=== PATIENT | male | born 1970 | race Two or more races ===

== ENCOUNTER → 2016-09-12 | Outpatient (CLI) | payer BC ==
--- NOTE | 2016-09-12 11:37 | US ---
EXAMINATION TYPE: US liver DATE OF EXAM: 09/12/2016 11:03 AM COMPARISON: NONE CLINICAL HISTORY: R94.5 ABN LIVER FUNCTIONS. Abnormal LFT's, pt has no other complaints at this time EXAM MEASUREMENTS: Liver Length: 15.7 cm Gallbladder Wall: 0.5 cm CBD: 0.4 cm Right Kidney: 10.0 x 6.2 x 5.3 cm Pancreas: Difficult to visualize due to overlying bowel gas Liver: Heterogeneous, difficult to penetrate, bright in echotexture Gallbladder: Appeared somewhat contracted with thickened wall, pt states he is NPO Evidence for sonographic Martinez's sign: No CBD: wnl Right Kidney: wnl The pancreas is poorly visualized. The liver is normal in size but echogenic and may be fatty infiltrated. The gallbladder appears contracted. The gallbladder wall appears thickened measuring 5.3 mm. The dist al common hepatic duct measures 4 mm. The right kidney is normal. The intrahepatic IVC is unremarkable. IMPRESSION: 1. PROBABLE FATTY INFILTRATION OF THE LIVER. 2. CONTRACTED, THICK-WALLED GALLBLADDER. THE PATIENT CLAIMED HE WAS NOTHING BY MOUTH.
== END | disposition home or self-care (01) ==
LOC: RADUSWWP 10:46
PROVIDERS: ATTEND Internal Medicine
DX: K82.9 Disease of gallbladder, unspecified (principal)
CPT/HCPCS: 76705

== ENCOUNTER 2019-07-12 15:51 | Inpatient (IN) | payer BC, OTHER ==
[2019-07-12] MEDS ORDERED: THIAMINE 100 MG/ML 2 ML VIAL IM STA (17:36)
[2019-07-12 18:38] LABS: Basophils # (A) 0.3 k/uL (0-0.2); Basophils % (A) 5 %; Eosinophils # (A) 0.1 k/uL (0-0.7); Eosinophils % (A) 1 %; HCT 35.1 % (39.0-53.0); HGB 12.3 gm/dL (13.0-17.5); Lymphocytes # (A) 0.1 k/uL (1.0-4.8); Lymphocytes % (A) 2 %; MCH 35.6 pg (25.0-35.0); MCHC 34.9 g/dL (31.0-37.0); MCV 102.1 fL (80.0-100.0); Macrocytosis Slight; Mean Platelet Volume 8.9; Monocytes # (A) 0.7 k/uL (0-1.0); Monocytes % (A) 9 %; Neutrophils # (A) 6.1 k/uL (1.3-7.7); Neutrophils % (A) 81 %; Platelet Count 126 k/uL (150-450); RBC 3.44 m/uL (4.30-5.90); RDW 14.5 % (11.5-15.5); WBC 7.6 k/uL (3.8-10.6)
[2019-07-12 18:47] LABS: ALT 64 U/L (4-49); AST 295 U/L (17-59); African American GFR (CKD) >90 (>60 ml/min/1.73 sqM); Albumin 3.6 g/dL (3.5-5.0); Alkaline Phosphatase 330 U/L (38-126); Anion Gap 18 mmol/L; Blood Urea Nitrogen 7 mg/dL (9-20); Calcium 8.3 mg/dL (8.4-10.2); Carbon Dioxide 27 mmol/L (22-30); Chloride 77 mmol/L (98-107); Glucose 92 mg/dL (74-99); Non-African American GFR(CKD) >90 (>60 ml/min/1.73 sqM); Potassium 3.2 mmol/L (3.5-5.1); Sodium 122 mmol/L (137-145); Total Bilirubin 10.4 mg/dL (0.2-1.3); Total Protein 7.4 g/dL (6.3-8.2)
[2019-07-12] MEDS: LORazepam 2 MG/ML INJ IV PRN ×3 (19:40→23:59)
[2019-07-12] MEDS ORDERED: ONDANSETRON 4 MG/2 ML VIAL IVP STA (19:58)
[2019-07-12] MEDS ORDERED: POTASSIUM CHLORIDE ER 10 MEQ TAB.ER.PRT PO STA (19:58)
[2019-07-12] MEDS ORDERED: SODIUM CHLORIDE 0.9% 1,000 ML IV ONE (20:01)
--- NOTE | 2019-07-12 20:06 | ED ---
Recheck HPI - General Source: patient Mode of arrival: wheelchair Limitations: no limitations <Hilda Weir - Last Filed: 07/12/19 20:02> <Daniel York - Last Filed: 07/12/19 21:11> - General Chief Complaint: Recheck/Abnormal Lab/Rx Stated Complaint: Yellow skin/eyes Time Seen by Provider: 07/12/19 17:06 - History of Present Illness Initial Comments: 49yo mouth history of alcohol as an presenting for jaundice x 1 day. Patient is accompanied today by his who states that patient woke up today with karen linton. She states he is an alcoholic and she was concerned that something was off his liver. Patient states he is very nauseous and has had some shakes he has been drinking today he usually drinks back on [place] hard lemonades. Patient denies dizziness, VENEGAS, visual changes hallucinations, chest pain, abdominal pain, shortness of breath, leg or abdominal swelling. Patient upon arrival is obviously jaundice, no acute distress. Did have episode of vomiting in waiting room. (Hilda Weir) - Related Data Home Medications Medication Instructions Recorded Confirmed Fenofibrate Nanocrystallized 145 mg PO DAILY 07/12/19 07/12/19 [Fenofibrate] Hydrochlorothiazide 25 mg PO DAILY 07/12/19 07/12/19 Lisinopril [Prinivil] 10 mg PO DAILY 07/12/19 07/12/19 Metoprolol Succinate [Toprol XL] 100 mg PO DAILY 07/12/19 07/12/19 Allergies Allergy/AdvReac Type Severity Reaction Status Date / Time Penicillins Allergy Unknown Verified 07/12/19 15:59 Childhood Review of Systems ROS Other: All systems not noted in ROS Statement are negative. <Hilda Weir - Last Filed: 07/12/19 20:02> ROS Other: All systems not noted in ROS Statement are negative. <Danile York - Last Filed: 07/12/19 21:11> ROS Statement: Those systems with pertinent positive or pertinent negative responses have been documented in the HPI. Past Medical History Past Medical History: Hyperlipidemia, Hypertension History of Any Multi-Drug Resistant Organisms: None Reported Past Surgical History: No Surgical Hx Reported Past Psychological History: No Psychological Hx Reported Smoking Status: Former smoker Past Alcohol Use History: Daily, Heavy Past Drug Use History: None Reported <Hilda Weir - Last Filed: 07/12/19 20:02> General Exam Limitations: no limitations <Hilda Weir - Last Filed: 07/12/19 20:02> - General Exam Comments Initial Comments: General: The patient is awake and alert, in no distress Eye: +3 mm pupils are equal, round and reactive to light, extra-ocular movements are intact. No nystagmus. There is normal conjunctiva bilaterally. icterus. Ears, nose, mouth and throat: There are moist mucous membranes and no oral lesions. Neck: The neck is supple, there is no tenderness or JVD. Cardiovascular: There is a regular rate and rhythm. No murmur, rub or gallop is appreciated. Respiratory: Lungs are clear to auscultation, respirations are non-labored, breath sounds are equal. No wheezes, stridor, rales, or rhonchi. Gastrointestinal: Soft, non-distended, non-tender abdomen without masses. Liver enlargement noted. There is no rebound or guarding present. No CVA tenderness. Bowel sounds are unremarkable. Musculoskeletal: Normal ROM, no tenderness. Strength 5/5. Sensation intact. Radial pulses equal bilaterally 2+. Neurological: A&O x 3. CN II-XII intact, There are no obvious motor or sensory deficits. Coordination appears grossly intact. Speech is normal. Slight tremor noted, very mild of the UE b/l. Skin: Skin is warm and dry and no rashes or lesions are noted. jaundice of the skin noted Psychiatric: Cooperative, appropriate mood & affect, normal judgment. (Hilda Weir) Course Vital Signs 07/12/19 07/12/19 07/12/19 15:56 20:26 20:54 Temperature 98.4 F Pulse Rate 109 H 98 99 Respiratory 16 18 20 Rate Blood Pressure 134/95 125/87 138/89 O2 Sat by Pulse 99 97 98 Oximetry Medical Decision Making - Lab Data Result diagrams: 07/12/19 18:20 07/12/19 18:20 <Hilda Weir - Last Filed: 07/12/19 20:02> - Lab Data Result diagrams: 07/12/19 18:20 07/12/19 18:20 <Daniel York - Last Filed: 07/12/19 21:11> - Medical Decision Making 50yo presenting for yellowing of eye. Bilirubin elevated. Low sodium. Nausea. Patient case discussed with Dr. York at 20:05 he requested additional orders, and will make final patient disposition. Updated family with plan. (DestinHilda Oscar) PA attestation: I, Dr. Daniel York, personally saw and examined the patient. I have reviewed and agree with the resident/PA findings, including all diagnostic interpretations and treatment plans as written unless otherwise stated. I was present for the oates portions of any procedures performed and inclusive time noted for any critical care statement. Patient was seen and evaluated along with physician foundation assistant Nataliya Delacruz. Briefly, patient is a 49-year-old male presents to the emergency department for acute onset icterus. Patient states he is a daily alcohol abuser. He drinks large amounts of hard liquor daily. Patient hemodynamically stable upon arrival except for some mild tachycardia. Laboratory evaluation was reviewed. Patient does have some signs of nutritional deficiency as evidence of macrocytosis. Coag panel shows INR 1.2. No signs of overt liver failure. Sodium is hyponatremic 122. Is likely some degree of potomania. Magnesium is significantly low at 0.7. Patient given IV magnesium. Bilirubin is elevated to 10.1. With the predilection of direct bilirubin elevation. A call is 90. Patient right away at bedside shows degrees of withdrawal and/or asterixis. Discussed patient case with Dr. thomas who requests that patient be admitted to tense care unit. Discussed patient case with Dr. Barkley who is willing to accept patient to the ICU. Patient ordered for lactulose. He is reevaluated at bedside and found to be in stable medical condition. (Daniel York) - Lab Data Lab Results 07/12/19 07/12/19 07/12/19 Range/Units 18:20 18:20 18:20 WBC 7.6 (3.8-10.6) k/uL RBC 3.44 L (4.30-5.90) m/uL Hgb 12.3 L (13.0-17.5) gm/dL Hct 35.1 L (39.0-53.0) % MCV 102.1 H (80.0-100.0) fL MCH 35.6 H (25.0-35.0) pg MCHC 34.9 (31.0-37.0) g/dL RDW 14.5 (11.5-15.5) % Plt Count 126 L (150-450) k/uL Neutrophils % 81 % Lymphocytes % 2 % Monocytes % 9 % Eosinophils % 1 % Basophils % 5 % Neutrophils # 6.1 (1.3-7.7) k/uL Lymphocytes # 0.1 L (1.0-4.8) k/uL Monocytes # 0.7 (0-1.0) k/uL Eosinophils # 0.1 (0-0.7) k/uL Basophils # 0.3 H (0-0.2) k/uL Macrocytosis Slight PT (9.0-12.0) sec INR (<1.2) APTT (22.0-30.0) sec Sodium 122 L (137-145) mmol/L Potassium 3.2 L (3.5-5.1) mmol/L Chloride 77 L (98-107) mmol/L Carbon Dioxide 27 (22-30) mmol/L Anion Gap 18 mmol/L BUN 7 L (9-20) mg/dL Creatinine 0.69 (0.66-1.25) mg/dL Est GFR (CKD-EPI)AfAm >90 (>60 ml/min/1.73 sqM) Est GFR (CKD-EPI)NonAf >90 (>60 ml/min/1.73 sqM) Glucose 92 (74-99) mg/dL Calcium 8.3 L (8.4-10.2) mg/dL Phosphorus 3.0 (2.5-4.5) mg/dL Magnesium 0.7 L* (1.6-2.3) mg/dL Total Bilirubin 10.4 H 10.1 H (0.2-1.3) mg/dL Conjugated Bilirubin 4.7 H (0.0-0.3) mg/dL Unconjugated Bilirubin 1.9 H (0.0-1.1) mg/dL Delta Bilirubin 3.5 H (0.0-0.2) mg/dL AST 295 H (17-59) U/L ALT 64 H (4-49) U/L Alkaline Phosphatase 330 H (38-126) U/L Ammonia (<30) umol/L Total Protein 7.4 (6.3-8.2) g/dL Albumin 3.6 (3.5-5.0) g/dL Lipase 137 (23-300) U/L Serum Alcohol mg/dL Hepatitis A IgM Ab 07/12/19 07/12/19 07/12/19 Range/Units 18:20 18:20 19:50 WBC (3.8-10.6) k/uL RBC (4.30-5.90) m/uL Hgb (13.0-17.5) gm/dL Hct (39.0-53.0) % MCV (80.0-100.0) fL MCH (25.0-35.0) pg MCHC (31.0-37.0) g/dL RDW (11.5-15.5) % Plt Count (150-450) k/uL Neutrophils % % Lymphocytes % % Monocytes % % Eosinophils % % Basophils % % Neutrophils # (1.3-7.7) k/uL Lymphocytes # (1.0-4.8) k/uL Monocytes # (0-1.0) k/uL Eosinophils # (0-0.7) k/uL Basophils # (0-0.2) k/uL Macrocytosis PT 12.2 H (9.0-12.0) sec INR 1.2 H (<1.2) APTT 25.4 (22.0-30.0) sec Sodium (137-145) mmol/L Potassium (3.5-5.1) mmol/L Chloride (98-107) mmol/L Carbon Dioxide (22-30) mmol/L Anion Gap mmol/L BUN (9-20) mg/dL Creatinine (0.66-1.25) mg/dL Est GFR (CKD-EPI)AfAm (>60 ml/min/1.73 sqM) Est GFR (CKD-EPI)NonAf (>60 ml/min/1.73 sqM) Glucose (74-99) mg/dL Calcium (8.4-10.2) mg/dL Phosphorus (2.5-4.5) mg/dL Magnesium (1.6-2.3) mg/dL Total Bilirubin (0.2-1.3) mg/dL Conjugated Bilirubin (0.0-0.3) mg/dL Unconjugated Bilirubin (0.0-1.1) mg/dL Delta Bilirubin (0.0-0.2) mg/dL AST (17-59) U/L ALT (4-49) U/L Alkaline Phosphatase (38-126) U/L Ammonia 185 H (<30) umol/L Total Protein (6.3-8.2) g/dL Albumin (3.5-5.0) g/dL Lipase (23-300) U/L Serum Alcohol 90 mg/dL Hepatitis A IgM Ab 07/12/19 Range/Units 19:59 WBC (3.8-10.6) k/uL RBC (4.30-5.90) m/uL Hgb (13.0-17.5) gm/dL Hct (39.0-53.0) % MCV (80.0-100.0) fL MCH (25.0-35.0) pg MCHC (31.0-37.0) g/dL RDW (11.5-15.5) % Plt Count (150-450) k/uL Neutrophils % % Lymphocytes % % Monocytes % % Eosinophils % % Basophils % % Neutrophils # (1.3-7.7) k/uL Lymphocytes # (1.0-4.8) k/uL Monocytes # (0-1.0) k/uL Eosinophils # (0-0.7) k/uL Basophils # (0-0.2) k/uL Macrocytosis PT (9.0-12.0) sec INR (<1.2) APTT (22.0-30.0) sec Sodium (137-145) mmol/L Potassium (3.5-5.1) mmol/L Chloride (98-107) mmol/L Carbon Dioxide (22-30) mmol/L Anion Gap mmol/L BUN (9-20) mg/dL Creatinine (0.66-1.25) mg/dL Est GFR (CKD-EPI)AfAm (>60 ml/min/1.73 sqM) Est GFR (CKD-EPI)NonAf (>60 ml/min/1.73 sqM) Glucose (74-99) mg/dL Calcium (8.4-10.2) mg/dL Phosphorus (2.5-4.5) mg/dL Magnesium (1.6-2.3) mg/dL Total Bilirubin (0.2-1.3) mg/dL Conjugated Bilirubin (0.0-0.3) mg/dL Unconjugated Bilirubin (0.0-1.1) mg/dL Delta Bilirubin (0.0-0.2) mg/dL AST (17-59) U/L ALT (4-49) U/L Alkaline Phosphatase (38-126) U/L Ammonia (<30) umol/L Total Protein (6.3-8.2) g/dL Albumin (3.5-5.0) g/dL Lipase (23-300) U/L Serum Alcohol mg/dL Hepatitis A IgM Ab NEGATIVE Disposition <Hilda Weir - Last Filed: 07/12/19 20:02> Decision Time: 21:11 <Daniel York - Last Filed: 07/12/19 21:11> Clinical Impression: Hepatic failure Disposition: ADMITTED IP TO THIS HOSP Condition: Critical Referrals: Vonda Boles MD [Primary Care Provider] - 1-2 days
--- NOTE | 2019-07-12 20:22 | US ---
EXAMINATION TYPE: US abdomen limited DATE OF EXAM: 07/12/2019 COMPARISON: US 2017 CLINICAL HISTORY: gallbladder. ATTN gallbladder per order. Jaundice. HTN, Hyperlipidemia. EXAM MEASUREMENTS: Liver Length: 16.7 cm Gallbladder Wall: 0.39 cm CBD: 0.37 cm Right Kidney: 10.6 x 5.9 x 5.9 cm Limited due to gas and body habitus. Pancreas: Not visualized due to overlying bowel gas. Liver: Appears to have an increased echogenicity. Difficult to penetrate. Limited. Gallbladder: Measures 8.8 cm in length. Wall measures upper limits of normal to slightly thickened. Fold seen near fundus. Evidence for sonographic Martinez's sign: No CBD: Appears wnl. Right Kidney: No hydronephrosis or masses seen. Appears lobulated. IMPRESSION: No gallstones or dilated ducts. Diffuse fatty infiltration of the liver.
[2019-07-12] MEDS: THIAMINE 100 MG TAB PO SCH (20:26)
[2019-07-12 20:29] LABS: Bilirubin, Conjugated 4.7 mg/dL (0.0-0.3); Bilirubin, Delta 3.5 mg/dL (0.0-0.2); Bilirubin,Unconjugated 1.9 mg/dL (0.0-1.1); Total Bilirubin 10.1 mg/dL (0.2-1.3)
[2019-07-12 20:32] LABS: INR 1.2 (<1.2); Partial Thromboplastin Time 25.4 sec (22.0-30.0); Prothrombin Time 12.2 sec (9.0-12.0)
[2019-07-12 20:37] LABS: Magnesium 0.7 mg/dL (1.6-2.3)
[2019-07-12 20:54] LABS: Hepatitis A Antibody IgM NEGATIVE
[2019-07-12] MEDS: SODIUM CHLORIDE 0.9% 1,000 ML IV SCH (20:59)
[2019-07-12] MEDS ORDERED: NALOXONE 0.4 MG/ML 1 ML VIAL IV PRN (21:06)
[2019-07-12] MEDS ORDERED: LACTULOSE 20 GM/30 ML CUP PO ONE (21:10)
[2019-07-12] MEDS: MAGNESIUM SULFATE-D5W PMX 1 GM in DEXTROSE/WATER 1 100ML.BAG IVPB SCH ×2 (21:38→23:06)
[2019-07-12 22:15] LABS: Glucose,Whole Blood 96 mg/dL (75-99)
[2019-07-13] MEDS: LORazepam 2 MG/ML INJ IV PRN ×6 (00:31→16:11)
[2019-07-13] MEDS: ONDANSETRON 4 MG/2 ML VIAL IVP PRN ×2 (01:47→08:33)
[2019-07-13 03:24] LABS: HCT 32.7 % (39.0-53.0); HGB 11.8 gm/dL (13.0-17.5); MCH 37.1 pg (25.0-35.0); MCHC 36.1 g/dL (31.0-37.0); MCV 102.7 fL (80.0-100.0); Macrocytosis Slight; Mean Platelet Volume 9.1; Platelet Count 129 k/uL (150-450); RBC 3.18 m/uL (4.30-5.90); RDW 14.9 % (11.5-15.5); WBC 10.1 k/uL (3.8-10.6)
[2019-07-13 03:36] LABS: African American GFR (CKD) >90 (>60 ml/min/1.73 sqM); Anion Gap 12 mmol/L; Blood Urea Nitrogen 7 mg/dL (9-20); Calcium 7.9 mg/dL (8.4-10.2); Carbon Dioxide 29 mmol/L (22-30); Chloride 81 mmol/L (98-107); Glucose 114 mg/dL (74-99); Magnesium 1.3 mg/dL (1.6-2.3); Non-African American GFR(CKD) >90 (>60 ml/min/1.73 sqM); Potassium 3.4 mmol/L (3.5-5.1); Sodium 122 mmol/L (137-145)
[2019-07-13] MEDS ORDERED: Potassium Replacement Protocol 1 EACH MISC MISCELLANE PRN (03:45)
[2019-07-13] MEDS ORDERED: Magnesium Replacement Protocol 1 EACH MISC MISCELLANE PRN (03:46)
[2019-07-13] MEDS: MAGNESIUM SULFATE-D5W PMX 1 GM in DEXTROSE/WATER 1 100ML.BAG IVPB SCH ×3 (04:31→06:27)
[2019-07-13] MEDS: POTASSIUM CHLORIDE 10 MEQ in WATER FOR INJECTION 1 100ML.BAG IVPB SCH ×4 (04:31→07:44)
[2019-07-13 04:49] LABS: Hepatitis B Core IgM Non-Reactive (Non-Reactive); Hepatitis B Surface Antigen Non-Reactive (Non-Reactive); Hepatitis C IgG Antibody Non-Reactive (Non-Reactive)
[2019-07-13] MEDS: SODIUM CHLORIDE 0.9% 1,000 ML IV SCH ×2 (05:38→16:11)
[2019-07-13] MEDS: THIAMINE 100 MG TAB PO SCH ×2 (08:27→18:32)
[2019-07-13] MEDS: METOPROLOL SUCCINATE (ER) 100 MG TAB.ER.24H PO SCH (08:44)
[2019-07-13] MEDS ORDERED: LACTULOSE 20 GM/30 ML CUP PO SCH ×2 (09:00→16:00)
[2019-07-13] MEDS ORDERED: LISINOPRIL 10 MG TAB PO SCH (09:00)
[2019-07-13] MEDS ORDERED: PANTOPRAZOLE 40 MG/10 ML VIAL IV SCH (09:00)
--- NOTE | 2019-07-13 09:09 | XR ---
EXAMINATION TYPE: XR chest 1V portable DATE OF EXAM: 07/13/2019 COMPARISON: NONE HISTORY: Cough TECHNIQUE: Single frontal view of the chest is obtained. FINDINGS: There is no focal air space opacity, pleural effusion, or pneumothorax seen. The cardiac silhouette size is within normal limits. The osseous structures are intact. Patient rotation noted. No overt failure. IMPRESSION: No acute process.
--- NOTE | 2019-07-13 09:51 | P.CNPUL ---
History of Present Illness Consult date: 07/13/19 Reason for consult: dyspnea Chief complaint: Jaundice, nausea, tremors History of present illness: 49-year-old white male patient with past medical history of hypertension, hyperlipidemia, former smoker, daily EtOH use, who presents the emergency department on 05/11/2020 with complaints of one day history of generalized jaundice, nausea, and tremors. Apparently his last drink was on the day of his presentation on 07/12/2019. Patient denied any shortness of breath, denied any chest pain, no abdominal pain, no vomiting, no leg lower abdominal swelling, no hallucinations no headaches or dizziness. On presentation patient is obviously jaundiced. Abdominal ultrasound showed no gallstones or dilated duct, diffuse fatty infiltration of the liver. Lab work showed normal white count at 7.6, hemoglobin is 12.3, INR is 1.2, sodium is 122, potassium is 3.2, chloride is 77 and a CO2 is 27, BUN is 7 creatinine 0.69, magnesium is 0.7, total bilirubin is 10.1, AST is 295, ALT 64, alkaline phosphatase 303 at 30 ammonia level is 185 serum alcohol was 90, serum lipase was normal at 137, hepatitis panel was negative. Patient is tachycardic with a rate of 135-140 BPM, in sinus mechanism, she was seen in the intensive care unit this morning, he was quite confused and delirious, but looks to be in no acute distress, he is on 2 L of oxygen with a pulse ox of 94%, he is afebrile. He is receiving normal saline at a rate of 100 ML per hour. Patient has been started on thiamine replacement, Ativan for CIWA protocol, electrolytes are being replaced. Review of Systems All systems: negative Constitutional: Reports weakness, Denies chills, Denies fever Eyes: denies blurred vision, denies pain Ears, nose, mouth and throat: Denies headache, Denies sore throat Cardiovascular: Denies chest pain, Denies shortness of breath Respiratory: Reports dyspnea, Denies cough Gastrointestinal: Reports nausea, Denies abdominal pain, Denies diarrhea, Denies vomiting Musculoskeletal: Denies myalgias Integumentary: Denies pruritus, Denies rash Neurological: Reports weakness, Denies numbness Psychiatric: Denies anxiety, Denies depression Endocrine: Denies fatigue, Denies weight change Past Medical History Past Medical History: Hyperlipidemia, Hypertension History of Any Multi-Drug Resistant Organisms: None Reported Past Surgical History: No Surgical Hx Reported Past Anesthesia/Blood Transfusion Reactions: No Reported Reaction Past Psychological History: No Psychological Hx Reported Smoking Status: Former smoker Past Alcohol Use History: Daily, Heavy Past Drug Use History: None Reported Medications and Allergies Home Medications Medication Instructions Recorded Confirmed Type Fenofibrate Nanocrystallized 145 mg PO DAILY 07/12/19 07/12/19 History [Fenofibrate] Hydrochlorothiazide 25 mg PO DAILY 07/12/19 07/12/19 History Lisinopril [Prinivil] 10 mg PO DAILY 07/12/19 07/12/19 History Metoprolol Succinate [Toprol XL] 100 mg PO DAILY 07/12/19 07/12/19 History Allergies Allergy/AdvReac Type Severity Reaction Status Date / Time Penicillins Allergy Unknown Verified 07/12/19 15:59 Childhood Physical Exam Vitals: Vital Signs Temp Pulse Resp BP Pulse Ox 07/13/19 08:00 98.9 F 142 H 20 131/89 94 L 07/13/19 07:00 135 H 15 151/99 95 07/13/19 06:00 134 H 18 119/74 95 07/13/19 05:00 132 H 19 133/85 96 07/13/19 04:00 99.4 F 128 H 19 122/99 96 07/13/19 03:00 128 H 15 122/88 96 07/13/19 02:00 128 H 12 142/87 97 07/13/19 01:00 140 H 18 150/100 96 07/13/19 00:00 99.4 F 117 H 18 151/102 94 L 07/12/19 23:00 113 H 18 147/100 94 L 07/12/19 22:16 99.2 F 101 H 10 L 137/109 07/12/19 21:58 99.0 F 107 H 20 134/92 07/12/19 21:56 97.7 F 07/12/19 20:54 99 20 138/89 98 07/12/19 20:26 98 18 125/87 97 07/12/19 15:56 98.4 F 109 H 16 134/95 99 Intake and Output 07/12/19 07/13/19 07/13/19 22:59 06:59 14:59 Intake Total 100 1300 500 Output Total 700 0 Balance 100 600 500 Intake: IV 200 Potassium Chloride 10 meq 100 In Water For Injection 1 100ml.bag @ 100 mls/hr IVPB Q1HR [facility] Rx#: [id number] Sodium Chloride 0.9% 1, 100 000 ml @ 100 mls/hr IV . Q10H [facility] Rx#:[id number] Intake, IV Titration 100 1300 300 Amount Magnesium Sulfate-D5w Pmx 100 1 gm In Dextrose/Water 1 100ml.bag @ 100 mls/hr IVPB Q1H [facility] Rx#: [id number] Magnesium Sulfate-D5w Pmx 200 100 1 gm In Dextrose/Water 1 100ml.bag @ 100 mls/hr IVPB Q1H [facility] Rx#: [id number] Potassium Chloride 10 meq 200 100 In Water For Injection 1 100ml.bag @ 100 mls/hr IVPB Q1HR [facility] Rx#: [id number] Sodium Chloride 0.9% 1, 100 800 100 000 ml @ 100 mls/hr IV . Q10H [facility] Rx#:[id number] Output: Urine 700 0 Other: # Voids 1 0 Weight 74.843 kg 75.3 kg GENERAL EXAM: Somnolent but arousable, at times restless, confused, delirious 49-year-old white male, who is obviously jaundiced comfortable in no apparent distress. HEAD: Normocephalic/atraumatic. EYES: Normal reaction of pupils, equal size. Conjunctiva pink, sclera white. NOSE: Clear with pink turbinates. THROAT: No erythema or exudates. NECK: No masses, no JVD, no thyroid enlargement, no adenopathy. CHEST: No chest wall deformity. Symmetrical expansion. LUNGS: Equal air entry with no crackles, wheeze, rhonchi or dullness. CVS: Regular rate and rhythm, normal S1 and S2, no gallops, no murmurs, no rubs. he is tachycardic with a rate of 130s to 140 BPM ABDOMEN: Soft, nontender. No hepatosplenomegaly, normal bowel sounds, no gu arding or rigidity. EXTREMITIES: No clubbing, no edema, no cyanosis, 2+ pulses and upper and lower e xtremities. MUSCULOSKELETAL: Muscle strength and tone normal. SPINE: No scoliosis or deformity SKIN: No rashes CENTRAL NERVOUS SYSTEM: Somnolent, arousable answering simple questions but quite confused, oriented to self and place. No focal deficits, tone is normal in all 4 extremities. Results - Laboratory Findings CBC and BMP: 07/13/19 03:16 07/13/19 03:16 PT/INR, D-dimer PT 12.2 sec (9.0-12.0) H 07/12/19 18:20 INR 1.2 (<1.2) H 07/12/19 18:20 Abnormal lab findings: Abnormal Labs 07/12/19 07/12/19 07/12/19 18:20 18:20 18:20 RBC 3.44 L Hgb 12.3 L Hct 35.1 L MCV 102.1 H MCH 35.6 H Plt Count 126 L Lymphocytes # 0.1 L Basophils # 0.3 H PT INR Sodium 122 L Potassium 3.2 L Chloride 77 L BUN 7 L Glucose Calcium 8.3 L Magnesium 0.7 L* Total Bilirubin 10.4 H 10.1 H Conjugated Bilirubin 4.7 H Unconjugated Bilirubin 1.9 H Delta Bilirubin 3.5 H AST 295 H ALT 64 H Alkaline Phosphatase 330 H Ammonia 07/12/19 07/12/19 07/13/19 18:20 18:20 03:16 RBC 3.18 L Hgb 11.8 L Hct 32.7 L MCV 102.7 H MCH 37.1 H Plt Count 129 L Lymphocytes # Basophils # PT 12.2 H INR 1.2 H Sodium Potassium Chloride BUN Glucose Calcium Magnesium Total Bilirubin Conjugated Bilirubin Unconjugated Bilirubin Delta Bilirubin AST ALT Alkaline Phosphatase Ammonia 185 H 07/13/19 03:16 RBC Hgb Hct MCV MCH Plt Count Lymphocytes # Basophils # PT INR Sodium 122 L Potassium 3.4 L Chloride 81 L BUN 7 L Glucose 114 H Calcium 7.9 L Magnesium 1.3 L Total Bilirubin Conjugated Bilirubin Unconjugated Bilirubin Delta Bilirubin AST ALT Alkaline Phosphatase Ammonia - Diagnostic Findings Chest x-ray: report reviewed, image reviewed Assessment and Plan Plan: Assessment: #1. Acute hepatic encephalopathy related to EtOH liver disease #2. Jaundice, hyperbilirubinemia related to alcoholic liver disease #3. Weakness, nausea related to the above #4. Hypochloremic hyponatremia, related to chronic alcoholism, and a component of hypovolemia. Admission serum sodium was 122 #5. Hypokalemia, admission serum potassium is 3.2 #6. Hypomagnesemia replaced per protocol, admission magnesium was 0.7 #7. Chronic EtOH use last drink on the day of admission of 07/12/2019 #8. Hypertension #9. Hyperlipidemia #10. Elevated liver transaminases related to alcoholic liver disease #11. Increased ammonia level, serum ammonia was 185, the patient on lactulose Plan: Continue IV fluids at 100, continue Ativan per [facility] protocol. We'll start lactulose at 20 gm 3 times daily. Continue monitoring for worsening signs of delirium, continue thiamine replacement continue aspiration precautions maintaining safety precautions. Correct serum potassium and serum magnesium per protocol. Will restart metoprolol, will hold off on patient's other antihypert ensives including lisinopril and diuretics, GI service as outpatient has been requested in view of elevated liver transaminases. He will be monitored in the intensive care unit. Obtain a chest x-ray. We will add IV Rocephin. Repeat labs, repeat ammonia level in the morning I performed a history & physical examination of the patient and discussed their management with my nurse practitioner, Preethi Klein. I reviewed the nurse practitioner's note and agree with the documented findings and plan of care. Lung sounds are positive for clear breath sounds. The findings and the impression was discussed with the patient. I attest to the documentation by the nurse practitioner. Time with Patient: Greater than 30
--- NOTE | 2019-07-13 09:57 | P.HPIM ---
History of Present Illness H&P Date: 07/13/19 Chief Complaint: EtOH jaundice This is a 49-year-old male patient who presented to the ER with complaints of yellowing of skin and eyes. Patient is known past medical history of EtOH drinking approximately a pint of vodka plus beer daily. Patient's urged patient to come to ER due to presentation of jaundice 1 day patient was noted to have yellowing of his eyes and she was concerned about his liver. Additional medical history includes hyperlipidemia hypertension and ex-smoker. Abdominal ultrasound completed showing no gallstones or dilated ducts diffuse fatty infiltration of liver. Upon admission AST elevated to 95, ALT 64 alkaline phosphatase 3:30 total bilirubin 10.1 and ammonia level 185. Patient has been started on lactulose. GI services have been consulted. Patient's electrolytes also significantly impaired. Sodium low at 122, potassium 3.2, magnesium 0.7. Replacement per protocol patient currently on normal saline. Patient also currently in EtOH withdrawals. Patient has been admitted to the intensive care unit critical care services are following. Heart rate elevated secondary to withdrawal. CIWA protocol has been ordered. GI services have been consulted for Liver failure. At this time patient is resting comfortably in bed shakiness and withdrawal symptoms noted. Patient is alert and oriented 2. Patient able to follow commands. Patient denies chest pain. Patient denies shortness of breath. Patient denies any urinary burning or frequency. Review of Systems Please refer to HPI otherwise unremarkable Past Medical History Past Medical History: Hyperlipidemia, Hypertension History of Any Multi-Drug Resistant Organisms: None Reported Past Surgical History: No Surgical Hx Reported Past Anesthesia/Blood Transfusion Reactions: No Reported Reaction Past Psychological History: No Psychological Hx Reported Smoking Status: Former smoker Past Alcohol Use History: Daily, Heavy Past Drug Use History: None Reported Medications and Allergies Home Medications Medication Instructions Recorded Confirmed Type Fenofibrate Nanocrystallized 145 mg PO DAILY 07/12/19 07/12/19 History [Fenofibrate] Hydrochlorothiazide 25 mg PO DAILY 07/12/19 07/12/19 History Lisinopril [Prinivil] 10 mg PO DAILY 07/12/19 07/12/19 History Metoprolol Succinate [Toprol XL] 100 mg PO DAILY 07/12/19 07/12/19 History Allergies Allergy/AdvReac Type Severity Reaction Status Date / Time Penicillins Allergy Unknown Verified 07/12/19 15:59 Childhood Physical Exam Vitals: Vital Signs Temp Pulse Resp BP Pulse Ox 07/13/19 09:00 138 H 20 121/82 96 07/13/19 08:00 98.9 F 142 H 20 131/89 94 L 07/13/19 07:00 135 H 15 151/99 95 07/13/19 06:00 134 H 18 119/74 95 07/13/19 05:00 132 H 19 133/85 96 07/13/19 04:00 99.4 F 128 H 19 122/99 96 07/13/19 03:00 128 H 15 122/88 96 07/13/19 02:00 128 H 12 142/87 97 07/13/19 01:00 140 H 18 150/100 96 07/13/19 00:00 99.4 F 117 H 18 151/102 94 L 07/12/19 23:00 113 H 18 147/100 94 L 07/12/19 22:16 99.2 F 101 H 10 L 137/109 07/12/19 21:58 99.0 F 107 H 20 134/92 07/12/19 21:56 97.7 F 07/12/19 20:54 99 20 138/89 98 07/12/19 20:26 98 18 125/87 97 07/12/19 15:56 98.4 F 109 H 16 134/95 99 Intake and Output 07/12/19 07/13/19 07/13/19 22:59 06:59 14:59 Intake Total 100 1300 600 Output Total 700 0 Balance 100 600 600 Intake: IV 300 Potassium Chloride 10 meq 100 In Water For Injection 1 100ml.bag @ 100 mls/hr IVPB Q1HR [facility] Rx#: [id number] Sodium Chloride 0.9% 1, 200 000 ml @ 100 mls/hr IV . Q10H [facility] Rx#:[id number] Intake, IV Titration 100 1300 300 Amount Magnesium Sulfate-D5w Pmx 100 1 gm In Dextrose/Water 1 100ml.bag @ 100 mls/hr IVPB Q1H [facility] Rx#: [id number] Magnesium Sulfate-D5w Pmx 200 100 1 gm In Dextrose/Water 1 100ml.bag @ 100 mls/hr IVPB Q1H [facility] Rx#: [id number] Potassium Chloride 10 meq 200 100 In Water For Injection 1 100ml.bag @ 100 mls/hr IVPB Q1HR [facility] Rx#: [id number] Sodium Chloride 0.9% 1, 100 800 100 000 ml @ 100 mls/hr IV . Q10H [facility] Rx#:[id number] Output: Urine 700 0 Other: # Voids 1 0 Weight 74.843 kg 75.3 kg Head normocephalic. Neck supple Lungs clear to auscultation bilaterally no wheezing or crackles Heart regular rate and rhythm S1-S2, no rub or gallop Abdomen is soft nontender nondistended positive bowel sounds no hepatosplenomegaly Extremities no edema Neuro alert and orientated to 2 Bilateral jaundice noted to eyes and skin Results CBC & Chem 7: 07/13/19 03:16 07/13/19 03:16 Labs: Abnormal Lab Results - Last 24 Hours (Table) 07/12/19 07/12/19 07/12/19 Range/Units 18:20 18:20 18:20 RBC 3.44 L (4.30-5.90) m/uL Hgb 12.3 L (13.0-17.5) gm/dL Hct 35.1 L (39.0-53.0) % MCV 102.1 H (80.0-100.0) fL MCH 35.6 H (25.0-35.0) pg Plt Count 126 L (150-450) k/uL Lymphocytes # 0.1 L (1.0-4.8) k/uL Basophils # 0.3 H (0-0.2) k/uL PT (9.0-12.0) sec INR (<1.2) Sodium 122 L (137-145) mmol/L Potassium 3.2 L (3.5-5.1) mmol/L Chloride 77 L (98-107) mmol/L BUN 7 L (9-20) mg/dL Glucose (74-99) mg/dL Calcium 8.3 L (8.4-10.2) mg/dL Magnesium 0.7 L* (1.6-2.3) mg/dL Total Bilirubin 10.4 H 10.1 H (0.2-1.3) mg/dL Conjugated Bilirubin 4.7 H (0.0-0.3) mg/dL Unconjugated Bilirubin 1.9 H (0.0-1.1) mg/dL Delta Bilirubin 3.5 H (0.0-0.2) mg/dL AST 295 H (17-59) U/L ALT 64 H (4-49) U/L Alkaline Phosphatase 330 H (38-126) U/L Ammonia (<30) umol/L 07/12/19 07/12/19 07/13/19 Range/Units 18:20 18:20 03:16 RBC 3.18 L (4.30-5.90) m/uL Hgb 11.8 L (13.0-17.5) gm/dL Hct 32.7 L (39.0-53.0) % MCV 102.7 H (80.0-100.0) fL MCH 37.1 H (25.0-35.0) pg Plt Count 129 L (150-450) k/uL Lymphocytes # (1.0-4.8) k/uL Basophils # (0-0.2) k/uL PT 12.2 H (9.0-12.0) sec INR 1.2 H (<1.2) Sodium (137-145) mmol/L Potassium (3.5-5.1) mmol/L Chloride (98-107) mmol/L BUN (9-20) mg/dL Glucose (74-99) mg/dL Calcium (8.4-10.2) mg/dL Magnesium (1.6-2.3) mg/dL Total Bilirubin (0.2-1.3) mg/dL Conjugated Bilirubin (0.0-0.3) mg/dL Unconjugated Bilirubin (0.0-1.1) mg/dL Delta Bilirubin (0.0-0.2) mg/dL AST (17-59) U/L ALT (4-49) U/L Alkaline Phosphatase (38-126) U/L Ammonia 185 H (<30) umol/L 07/13/19 Range/Units 03:16 RBC (4.30-5.90) m/uL Hgb (13.0-17.5) gm/dL Hct (39.0-53.0) % MCV (80.0-100.0) fL MCH (25.0-35.0) pg Plt Count (150-450) k/uL Lymphocytes # (1.0-4.8) k/uL Basophils # (0-0.2) k/uL PT (9.0-12.0) sec INR (<1.2) Sodium 122 L (137-145) mmol/L Potassium 3.4 L (3.5-5.1) mmol/L Chloride 81 L (98-107) mmol/L BUN 7 L (9-20) mg/dL Glucose 114 H (74-99) mg/dL Calcium 7.9 L (8.4-10.2) mg/dL Magnesium 1.3 L (1.6-2.3) mg/dL Total Bilirubin (0.2-1.3) mg/dL Conjugated Bilirubin (0.0-0.3) mg/dL Unconjugated Bilirubin (0.0-1.1) mg/dL Delta Bilirubin (0.0-0.2) mg/dL AST (17-59) U/L ALT (4-49) U/L Alkaline Phosphatase (38-126) U/L Ammonia (<30) umol/L Assessment and Plan Assessment: 1. Jaundice secondary to EtOH. Total bilirubin elevated at 10.1 AST to 95 ALT 64 alkaline phosphatase 330. Abdominal ultrasound completed showing no gallstones or dilated ducts. Diffuse fatty infiltration of the liver. GI services have been consulted 2. Elevated ammonia level second to hepatic failure and EtOH. GI services are following patient retained on lactulose 3. EtOH withdrawal. Patient currently on CIWA protocal. 4. Electrolyte imbalance. Replace per protocol 5. Hyponatremia secondary to EtOH. Patient currently maintained on normal saline. Recheck per critical care today at 1600. 6. Tachycardia secondary to alcohol withdrawal. Patient's home dose beta phong resumed. Continue a call withdrawal protocol 7. History of essential hypertension. Patient's home dose of Lopressor resumed. Lisinopril and hydrochlorothiazide currently on hold secondary to electrolyte imbalance DVT prophylaxis Lovenox. GI prophylaxis Protonix Patient currently admitted to the intensive care unit Critical care and GI services following Patient maintained on alcohol withdrawal protocal Time with Patient: Greater than 30 (Greater than 60% of the total time spent in counseling and coordination of care. I performed an examination of the patient and discussed their management with the Nurse Practitioner. I have reviewed the Nurse Practitioner's notes and agree with the documented findings and plan of care)
[2019-07-13] MEDS: RIFAXIMIN 550 MG TABLET PO SCH ×2 (13:30→21:31)
[2019-07-13] MEDS: LACTULOSE 20 GM/30 ML CUP PO SCH ×2 (16:11→21:31)
[2019-07-13 17:00] LABS: African American GFR (CKD) >90 (>60 ml/min/1.73 sqM); Anion Gap 10 mmol/L; Blood Urea Nitrogen 7 mg/dL (9-20); Calcium 7.6 mg/dL (8.4-10.2); Carbon Dioxide 26 mmol/L (22-30); Chloride 86 mmol/L (98-107); Glucose 90 mg/dL (74-99); Non-African American GFR(CKD) >90 (>60 ml/min/1.73 sqM); Potassium 3.6 mmol/L (3.5-5.1); Sodium 122 mmol/L (137-145)
[2019-07-13] MEDS: CALCIUM CARBONATE 500 MG CHEWABLE PO PRN (18:37)
[2019-07-13] MEDS ORDERED: POTASSIUM CHLORIDE ER 20 MEQ TAB.ER PO SCH (20:00)
[2019-07-14] MEDS: SODIUM CHLORIDE 0.9% 1,000 ML IV SCH ×3 (01:00→21:00)
[2019-07-14] MEDS: LORazepam 2 MG/ML INJ IV PRN ×3 (02:06→08:34)
[2019-07-14 05:13] LABS: HCT 31.2 % (39.0-53.0); HGB 10.5 gm/dL (13.0-17.5); MCH 35.8 pg (25.0-35.0); MCHC 33.8 g/dL (31.0-37.0); MCV 105.9 fL (80.0-100.0); Macrocytosis Moderate; Mean Platelet Volume 9.3; Neutrophils % (A) 76 %; Platelet Count 123 k/uL (150-450); RBC 2.95 m/uL (4.30-5.90); RDW 14.5 % (11.5-15.5); WBC 8.6 k/uL (3.8-10.6)
[2019-07-14 05:14] LABS: Basophils # (A) 0.1 k/uL (0-0.2); Basophils % (A) 2 %; Eosinophils # (A) 0.2 k/uL (0-0.7); Eosinophils % (A) 3 %; Lymphocytes # (A) 0.5 k/uL (1.0-4.8); Lymphocytes % (A) 6 %; Monocytes # (A) 0.9 k/uL (0-1.0); Monocytes % (A) 10 %; Neutrophils # (A) 6.6 k/uL (1.3-7.7)
[2019-07-14 05:15] LABS: ALT 40 U/L (4-49); AST 159 U/L (17-59); African American GFR (CKD) >90 (>60 ml/min/1.73 sqM); Albumin 2.7 g/dL (3.5-5.0); Alkaline Phosphatase 261 U/L (38-126); Anion Gap 10 mmol/L; Blood Urea Nitrogen 6 mg/dL (9-20); Calcium 7.7 mg/dL (8.4-10.2); Carbon Dioxide 24 mmol/L (22-30); Chloride 90 mmol/L (98-107); Glucose 79 mg/dL (74-99); Magnesium 1.7 mg/dL (1.6-2.3); Non-African American GFR(CKD) >90 (>60 ml/min/1.73 sqM); Potassium 3.8 mmol/L (3.5-5.1); Sodium 124 mmol/L (137-145); Total Bilirubin 14.1 mg/dL (0.2-1.3); Total Protein 6.1 g/dL (6.3-8.2)
[2019-07-14] MEDS ORDERED: POTASSIUM CHLORIDE ER 20 MEQ TAB.ER PO SCH (06:00)
[2019-07-14] MEDS: MAGNESIUM SULFATE-D5W PMX 1 GM in DEXTROSE/WATER 1 100ML.BAG IVPB SCH ×2 (06:34→08:33)
--- NOTE | 2019-07-14 07:02 | P.CONS ---
History of Present Illness - Reason for Consult Consult date: 07/13/19 Alcoholic hepatitis Requesting physician: Vonda Boles - Chief Complaint Jaundice, weakness - History of Present Illness 49-year-old male with a medical history significant for hypertension and hyperlipidemia who presented to the hospital due to weakness and yellowing of h is skin and eyes. The patient has a significant history of alcohol abuse with daily alcohol use for "years" however she states that over the past 2 months since losing his job he is been drinking 1 pint per day. The patient has been noticing increasing yellowing of his eyes, skin with progressive weakness and presented to the hospital for further evaluation. The patient and his who is bedside denying any exposures, excessive Tylenol use or new medications or prior similar episodes. Ultrasound performed in evaluation showed diffuse fatty infiltrate with no stones or dilated CBD noted. Laboratory evaluation on presentation with significant for an ammonia of 185 with a negative viral hepatitis panel, WBC 10, hemoglobin 11.8, platelet count 129,000, INR 1.2, total bilirubin 10.1, alkaline phosphatase 330 and AST 295 with an ALT of 69. Review of Systems REVIEW OF SYSTEMS: CONSTITUTIONAL: Denies any fevers, chills, weight change but the patient has been increasingly weak and fatigued. CARDIOVASCULAR: Denies any chest pain, palpitations high or low blood pressures RESPIRATORY: Denies any shortness of breath, hemoptysis or cough. GENITOURINARY: No dysuria or hematuria, but patient's urine has been dark. MUSCULOSKELETAL: No weakness reported. SKIN: Denies any new rashes or lesions, or pallor but jaundice noted. PSYCHIATRIC: Denies any depression or anxiety. NEUROLOGY: Denies headache, denies any new focal deficits. EARS/NOSE/THROAT: No recent hearing change, congestion, nasal discharge or sore throat. EYES: No pain in eyes, discharge or change in vision. GASTROINTESTINAL: As per HPI. Past Medical History Past Medical History: Hyperlipidemia, Hypertension History of Any Multi-Drug Resistant Organisms: None Reported Past Surgical History: No Surgical Hx Reported Past Anesthesia/Blood Transfusion Reactions: No Reported Reaction Past Psychological History: No Psychological Hx Reported Smoking Status: Former smoker Past Alcohol Use History: Daily, Heavy Past Drug Use History: None Reported Additional History: Family history: Reviewed with the patient and non contributory to current medical presentation. Medications and Allergies Home Medications Medication Instructions Recorded Confirmed Type Fenofibrate Nanocrystallized 145 mg PO DAILY 07/12/19 07/12/19 History [Fenofibrate] Hydrochlorothiazide 25 mg PO DAILY 07/12/19 07/12/19 History Lisinopril [Prinivil] 10 mg PO DAILY 07/12/19 07/12/19 History Metoprolol Succinate [Toprol XL] 100 mg PO DAILY 07/12/19 07/12/19 History Allergies Allergy/AdvReac Type Severity Reaction Status Date / Time Penicillins Allergy Unknown Verified 07/12/19 15:59 Childhood Physical Exam Vitals: Vital Signs Temp Pulse Resp BP Pulse Ox 07/13/19 21:00 92 15 123/92 96 07/13/19 20:00 98.7 F 92 17 111/72 94 L 07/13/19 19:00 92 16 123/83 97 07/13/19 18:00 93 16 117/79 94 L 07/13/19 17:00 92 18 130/91 93 L 07/13/19 16:00 98.7 F 98 18 115/82 92 L 07/13/19 15:00 98 14 116/83 95 07/13/19 14:00 102 H 16 125/97 93 L 07/13/19 13:00 114 H 16 134/95 96 07/13/19 12:00 100.6 F H 118 H 16 142/98 95 07/13/19 11:00 133 H 15 143/87 96 07/13/19 10:00 138 H 20 144/98 96 07/13/19 09:00 138 H 20 121/82 96 07/13/19 08:00 98.9 F 142 H 20 131/89 94 L 07/13/19 07:00 135 H 15 151/99 95 07/13/19 06:00 134 H 18 119/74 95 07/13/19 05:00 132 H 19 133/85 96 07/13/19 04:00 99.4 F 128 H 19 122/99 96 07/13/19 03:00 128 H 15 122/88 96 07/13/19 02:00 128 H 12 142/87 97 07/13/19 01:00 140 H 18 150/100 96 07/13/19 00:00 99.4 F 117 H 18 151/102 94 L 07/12/19 23:00 113 H 18 147/100 94 L Intake and Output 07/13/19 07/13/19 07/13/19 06:59 14:59 22:59 Intake Total 1300 1100 1000 Output Total 700 240 150 Balance 600 860 850 Intake: IV 800 700 Potassium Chloride 10 meq 100 In Water For Injection 1 100ml.bag @ 100 mls/hr IVPB Q1HR [facility] Rx#: [id number] Sodium Chloride 0.9% 1, 700 700 000 ml @ 100 mls/hr IV . Q10H [facility] Rx#:[id number] Intake, IV Titration 1300 300 Amount Magnesium Sulfate-D5w Pmx 100 1 gm In Dextrose/Water 1 100ml.bag @ 100 mls/hr IVPB Q1H [facility] Rx#: [id number] Magnesium Sulfate-D5w Pmx 200 100 1 gm In Dextrose/Water 1 100ml.bag @ 100 mls/hr IVPB Q1H [facility] Rx#: [id number] Potassium Chloride 10 meq 200 100 In Water For Injection 1 100ml.bag @ 100 mls/hr IVPB Q1HR [facility] Rx#: [id number] Sodium Chloride 0.9% 1, 800 100 000 ml @ 100 mls/hr IV . Q10H [facility] Rx#:[id number] Oral 300 Output: Urine 700 240 150 Other: # Voids 0 1 # Bowel Movements 2 1 Weight 75.3 kg On physical examination, patient appears comfortable in no apparent distress. HEAD: Normocephalic, atraumatic. EYES: Scleral icterus. No conjunctival injection. MOUTH: No lesions, tongue midline. NECK: Trachea midline, no gross abnormalities. CHEST: Clear to auscultation with no wheezing or rhonchi appreciated. HEART: Regular rate and rhythm. ABDOMEN: Soft, nontender to palpation Bowel sounds are positive. No organomegaly. No guarding or rigidity. EXTREMITIES: No pedal edema. SKIN: No rashes, jaundice. NEUROLOGIC: Alert and oriented x3. Patient is tremulous but no asterixis noted. Results CBC & Chem 7: 07/14/19 04:31 07/14/19 04:31 Labs: Abnormal Lab Results - Last 24 Hours (Table) 07/13/19 07/13/19 07/13/19 Range/Units 03:16 03:16 15:54 RBC 3.18 L (4.30-5.90) m/uL Hgb 11.8 L (13.0-17.5) gm/dL Hct 32.7 L (39.0-53.0) % MCV 102.7 H (80.0-100.0) fL MCH 37.1 H (25.0-35.0) pg Plt Count 129 L (150-450) k/uL Sodium 122 L 122 L (137-145) mmol/L Potassium 3.4 L (3.5-5.1) mmol/L Chloride 81 L 86 L (98-107) mmol/L BUN 7 L 7 L (9-20) mg/dL Glucose 114 H (74-99) mg/dL Calcium 7.9 L 7.6 L (8.4-10.2) mg/dL Magnesium 1.3 L (1.6-2.3) mg/dL US - abdomen: report reviewed (No gallstones or dilated ducts but diffuse fatty infiltration on ultrasound of the abdomen) Assessment and Plan (1) Alcoholic hepatitis Narrative/Plan: 49-year-old male with a long-standing history of alcohol abuse, worsened over the past 2 months with 1 pint of alcohol daily who presents with jaundice, sc leral icterus and weakness. Patient found to have elevation in total bilirubin of 10.1, alkaline phosphatase 330, AST 295 and ALT 69 with ultrasound of the abdomen negative for any ductal dilation or gallstones with diffuse fatty infiltration noted highly suggestive of acute alcoholic hepatitis. Current Visit: Yes Status: Acute Code(s): K70.10 - ALCOHOLIC HEPATITIS WITHOUT ASCITES SNOMED Code(s): 898065201 (2) Hepatic encephalopathy Current Visit: Yes Status: Acute Code(s): K72.90 - HEPATIC FAILURE, UNSPECIFIED WITHOUT COMA SNOMED Code(s): 52584991 (3) Alcohol abuse Current Visit: Yes Status: Acute Code(s): F10.10 - ALCOHOL ABUSE, UNCOMPLICATED SNOMED Code(s): 50075787 Plan: Supportive care Okay for diet as tolerated Continue to monitor CBC, CMP and ammonia level Continue to monitor clinically Viral hepatitis panel negative Alcohol abstinence Monitor for signs or symptoms of alcohol withdrawal continue lactulose therapy Rifaximin added Thank you for allowing us to participate in the care of the patient we will continue to follow
[2019-07-14] MEDS: ENOXAPARIN 40 MG/0.4 ML SYRINGE SQ SCH (08:33)
[2019-07-14] MEDS: RIFAXIMIN 550 MG TABLET PO SCH ×2 (08:34→23:03)
[2019-07-14] MEDS: THIAMINE 100 MG TAB PO SCH ×2 (08:34→17:33)
[2019-07-14] MEDS: LACTULOSE 20 GM/30 ML CUP PO SCH ×3 (08:35→23:03)
[2019-07-14] MEDS: MULTIVITAMINS, THERA 1 EACH TAB PO SCH (08:35)
[2019-07-14] MEDS: PANTOPRAZOLE 40 MG TABLET PO SCH (08:35)
--- NOTE | 2019-07-14 09:27 | P.PN ---
Subjective Progress Note Date: 07/14/19 Principal diagnosis: Jaundice, nausea, tremors 49-year-old white male patient with past medical history of hypertension, hyperlipidemia, former smoker, daily EtOH use, who presents the emergency department on 05/11/2020 with complaints of one day history of generalized jaundice, nausea, and tremors. Apparently his last drink was on the day of his presentation on 07/12/2019. Patient denied any shortness of breath, denied any chest pain, no abdominal pain, no vomiting, no leg lower abdominal swelling, no hallucinations no headaches or dizziness. On presentation patient is obviously jaundiced. Abdominal ultrasound showed no gallstones or dilated duct, diffuse fatty infiltration of the liver. Lab work showed normal white count at 7.6, hemoglobin is 12.3, INR is 1.2, sodium is 122, potassium is 3.2, chloride is 77 and a CO2 is 27, BUN is 7 creatinine 0.69, magnesium is 0.7, total bilirubin is 10.1, AST is 295, ALT 64, alkaline phosphatase 303 at 30 ammonia level is 185 serum alcohol was 90, serum lipase was normal at 137, hepatitis panel was negative. Patient is tachycardic with a rate of 135-140 BPM, in sinus mechanism, she was seen in the intensive care unit this morning, he was quite confused and delirious, but looks to be in no acute distress, he is on 2 L of oxygen with a pulse ox of 94%, he is afebrile. He is receiving normal saline at a rate of 100 ML per hour. Patient has been started on thiamine replacement, Ativan for CIWA protocol, electrolytes are being replaced. On 07/14/2019 patient seen in follow-up in the intensive care unit. He remains confused and delirious, restless, but not agitated. Hemodynamically stable, urine pulse ox is 97%, he is afebrile, 0.9 normal saline infusing at a rate of 100 ML per hour. Patient is on empiric antibiotics in the form of Rocephin. No fever or chills. Today's mobile home laborer been reviewed, showing red blood cell count of 8.6, hemoglobin of 10.5, serum sodium is 124, potassium is 3.8, chloride is 90, CO2 is 24, BUN is 6 and creatinine 0.76. Liver enzymes are improving, with AST down to 159, ALT down to 40, and alk phos down to 261. Ammonia level is down to 47. Remains on lactulose. Lung sounds are clear, no abdominal pain. Patient has a safety tech at the bedside, he has required Ativan for withdrawal symptoms. Objective - Vital Signs Vital signs: Vital Signs Temp 97.3 F L 07/14/19 04:00 Pulse 72 07/14/19 08:00 Resp 19 07/14/19 08:00 BP 115/80 07/14/19 08:00 Pulse Ox 97 07/14/19 08:00 Intake & Output 07/13/19 07/14/19 07/14/19 18:59 06:59 18:59 Intake Total 1500 2000 300 Output Total 390 252 0 Balance 1110 1748 300 Weight 75.8 kg Intake: IV 1200 1200 200 Potassium Chloride 10 meq 100 In Water For Injection 1 100ml.bag @ 100 mls/hr IVPB Q1HR [facility] Rx#: [id number] Sodium Chloride 0.9% 1, 1100 1200 200 000 ml @ 100 mls/hr IV . Q10H [facility] Rx#:[id number] Intake, IV Titration 300 100 Amount Magnesium Sulfate-D5w Pmx 100 1 gm In Dextrose/Water 1 100ml.bag @ 100 mls/hr IVPB Q1H [facility] Rx#: [id number] Magnesium Sulfate-D5w Pmx 100 1 gm In Dextrose/Water 1 100ml.bag @ 100 mls/hr IVPB Q1H [facility] Rx#: [id number] Potassium Chloride 10 meq 100 In Water For Injection 1 100ml.bag @ 100 mls/hr IVPB Q1HR [facility] Rx#: [id number] Sodium Chloride 0.9% 1, 100 000 ml @ 100 mls/hr IV . Q10H [facility] Rx#:[id number] Oral 800 Output: Urine 390 250 Stool 2 0 Other: Voiding Method Urinal Incontinent # Voids 0 1 # Bowel Movements 2 1 - Exam GENERAL EXAM: Somnolent but arousable, at times restless, confused, delirious 49-year-old white male, who is obviously jaundiced comfortable in no apparent distress. HEAD: Normocephalic/atraumatic. EYES: Normal reaction of pupils, equal size. Conjunctiva pink, sclera white. NOSE: Clear with pink turbinates. THROAT: No erythema or exudates. NECK: No masses, no JVD, no thyroid enlargement, no adenopathy. CHEST: No chest wall deformity. Symmetrical expansion. LUNGS: Equal air entry with no crackles, wheeze, rhonchi or dullness. CVS: Regular rate and rhythm, normal S1 and S2, no gallops, no murmurs, no rubs. he is tachycardic with a rate of 130s to 140 BPM ABDOMEN: Soft, nontender. No hepatosplenomegaly, normal bowel sounds, no guarding or rigidity. EXTREMITIES: No clubbing, no edema, no cyanosis, 2+ pulses and upper and lower extremities. MUSCULOSKELETAL: Muscle strength and tone normal. SPINE: No scoliosis or deformity SKIN: No rashes CENTRAL NERVOUS SYSTEM: Somnolent, arousable answering simple questions but quite confused, oriented to self and place. No focal deficits, tone is normal in all 4 extremities. - Labs CBC & Chem 7: 07/14/19 04:31 07/14/19 04:31 Labs: Abnormal Lab Results - Last 24 Hours (Table) 07/13/19 07/14/19 07/14/19 Range/Units 15:54 04:31 04:31 RBC 2.95 L (4.30-5.90) m/uL Hgb 10.5 L (13.0-17.5) gm/dL Hct 31.2 L (39.0-53.0) % MCV 105.9 H (80.0-100.0) fL MCH 35.8 H (25.0-35.0) pg Plt Count 123 L (150-450) k/uL Lymphocytes # 0.5 L (1.0-4.8) k/uL Sodium 122 L 124 L (137-145) mmol/L Chloride 86 L 90 L (98-107) mmol/L BUN 7 L 6 L (9-20) mg/dL Calcium 7.6 L 7.7 L (8.4-10.2) mg/dL Total Bilirubin 14.1 H (0.2-1.3) mg/dL AST 159 H (17-59) U/L Alkaline Phosphatase 261 H (38-126) U/L Ammonia (<30) umol/L Total Protein 6.1 L (6.3-8.2) g/dL Albumin 2.7 L (3.5-5.0) g/dL 07/14/19 Range/Units 04:31 RBC (4.30-5.90) m/uL Hgb (13.0-17.5) gm/dL Hct (39.0-53.0) % MCV (80.0-100.0) fL MCH (25.0-35.0) pg Plt Count (150-450) k/uL Lymphocytes # (1.0-4.8) k/uL Sodium (137-145) mmol/L Chloride (98-107) mmol/L BUN (9-20) mg/dL Calcium (8.4-10.2) mg/dL Total Bilirubin (0.2-1.3) mg/dL AST (17-59) U/L Alkaline Phosphatase (38-126) U/L Ammonia 47 H (<30) umol/L Total Protein (6.3-8.2) g/dL Albumin (3.5-5.0) g/dL Assessment and Plan Plan: Assessment: #1. Acute hepatic encephalopathy related to EtOH liver disease #2. Jaundice, hyperbilirubinemia related to alcoholic liver disease #3. Weakness, nausea related to the above #4. Hypochloremic hyponatremia, related to chronic alcoholism, and a component of hypovolemia. Admission serum sodium was 122 #5. Hypokalemia, admission serum potassium is 3.2 #6. Hypomagnesemia replaced per protocol, admission magnesium was 0.7 #7. Chronic EtOH use last drink on the day of admission of 07/12/2019 #8. Hypertension #9. Hyperlipidemia #10. Elevated liver transaminases related to alcoholic liver disease, improving #11. Increased ammonia level, serum ammonia was 185, the patient on lactulose. On today's labs on 07/14/2019 ammonia level is down to 47 Plan: Continue current medical treatment, continue safety precautions, Ativan for withdrawal symptoms. Maintain aspiration precautions. Today's labs have been reviewed showing improvement in patient's liver transaminases, and ammonia level. Hemodynamically patient is stable. Chest x-ray has been reviewed showing no acute process. Continue Rocephin. Patient will be monitored in the intensive care unit. Will continue to follow I performed a history & physical examination of the patient and discussed their management with my nurse practitioner, Preethi Klein. I reviewed the nurse practitioner's note and agree with the documented findings and plan of care. Lung sounds are positive for clear breath sounds. The findings and the impression was discussed with the patient. I attest to the documentation by the nurse practitioner. Time with Patient: Less than 30
--- NOTE | 2019-07-14 09:31 | P.PN ---
Subjective Progress Note Date: 07/14/19 This is a 49-year-old male patient who presented to the ER with complaints of yellowing of skin and eyes. Patient is known past medical history of EtOH drinking approximately a pint of vodka plus beer daily. Patient's urged patient to come to ER due to presentation of jaundice 1 day patient was noted to have yellowing of his eyes and she was concerned about his liver. Additional medical history includes hyperlipidemia hypertension and ex-smoker. Abdominal ultrasound completed showing no gallstones or dilated ducts diffuse fatty infiltration of liver. Upon admission AST elevated to 95, ALT 64 alkaline phosphatase 3:30 total bilirubin 10.1 and ammonia level 185. Patient has been started on lactulose. GI services have been consulted. Patient's electrolytes also significantly impaired. Sodium low at 122, potassium 3.2, magnesium 0.7. Replacement per protocol patient currently on normal saline. Patient also currently in EtOH withdrawals. Patient has been admitted to the intensive care unit critical care services are following. Heart rate elevated secondary to withdrawal. CIWA protocol has been ordered. GI services have been consulted for Liver failure. At this time patient is resting comfortably in bed shakiness and withdrawal symptoms noted. Patient is alert and oriented 2. Patient able to follow commands. Patient denies chest pain. Patient denies shortness of breath. Patient denies any urinary burning or frequency. 07/14/2019 patient remains in the ICU. He has a sitter at bedside. He did require Ativan this morning for alcohol withdrawal and is sleeping comfortably. Heart rate is better controlled. Total bilirubin has gone up from 10.1-14.1. Ammonia level has decreased from 185-47. Hepatitis panel is negative. He is followed by GI service and critical care. He is tolerating clear liquid diet. Patient is having a bowel movement almost every hour. Patient currently on lactulose 3 times a day and Xifaxan. Patient did have a temp of 100.6 yesterday afternoon he is currently on Rocephin. Chest x-rays negative. Objective - Vital Signs Vital signs: Vital Signs Temp 97.3 F L 07/14/19 04:00 Pulse 72 07/14/19 08:00 Resp 19 07/14/19 08:00 BP 115/80 07/14/19 08:00 Pulse Ox 97 07/14/19 08:00 Intake & Output 07/13/19 07/14/19 07/14/19 18:59 06:59 18:59 Intake Total 1500 2000 300 Output Total 390 252 0 Balance 1110 1748 300 Weight 75.8 kg Intake: IV 1200 1200 200 Potassium Chloride 10 meq 100 In Water For Injection 1 100ml.bag @ 100 mls/hr IVPB Q1HR [facility] Rx#: [id number] Sodium Chloride 0.9% 1, 1100 1200 200 000 ml @ 100 mls/hr IV . Q10H [facility] Rx#:[id number] Intake, IV Titration 300 100 Amount Magnesium Sulfate-D5w Pmx 100 1 gm In Dextrose/Water 1 100ml.bag @ 100 mls/hr IVPB Q1H [facility] Rx#: [id number] Magnesium Sulfate-D5w Pmx 100 1 gm In Dextrose/Water 1 100ml.bag @ 100 mls/hr IVPB Q1H [facility] Rx#: [id number] Potassium Chloride 10 meq 100 In Water For Injection 1 100ml.bag @ 100 mls/hr IVPB Q1HR [facility] Rx#: [id number] Sodium Chloride 0.9% 1, 100 000 ml @ 100 mls/hr IV . Q10H [facility] Rx#:[id number] Oral 800 Output: Urine 390 250 Stool 2 0 Other: Voiding Method Urinal Incontinent # Voids 0 1 # Bowel Movements 2 1 - Exam Head normocephalic Neck supple Lungs clear to auscultation bilaterally no wheezing or crackles Heart regular rate and rhythm S1-S2, no rub or gallop Abdomen is soft nontender nondistended positive bowel sounds no hepatosplenomegaly Extremities no edema Neuro patient sleeping comfortably Skin jaundice - Labs CBC & Chem 7: 07/14/19 04:31 07/14/19 04:31 Labs: Abnormal Lab Results - Last 24 Hours (Table) 07/13/19 07/14/19 07/14/19 Range/Units 15:54 04:31 04:31 RBC 2.95 L (4.30-5.90) m/uL Hgb 10.5 L (13.0-17.5) gm/dL Hct 31.2 L (39.0-53.0) % MCV 105.9 H (80.0-100.0) fL MCH 35.8 H (25.0-35.0) pg Plt Count 123 L (150-450) k/uL Lymphocytes # 0.5 L (1.0-4.8) k/uL Sodium 122 L 124 L (137-145) mmol/L Chloride 86 L 90 L (98-107) mmol/L BUN 7 L 6 L (9-20) mg/dL Calcium 7.6 L 7.7 L (8.4-10.2) mg/dL Total Bilirubin 14.1 H (0.2-1.3) mg/dL AST 159 H (17-59) U/L Alkaline Phosphatase 261 H (38-126) U/L Ammonia (<30) umol/L Total Protein 6.1 L (6.3-8.2) g/dL Albumin 2.7 L (3.5-5.0) g/dL 07/14/19 Range/Units 04:31 RBC (4.30-5.90) m/uL Hgb (13.0-17.5) gm/dL Hct (39.0-53.0) % MCV (80.0-100.0) fL MCH (25.0-35.0) pg Plt Count (150-450) k/uL Lymphocytes # (1.0-4.8) k/uL Sodium (137-145) mmol/L Chloride (98-107) mmol/L BUN (9-20) mg/dL Calcium (8.4-10.2) mg/dL Total Bilirubin (0.2-1.3) mg/dL AST (17-59) U/L Alkaline Phosphatase (38-126) U/L Ammonia 47 H (<30) umol/L Total Protein (6.3-8.2) g/dL Albumin (3.5-5.0) g/dL Assessment and Plan Assessment: 1. Acute alcoholic hepatitis with Jaundice : Total bilirubin elevated at 10.1 AST to 295 ALT 64 alkaline phosphatase 330. Abdominal ultrasound completed showing no gallstones or dilated ducts. Diffuse fatty infiltration of the liver. GI services have been consulted. Hepatitis panel negative 2. Jaundice, hyperbilirubinemia secondary to alcoholic liver disease. Elevated ammonia level on admission. Ammonia level has come down from 185-47. GI service following. Total bilirubin is up to 14.1 3. EtOH withdrawal. Patient currently on CIWA protocal. Continue thiamine and add multivitamin. Continue Ativan as needed 4. Hypokalemia resolved. Hypomagnesemia and patient receiving magnesium supplement today 5. Hyponatremia and hypochloremic secondary to EtOH. Patient currently kaitlin ntained on normal saline. Sodium level slowly going up to 124. 6. Tachycardia secondary to alcohol withdrawal. Patient's home dose beta phong resumed. Continue a call withdrawal protocol. Tachycardia has improved 7. History of essential hypertension. Patient's home dose of Lopressor resu med. Lisinopril and hydrochlorothiazide currently on hold secondary to electrolyte imbalance 8. 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 Ammonia level improving. Currently on lactulose 3 times a day and Xifaxan. DVT prophylaxis Lovenox. GI prophylaxis Protonix I performed an examination of the patient and discussed their management with the physician Account Development Manager. I have reviewed the Physician Account Development Manager's notes and agree with the documented findings and plan of care
[2019-07-14] MEDS: METOPROLOL SUCCINATE (ER) 100 MG TAB.ER.24H PO SCH (12:32)
[2019-07-14] MEDS: ONDANSETRON 4 MG/2 ML VIAL IVP PRN (23:15)
[2019-07-15 05:15] LABS: ALT 33 U/L (4-49); AST 125 U/L (17-59); African American GFR (CKD) >90 (>60 ml/min/1.73 sqM); Albumin 2.4 g/dL (3.5-5.0); Alkaline Phosphatase 230 U/L (38-126); Anion Gap 10 mmol/L; Blood Urea Nitrogen 8 mg/dL (9-20); Calcium 7.5 mg/dL (8.4-10.2); Carbon Dioxide 19 mmol/L (22-30); Chloride 99 mmol/L (98-107); Glucose 76 mg/dL (74-99); Non-African American GFR(CKD) >90 (>60 ml/min/1.73 sqM); Potassium 3.8 mmol/L (3.5-5.1); Sodium 128 mmol/L (137-145); Total Protein 5.7 g/dL (6.3-8.2)
[2019-07-15 05:26] LABS: Total Bilirubin 16.8 mg/dL (0.2-1.3)
--- NOTE | 2019-07-15 05:33 | P.PN ---
Subjective Progress Note Date: 07/14/19 Principal diagnosis: Alcoholic hepatitis, elevated liver enzymes Patient is seen lying in bed. Currently going through alcohol withdrawal. Multiple bowel movements today. Objective - Vital Signs Vital signs: Vital Signs Temp 98 F 07/14/19 12:00 Pulse 73 07/14/19 12:00 Resp 15 07/14/19 12:00 BP 124/86 07/14/19 12:00 Pulse Ox 95 07/14/19 12:00 Intake & Output 07/13/19 07/14/19 07/14/19 18:59 06:59 18:59 Intake Total 1500 2000 700 Output Total 390 252 350 Balance 1110 1748 350 Weight 75.8 kg Intake: IV 1200 1200 600 Potassium Chloride 10 meq 100 In Water For Injection 1 100ml.bag @ 100 mls/hr IVPB Q1HR [facility] Rx#: [id number] Sodium Chloride 0.9% 1, 1100 1200 600 000 ml @ 100 mls/hr IV . Q10H [facility] Rx#:[id number] Intake, IV Titration 300 100 Amount Magnesium Sulfate-D5w Pmx 100 1 gm In Dextrose/Water 1 100ml.bag @ 100 mls/hr IVPB Q1H [facility] Rx#: [id number] Magnesium Sulfate-D5w Pmx 100 1 gm In Dextrose/Water 1 100ml.bag @ 100 mls/hr IVPB Q1H [facility] Rx#: [id number] Potassium Chloride 10 meq 100 In Water For Injection 1 100ml.bag @ 100 mls/hr IVPB Q1HR [facility] Rx#: [id number] Sodium Chloride 0.9% 1, 100 000 ml @ 100 mls/hr IV . Q10H [facility] Rx#:[id number] Oral 800 Output: Urine 390 250 350 Stool 2 0 Other: Voiding Method Urinal Urinal Incontinent Incontinent # Voids 0 1 0 # Bowel Movements 2 1 0 - Exam On physical examination, patient appears comfortable in no apparent distress. HEAD: Normocephalic, atraumatic. EYES: Scleral icterus. No conjunctival injection. MOUTH: No lesions, tongue midline. NECK: Trachea midline, no gross abnormalities. ABDOMEN: Soft, obese. Bowel sounds are positive. No organomegaly. No guarding or rigidity. EXTREMITIES: No pedal edema. SKIN: No rashes, jaundice. NEUROLOGIC: Alert and responsive but not oriented. The patient with tremulo usness noted. No focal deficits. - Labs CBC & Chem 7: 07/14/19 04:31 07/14/19 04:31 Labs: Abnormal Lab Results - Last 24 Hours (Table) 07/13/19 07/14/19 07/14/19 Range/Units 15:54 04:31 04:31 RBC 2.95 L (4.30-5.90) m/uL Hgb 10.5 L (13.0-17.5) gm/dL Hct 31.2 L (39.0-53.0) % MCV 105.9 H (80.0-100.0) fL MCH 35.8 H (25.0-35.0) pg Plt Count 123 L (150-450) k/uL Lymphocytes # 0.5 L (1.0-4.8) k/uL Sodium 122 L 124 L (137-145) mmol/L Chloride 86 L 90 L (98-107) mmol/L BUN 7 L 6 L (9-20) mg/dL Calcium 7.6 L 7.7 L (8.4-10.2) mg/dL Total Bilirubin 14.1 H (0.2-1.3) mg/dL AST 159 H (17-59) U/L Alkaline Phosphatase 261 H (38-126) U/L Ammonia (<30) umol/L Total Protein 6.1 L (6.3-8.2) g/dL Albumin 2.7 L (3.5-5.0) g/dL 07/14/19 Range/Units 04:31 RBC (4.30-5.90) m/uL Hgb (13.0-17.5) gm/dL Hct (39.0-53.0) % MCV (80.0-100.0) fL MCH (25.0-35.0) pg Plt Count (150-450) k/uL Lymphocytes # (1.0-4.8) k/uL Sodium (137-145) mmol/L Chloride (98-107) mmol/L BUN (9-20) mg/dL Calcium (8.4-10.2) mg/dL Total Bilirubin (0.2-1.3) mg/dL AST (17-59) U/L Alkaline Phosphatase (38-126) U/L Ammonia 47 H (<30) umol/L Total Protein (6.3-8.2) g/dL Albumin (3.5-5.0) g/dL Assessment and Plan (1) Alcoholic hepatitis Narrative/Plan: 49-year-old male with a long-standing history of alcohol abuse, worsened over the past 2 months with 1 pint of alcohol daily who presents with jaundice, scleral icterus and weakness. Patient found to have elevation in total bilirubin of 10.1, alkaline phosphatase 330, AST 295 and ALT 69 on admission with ultrasound of the abdomen negative for any ductal dilation or gallstones with diffuse fatty infiltration noted highly suggestive of acute alcoholic hepatitis. Current Visit: Yes Status: Acute Code(s): K70.10 - ALCOHOLIC HEPATITIS WITHOUT ASCITES SNOMED Code(s): 839388342 (2) Hepatic encephalopathy Current Visit: Yes Status: Acute Code(s): K72.90 - HEPATIC FAILURE, UNSPECIFIED WITHOUT COMA SNOMED Code(s): 58614948 (3) Alcohol abuse Current Visit: Yes Status: Acute Code(s): F10.10 - ALCOHOL ABUSE, UNCOMPLI CATED SNOMED Code(s): 48052882 Plan: Supportive care Okay for diet as tolerated Continue to monitor CBC, CMP and ammonia level Continue to monitor clinically Viral hepatitis panel negative Alcohol abstinence Monitor for signs or symptoms of alcohol withdrawal Continue lactulose therapy, okay to hold this patient has 3 bowel movements Rifaximin added Thank you for allowing us to participate in the care of the patient we will continue to follow
[2019-07-15 05:38] LABS: HCT 31.9 % (39.0-53.0); HGB 10.8 gm/dL (13.0-17.5); MCH 36.5 pg (25.0-35.0); MCHC 33.9 g/dL (31.0-37.0); MCV 107.5 fL (80.0-100.0); Macrocytosis Moderate; Mean Platelet Volume 9.1; Platelet Count 153 k/uL (150-450); RBC 2.96 m/uL (4.30-5.90); RDW 14.5 % (11.5-15.5); WBC 8.2 k/uL (3.8-10.6)
[2019-07-15] MEDS: SODIUM CHLORIDE 0.9% 1,000 ML IV SCH ×2 (06:00→17:27)
[2019-07-15 06:25] LABS: Band Neutrophils % 1 %; Eosinophils # (M) 0.25 k/uL (0-0.7); Lymphocytes # (M) 0.66 k/uL (1.0-4.8); Monocytes # (M) 1.31 k/uL (0-1.0); Neutrophils % (M) 72 %; Nucleated Red Blood Cells 0 /100 WBC (0-0); Total Cells Counted 100
[2019-07-15 06:26] LABS: Target Cells Present
[2019-07-15] MEDS: THIAMINE 100 MG TAB PO SCH ×2 (08:15→17:27)
[2019-07-15] MEDS: PANTOPRAZOLE 40 MG TABLET PO SCH (08:15)
[2019-07-15] MEDS: MULTIVITAMINS, THERA 1 EACH TAB PO SCH (08:15)
[2019-07-15] MEDS: METOPROLOL SUCCINATE (ER) 100 MG TAB.ER.24H PO SCH (08:15)
[2019-07-15] MEDS: LACTULOSE 20 GM/30 ML CUP PO SCH ×3 (08:16→21:56)
[2019-07-15] MEDS: ENOXAPARIN 40 MG/0.4 ML SYRINGE SQ SCH (08:16)
[2019-07-15] MEDS: RIFAXIMIN 550 MG TABLET PO SCH ×2 (08:16→21:56)
[2019-07-15] MEDS ORDERED: POTASSIUM CHLORIDE ER 20 MEQ TAB.ER PO SCH (09:00)
--- NOTE | 2019-07-15 09:41 | P.PN ---
Subjective Progress Note Date: 07/15/19 Principal diagnosis: Jaundice, nausea, tremors 49-year-old white male patient with past medical history of hypertension, hyperlipidemia, former smoker, daily EtOH use, who presents the emergency department on 05/11/2020 with complaints of one day history of generalized jaundice, nausea, and tremors. Apparently his last drink was on the day of his presentation on 07/12/2019. Patient denied any shortness of breath, denied any chest pain, no abdominal pain, no vomiting, no leg lower abdominal swelling, no hallucinations no headaches or dizziness. On presentation patient is obviously jaundiced. Abdominal ultrasound showed no gallstones or dilated duct, diffuse fatty infiltration of the liver. Lab work showed normal white count at 7.6, hemoglobin is 12.3, INR is 1.2, sodium is 122, potassium is 3.2, chloride is 77 and a CO2 is 27, BUN is 7 creatinine 0.69, magnesium is 0.7, total bilirubin is 10.1, AST is 295, ALT 64, alkaline phosphatase 303 at 30 ammonia level is 185 serum alcohol was 90, serum lipase was normal at 137, hepatitis panel was negative. Patient is tachycardic with a rate of 135-140 BPM, in sinus mechanism, she was seen in the intensive care unit this morning, he was quite confused and delirious, but looks to be in no acute distress, he is on 2 L of oxygen with a pulse ox of 94%, he is afebrile. He is receiving normal saline at a rate of 100 ML per hour. Patient has been started on thiamine replacement, Ativan for CIWA protocol, electrolytes are being replaced. On 07/14/2019 patient seen in follow-up in the intensive care unit. He remains confused and delirious, restless, but not agitated. Hemodynamically stable, urine pulse ox is 97%, he is afebrile, 0.9 normal saline infusing at a rate of 100 ML per hour. Patient is on empiric antibiotics in the form of Rocephin. No fever or chills. Today's bolt labeler been reviewed, showing red blood cell count of 8.6, hemoglobin of 10.5, serum sodium is 124, potassium is 3.8, chloride is 90, CO2 is 24, BUN is 6 and creatinine 0.76. Liver enzymes are improving, with AST down to 159, ALT down to 40, and alk phos down to 261. Ammonia level is down to 47. Remains on lactulose. Lung sounds are clear, no abdominal pain. Patient has a plant safety engineer at the bedside, he has required Ativan for withdrawal symptoms. On 07/15/2019 patient seen in follow-up in intensive care unit. Much more oriented on today's exam, no agitation, no restlessness, patient is oriented 3, the president, tremors, denies any headaches, denies any shortness of breath. Appears slightly more jaundiced on today's exam. Clinically stable, vital signs are stable. Room air pulse ox is 97%, afebrile, hemodynamically stable, lung sounds are clear, she sitter is at the bedside, patient received only a few doses of Ativan in the last 24 hours, signs of delirium tremens are significantly improved. Today's labs have been reviewed, showing red blood cell count of 8.2, hemoglobin of 10.8, serum sodium is 128, potassium is 3.8, chloride is 99, CO2 is 19, AST is 125 ALT is 33, alkaline phosphatase is 230 t otal bilirubin has gone up to 16.8, patient's ammonia level yesterday's labs was 47, patient continues on lactulose. Continues on empiric antibiotics, his been afebrile Objective - Vital Signs Vital signs: Vital Signs Temp 98 F 07/15/19 08:00 Pulse 74 07/15/19 08:00 Resp 22 07/15/19 08:00 BP 114/89 07/15/19 08:00 Pulse Ox 97 07/15/19 08:00 Intake & Output 07/14/19 07/15/19 07/15/19 18:59 06:59 18:59 Intake Total 1300 1200 200 Output Total 350 Balance 950 1200 200 Weight 76.4 kg Intake: IV 1200 1200 200 Sodium Chloride 0.9% 1, 1200 1200 200 000 ml @ 100 mls/hr IV . Q10H [facility] Rx#:[id number] Intake, IV Titration 100 Amount Magnesium Sulfate-D5w Pmx 100 1 gm In Dextrose/Water 1 100ml.bag @ 100 mls/hr IVPB Q1H [facility] Rx#: [id number] Output: Urine 350 Stool 0 Other: Voiding Method Urinal Urinal Urinal Incontinent Incontinent Incontinent # Voids 0 0 0 # Bowel Movements 1 0 1 - Exam GENERAL EXAM: Awake and alert, very pleasant, oriented 3, no restlessness, no agitation, no tremors 49-year-old white male, who is obviously jaundiced comfortable in no apparent distress. HEAD: Normocephalic/atraumatic. EYES: Normal reaction of pupils, equal size. Conjunctiva pink, sclera white. NOSE: Clear with pink turbinates. THROAT: No erythema or exudates. NECK: No masses, no JVD, no thyroid enlargement, no adenopathy. CHEST: No chest wall deformity. Symmetrical expansion. LUNGS: Equal air entry with no crackles, wheeze, rhonchi or dullness. CVS: Regular rate and rhythm, normal S1 and S2, no gallops, no murmurs, no rubs. he is tachycardic with a rate of 130s to 140 BPM ABDOMEN: Soft, nontender. No hepatosplenomegaly, normal bowel sounds, no guarding or rigidity. EXTREMITIES: No clubbing, no edema, no cyanosis, 2+ pulses and upper and lower extremities. MUSCULOSKELETAL: Muscle strength and tone normal. SPINE: No scoliosis or deformity SKIN: No rashes CENTRAL NERVOUS SYSTEM: oriented 3. No focal deficits, tone is normal in all 4 extremities. - Labs CBC & Chem 7: 07/15/19 04:42 07/15/19 04:42 Labs: Abnormal Lab Results - Last 24 Hours (Table) 07/15/19 07/15/19 07/15/19 Range/Units 04:42 04:42 04:42 RBC 2.96 L (4.30-5.90) m/uL Hgb 10.8 L (13.0-17.5) gm/dL Hct 31.9 L (39.0-53.0) % MCV 107.5 H (80.0-100.0) fL MCH 36.5 H (25.0-35.0) pg Lymphocytes # (Manual) 0.66 L (1.0-4.8) k/uL Monocytes # (Manual) 1.31 H (0-1.0) k/uL Sodium 128 L (137-145) mmol/L Carbon Dioxide 19 L (22-30) mmol/L BUN 8 L (9-20) mg/dL Calcium 7.5 L (8.4-10.2) mg/dL Total Bilirubin 16.8 H* (0.2-1.3) mg/dL AST 125 H (17-59) U/L Alkaline Phosphatase 230 H (38-126) U/L Ammonia 58 H (<30) umol/L Total Protein 5.7 L (6.3-8.2) g/dL Albumin 2.4 L (3.5-5.0) g/dL Assessment and Plan Plan: Assessment: #1. Acute hepatic encephalopathy related to EtOH liver disease, improving #2. Jaundice, hyperbilirubinemia related to alcoholic liver disease #3. Weakness, nausea related to the above, resolved #4. Hypochloremic hyponatremia, related to chronic alcoholism, and a component of hypovolemia. Admission serum sodium was 122. Improving #5. Hypokalemia, admission serum potassium is 3.2, improved #6. Hypomagnesemia replaced per protocol, admission magnesium was 0.7, improved #7. Chronic EtOH use last drink on the day of admission of 07/12/2019 #8. Hypertension #9. Hyperlipidemia #10. Elevated liver transaminases related to alcoholic liver disease, improving #11. Increased ammonia level, serum ammonia was 185, the patient on lactulose. On today's labs on 07/14/2019 ammonia level is down to 47 Plan: Continue current medical treatment, continue safety precautions, signs of DTs are improving, no agitation, no restlessness, patient is oriented 3, no tremors. No headaches. Vital signs are stable, increase activity as tolerated, continue empiric antibiotics, pulmonary/critical care perspective patient is stable to transfer to general medical floor today. I performed a history & physical examination of the patient and discussed their management with my nurse practitioner, Preethi Klein. I reviewed the nurse practitioner's note and agree with the documented findings and plan of care. Lung sounds are positive for clear breath sounds. The findings and the impression was discussed with the patient. I attest to the documentation by the nurse practitioner. Time with Patient: Less than 30
[2019-07-15] MEDS: MAGNESIUM SULFATE-D5W PMX 1 GM in DEXTROSE/WATER 1 100ML.BAG IVPB SCH ×2 (09:59→12:38)
[2019-07-15] MEDS ORDERED: ACETAMINOPHEN IV (For NPO) 1,000 MG in EMPTY BAG 1 BAG IVPB STA (20:21)
--- NOTE | 2019-07-15 23:07 | P.PN ---
Subjective Progress Note Date: 07/15/19 Principal diagnosis: Alcoholic hepatitis with jaundice, hyperbilirubinemia, alcoholic liver disease, electrolyte imbalance with hypokalemia and hypomagnesemia and hyponatremia, hyp ertension hypertensive cardiovascular disease, encephalopathy/altered mental status due to hepatic encephalopathy 07/15/2019, patient seen eval reexamined during the rounds overall no significant changes present as far as mental status patient did spike a fever and cultures have been obtained, IV Tylenol has been given, labs reviewed medications reviewed, overall hemoglobin remained stable sodium is slowly coming up, total bilirubin is up further today is 16.8 up from 14 yesterday, liver enzymes remains elevated This is a 49-year-old male patient who presented to the ER with complaints of ye llowing of skin and eyes. Patient is known past medical history of EtOH drinking approximately a pint of vodka plus beer daily. Patient's urged patient to come to ER due to presentation of jaundice 1 day patient was noted to have yellowing of his eyes and she was concerned about his liver. Additional medical history includes hyperlipidemia hypertension and ex-smoker. Abdominal ultrasound completed showing no gallstones or dilated ducts diffuse fatty infiltration of liver. Upon admission AST elevated to 95, ALT 64 alkaline phosphatase 3:30 total bilirubin 10.1 and ammonia level 185. Patient has been started on lactulose. GI services have been consulted. Patient's electrolytes also significantly impaired. Sodium low at 122, potassium 3.2, magnesium 0.7. Replacement per protocol patient currently on normal saline. Patient also currently in EtOH withdrawals. Patient has been admitted to the intensive care unit critical care services are following. Heart rate elevated secondary to withdrawal. CIWA protocol has been ordered. GI services have been consulted for Liver failure. At this time patient is resting comfortably in bed shakiness and withdrawal symptoms noted. Patient is alert and oriented 2. Patient able to follow commands. Patient denies chest pain. Patient denies shortness of breath. Patient denies any urinary burning or frequency. Objective - Vital Signs Vital signs: Vital Signs Temp 99.4 F 07/15/19 20:23 Pulse 78 07/15/19 20:23 Resp 18 07/15/19 20:23 BP 123/82 07/15/19 20:23 Pulse Ox 95 07/15/19 20:23 Intake & Output 07/15/19 07/15/19 07/16/19 06:59 18:59 06:59 Intake Total 1200 200 Output Total 0 Balance 1200 200 Weight 76.4 kg 76.4 kg Intake: IV 1200 200 Sodium Chloride 0.9% 1, 1200 200 000 ml @ 100 mls/hr IV . Q10H [facility] Rx#:[id number] Output: Stool 0 Other: Voiding Method Urinal Urinal Incontinent Incontinent # Voids 0 0 # Bowel Movements 0 1 - Exam HEAD: Normocephalic/atraumatic. EYES: Normal reaction of pupils, equal size. Conjunctiva pink, sclera white. NOSE: Clear with pink turbinates. THROAT: No erythema or exudates. NECK: No masses, no JVD, no thyroid enlargement, no adenopathy. CHEST: No chest wall deformity. Symmetrical expansion. LUNGS: Equal air entry with no crackles, wheeze, rhonchi or dullness. CVS: Regular rate and rhythm, normal S1 and S2, no gallops, no murmurs, no rubs. he is tachycardic with a rate of 130s to 140 BPM ABDOMEN: Soft, nontender. No hepatosplenomegaly, normal bowel sounds, no guarding or rigidity. EXTREMITIES: No clubbing, no edema, no cyanosis, 2+ pulses and upper and lower extremities. MUSCULOSKELETAL: Muscle strength and tone normal. SPINE: No scoliosis or deformity - Labs CBC & Chem 7: 07/15/19 04:42 07/15/19 04:42 Labs: Abnormal Lab Results - Last 24 Hours (Table) 07/15/19 07/15/19 07/15/19 Range/Units 04:42 04:42 04:42 RBC 2.96 L (4.30-5.90) m/uL Hgb 10.8 L (13.0-17.5) gm/dL Hct 31.9 L (39.0-53.0) % MCV 107.5 H (80.0-100.0) fL MCH 36.5 H (25.0-35.0) pg Lymphocytes # (Manual) 0.66 L (1.0-4.8) k/uL Monocytes # (Manual) 1.31 H (0-1.0) k/uL Sodium 128 L (137-145) mmol/L Carbon Dioxide 19 L (22-30) mmol/L BUN 8 L (9-20) mg/dL Calcium 7.5 L (8.4-10.2) mg/dL Total Bilirubin 16.8 H* (0.2-1.3) mg/dL AST 125 H (17-59) U/L Alkaline Phosphatase 230 H (38-126) U/L Ammonia 58 H (<30) umol/L Total Protein 5.7 L (6.3-8.2) g/dL Albumin 2.4 L (3.5-5.0) g/dL Assessment and Plan Assessment: Alcoholic hepatitis Hepatic encephalopathy Electrolyte imbalance with hyponatremia Spiking temperature and fever EtOH withdrawal Plan: Continue current therapy, follow clinical course closely prognosis is very guarded, will do sumner culture including urine and blood and give Tylenol Time with Patient: Greater than 30
[2019-07-16 05:41] LABS: Appearance,Urine Clear (Clear); Bilirubin,Urine 4+ (Negative); Blood,Urine Negative (Negative); Color,Urine Dark Yellow; Glucose,Urine (UA) Negative (Negative); Ketones,Urine Negative (Negative); Leukocyte Esterase,Urine Negative (Negative); Nitrite,Urine Negative (Negative); PH, Urine 6.5 (5.0-8.0); Protein,Urine Negative (Negative); Specific Gravity,Urine 1.014 (1.001-1.035); Urobilinogen,Urine <2.0 mg/dL (<2.0)
[2019-07-16] MEDS: SODIUM CHLORIDE 0.9% 1,000 ML IV SCH ×3 (06:03→23:51)
[2019-07-16 07:19] LABS: Basophils # (A) 0.2 k/uL (0-0.2); Basophils % (A) 2 %; Eosinophils # (A) 0.3 k/uL (0-0.7); Eosinophils % (A) 4 %; HCT 33.8 % (39.0-53.0); HGB 11.2 gm/dL (13.0-17.5); Lymphocytes # (A) 0.4 k/uL (1.0-4.8); Lymphocytes % (A) 4 %; MCH 36.1 pg (25.0-35.0); MCHC 33.2 g/dL (31.0-37.0); MCV 108.8 fL (80.0-100.0); Macrocytosis Marked; Mean Platelet Volume 8.9; Monocytes # (A) 1.1 k/uL (0-1.0); Monocytes % (A) 12 %; Neutrophils # (A) 6.6 k/uL (1.3-7.7); Neutrophils % (A) 74 %; Platelet Count 199 k/uL (150-450); WBC 8.9 k/uL (3.8-10.6)
[2019-07-16 07:28] LABS: ALT 33 U/L (4-49); AST 134 U/L (17-59); African American GFR (CKD) >90 (>60 ml/min/1.73 sqM); Albumin 2.4 g/dL (3.5-5.0); Alkaline Phosphatase 247 U/L (38-126); Anion Gap 9 mmol/L; Blood Urea Nitrogen 7 mg/dL (9-20); Calcium 7.8 mg/dL (8.4-10.2); Carbon Dioxide 19 mmol/L (22-30); Chloride 101 mmol/L (98-107); Glucose 83 mg/dL (74-99); Non-African American GFR(CKD) >90 (>60 ml/min/1.73 sqM); Potassium 3.5 mmol/L (3.5-5.1); Sodium 129 mmol/L (137-145); Total Protein 5.8 g/dL (6.3-8.2)
[2019-07-16 07:33] LABS: Total Bilirubin 18.6 mg/dL (0.2-1.3)
[2019-07-16 08:15] LABS: Anisocytosis (M) Present
[2019-07-16] MEDS: METOPROLOL SUCCINATE (ER) 100 MG TAB.ER.24H PO SCH (08:18)
[2019-07-16] MEDS: MULTIVITAMINS, THERA 1 EACH TAB PO SCH (08:18)
[2019-07-16] MEDS: THIAMINE 100 MG TAB PO SCH ×2 (08:19→16:25)
[2019-07-16] MEDS: RIFAXIMIN 550 MG TABLET PO SCH ×2 (08:19→21:06)
[2019-07-16] MEDS: LACTULOSE 20 GM/30 ML CUP PO SCH ×3 (08:19→21:06)
[2019-07-16] MEDS: PANTOPRAZOLE 40 MG TABLET PO SCH (08:19)
[2019-07-16] MEDS: ENOXAPARIN 40 MG/0.4 ML SYRINGE SQ SCH (08:20)
--- NOTE | 2019-07-16 10:35 | P.PN ---
Subjective Progress Note Date: 07/16/19 Principal diagnosis: Alcoholic hepatitis with jaundice, hyperbilirubinemia, alcoholic liver disease, electrolyte imbalance with hypokalemia and hypomagnesemia and hyponatremia, hyp ertension hypertensive cardiovascular disease, encephalopathy/altered mental status due to hepatic encephalopathy 2019, patient seen eval examined during the rounds labs reviewed medications reviewed status post IV Tylenol, fever is normalized, patient is more awake and alert labs reviewed culture results and reports are pending 07/15/2019, patient seen eval reexamined during the rounds overall no significant changes present as far as mental status patient did spike a fever and cultures have been obtained, IV Tylenol has been given, labs reviewed medications reviewed, overall hemoglobin remained stable sodium is slowly coming up, total bilirubin is up further today is 16.8 up from 14 yesterday, liver enzymes remains elevated This is a 49-year-old male patient who presented to the ER with complaints of yellowing of skin and eyes. Patient is known past medical history of EtOH drinking approximately a pint of vodka plus beer daily. Patient's urged patient to come to ER due to presentation of jaundice 1 day patient was noted to have yellowing of his eyes and she was concerned about his liver. Additional medical history includes hyperlipidemia hypertension and ex-smoker. Abdominal ultrasound completed showing no gallstones or dilated ducts diffuse fatty infiltration of liver. Upon admission AST elevated to 95, ALT 64 alkaline phosphatase 3:30 total bilirubin 10.1 and ammonia level 185. Patient has been started on lactulose. GI services have been consulted. Patient's electrolytes also significantly impaired. Sodium low at 122, potassium 3.2, magnesium 0.7. Replacement per protocol patient currently on normal saline. Patient also currently in EtOH withdrawals. Patient has been admitted to the intensive care unit critical care services are following. Heart rate elevated secondary to withdrawal. CIWA protocol has been ordered. GI services have been consulted for Liver failure. At this time patient is resting comfortably in bed shakiness and withdrawal symptoms noted. Patient is alert and oriented 2. Patient able to follow commands. Patient denies chest pain. Patient denies shortness of breath. Patient denies any urinary burning or frequency. Objective - Vital Signs Vital signs: Vital Signs Temp 97.8 F 07/16/19 05:00 Pulse 62 07/16/19 08:00 Resp 18 07/16/19 08:00 BP 164/93 07/16/19 05:00 Pulse Ox 99 07/16/19 05:00 Intake & Output 07/15/19 07/16/19 07/16/19 18:59 06:59 18:59 Intake Total 200 1150 Output Total 0 1 1 Balance 200 1149 -1 Weight 76.4 kg Intake: IV 200 900 Sodium Chloride 0.9% 1, 200 900 000 ml @ 100 mls/hr IV . Q10H [facility] Rx#:[id number] Oral 250 Output: Stool 0 1 1 Other: Voiding Method Urinal Urinal Urinal Incontinent Incontinent Incontinent # Voids 0 1 # Bowel Movements 1 1 - Exam HEAD: Normocephalic/atraumatic. EYES: Normal reaction of pupils, equal size. Conjunctiva pink, sclera white. NOSE: Clear with pink turbinates. THROAT: No erythema or exudates. NECK: No masses, no JVD, no thyroid enlargement, no adenopathy. CHEST: No chest wall deformity. Symmetrical expansion. LUNGS: Equal air entry with no crackles, wheeze, rhonchi or dullness. CVS: Regular rate and rhythm, normal S1 and S2, no gallops, no murmurs, no rubs. he is tachycardic with a rate of 130s to 140 BPM ABDOMEN: Soft, nontender. No hepatosplenomegaly, normal bowel sounds, no guarding or rigidity. EXTREMITIES: No clubbing, no edema, no cyanosis, 2+ pulses and upper and lower extremities. MUSCULOSKELETAL: Muscle strength and tone normal. SPINE: No scoliosis or deformity - Labs CBC & Chem 7: 07/16/19 06:32 07/16/19 06:32 Labs: Abnormal Lab Results - Last 24 Hours (Table) 07/16/19 07/16/19 07/16/19 Range/Units 05:20 06:32 06:32 RBC 3.10 L (4.30-5.90) m/uL Hgb 11.2 L (13.0-17.5) gm/dL Hct 33.8 L (39.0-53.0) % MCV 108.8 H (80.0-100.0) fL MCH 36.1 H (25.0-35.0) pg Lymphocytes # 0.4 L (1.0-4.8) k/uL Monocytes # 1.1 H (0-1.0) k/uL Macrocytosis Marked A Sodium 129 L (137-145) mmol/L Carbon Dioxide 19 L (22-30) mmol/L BUN 7 L (9-20) mg/dL Calcium 7.8 L (8.4-10.2) mg/dL Total Bilirubin 18.6 H* (0.2-1.3) mg/dL AST 134 H (17-59) U/L Alkaline Phosphatase 247 H (38-126) U/L Total Protein 5.8 L (6.3-8.2) g/dL Albumin 2.4 L (3.5-5.0) g/dL Urine Bilirubin 4+ H (Negative) Assessment and Plan Assessment: Alcoholic hepatitis Hepatic encephalopathy Electrolyte imbalance with hyponatremia Spiking temperature and fever EtOH withdrawal Plan: Continue current therapy, follow clinical course closely prognosis is very guarded, will do sumner culture including urine and blood and give Tylenol Time with Patient: Greater than 30
--- NOTE | 2019-07-16 10:37 | P.PN ---
Subjective Progress Note Date: 07/15/19 Principal diagnosis: Alcoholic hepatitis, elevated liver enzymes Patient is seen lying in bed, less agitated that yesterday. Currently going through alcohol withdrawal. Multiple bowel movements today. Objective - Vital Signs Vital signs: Vital Signs Temp 98 F 07/15/19 08:00 Pulse 74 07/15/19 08:00 Resp 22 07/15/19 08:00 BP 114/89 07/15/19 08:00 Pulse Ox 97 07/15/19 08:00 Intake & Output 07/14/19 07/15/19 07/15/19 18:59 06:59 18:59 Intake Total 1300 1200 200 Output Total 350 Balance 950 1200 200 Weight 76.4 kg 76.4 kg Intake: IV 1200 1200 200 Sodium Chloride 0.9% 1, 1200 1200 200 000 ml @ 100 mls/hr IV . Q10H [facility] Rx#:[id number] Intake, IV Titration 100 Amount Magnesium Sulfate-D5w Pmx 100 1 gm In Dextrose/Water 1 100ml.bag @ 100 mls/hr IVPB Q1H [facility] Rx#: [id number] Output: Urine 350 Stool 0 Other: Voiding Method Urinal Urinal Urinal Incontinent Incontinent Incontinent # Voids 0 0 0 # Bowel Movements 1 0 1 - Exam On physical examination, patient appears comfortable in no apparent distress. HEAD: Normocephalic, atraumatic. EYES: Scleral icterus. No conjunctival injection. MOUTH: No lesions, tongue midline. NECK: Trachea midline, no gross abnormalities. ABDOMEN: Soft, obese. Bowel sounds are positive. No organomegaly. No guarding or rigidity. EXTREMITIES: No pedal edema. SKIN: No rashes, jaundice. NEUROLOGIC: Alert and responsive but not oriented. The patient with tremulousness noted. No focal deficits. - Labs CBC & Chem 7: 07/16/19 06:32 07/16/19 06:32 Labs: Abnormal Lab Results - Last 24 Hours (Table) 07/15/19 07/15/19 07/15/19 Range/Units 04:42 04:42 04:42 RBC 2.96 L (4.30-5.90) m/uL Hgb 10.8 L (13.0-17.5) gm/dL Hct 31.9 L (39.0-53.0) % MCV 107.5 H (80.0-100.0) fL MCH 36.5 H (25.0-35.0) pg Lymphocytes # (Manual) 0.66 L (1.0-4.8) k/uL Monocytes # (Manual) 1.31 H (0-1.0) k/uL Sodium 128 L (137-145) mmol/L Carbon Dioxide 19 L (22-30) mmol/L BUN 8 L (9-20) mg/dL Calcium 7.5 L (8.4-10.2) mg/dL Total Bilirubin 16.8 H* (0.2-1.3) mg/dL AST 125 H (17-59) U/L Alkaline Phosphatase 230 H (38-126) U/L Ammonia 58 H (<30) umol/L Total Protein 5.7 L (6.3-8.2) g/dL Albumin 2.4 L (3.5-5.0) g/dL Assessment and Plan (1) Alcoholic hepatitis Narrative/Plan: 49-year-old male with a long-standing history of alcohol abuse, worsened over the past 2 months with 1 pint of alcohol daily who presents with jaundice, scleral icterus and weakness. Patient found to have elevation in total bilirubin of 10.1, alkaline phosphatase 330, AST 295 and ALT 69 on admission with ultrasound of the abdomen negative for any ductal dilation or gallstones with diffuse fatty infiltration noted highly suggestive of acute alcoholic hepatitis. Liver enzymes have trended up, so consistent with alcoholic hepatitis. Predominantly in a cholestatic pattern. Current Visit: Yes Status: Acute Code(s): K70.10 - ALCOHOLIC HEPATITIS WITHOUT ASCITES SNOMED Code(s): 557508723 (2) Hepatic encephalopathy Current Visit: Yes Status: Acute Code(s): K72.90 - HEPATIC FAILURE, UNSPECIFIED WITHOUT COMA SNOMED Code(s): 12340760 (3) Alcohol abuse Current Visit: Yes Status: Acute Code(s): F10.10 - ALCOHOL ABUSE, UNCOMPLICATED SNOMED Code(s): 57231798 Plan: Supportive care Okay for diet as tolerated Continue to monitor CBC, CMP and ammonia level Continue to monitor clinically Viral hepatitis panel negative Alcohol abstinence Monitor for signs or symptoms of alcohol withdrawal Continue lactulose therapy, okay to hold this patient has 3 bowel movements Rifaximin added Thank you for allowing us to participate in the care of the patient we will continue to follow
--- NOTE | 2019-07-16 19:46 | P.PN ---
Subjective Progress Note Date: 07/16/19 Principal diagnosis: Alcoholic hepatitis, elevated liver enzymes Patient is seen lying in bed, reporting good bowel movements with no blood. Overall feeling better. No nausea or vomiting. Tolerating diet. Objective - Vital Signs Vital signs: Vital Signs Temp 97.8 F 07/16/19 05:00 Pulse 62 07/16/19 08:00 Resp 18 07/16/19 08:00 BP 164/93 07/16/19 05:00 Pulse Ox 99 07/16/19 05:00 Intake & Output 07/15/19 07/16/19 07/16/19 18:59 06:59 18:59 Intake Total 200 1150 Output Total 0 1 1 Balance 200 1149 -1 Weight 76.4 kg Intake: IV 200 900 Sodium Chloride 0.9% 1, 200 900 000 ml @ 100 mls/hr IV . Q10H [facility] Rx#:[id number] Oral 250 Output: Stool 0 1 1 Other: Voiding Method Urinal Urinal Urinal Incontinent Incontinent Incontinent # Voids 0 1 # Bowel Movements 1 1 - Exam On physical examination, patient appears comfortable in no apparent distress. HEAD: Normocephalic, atraumatic. EYES: Scleral icterus. No conjunctival injection. MOUTH: No lesions, tongue midline. NECK: Trachea midline, no gross abnormalities. ABDOMEN: Soft, obese. Bowel sounds are positive. No organomegaly. No guarding or rigidity. EXTREMITIES: No pedal edema. SKIN: No rashes, jaundice. NEUROLOGIC: Alert and responsive. No focal deficits. - Labs CBC & Chem 7: 07/16/19 06:32 07/16/19 06:32 Labs: Abnormal Lab Results - Last 24 Hours (Table) 07/16/19 07/16/19 07/16/19 Range/Units 05:20 06:32 06:32 RBC 3.10 L (4.30-5.90) m/uL Hgb 11.2 L (13.0-17.5) gm/dL Hct 33.8 L (39.0-53.0) % MCV 108.8 H (80.0-100.0) fL MCH 36.1 H (25.0-35.0) pg Lymphocytes # 0.4 L (1.0-4.8) k/uL Monocytes # 1.1 H (0-1.0) k/uL Macrocytosis Marked A Sodium 129 L (137-145) mmol/L Carbon Dioxide 19 L (22-30) mmol/L BUN 7 L (9-20) mg/dL Calcium 7.8 L (8.4-10.2) mg/dL Total Bilirubin 18.6 H* (0.2-1.3) mg/dL AST 134 H (17-59) U/L Alkaline Phosphatase 247 H (38-126) U/L Total Protein 5.8 L (6.3-8.2) g/dL Albumin 2.4 L (3.5-5.0) g/dL Urine Bilirubin 4+ H (Negative) Assessment and Plan (1) Alcoholic hepatitis Narrative/Plan: 49-year-old male with a long-standing history of alcohol abuse, worsened over the past 2 months with 1 pint of alcohol daily who presents with jaundice, scleral icterus and weakness. Patient found to have elevation in total bilirubin of 10.1, alkaline phosphatase 330, AST 295 and ALT 69 on admission with ultrasound of the abdomen negative for any ductal dilation or gallstones with diffuse fatty infiltration noted highly suggestive of acute alcoholic hepatitis. Liver enzymes have trended up, so consistent with alcoholic hepatitis. Predominantly in a cholestatic pattern. Current Visit: Yes Status: Acute Code(s): K70.10 - ALCOHOLIC HEPATITIS WITHOUT ASCITES SNOMED Code(s): 749990005 (2) Hepatic encephalopathy Current Visit: Yes Status: Acute Code(s): K72.90 - HEPATIC FAILURE, UNSPECIFIED WITHOUT COMA SNOMED Code(s): 23438282 (3) Alcohol abuse Current Visit: Yes Status: Acute Code(s): F10.10 - ALCOHOL ABUSE, UNCOMPLICATED SNOMED Code(s): 43903832 Plan: Supportive care Okay for diet as tolerated Continue to monitor CBC, CMP and ammonia level Continue to monitor clinically Viral hepatitis panel negative Alcohol abstinence Monitor for signs or symptoms of alcohol withdrawal Continue lactulose therapy, okay to hold this patient has 3 bowel movements Rifaximin added Thank you for allowing us to participate in the care of the patient we will continue to follow
[2019-07-17] MEDS: PANTOPRAZOLE 40 MG TABLET PO SCH (07:39)
[2019-07-17] MEDS: THIAMINE 100 MG TAB PO SCH ×2 (07:39→15:36)
[2019-07-17] MEDS: LACTULOSE 20 GM/30 ML CUP PO SCH ×3 (07:40→21:12)
[2019-07-17] MEDS: ENOXAPARIN 40 MG/0.4 ML SYRINGE SQ SCH (07:40)
[2019-07-17] MEDS: METOPROLOL SUCCINATE (ER) 100 MG TAB.ER.24H PO SCH (07:40)
[2019-07-17] MEDS: MULTIVITAMINS, THERA 1 EACH TAB PO SCH (07:40)
[2019-07-17] MEDS: RIFAXIMIN 550 MG TABLET PO SCH ×2 (07:41→21:12)
[2019-07-17] MEDS: SODIUM CHLORIDE 0.9% 1,000 ML IV SCH ×2 (07:49→21:11)
--- NOTE | 2019-07-17 18:45 | P.PN ---
Subjective Progress Note Date: 07/17/19 Principal diagnosis: Alcoholic hepatitis, elevated liver enzymes Patient is seen lying in bed. Patient reports he has better energy today. Tolerated diet this morning. Asking for advancement of his diet. No nausea or vomiting or abdominal pain reported. Objective - Vital Signs Vital signs: Vital Signs Temp 98.4 F 07/17/19 05:00 Pulse 72 07/17/19 08:00 Resp 16 07/17/19 08:00 BP 149/94 07/17/19 05:00 Pulse Ox 98 07/17/19 05:00 Intake & Output 07/16/19 07/17/19 07/17/19 18:59 06:59 18:59 Intake Total 1680 2080 Output Total 4 3 Balance 1676 0 -3 Intake: IV 900 Sodium Chloride 0.9% 1, 900 000 ml @ 100 mls/hr IV . Q10H [facility] Rx#:[id number] Oral 1680 1180 Output: Stool 4 3 Other: Voiding Method Urinal Urinal Urinal Incontinent Incontinent Incontinent # Voids 2 2 1 # Bowel Movements 1 1 1 - Exam On physical examination, patient appears comfortable in no apparent distress. HEAD: Normocephalic, atraumatic. EYES: Scleral icterus. No conjunctival injection. MOUTH: No lesions, tongue midline. NECK: Trachea midline, no gross abnormalities. ABDOMEN: Soft, obese. Bowel sounds are positive. No organomegaly. No guarding or rigidity. EXTREMITIES: No pedal edema. SKIN: No rashes, jaundice. NEUROLOGIC: Alert and responsive, no asterixis. No focal deficits. - Labs CBC & Chem 7: 07/16/19 06:32 07/16/19 06:32 Labs: Microbiology - Last 24 Hours (Table) 07/15/19 20:53 Blood Culture - Preliminary Blood No Growth after 24 hours 07/15/19 21:03 Blood Culture - Preliminary Blood No Growth after 24 hours 07/16/19 05:20 Urine Culture - Preliminary Urine,Voided Assessment and Plan (1) Alcoholic hepatitis Narrative/Plan: 49-year-old male with a long-standing history of alcohol abuse, worsened over the past 2 months with 1 pint of alcohol daily who presents with jaundice, scleral icterus and weakness. Patient found to have elevation in total bilirubin of 10.1, alkaline phosphatase 330, AST 295 and ALT 69 on admission with ultrasound of the abdomen negative for any ductal dilation or gallstones with diffuse fatty infiltration noted highly suggestive of acute alcoholic hepatitis. Liver enzymes have trended up, overall consistent with alcoholic hepatitis, predominantly in a cholestatic pattern. Current Visit: Yes Status: Acute Code(s): K70.10 - ALCOHOLIC HEPATITIS WITHOUT ASCITES SNOMED Code(s): 690544227 (2) Hepatic encephalopathy Current Visit: Yes Status: Acute Code(s): K72.90 - HEPATIC FAILURE, UNSPECIFIED WITHOUT COMA SNOMED Code(s): 14837220 (3) Alcohol abuse Current Visit: Yes Status: Acute Code(s): F10.10 - ALCOHOL ABUSE, UNCOMPLICATED SNOMED Code(s): 73282038 Plan: Supportive care Okay for diet as tolerated Continue to monitor CBC, CMP and ammonia level Continue to monitor clinically Viral hepatitis panel negative Alcohol abstinence Monitor for signs or symptoms of alcohol withdrawal Continue lactulose therapy, okay to hold this patient has 3 bowel movements Rifaximin Thank you for allowing us to participate in the care of the patient we will continue to follow
--- NOTE | 2019-07-18 01:32 | P.PN ---
Subjective Progress Note Date: 07/17/19 Principal diagnosis: Alcoholic hepatitis with jaundice, hyperbilirubinemia, alcoholic liver disease, electrolyte imbalance with hypokalemia and hypomagnesemia and hyponatremia, hyp ertension hypertensive cardiovascular disease, encephalopathy/altered mental status due to hepatic encephalopathy 07/17/2019, patient seen eval examined during the rounds labs reviewed medications reviewed care plan discussed, patient remains afebrile, oxygen saturation 94% with stable blood pressure 2019, patient seen eval examined during the rounds labs reviewed medications reviewed status post IV Tylenol, fever is normalized, patient is more awake and alert labs reviewed culture results and reports are pending 07/15/2019, patient seen eval reexamined during the rounds overall no significant changes present as far as mental status patient did spike a fever and cultures have been obtained, IV Tylenol has been given, labs reviewed medications reviewed, overall hemoglobin remained stable sodium is slowly coming up, total bilirubin is up further today is 16.8 up from 14 yesterday, liver enzymes remains elevated This is a 49-year-old male patient who presented to the ER with complaints of yellowing of skin and eyes. Patient is known past medical history of EtOH drinking approximately a pint of vodka plus beer daily. Patient's urged patient to come to ER due to presentation of jaundice 1 day patient was noted to have yellowing of his eyes and she was concerned about his liver. Additional medical history includes hyperlipidemia hypertension and ex-smoker. Abdominal ultrasound completed showing no gallstones or dilated ducts diffuse fatty infiltration of liver. Upon admission AST elevated to 95, ALT 64 alkaline phosphatase 3:30 total bilirubin 10.1 and ammonia level 185. Patient has been started on lactulose. GI services have been consulted. Patient's electrolytes also significantly impaired. Sodium low at 122, potassium 3.2, magnesium 0.7. Replacement per protocol patient currently on normal saline. Patient also currently in EtOH withdrawals. Patient has been admitted to the intensive care unit critical care services are following. Heart rate elevated secondary to withdrawal. CIWA protocol has been ordered. GI services have been consulted for Liver failure. At this time patient is resting comfortably in bed shakiness and withdrawal symptoms noted. Patient is alert and oriented 2. Patient able to follow commands. Patient denies chest pain. Patient denies shortness of breath. Patient denies any urinary burning or frequency. Objective - Vital Signs Vital signs: Vital Signs Temp 99.1 F 07/17/19 20:45 Pulse 87 07/17/19 20:45 Resp 18 07/17/19 20:45 BP 140/84 07/17/19 20:45 Pulse Ox 94 L 07/17/19 20:45 Intake & Output 07/17/19 07/17/19 07/18/19 06:59 18:59 06:59 Intake Total 2079 1660 Output Total 6 Balance 2079 1654 Intake: IV 900 800 Sodium Chloride 0.9% 1, 900 800 000 ml @ 100 mls/hr IV . Q10H [facility] Rx#:[id number] Oral 1180 860 Output: Stool 6 Other: Voiding Method Urinal Urinal Incontinent Incontinent # Voids 2 4 0 # Bowel Movements 1 1 - Exam HEAD: Normocephalic/atraumatic. EYES: Normal reaction of pupils, equal size. Conjunctiva pink, sclera white. NOSE: Clear with pink turbinates. THROAT: No erythema or exudates. NECK: No masses, no JVD, no thyroid enlargement, no adenopathy. CHEST: No chest wall deformity. Symmetrical expansion. LUNGS: Equal air entry with no crackles, wheeze, rhonchi or dullness. CVS: Regular rate and rhythm, normal S1 and S2, no gallops, no murmurs, no rubs. he is tachycardic with a rate of 130s to 140 BPM ABDOMEN: Soft, nontender. No hepatosplenomegaly, normal bowel sounds, no guarding or rigidity. EXTREMITIES: No clubbing, no edema, no cyanosis, 2+ pulses and upper and lower extremities. MUSCULOSKELETAL: Muscle strength and tone normal. SPINE: No scoliosis or deformity - Labs CBC & Chem 7: 07/16/19 06:32 07/16/19 06:32 Labs: Microbiology - Last 24 Hours (Table) 07/15/19 21:03 Blood Culture - Preliminary Blood No Growth after 48 hours 07/15/19 20:53 Blood Culture - Preliminary Blood No Growth after 48 hours 07/16/19 05:20 Urine Culture - Final Urine,Voided Assessment and Plan Assessment: Alcoholic hepatitis Hepatic encephalopathy Electrolyte imbalance with hyponatremia Spiking temperature and fever EtOH withdrawal Plan: Continue current therapy, follow clinical course closely prognosis is very guarded, will do sumner culture including urine and blood and give Tylenol Time with Patient: Greater than 30
[2019-07-18] MEDS: SODIUM CHLORIDE 0.9% 1,000 ML IV SCH ×2 (06:24→16:38)
[2019-07-18] MEDS: PANTOPRAZOLE 40 MG TABLET PO SCH (09:17)
[2019-07-18] MEDS: ENOXAPARIN 40 MG/0.4 ML SYRINGE SQ SCH (09:18)
[2019-07-18] MEDS: MULTIVITAMINS, THERA 1 EACH TAB PO SCH (09:18)
[2019-07-18] MEDS: LACTULOSE 20 GM/30 ML CUP PO SCH ×3 (09:18→21:44)
[2019-07-18] MEDS: THIAMINE 100 MG TAB PO SCH ×2 (09:18→17:24)
[2019-07-18] MEDS: METOPROLOL SUCCINATE (ER) 100 MG TAB.ER.24H PO SCH (09:18)
[2019-07-18] MEDS: RIFAXIMIN 550 MG TABLET PO SCH ×2 (09:19→21:43)
[2019-07-18 10:07] LABS: ALT 35 U/L (4-49); AST 122 U/L (17-59); African American GFR (CKD) >90 (>60 ml/min/1.73 sqM); Albumin 2.5 g/dL (3.5-5.0); Alkaline Phosphatase 235 U/L (38-126); Anion Gap 9 mmol/L; Blood Urea Nitrogen 9 mg/dL (9-20); Calcium 8.4 mg/dL (8.4-10.2); Carbon Dioxide 16 mmol/L (22-30); Chloride 109 mmol/L (98-107); Glucose 125 mg/dL (74-99); Non-African American GFR(CKD) >90 (>60 ml/min/1.73 sqM); Potassium 3.3 mmol/L (3.5-5.1); Sodium 134 mmol/L (137-145); Total Protein 6.5 g/dL (6.3-8.2)
[2019-07-18 10:16] LABS: Total Bilirubin 20.9 mg/dL (0.2-1.3)
[2019-07-18] MEDS: LORazepam 2 MG/ML INJ IV PRN (13:37)
--- NOTE | 2019-07-18 16:01 | P.PN ---
Subjective Progress Note Date: 07/18/19 Principal diagnosis: Alcoholic hepatitis with jaundice, hyperbilirubinemia, alcoholic liver disease, electrolyte imbalance with hypokalemia and hypomagnesemia and hyponatremia, hyp ertension hypertensive cardiovascular disease, encephalopathy/altered mental status due to hepatic encephalopathy 07/18/2019, patient is awake and alert sitting upright in the bed breathing comfortably denies any chest pain repeat levels tomorrow again fever Petrin has improved, culture results and report reviewed no growth has been noted 07/17/2019, patient seen eval examined during the rounds labs reviewed medications reviewed care plan discussed, patient remains afebrile, oxygen saturation 94% with stable blood pressure 2019, patient seen eval examined during the rounds labs reviewed medications reviewed status post IV Tylenol, fever is normalized, patient is more awake and alert labs reviewed culture results and reports are pending 07/15/2019, patient seen eval reexamined during the rounds overall no significant changes present as far as mental status patient did spike a fever and cultures have been obtained, IV Tylenol has been given, labs reviewed medications reviewed, overall hemoglobin remained stable sodium is slowly coming up, total bilirubin is up further today is 16.8 up from 14 yesterday, liver enzymes remains elevated This is a 49-year-old male patient who presented to the ER with complaints of yellowing of skin and eyes. Patient is known past medical history of EtOH drinking approximately a pint of vodka plus beer daily. Patient's urged patient to come to ER due to presentation of jaundice 1 day patient was noted to have yellowing of his eyes and she was concerned about his liver. Additional medical history includes hyperlipidemia hypertension and ex-smoker. Abdominal ultrasound completed showing no gallstones or dilated ducts diffuse fatty infiltration of liver. Upon admission AST elevated to 95, ALT 64 alkaline phosphatase 3:30 total bilirubin 10.1 and ammonia level 185. Patient has been started on lactulose. GI services have been consulted. Patient's electrolytes also significantly impaired. Sodium low at 122, potassium 3.2, magnesium 0.7. Replacement per protocol patient currently on normal saline. Patient also c urrently in EtOH withdrawals. Patient has been admitted to the intensive care unit critical care services are following. Heart rate elevated secondary to withdrawal. CIWA protocol has been ordered. GI services have been consulted for Liver failure. At this time patient is resting comfortably in bed shakiness and withdrawal symptoms noted. Patient is alert and oriented 2. Patient able to follow commands. Patient denies chest pain. Patient denies shortness of breath. Patient denies any urinary burning or frequency. Objective - Vital Signs Vital signs: Vital Signs Temp 98 F 07/18/19 11:39 Pulse 92 07/18/19 11:39 Resp 18 07/18/19 11:39 BP 141/97 07/18/19 11:39 Pulse Ox 97 07/18/19 11:39 Intake & Output 07/17/19 07/18/19 07/18/19 18:59 06:59 18:59 Intake Total 1660 1190 Output Total 6 Balance 1654 1190 Weight 76.4 kg Intake: IV 800 900 Sodium Chloride 0.9% 1, 800 900 000 ml @ 100 mls/hr IV . Q10H [facility] Rx#:[id number] Oral 860 290 Output: Stool 6 Other: Voiding Method Urinal Urinal Urinal Incontinent Incontinent Incontinent # Voids 4 1 # Bowel Movements 1 1 - Exam HEAD: Normocephalic/atraumatic. EYES: Normal reaction of pupils, equal size. Conjunctiva pink, sclera white. NOSE: Clear with pink turbinates. THROAT: No erythema or exudates. NECK: No masses, no JVD, no thyroid enlargement, no adenopathy. CHEST: No chest wall deformity. Symmetrical expansion. LUNGS: Equal air entry with no crackles, wheeze, rhonchi or dullness. CVS: Regular rate and rhythm, normal S1 and S2, no gallops, no murmurs, no rubs. he is tachycardic with a rate of 130s to 140 BPM ABDOMEN: Soft, nontender. No hepatosplenomegaly, normal bowel sounds, no guarding or rigidity. EXTREMITIES: No clubbing, no edema, no cyanosis, 2+ pulses and upper and lower extremities. MUSCULOSKELETAL: Muscle strength and tone normal. SPINE: No scoliosis or deformity - Labs CBC & Chem 7: 07/16/19 06:32 07/18/19 09:32 Labs: Abnormal Lab Results - Last 24 Hours (Table) 07/18/19 07/18/19 Range/Units 09:32 09:40 Sodium 134 L (137-145) mmol/L Potassium 3.3 L (3.5-5.1) mmol/L Chloride 109 H (98-107) mmol/L Carbon Dioxide 16 L (22-30) mmol/L Glucose 125 H (74-99) mg/dL Total Bilirubin 20.9 H* (0.2-1.3) mg/dL AST 122 H (17-59) U/L Alkaline Phosphatase 235 H (38-126) U/L Ammonia 69 H (<30) umol/L Albumin 2.5 L (3.5-5.0) g/dL Microbiology - Last 24 Hours (Table) 07/15/19 21:03 Blood Culture - Preliminary Blood No Growth after 48 hours 07/15/19 20:53 Blood Culture - Preliminary Blood No Growth after 48 hours 07/16/19 05:20 Urine Culture - Final Urine,Voided Assessment and Plan Assessment: Alcoholic hepatitis Hepatic encephalopathy Electrolyte imbalance with hyponatremia Spiking temperature and fever EtOH withdrawal Plan: Continue current therapy, follow clinical course closely prognosis is very guarded, cultures no growth repeat labs tomorrow if remains stable possible discharge in next 48 hours Time with Patient: Greater than 30
--- NOTE | 2019-07-18 18:53 | PN ---
PROGRESS NOTE DATE OF SERVICE: 07/18/2019 The patient is a 49-year-old pleasant white male admitted to the hospital with acute alcoholic hepatitis and hepatic encephalopathy. He was evaluated by Dr. Jhaveri on consultation 3 days ago. Hepatitis serologies for A, B and C are negative. Today he denies any complaints. He still has no energy. No abdominal pain. No nausea or vomiting. He is more alert. He had about 3 soft bowel movements yesterday. Remains on lactulose and Xifaxan. PHYSICAL EXAMINATION: Appears comfortable, no apparent distress. Vital signs are stable. Blood pressure is 141/97, pulse 92, temperature 98. HEENT examination unremarkable. Conjunctivae pink. Sclerae deeply icteric. NECK: No JVD or lymph node enlargement. CHEST: Clear to auscultation. HEART: Regular rate and rhythm. ABDOMEN: Soft. Bowel sounds are positive. No organomegaly. EXTREMITIES: No pedal edema. SKIN: No rashes. NEURO: Alert and oriented x3. No focal deficits. LABS: WBC 8.9, hemoglobin 11.2, platelets normal. T bilirubin today is 20.9, AST is 122, ALT 35, alkaline phosphatase is 235. IMPRESSION: 1. Severe acute alcoholic hepatitis with gradually worsening bilirubin. Today bilirubin is 20.9. Serum transaminases are slightly better. 2. Hepatic encephalopathy, resolved. Remains on lactulose and Xifaxan and doing much better. Ammonia levels have normalized. 3. Mild macrocytic anemia. 4. Mild thrombocytopenia. RECOMMENDATION: 1. Continue with symptomatic and supportive care. 2. Low-salt diet. 3. Continue Xifaxan and lactulose and titrate to 3-4 bowel movements daily. 4. Repeat labs in the morning and will follow with you closely. Thank you for this consultation. MMODL / IJN: [id number] /
[2019-07-18] MEDS: POTASSIUM CHLORIDE ER 20 MEQ TAB.ER PO SCH ×2 (19:29→21:43)
[2019-07-19] MEDS: LORazepam 2 MG/ML INJ IV PRN (02:41)
[2019-07-19] MEDS: SODIUM CHLORIDE 0.9% 1,000 ML IV SCH ×3 (02:42→22:08)
[2019-07-19 03:00] LABS: Glucose,Whole Blood 120 mg/dL (75-99)
--- NOTE | 2019-07-19 04:28 | CT ---
EXAMINATION TYPE: CT brain charles ty con DATE OF EXAM: 07/19/2019 COMPARISON: None HISTORY: fall CT DLP: 1601.3 mGycm Automated exposure control for dose reduction was used. There is diffuse cerebral atrophy. There is no mass effect nor midline shift. There is no sign of int racranial hemorrhage. The calvarium is intact. Cervical vertebra have normal alignment. Posterior elements are intact. Facet joints are intact. Disc spaces are fairly normal. There is no compression fracture. Skull base is intact. IMPRESSION: Normal CT scan of the cervical spine. There is moderate atrophy for the patient's age. No acute intracranial abnormality.
[2019-07-19 07:45] LABS: Anisocytosis Slight; HCT 33.6 % (39.0-53.0); MCH 36.2 pg (25.0-35.0); MCHC 32.7 g/dL (31.0-37.0); MCV 110.5 fL (80.0-100.0); Macrocytosis Marked; Mean Platelet Volume 8.8; Platelet Count 351 k/uL (150-450); RBC 3.04 m/uL (4.30-5.90); RDW 16.2 % (11.5-15.5); WBC 9.6 k/uL (3.8-10.6)
[2019-07-19 08:00] LABS: ALT 34 U/L (4-49); AST 108 U/L (17-59); African American GFR (CKD) >90 (>60 ml/min/1.73 sqM); Albumin 2.3 g/dL (3.5-5.0); Alkaline Phosphatase 230 U/L (38-126); Anion Gap 10 mmol/L; Blood Urea Nitrogen 12 mg/dL (9-20); Calcium 8.4 mg/dL (8.4-10.2); Carbon Dioxide 17 mmol/L (22-30); Chloride 112 mmol/L (98-107); Glucose 91 mg/dL (74-99); Non-African American GFR(CKD) 78 (>60 ml/min/1.73 sqM); Potassium 3.8 mmol/L (3.5-5.1); Sodium 139 mmol/L (137-145)
[2019-07-19 08:10] LABS: Total Bilirubin 20.7 mg/dL (0.2-1.3)
[2019-07-19 08:11] LABS: Total Protein 6.1 g/dL (6.3-8.2)
[2019-07-19 08:33] LABS: INR 1.4 (<1.2); Prothrombin Time 14.3 sec (9.0-12.0)
[2019-07-19] MEDS: MULTIVITAMINS, THERA 1 EACH TAB PO SCH (09:15)
[2019-07-19] MEDS: PANTOPRAZOLE 40 MG TABLET PO SCH (09:15)
[2019-07-19] MEDS: LACTULOSE 20 GM/30 ML CUP PO SCH ×3 (09:15→21:07)
[2019-07-19] MEDS: THIAMINE 100 MG TAB PO SCH ×2 (09:15→16:37)
[2019-07-19] MEDS: RIFAXIMIN 550 MG TABLET PO SCH ×2 (09:15→21:07)
[2019-07-19] MEDS: METOPROLOL SUCCINATE (ER) 100 MG TAB.ER.24H PO SCH (09:15)
[2019-07-19] MEDS: ENOXAPARIN 40 MG/0.4 ML SYRINGE SQ SCH (09:15)
[2019-07-19 10:28] LABS: Eosinophils # (M) 0.19 k/uL (0-0.7); Lymphocytes # (M) 0.67 k/uL (1.0-4.8); Monocytes # (M) 2.02 k/uL (0-1.0); Neutrophils # (M) 6.72 k/uL (1.3-7.7); Neutrophils % (M) 70 %; Nucleated Red Blood Cells 0 /100 WBC (0-0); Total Cells Counted 100
[2019-07-19 10:29] LABS: Polychromasia Present; Toxic Vacuolation Present
[2019-07-19] MEDS ORDERED: Potassium Replacement Protocol 1 EACH MISC MISCELLANE PRN (12:29)
[2019-07-19] MEDS ORDERED: POTASSIUM CHLORIDE ER 20 MEQ TAB.ER PO SCH (13:00)
--- NOTE | 2019-07-19 16:56 | PN ---
PROGRESS NOTE Patient is a 49-year-old pleasant white male with history of alcoholic cirrhosis with superimposed severe acute alcoholic hepatitis. He has been in the hospital for the last one-week duration. He denies any new symptoms. He looks somewhat slow today, but he denies any abdominal pain. No nausea, vomiting. He complains of fatigue and weakness. PHYSICAL EXAMINATION: Appears comfortable. No apparent distress. Vital signs are stable. Blood pressure is 160/94, pulse rate 97, respiration 18, temperature 97.9. HEENT examination unremarkable. Conjunctivae pink. Sclerae deeply icteric. Oral cavity no lesions. NECK: No JVD or lymph node enlargement. CHEST: Clear to auscultation. HEART: Regular rate and rhythm. ABDOMEN: Soft. Bowel sounds are positive. Non-distended. No free fluid noted. EXTREMITIES: No asterixis. SKIN: No rashes. NEUROLOGIC: He is still alert and oriented x3. No focal deficits. LABS: Labs from today show WBC 9.6, hemoglobin 11, platelets 351. INR is 1.4. T-bilirubin is up to 20.7. AST and ALT are 108 and 34, respectively. Alkaline phosphatase 230. Albumin 2.3. IMPRESSION: 1. Severe acute alcoholic hepatitis superimposed on alcoholic cirrhosis of the liver; continues to have persistent hyperbilirubinemia with bilirubin at 20.5 g/dL. 2. Mild hepatic encephalopathy, resolved. Remains on the lactulose and Xifaxan. 3. Macrocytic anemia secondary to underlying chronic liver disease. 4. Generalized weakness and fatigue from advanced liver disease. 5. Coagulopathy. RECOMMENDATIONS: 1. Continue to monitor the patient closely. 2. Continue with lactulose and Xifaxan. 3. Encourage nutrition. 4. Improve ambulation. 5. I had a lengthy discussion with the patient as well as his who was at the bedside regarding guarded prognosis at this time. Will follow with you closely. Thank you for this consultation. MMODL / IJN: [id number] /
[2019-07-19] MEDS: HYDROCHLOROTHIAZIDE 25 MG TAB PO SCH (21:07)
[2019-07-19] MEDS: LISINOPRIL 10 MG TAB PO SCH (21:07)
[2019-07-20] MEDS: SODIUM CHLORIDE 0.9% 1,000 ML IV SCH ×3 (06:16→23:20)
[2019-07-20] MEDS: MULTIVITAMINS, THERA 1 EACH TAB PO SCH ×2 (08:40→08:42)
[2019-07-20] MEDS: LISINOPRIL 10 MG TAB PO SCH (08:40)
[2019-07-20] MEDS: HYDROCHLOROTHIAZIDE 25 MG TAB PO SCH (08:40)
[2019-07-20] MEDS: PANTOPRAZOLE 40 MG TABLET PO SCH (08:40)
[2019-07-20] MEDS: THIAMINE 100 MG TAB PO SCH ×2 (08:40→17:53)
[2019-07-20] MEDS: LACTULOSE 20 GM/30 ML CUP PO SCH ×3 (08:41→19:56)
[2019-07-20] MEDS: METOPROLOL SUCCINATE (ER) 100 MG TAB.ER.24H PO SCH (08:41)
[2019-07-20] MEDS: ENOXAPARIN 40 MG/0.4 ML SYRINGE SQ SCH (08:41)
[2019-07-20] MEDS: RIFAXIMIN 550 MG TABLET PO SCH ×2 (08:44→19:57)
[2019-07-20 08:56] LABS: Anisocytosis Slight; HGB 11.9 gm/dL (13.0-17.5); MCH 36.5 pg (25.0-35.0); MCHC 33.2 g/dL (31.0-37.0); Macrocytosis Marked; Mean Platelet Volume 8.9; Platelet Count 420 k/uL (150-450); RBC 3.27 m/uL (4.30-5.90); RDW 16.1 % (11.5-15.5)
[2019-07-20 08:59] LABS: Albumin 2.4 g/dL (3.5-5.0); Calcium 8.3 mg/dL (8.4-10.2); Potassium 3.4 mmol/L (3.5-5.1)
[2019-07-20 09:00] LABS: Total Protein 6.2 g/dL (6.3-8.2)
[2019-07-20] MEDS ORDERED: Potassium Replacement Protocol 1 EACH MISC MISCELLANE PRN (09:14)
[2019-07-20 10:22] LABS: MCV 109.9 fL (80.0-100.0)
--- NOTE | 2019-07-20 11:35 | P.PN ---
Subjective Progress Note Date: 07/20/19 Principal diagnosis: This is a 49-year-old male patient who presented to the ER with complaints of yellowing of skin and eyes. Patient is known past medical history of EtOH drinking approximately a pint of vodka plus beer daily. Patient's urged patient to come to ER due to presentation of jaundice 1 day patient was noted to have yellowing of his eyes and she was concerned about his liver. Additional medical history includes hyperlipidemia hypertension and ex-smoker. Abdominal ultrasound completed showing no gallstones or dilated ducts diffuse fatty infiltration of liver. Upon admission AST elevated to 95, ALT 64 alkaline phosphatase 3:30 total bilirubin 10.1 and ammonia level 185. Patient has been started on lactulose. GI services have been consulted. Patient's electrolytes also significantly impaired. Sodium low at 122, potassium 3.2, magnesium 0.7. Replacement per protocol patient currently on normal saline. Patient also currently in EtOH withdrawals. Patient has been admitted to the intensive care unit critical care services are following. Heart rate elevated secondary to withdrawal. CIWA protocol has been ordered. GI services have been consulted for Liver failure. At this time patient is resting comfortably in bed shakiness and withdrawal symptoms noted. Patient is alert and oriented 2. Patient able to follow commands. Patient denies chest pain. Patient denies shortness of breath. Patient denies any urinary burning or frequency. 07/14/2019 patient remains in the ICU. He has a sitter at bedside. He did require Ativan this morning for alcohol withdrawal and is sleeping comfortably. Heart rate is better controlled. Total bilirubin has gone up from 10.1-14.1. Ammonia level has decreased from 185-47. Hepatitis panel is negative. He is followed by GI service and critical care. He is tolerating clear liquid diet. Patient is having a bowel movement almost every hour. Patient currently on lactulose 3 times a day and Xifaxan. Patient did have a temp of 100.6 yesterday afternoon he is currently on Rocephin. Chest x-rays negative. 07/20/2019 patient was followed by Dr. Carlton from 07/15/2019 until 07/19/2019. Patient has severe alcohol hepatitis and elevated bilirubin levels. He is followed closely by GI service. His total bili is increasing up to 22. Ammonia level is up to 73. He remains on lactulose and Xifaxan. He is having about 3-5 bowel movements a day. Computed tomography scan of the brain and neck were essentially normal and the brain did show moderate atrophy. CO2 level is down to 14. He has been up and ambulating with physical therapy. Prescription has been signed for walker for home. This is a 49-year-old male patient who presented to the ER with complaints of yellowing of skin and eyes. Patient is known past medical history of EtOH drinking approximately a pint of vodka plus beer daily. Patient's urged patient to come to ER due to presentation of jaundice 1 day patient was noted to have yellowing of his eyes and she was concerned about his liver. Additional medical history includes hyperlipidemia hypertension and ex-smoker. Abdominal ultrasound completed showing no gallstones or dilated ducts diffuse fatty infiltration of liver. Upon admission AST elevated to 95, ALT 64 alkaline phosphatase 3:30 total bilirubin 10.1 and ammonia level 185. Patient has been started on lactulose. GI services have been consulted. Patient's electrolytes also significantly impaired. Sodium low at 122, potassium 3.2, magnesium 0.7. Replacement per protocol patient currently on normal saline. Patient also currently in EtOH withdrawals. Patient has been admitted to the intensive care unit critical care services are following. Heart rate elevated secondary to withdrawal. CIWA protocol has been ordered. GI services have been consulted for Liver failure. At this time patient is resting comfortably in bed shakiness and withdrawal symptoms noted. Patient is alert and oriented 2. Patient able to follow commands. Patient denies chest pain. Patient denies shortness of breath. Patient denies any urinary burning or frequency. 07/14/2019 patient remains in the ICU. He has a sitter at bedside. He did require Ativan this morning for alcohol withdrawal and is sleeping comfortably. Heart rate is better controlled. Total bilirubin has gone up from 10.1-14.1. Ammonia level has decreased from 185-47. Hepatitis panel is negative. He is followed by GI service and critical care. He is tolerating clear liquid diet. Patient is having a bowel movement almost every hour. Patient currently on lactulose 3 times a day and Xifaxan. Patient did have a temp of 100.6 yesterday afternoon he is currently on Rocephin. Chest x-rays negative. 07/20/2019 patient is currently on a regular medical floor. He was followed by Dr. Carlton from 07/15/2019 until 07/19/2019. Patient's is being followed by GI service for his severe alcoholic hepatitis. Total bilirubin is up to 22. He has been ambulating in the hallway. Apparently he had a fall yesterday and had a computed tomography scan of the head and neck completed. Just revealing moderate atrophy of the brain. Otherwise normal findings. Ammonia levels up to 73 CO2 is down at 14. Patient denies any chest pain or shortness of breath. Denies any nausea or vomiting. Urine is starting to clear and he is having 3-5 bowel movements a day. Objective - Vital Signs Vital signs: Vital Signs Temp 96.8 F L 07/20/19 07:39 Pulse 74 07/20/19 09:55 Resp 18 07/20/19 07:39 BP 149/89 07/20/19 07:39 Pulse Ox 96 07/20/19 07:39 Intake & Output 07/19/19 07/20/19 07/20/19 18:59 06:59 18:59 Intake Total 1096 1490 Output Total 700 Balance 1096 790 Intake: IV 800 900 Sodium Chloride 0.9% 1, 800 900 000 ml @ 100 mls/hr IV . Q10H [facility] Rx#:[id number] Oral 296 590 Output: Urine 700 Other: Voiding Method Urinal Incontinent # Voids 1 1 # Bowel Movements 1 2 - Exam Head normocephalic Neck supple Lungs clear to auscultation bilaterally no wheezing or crackles Heart regular rate and rhythm S1-S2, no rub or gallop Abdomen is soft nontender nondistended positive bowel sounds no hepatosp lenomegaly Extremities no edema Neuro patient sleeping comfortably Skin jaundice. Scleral icterus - Labs CBC & Chem 7: 07/20/19 08:20 07/20/19 08:20 Labs: Abnormal Lab Results - Last 24 Hours (Table) 07/20/19 07/20/19 07/20/19 Range/Units 08:20 08:20 08:20 RBC 3.27 L (4.30-5.90) m/uL Hgb 11.9 L (13.0-17.5) gm/dL Hct 36.0 L (39.0-53.0) % MCV 109.9 H (80.0-100.0) fL MCH 36.5 H (25.0-35.0) pg RDW 16.1 H (11.5-15.5) % Macrocytosis Marked A Sodium 136 L (137-145) mmol/L Potassium 3.4 L (3.5-5.1) mmol/L Chloride 112 H (98-107) mmol/L Carbon Dioxide 14 L (22-30) mmol/L Glucose 139 H (74-99) mg/dL Calcium 8.3 L (8.4-10.2) mg/dL Total Bilirubin 22.0 H* (0.2-1.3) mg/dL AST 102 H (17-59) U/L Alkaline Phosphatase 223 H (38-126) U/L Ammonia 73 H (<30) umol/L Total Protein 6.2 L (6.3-8.2) g/dL Albumin 2.4 L (3.5-5.0) g/dL Microbiology - Last 24 Hours (Table) 07/15/19 21:03 Blood Culture - Preliminary Blood No Growth after 96 hours 07/15/19 20:53 Blood Culture - Preliminary Blood No Growth after 96 hours Assessment and Plan Assessment: 1. Severe Acute alcoholic hepatitis superimposed on alcoholic cirrhosis of the liver. Abdominal ultrasound completed showing no gallstones or dilated ducts. Diffuse fatty infiltration of the liver. GI services have been consulted. Hepatitis panel negative 2. Jaundice, hyperbilirubinemia secondary to alcoholic liver disease. Bilirubin level is up to 22. GI service is following 3. EtOH withdrawal. Patient currently on CIWA protocal. Continue thiamine and add multivitamin. Continue Ativan as needed 4. Hypokalemia. Potassium 3.4 patient receiving supplement. 5. Hyponatremia and hypochloremic secondary to EtOH. Patient currently maintained on normal saline. Sodium level currently 136 6. Tachycardia secondary to alcohol withdrawal. Patient's home dose beta phong resumed. Continue a call withdrawal protocol. Tachycardia has improved 7. History of essential hypertension. Patient's home dose of Lopressor resumed. Lisinopril and hydrochlorothiazide currently on hold secondary to electrolyte imbalance 8. 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 Ammonia level is up at 73. Currently on lactulose 3 times a day and Xifaxan. 9. Macrocytic anemia secondary to chronic liver disease 10. Generalized weakness and fatigue due to his advanced liver disease. Continue PT OT 11. Metabolic acidosis: And CO2 of 14 DVT prophylaxis Lovenox. GI prophylaxis Protonix I performed an examination of the patient and discussed their management with the physician Liquor Rectifier. I have reviewed the Physician Liquor Rectifier's notes and agree with the documented findings and plan of care
[2019-07-20] MEDS: POTASSIUM CHLORIDE ER 20 MEQ TAB.ER PO SCH ×2 (11:48→12:32)
[2019-07-20] MEDS: SODIUM BICARBONATE TAB 650 MG TAB PO SCH (19:56)
--- NOTE | 2019-07-20 20:51 | PN ---
PROGRESS NOTE DATE OF DICTATION: July 20, 2019 Patient is a 49 -year-old pleasant white male with history of acute alcoholic hepatitis, admitted to the hospital about a week ago. He continues to remain the same. He is somewhat lethargic today. He denies any symptoms. He is easily arousable. Denies any abdominal pain. No nausea, vomiting. He continues to have generalized weakness and fatigue. PHYSICAL EXAMINATION: Appears comfortable, no apparent distress. Blood pressure is 169/99, pulse rate 74, temperature 99.7. HEENT examination unremarkable. Conjunctivae pink. Sclerae deeply icteric. Oral cavity no lesions. NECK: No JVD or lymph node enlargement. CHEST: Clear to auscultation. HEART: Regular rate and rhythm. ABDOMEN: Soft, it was slightly distended, but it was very soft. No free fluid noted. EXTREMITIES: No pedal edema. SKIN: No rashes. NEURO: He is awake, oriented to name, place and time. LABS: WBC 10, hemoglobin 11.9, platelets 16.1, T-bilirubin is 22, AST 102, ALT 34, alkaline phosphatase 223. INR 1.4. IMPRESSION: 1. Severe acute alcoholic hepatitis with gradually increasing bilirubin. 2. Hepatic encephalopathy. Ammonia level is 73 today, he remains on Xifaxan and lactulose and had 3 bowel movements yesterday. 3. Coagulopathy secondary to severe acute alcoholic hepatitis. 4. History of heavy alcohol abuse. RECOMMENDATIONS: At this time, we will continue to monitor the LFTs closely. Repeat PT/INR in the morning. If he continues to have worsening bilirubin, we will consider a short course of prednisone but will decide this based on his labs tomorrow. Thank you for this consultation. MMODL / IJN: [id number] /
[2019-07-21 08:19] LABS: Albumin 2.1 g/dL (3.5-5.0); Calcium 8.2 mg/dL (8.4-10.2); Potassium 3.4 mmol/L (3.5-5.1)
[2019-07-21 08:20] LABS: Anisocytosis Slight; Basophils # (A) 0.1 k/uL (0-0.2); Basophils % (A) 1 %; Eosinophils # (A) 0.2 k/uL (0-0.7); Eosinophils % (A) 2 %; HCT 35.4 % (39.0-53.0); HGB 11.6 gm/dL (13.0-17.5); Lymphocytes # (A) 0.6 k/uL (1.0-4.8); Lymphocytes % (A) 6 %; MCH 36.2 pg (25.0-35.0); MCHC 32.7 g/dL (31.0-37.0); MCV 110.5 fL (80.0-100.0); Macrocytosis Marked; Mean Platelet Volume 8.6; Monocytes % (A) 10 %; Neutrophils # (A) 8.4 k/uL (1.3-7.7); Neutrophils % (A) 79 %; Platelet Count 419 k/uL (150-450); RBC 3.21 m/uL (4.30-5.90); RDW 16.2 % (11.5-15.5); WBC 10.6 k/uL (3.8-10.6)
[2019-07-21 08:27] LABS: Total Bilirubin 20.4 mg/dL (0.2-1.3); Total Protein 5.7 g/dL (6.3-8.2)
[2019-07-21 08:41] LABS: Polychromasia Present; Target Cells Present
[2019-07-21] MEDS: LACTULOSE 20 GM/30 ML CUP PO SCH ×3 (08:57→21:03)
[2019-07-21] MEDS: THIAMINE 100 MG TAB PO SCH ×2 (08:57→17:25)
[2019-07-21] MEDS: PANTOPRAZOLE 40 MG TABLET PO SCH (08:57)
[2019-07-21] MEDS: SODIUM BICARBONATE TAB 650 MG TAB PO SCH ×2 (08:58→21:03)
[2019-07-21] MEDS: ENOXAPARIN 40 MG/0.4 ML SYRINGE SQ SCH (08:58)
[2019-07-21] MEDS: MULTIVITAMINS, THERA 1 EACH TAB PO SCH (08:58)
[2019-07-21] MEDS: HYDROCHLOROTHIAZIDE 25 MG TAB PO SCH (08:58)
[2019-07-21] MEDS: LISINOPRIL 10 MG TAB PO SCH (08:58)
[2019-07-21] MEDS: RIFAXIMIN 550 MG TABLET PO SCH ×2 (08:59→21:03)
[2019-07-21] MEDS: METOPROLOL SUCCINATE (ER) 100 MG TAB.ER.24H PO SCH (08:59)
[2019-07-21] MEDS ORDERED: POTASSIUM CHLORIDE ER 20 MEQ TAB.ER PO STA (09:29)
--- NOTE | 2019-07-21 10:15 | P.PN ---
Subjective Progress Note Date: 07/21/19 This is a 49-year-old male patient who presented to the ER with complaints of yellowing of skin and eyes. Patient is known past medical history of EtOH drinking approximately a pint of vodka plus beer daily. Patient's urged patient to come to ER due to presentation of jaundice 1 day patient was noted to have yellowing of his eyes and she was concerned about his liver. Additional medical history includes hyperlipidemia hypertension and ex-smoker. Abdominal ultrasound completed showing no gallstones or dilated ducts diffuse fatty infiltration of liver. Upon admission AST elevated to 95, ALT 64 alkaline phosphatase 3:30 total bilirubin 10.1 and ammonia level 185. Patient has been started on lactulose. GI services have been consulted. Patient's electrolytes also significantly impaired. Sodium low at 122, potassium 3.2, magnesium 0.7. Replacement per protocol patient currently on normal saline. Patient also currently in EtOH withdrawals. Patient has been admitted to the intensive care unit critical care services are following. Heart rate elevated secondary to withdrawal. CIWA protocol has been ordered. GI services have been consulted for Liver failure. At this time patient is resting comfortably in bed shakiness and withdrawal symptoms noted. Patient is alert and oriented 2. Patient able to follow commands. Patient denies chest pain. Patient denies shortness of breath. Patient denies any urinary burning or frequency. 07/14/2019 patient remains in the ICU. He has a sitter at bedside. He did require Ativan this morning for alcohol withdrawal and is sleeping comfortably. Heart rate is better controlled. Total bilirubin has gone up from 10.1-14.1. Ammonia level has decreased from 185-47. Hepatitis panel is negative. He is followed by GI service and critical care. He is tolerating clear liquid diet. Patient is having a bowel movement almost every hour. Patient currently on lactulose 3 times a day and Xifaxan. Patient did have a temp of 100.6 yesterday afternoon he is currently on Rocephin. Chest x-rays negative. 07/20/2019 patient is currently on a regular medical floor. He was followed by Dr. Carlton from 07/15/2019 until 07/19/2019. Patient's is being followed by GI service for his severe alcoholic hepatitis. Total bilirubin is up to 22. He has been ambulating in the hallway. Apparently he had a fall yesterday and had a computed tomography scan of the head and neck completed. Just revealing moderate atrophy of the brain. Otherwise normal findings. Ammonia levels up to 73 CO2 is down at 14. Patient denies any chest pain or shortness of breath. Denies any nausea or vomiting. Urine is starting to clear and he is having 3-5 bowel movements a day. 07/21/2019 patient sitting up in bed comfortably. He reports having at least 3 bowel movements daily. Ammonia level has decreased from 73-53. Total bilirubin has come down from 22-20.4. He is followed closely by GI service. Awaiting their recommendations regarding the prednisone. Potassium is low at 3.4. Objective - Vital Signs Vital signs: Vital Signs Temp 97.8 F 07/21/19 04:57 Pulse 81 07/21/19 04:57 Resp 20 07/21/19 04:57 BP 132/89 07/21/19 04:57 Pulse Ox 97 07/21/19 04:57 Intake & Output 07/20/19 07/21/19 07/21/19 18:59 06:59 18:59 Intake Total 240 400 Output Total 3 Balance 237 400 Intake: IV 400 Sodium Chloride 0.9% 1, 400 000 ml @ 100 mls/hr IV . Q10H [facility] Rx#:[id number] Oral 240 Output: Stool 3 Other: Voiding Method Urinal Urinal Incontinent Incontinent # Voids 3 1 # Bowel Movements 1 1 - Exam Head normocephalic Neck supple Lungs clear to auscultation bilaterally no wheezing or crackles Heart regular rate and rhythm S1-S2, no rub or gallop Abdomen is soft nontender nondistended positive bowel sounds no hepato splenomegaly Extremities no edema Neuro patient sleeping comfortably Skin jaundice. Scleral icterus - Labs CBC & Chem 7: 07/21/19 07:46 07/21/19 07:46 Labs: Abnormal Lab Results - Last 24 Hours (Table) 07/20/19 07/21/19 07/21/19 Range/Units 08:20 07:46 07:46 RBC 3.21 L (4.30-5.90) m/uL Hgb 11.6 L (13.0-17.5) gm/dL Hct 35.4 L (39.0-53.0) % MCV 109.9 H 110.5 H (80.0-100.0) fL MCH 36.2 H (25.0-35.0) pg RDW 16.2 H (11.5-15.5) % Neutrophils # 8.4 H (1.3-7.7) k/uL Lymphocytes # 0.6 L (1.0-4.8) k/uL Macrocytosis Marked A Sodium 136 L (137-145) mmol/L Potassium 3.4 L (3.5-5.1) mmol/L Chloride 112 H (98-107) mmol/L Carbon Dioxide 14 L (22-30) mmol/L Creatinine 1.31 H (0.66-1.25) mg/dL Calcium 8.2 L (8.4-10.2) mg/dL Total Bilirubin 20.4 H* (0.2-1.3) mg/dL AST 90 H (17-59) U/L Alkaline Phosphatase 191 H (38-126) U/L Ammonia (<30) umol/L Total Protein 5.7 L (6.3-8.2) g/dL Albumin 2.1 L (3.5-5.0) g/dL 07/21/19 Range/Units 07:46 RBC (4.30-5.90) m/uL Hgb (13.0-17.5) gm/dL Hct (39.0-53.0) % MCV (80.0-100.0) fL MCH (25.0-35.0) pg RDW (11.5-15.5) % Neutrophils # (1.3-7.7) k/uL Lymphocytes # (1.0-4.8) k/uL Macrocytosis Sodium (137-145) mmol/L Potassium (3.5-5.1) mmol/L Chloride (98-107) mmol/L Carbon Dioxide (22-30) mmol/L Creatinine (0.66-1.25) mg/dL Calcium (8.4-10.2) mg/dL Total Bilirubin (0.2-1.3) mg/dL AST (17-59) U/L Alkaline Phosphatase (38-126) U/L Ammonia 53 H (<30) umol/L Total Protein (6.3-8.2) g/dL Albumin (3.5-5.0) g/dL Microbiology - Last 24 Hours (Table) 07/15/19 20:53 Blood Culture - Preliminary Blood No Growth after 120 hours 07/15/19 21:03 Blood Culture - Preliminary Blood No Growth after 120 hours Assessment and Plan Assessment: 1. Severe Acute alcoholic hepatitis superimposed on alcoholic cirrhosis of the liver. Abdominal ultrasound completed showing no gallstones or dilated ducts. Diffuse fatty infiltration of the liver. GI services have been consulted. Hepatitis panel negative 2. Jaundice, hyperbilirubinemia secondary to alcoholic liver disease. Total bilirubin has decreased from 22-20.4. GI service is following will await their decision regarding prednisone 3. EtOH withdrawal. Patient currently on CIWA protocal. Continue thiamine and add multivitamin. Continue Ativan as needed 4. Hypokalemia. Likely losing potassium through his stooling. Plus patient restarted on his hydrochlorothiazide. Potassium 3.4 patient receiving supplement. Patient's potassium remains low at 3.4. Check magnesium level. Also add daily potassium supplement 5. Hyponatremia and hypochloremic secondary to EtOH. Patient currently maintained on normal saline. Sodium level currently 136 6. Tachycardia secondary to alcohol withdrawal. Patient's home dose beta phong resumed. Continue a call withdrawal protocol. Tachycardia has improved. Discontinue telemetry 7. History of essential hypertension. Patient's home dose of Lopressor resumed. Lisinopril and hydrochlorothiazide restarted over the weekend 8. 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 Ammonia level is down to 53 continue to monitor. Currently on lactulose 3 times a day and Xifaxan. 9. Macrocytic anemia secondary to chronic liver disease 10. Generalized weakness and fatigue due to his advanced liver disease. Blaine billingsley PT OT 11. Metabolic acidosis: the patient having multiple stools. CO2 of 14. Patient started on sodium bicarb 650 mg twice DVT prophylaxis Lovenox. GI prophylaxis Protonix I performed an examination of the patient and discussed their management with the physician Blanket Maker. I have reviewed the Physician Blanket Maker's notes and agree with the documented findings and plan of care
--- NOTE | 2019-07-21 16:38 | PN ---
PROGRESS NOTE DATE OF SERVICE: 07/21/2019 Patient is a 49-year-old pleasant white male admitted to hospital with alcoholic cirrhosis and severe acute alcoholic hepatitis. He is feeling better today. His ammonia levels have improved. He had 3 bowel movement so far. He is more awake and alert and appetite has been improving. Overall, he is feeling better. PHYSICAL EXAMINATION: Appears comfortable. VITAL SIGNS: Blood pressure 143/93, pulse is 75, temperature 97.7. HEENT examination unremarkable. Conjunctivae pink. Sclerae deeply icteric. Oral cavity no lesions. NECK: No JVD or lymph node enlargement. CHEST; Clear to auscultation. HEART: Regular rate and rhythm. ABDOMEN: Soft, slightly distended, but no free fluid noted. EXTREMITIES: No pedal edema. SKIN: No rashes. NEUROLOGIC: Alert and oriented x3. No focal deficits. LABS: WBC 10.6, hemoglobin 11.6, platelets 419, bilirubin is down to 20. AST and ALT are 90 and 33 respectively. BUN and creatinine 16 and 1.31. IMPRESSION: 1. Acute alcoholic hepatitis with hepatic encephalopathy, symptoms are gradually improving. Bilirubin has slightly improved to 20 today. 2. Hepatic encephalopathy on Xifaxan and lactulose with 3-4 bowel movements daily. 3. Coagulopathy secondary to underlying liver disease. 4. History of alcohol abuse, quit drinking about 2 weeks ago. RECOMMENDATIONS: 1. Continue with current management. 2. Repeat labs in the morning. 3. At this time we will hold off on any prednisone. 4. I had a lengthy discussion with the patient as well as his at the bedside and we will continue to follow with him closely. Thank you for this consultation. MMODL / IJN: [id number] /
[2019-07-21] MEDS: SODIUM CHLORIDE 0.9% 1,000 ML IV SCH ×2 (17:25→19:49)
[2019-07-22] MEDS: METOPROLOL SUCCINATE (ER) 100 MG TAB.ER.24H PO SCH (07:54)
[2019-07-22] MEDS: MULTIVITAMINS, THERA 1 EACH TAB PO SCH (07:54)
[2019-07-22] MEDS: HYDROCHLOROTHIAZIDE 25 MG TAB PO SCH (07:54)
[2019-07-22] MEDS: LISINOPRIL 10 MG TAB PO SCH (07:54)
[2019-07-22] MEDS: PANTOPRAZOLE 40 MG TABLET PO SCH (07:54)
[2019-07-22] MEDS: THIAMINE 100 MG TAB PO SCH ×2 (07:54→16:55)
[2019-07-22] MEDS: ENOXAPARIN 40 MG/0.4 ML SYRINGE SQ SCH (07:55)
[2019-07-22] MEDS: SODIUM BICARBONATE TAB 650 MG TAB PO SCH ×2 (07:55→19:01)
[2019-07-22] MEDS: LACTULOSE 20 GM/30 ML CUP PO SCH ×2 (07:55→19:01)
[2019-07-22] MEDS: POTASSIUM CHLORIDE ER 20 MEQ TAB.ER PO SCH ×5 (07:55→13:52)
[2019-07-22] MEDS: RIFAXIMIN 550 MG TABLET PO SCH ×2 (07:55→19:02)
[2019-07-22 08:11] LABS: Anisocytosis Slight; Basophils # (A) 0.1 k/uL (0-0.2); Basophils % (A) 1 %; Eosinophils # (A) 0.4 k/uL (0-0.7); Eosinophils % (A) 4 %; HCT 34.6 % (39.0-53.0); HGB 11.2 gm/dL (13.0-17.5); Hypochromasia Slight; Lymphocytes # (A) 0.6 k/uL (1.0-4.8); Lymphocytes % (A) 6 %; MCH 36.2 pg (25.0-35.0); MCHC 32.3 g/dL (31.0-37.0); Macrocytosis Marked; Mean Platelet Volume 9.1; Monocytes # (A) 0.9 k/uL (0-1.0); Monocytes % (A) 8 %; Neutrophils # (A) 8.3 k/uL (1.3-7.7); Neutrophils % (A) 79 %; Platelet Count 475 k/uL (150-450); RBC 3.09 m/uL (4.30-5.90); RDW 16.1 % (11.5-15.5); WBC 10.6 k/uL (3.8-10.6)
[2019-07-22 08:21] LABS: Albumin 2.1 g/dL (3.5-5.0); Calcium 8.3 mg/dL (8.4-10.2); Magnesium 1.5 mg/dL (1.6-2.3); Potassium 3.2 mmol/L (3.5-5.1)
[2019-07-22 08:30] LABS: Total Protein 5.8 g/dL (6.3-8.2)
[2019-07-22 08:31] LABS: Total Bilirubin 20.8 mg/dL (0.2-1.3)
[2019-07-22 08:34] LABS: INR 1.4 (<1.2); Prothrombin Time 14.1 sec (9.0-12.0)
[2019-07-22] MEDS: MAGNESIUM SULFATE-D5W PMX 1 GM in DEXTROSE/WATER 1 100ML.BAG IVPB SCH ×2 (08:51→10:01)
--- NOTE | 2019-07-22 09:53 | P.PN ---
Subjective This is a 49-year-old male patient who presented to the ER with complaints of yellowing of skin and eyes. Patient is known past medical history of EtOH drinking approximately a pint of vodka plus beer daily. Patient's urged patient to come to ER due to presentation of jaundice 1 day patient was noted to have yellowing of his eyes and she was concerned about his liver. Additional medical history includes hyperlipidemia hypertension and ex-smoker. Abdominal ultrasound completed showing no gallstones or dilated ducts diffuse fatty infi ltration of liver. Upon admission AST elevated to 95, ALT 64 alkaline phosphatase 3:30 total bilirubin 10.1 and ammonia level 185. Patient has been started on lactulose. GI services have been consulted. Patient's electrolytes also significantly impaired. Sodium low at 122, potassium 3.2, magnesium 0.7. Replacement per protocol patient currently on normal saline. Patient also currently in EtOH withdrawals. Patient has been admitted to the intensive care unit critical care services are following. Heart rate elevated secondary to withdrawal. CIWA protocol has been ordered. GI services have been consulted for Liver failure. At this time patient is resting comfortably in bed shakiness and withdrawal symptoms noted. Patient is alert and oriented 2. Patient able to follow commands. Patient denies chest pain. Patient denies shortness of breath. Patient denies any urinary burning or frequency. 07/14/2019 patient remains in the ICU. He has a sitter at bedside. He did require Ativan this morning for alcohol withdrawal and is sleeping comfortably. Heart rate is better controlled. Total bilirubin has gone up from 10.1-14.1. Ammonia level has decreased from 185-47. Hepatitis panel is negative. He is followed by GI service and critical care. He is tolerating clear liquid diet. Patient is having a bowel movement almost every hour. Patient currently on lactulose 3 times a day and Xifaxan. Patient did have a temp of 100.6 yesterday afternoon he is currently on Rocephin. Chest x-rays negative. 07/20/2019 patient is currently on a regular medical floor. He was followed by Dr. Carlton from 07/15/2019 until 07/19/2019. Patient's is being followed by GI service for his severe alcoholic hepatitis. Total bilirubin is up to 22. He has been ambulating in the hallway. Apparently he had a fall yesterday and had a computed tomography scan of the head and neck completed. Just revealing moderate atrophy of the brain. Otherwise normal findings. Ammonia levels up to 73 CO2 is down at 14. Patient denies any chest pain or shortness of breath. Denies any nausea or vomiting. Urine is starting to clear and he is having 3-5 bowel movements a day. 07/21/2019 patient sitting up in bed comfortably. He reports having at least 3 bowel movements daily. Ammonia level has decreased from 73-53. Total bilirubin has come down from 22-20.4. He is followed closely by GI service. Awaiting their recommendations regarding the prednisone. Potassium is low at 3.4. 07/22/2019 patient lying in bed comfortably. He has no new complaints. Ammonia is down to 48. He is having multiple bowel movements a day. Magnesium and potassium are low and being replaced. Creatinine has gone up to 1.48. We'll discontinue the hydrochlorothiazide and lisinopril. Continue fluids at 50 mL an hour. Total bilirubin is 20.8 patient denies any difficulty urinating. He does report that his urine continues to become clear. GI service did hold off on starting the prednisone. Objective - Vital Signs Vital signs: Vital Signs Temp 98.0 F 07/22/19 04:55 Pulse 78 07/22/19 04:55 Resp 18 07/22/19 04:55 BP 111/73 07/22/19 04:55 Pulse Ox 97 07/22/19 04:55 Intake & Output 07/21/19 07/22/19 07/22/19 18:59 06:59 18:59 Intake Total 580 1560 240 Output Total 3 Balance 577 1560 240 Intake: IV 600 Sodium Chloride 0.9% 1, 600 000 ml @ 100 mls/hr IV . Q10H [facility] Rx#:[id number] Oral 580 960 240 Output: Stool 3 Other: Voiding Method Bedside Commode Bedside Commode Toilet Urinal Urinal Urinal Diaper Incontinent # Voids 3 1 # Bowel Movements 3 - Exam Head normocephalic Neck supple Lungs clear to auscultation bilaterally no wheezing or crackles Heart regular rate and rhythm S1-S2, no rub or gallop Abdomen is soft nontender nondistended positive bowel sounds no hepatosplenomegaly Extremities +1 edema bilateral lower legs Neuro patient sleeping comfortably Skin jaundice. Scleral icterus - Labs CBC & Chem 7: 02/21/20 07:39 07/22/19 07:39 Labs: Abnormal Lab Results - Last 24 Hours (Table) 07/21/19 07/22/19 07/22/19 Range/Units 07:46 07:39 07:39 RBC 3.09 L (4.30-5.90) m/uL Hgb 11.2 L (13.0-17.5) gm/dL Hct 34.6 L (39.0-53.0) % MCV 112.0 H (80.0-100.0) fL MCH 36.2 H (25.0-35.0) pg RDW 16.1 H (11.5-15.5) % Plt Count 475 H (150-450) k/uL Neutrophils # 8.3 H (1.3-7.7) k/uL Lymphocytes # 0.6 L (1.0-4.8) k/uL Macrocytosis Marked A PT (9.0-12.0) sec INR (<1.2) Sodium 136 L (137-145) mmol/L Potassium 3.2 L (3.5-5.1) mmol/L Chloride 112 H (98-107) mmol/L Carbon Dioxide 15 L (22-30) mmol/L Creatinine 1.48 H (0.66-1.25) mg/dL Calcium 8.3 L (8.4-10.2) mg/dL Magnesium 1.5 L 1.5 L (1.6-2.3) mg/dL Total Bilirubin 20.8 H* (0.2-1.3) mg/dL AST 89 H (17-59) U/L Alkaline Phosphatase 196 H (38-126) U/L Ammonia (<30) umol/L Total Protein 5.8 L (6.3-8.2) g/dL Albumin 2.1 L (3.5-5.0) g/dL 07/22/19 07/22/19 Range/Units 07:39 07:39 RBC (4.30-5.90) m/uL Hgb (13.0-17.5) gm/dL Hct (39.0-53.0) % MCV (80.0-100.0) fL MCH (25.0-35.0) pg RDW (11.5-15.5) % Plt Count (150-450) k/uL Neutrophils # (1.3-7.7) k/uL Lymphocytes # (1.0-4.8) k/uL Macrocytosis PT 14.1 H (9.0-12.0) sec INR 1.4 H (<1.2) Sodium (137-145) mmol/L Potassium (3.5-5.1) mmol/L Chloride (98-107) mmol/L Carbon Dioxide (22-30) mmol/L Creatinine (0.66-1.25) mg/dL Calcium (8.4-10.2) mg/dL Magnesium (1.6-2.3) mg/dL Total Bilirubin (0.2-1.3) mg/dL AST (17-59) U/L Alkaline Phosphatase (38-126) U/L Ammonia 48 H (<30) umol/L Total Protein (6.3-8.2) g/dL Albumin (3.5-5.0) g/dL Microbiology - Last 24 Hours (Table) 07/15/19 21:03 Blood Culture - Final Blood No Growth after 144 hours 07/15/19 20:53 Blood Culture - Final Blood No Growth after 144 hours Assessment and Plan Assessment: 1. Severe Acute alcoholic hepatitis superimposed on alcoholic cirrhosis of the liver. Abdominal ultrasound completed showing no gallstones or dilated ducts. Diffuse fatty infiltration of the liver. GI services have been consulted. Hepatitis panel negative 2. Jaundice, hyperbilirubinemia secondary to alcoholic liver disease. Total bilirubin 20.8. GI service is following and decided not to start prednisone 3. EtOH withdrawal. Patient currently on CIWA protocal. Continue thiamine and add multivitamin. Continue Ativan as needed 4. Hypokalemia. Likely losing potassium through his stooling and hydrochlorothiazide. Plus magnesium level is low Continue potassium replacement per protocol 5. Hyponatremia and hypochloremic secondary to EtOH. 6. Tachycardia secondary to alcohol withdrawal. Patient's home dose beta phong resumed. Continue a call withdrawal protocol. Tachycardia has improved. Discontinue telemetry 7. History of essential hypertension. Patient's home dose of Lopressor resumed. 8. 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 Ammonia level is down to 48 continue to monitor. Currently on lactulose 3 times a day and Xifaxan. 9. Macrocytic anemia secondary to chronic liver disease 10. Generalized weakness and fatigue due to his advanced liver disease. Continue PT OT 11. Metabolic acidosis: the patient having multiple stools. CO2 has gone from 14-15. Patient started on sodium bicarb 650 mg twice 12. Hypomagnesemia: Magnesium 1.5. Patient receiving magnesium supplement per protocol. Continue monitor magnesium level 13. Acute kidney injury: Creatinine is up to 1.4. Discontinue the hydrochlorothiazide and lisinopril. Encourage patient to drink plenty of fluids. Continue normal saline at 50 mL an hour. We'll monitor. DVT prophylaxis Lovenox. GI prophylaxis Protonix I performed an examination of the patient and discussed their management with the physician Manager Supply. I have reviewed the Physician Manager Supply's notes and agree with the documented findings and plan of care
[2019-07-22] MEDS ORDERED: POTASSIUM CHLORIDE ER 20 MEQ TAB.ER PO STA (15:07)
[2019-07-22] MEDS: SODIUM CHLORIDE 0.9% 1,000 ML IV SCH (16:55)
--- NOTE | 2019-07-22 19:16 | PN ---
PROGRESS NOTE DATE OF SERVICE: July 22, 2019 The patient is a 49-year-old pleasant white male with history of alcoholic cirrhosis and acute alcoholic hepatitis, admitted to the hospital about a week ago and being monitored closely. He is doing better. He still complains of abdominal distention. He reports no nausea, vomiting. No fever, chills, night sweats. According to his , his appetite has been gradually improving. EXAMINATION: Vital signs are stable. Blood pressure is 137/87, pulse is 78, temperature 98. HEENT examination unremarkable. Conjunctivae pink. Sclerae anicteric. Oral cavity no lesions. NECK: No JVD or lymph node enlargement. CHEST: Clear to auscultation. HEART: Regular rate and rhythm. ABDOMEN: Soft. Bowel sounds are positive. No organomegaly. EXTREMITIES: No pedal edema. ABDOMEN looks slightly distended, but there was no free fluid noted. NEUROLOGIC: Alert and oriented x3. No focal deficits. LABS: Done today WBC 10.6, hemoglobin 11.2, platelets 475. Bilirubin is 20.8. ALT and AST are 36 and 89 respectively. INR is 1.4. IMPRESSION: 1. Severe acute alcoholic hepatitis with gradually improving bilirubin. The patient overall looks better. 2. Alcoholic cirrhosis of the liver. 3. History of heavy alcohol abuse with drinking 2 weeks ago. 4. Mild coagulopathy secondary to underlying liver disease. RECOMMENDATION: 1. Continue to observe the patient closely. 2. Repeat labs in the morning. 3. Once the bilirubin is trending down, he can be discharged home to have outpatient followup on a weekly basis. 4. In the meantime, he was encouraged to increase ambulation and continue with a balanced diet. Thank you for this consultation. MMODL / IJN: [id number] /
[2019-07-22] MEDS ORDERED: POTASSIUM CHLORIDE ER 20 MEQ TAB.ER PO SCH (20:00)
[2019-07-23] MEDS: PANTOPRAZOLE 40 MG TABLET PO SCH (07:22)
[2019-07-23] MEDS: POTASSIUM CHLORIDE ER 20 MEQ TAB.ER PO SCH (07:22)
[2019-07-23] MEDS: THIAMINE 100 MG TAB PO SCH ×2 (07:22→16:43)
[2019-07-23] MEDS: MULTIVITAMINS, THERA 1 EACH TAB PO SCH (07:22)
[2019-07-23] MEDS: METOPROLOL SUCCINATE (ER) 100 MG TAB.ER.24H PO SCH (07:23)
[2019-07-23] MEDS: LACTULOSE 20 GM/30 ML CUP PO SCH ×2 (07:23→21:10)
[2019-07-23] MEDS: RIFAXIMIN 550 MG TABLET PO SCH ×2 (07:23→21:10)
[2019-07-23] MEDS: ENOXAPARIN 30 MG/0.3 ML SYRINGE SQ SCH (07:23)
[2019-07-23] MEDS: SODIUM BICARBONATE TAB 650 MG TAB PO SCH ×2 (07:23→21:10)
[2019-07-23] MEDS: SODIUM CHLORIDE 0.9% 1,000 ML IV SCH ×2 (07:24→12:13)
[2019-07-23 08:18] LABS: Albumin 2.4 g/dL (3.5-5.0); Calcium 8.7 mg/dL (8.4-10.2); Magnesium 2.1 mg/dL (1.6-2.3); Potassium 4.2 mmol/L (3.5-5.1)
[2019-07-23 08:31] LABS: Total Bilirubin 22.4 mg/dL (0.2-1.3); Total Protein 6.4 g/dL (6.3-8.2)
[2019-07-23 08:39] LABS: Basophils # (A) 0.1 k/uL (0-0.2); Basophils % (A) 1 %; Eosinophils # (A) 0.4 k/uL (0-0.7); Eosinophils % (A) 3 %; HCT 38.4 % (39.0-53.0); HGB 12.3 gm/dL (13.0-17.5); Hypochromasia Slight; Lymphocytes % (A) 6 %; MCH 35.7 pg (25.0-35.0); MCHC 31.9 g/dL (31.0-37.0); MCV 111.9 fL (80.0-100.0); Macrocytosis Marked; Mean Platelet Volume 9.4; Monocytes # (A) 1.1 k/uL (0-1.0); Monocytes % (A) 7 %; Neutrophils # (A) 12.4 k/uL (1.3-7.7); Neutrophils % (A) 81 %; Platelet Count 479 k/uL (150-450); RBC 3.43 m/uL (4.30-5.90); RDW 15.9 % (11.5-15.5); WBC 15.4 k/uL (3.8-10.6)
[2019-07-23 08:41] LABS: INR 1.3 (<1.2); Prothrombin Time 13.4 sec (9.0-12.0)
--- NOTE | 2019-07-23 09:43 | PN ---
PROGRESS NOTE DATE OF DICTATION: 07/23/2019 This patient is a 49-year-old pleasant male with history of alcoholic cirrhosis and acute alcoholic hepatitis, admitted to the hospital a week ago. He is gradually improving. Overall he feels better. His bilirubin went up to 22 today, but he has been more active. Appetite has been increasing. He is ambulating well, undergoing physical therapy. No new complaints. PHYSICAL EXAMINATION: Vital signs are stable. Blood pressure 133/86, pulse rate 79, temperature 97.7. HEENT examination unremarkable. Conjunctivae pink. Sclerae deeply icteric. Oral cavity no lesions. NECK: No JVD or lymph node enlargement. CHEST: Clear to auscultation. HEART: Regular rate and rhythm. ABDOMEN: Soft. Bowel sounds are positive. Slightly distended, but no free fluid. EXTREMITIES: No pedal edema. SKIN: No rashes. NEUROLOGIC: Alert and oriented x3. No focal deficits. LABS: WBC 15.4, hemoglobin 12.3, platelets 479. INR 1.3. BUN 19, creatinine 1.91. Bilirubin is 22.4. IMPRESSION: 1. Acute alcoholic hepatitis superimposed on alcoholic cirrhosis of the liver. Bilirubin remains stable. 2. Mildly elevated BUN, mildly elevated creatinine. 3. Coagulopathy, improving. 4. History of alcohol abuse. He quit drinking 2 weeks ago. RECOMMENDATIONS: 1. Continue with symptomatic and supportive care. 2. Continue with Xifaxan as well as lactulose. 3. Monitor creatinine on a daily basis as well as LFTs. 4. If the creatinine continues to increase, consider nephrology consultation. 5. Repeat labs in the morning and we will follow with you closely. Thank you for this consultation. MMODL / IJN: [id number] /
[2019-07-23 10:40] LABS: Target Cells Present
--- NOTE | 2019-07-23 18:03 | P.PN ---
Subjective Progress Note Date: 07/23/19 This is a 49-year-old male patient who presented to the ER with complaints of yellowing of skin and eyes. Patient is known past medical history of EtOH drinking approximately a pint of vodka plus beer daily. Patient's urged patient to come to ER due to presentation of jaundice 1 day patient was noted to have yellowing of his eyes and she was concerned about his liver. Additional medical history includes hyperlipidemia hypertension and ex-smoker. Abdominal ultrasound completed showing no gallstones or dilated ducts diffuse fatty infiltration of liver. Upon admission AST elevated to 95, ALT 64 alkaline phosphatase 3:30 total bilirubin 10.1 and ammonia level 185. Patient has been started on lactulose. GI services have been consulted. Patient's electrolytes also significantly impaired. Sodium low at 122, potassium 3.2, magnesium 0.7. Replacement per protocol patient currently on normal saline. Patient also currently in EtOH withdrawals. Patient has been admitted to the intensive care unit critical care services are following. Heart rate elevated secondary to withdrawal. CIWA protocol has been ordered. GI services have been consulted for Liver failure. At this time patient is resting comfortably in bed shakiness and withdrawal symptoms noted. Patient is alert and oriented 2. Patient able to follow commands. Patient denies chest pain. Patient denies shortness of breath. Patient denies any urinary burning or frequency. 07/14/2019 patient remains in the ICU. He has a sitter at bedside. He did require Ativan this morning for alcohol withdrawal and is sleeping comfortably. Heart rate is better controlled. Total bilirubin has gone up from 10.1-14.1. Ammonia level has decreased from 185-47. Hepatitis panel is negative. He is followed by GI service and critical care. He is tolerating clear liquid diet. Patient is having a bowel movement almost every hour. Patient currently on lactulose 3 times a day and Xifaxan. Patient did have a temp of 100.6 yesterday afternoon he is currently on Rocephin. Chest x-rays negative. 07/20/2019 patient is currently on a regular medical floor. He was followed by Dr. Carlton from 07/15/2019 until 07/19/2019. Patient's is being followed by GI service for his severe alcoholic hepatitis. Total bilirubin is up to 22. He has been ambulating in the hallway. Apparently he had a fall yesterday and had a computed tomography scan of the head and neck completed. Just revealing moderate atrophy of the brain. Otherwise normal findings. Ammonia levels up to 73 CO2 is down at 14. Patient denies any chest pain or shortness of breath. Denies any nausea or vomiting. Urine is starting to clear and he is having 3-5 bowel movements a day. 07/21/2019 patient sitting up in bed comfortably. He reports having at least 3 bowel movements daily. Ammonia level has decreased from 73-53. Total bilirubin has come down from 22-20.4. He is followed closely by GI service. Awaiting their recommendations regarding the prednisone. Potassium is low at 3.4. 07/22/2019 patient lying in bed comfortably. He has no new complaints. Ammonia is down to 48. He is having multiple bowel movements a day. Magnesium and po tassium are low and being replaced. Creatinine has gone up to 1.48. We'll discontinue the hydrochlorothiazide and lisinopril. Continue fluids at 50 mL an hour. Total bilirubin is 20.8 patient denies any difficulty urinating. He does report that his urine continues to become clear. GI service did hold off on starting the prednisone. On 07/23/2019 patient is alert and oriented 3 in no apparent distress bilirubin still elevated at 22 patient clinically denies any symptoms there is no fever or chills no headache or dizziness no chest pain no shortness of breath no cough no nausea or vomiting no abdominal pain no diarrhea and no urinary symptoms Objective - Vital Signs Vital signs: Vital Signs Temp 97.8 F 07/23/19 12:04 Pulse 75 07/23/19 15:18 Resp 17 07/23/19 15:18 BP 123/82 07/23/19 12:04 Pulse Ox 98 07/23/19 12:04 Intake & Output 07/22/19 07/23/19 07/23/19 18:59 06:59 18:59 Intake Total 3983 004 7327 Output Total 100 202 Balance 0722 942 3258 Weight 76.4 kg Intake: IV 400 575 Sodium Chloride 0.9% 1, 400 575 000 ml @ 50 mls/hr IV . Q20H [facility] Rx#:[id number] Intake, IV Titration 200 650 Amount Magnesium Sulfate-D5w Pmx 200 1 gm In Dextrose/Water 1 100ml.bag @ 100 mls/hr IVPB Q1H [facility] Rx#: [id number] Sodium Chloride 0.9% 1, 650 000 ml @ 50 mls/hr IV . Q20H [facility] Rx#:[id number] Oral 640 1880 Output: Urine 100 200 Stool 2 Other: Voiding Method Toilet Toilet Toilet Urinal Urinal Diaper Diaper Incontinent Incontinent # Voids 1 1 1 # Bowel Movements 1 1 - Exam Head normocephalic and atraumatic Neck supple no JVD no goiter Lungs clear to auscultation bilaterally no wheezing or crackles Heart regular rate and rhythm S1-S2, no rub or gallop Abdomen is soft nontender nondistended positive bowel sounds no hepatosplenomegaly Extremities +1 edema bilateral lower legs Neuro patient sleeping comfortably Skin jaundice. Scleral icterus - Labs CBC & Chem 7: 07/23/19 07:33 07/23/19 07:33 Labs: Abnormal Lab Results - Last 24 Hours (Table) 07/23/19 07/23/19 07/23/19 Range/Units 07:33 07:33 07:33 WBC 15.4 H (3.8-10.6) k/uL RBC 3.43 L (4.30-5.90) m/uL Hgb 12.3 L (13.0-17.5) gm/dL Hct 38.4 L (39.0-53.0) % MCV 111.9 H (80.0-100.0) fL MCH 35.7 H (25.0-35.0) pg RDW 15.9 H (11.5-15.5) % Plt Count 479 H (150-450) k/uL Neutrophils # 12.4 H (1.3-7.7) k/uL Monocytes # 1.1 H (0-1.0) k/uL Macrocytosis Marked A PT (9.0-12.0) sec INR (<1.2) Chloride 112 H (98-107) mmol/L Carbon Dioxide 15 L (22-30) mmol/L Creatinine 1.91 H (0.66-1.25) mg/dL Total Bilirubin 22.4 H* (0.2-1.3) mg/dL AST 112 H (17-59) U/L Alkaline Phosphatase 257 H (38-126) U/L Ammonia 46 H (<30) umol/L Albumin 2.4 L (3.5-5.0) g/dL 07/23/19 Range/Units 07:33 WBC (3.8-10.6) k/uL RBC (4.30-5.90) m/uL Hgb (13.0-17.5) gm/dL Hct (39.0-53.0) % MCV (80.0-100.0) fL MCH (25.0-35.0) pg RDW (11.5-15.5) % Plt Count (150-450) k/uL Neutrophils # (1.3-7.7) k/uL Monocytes # (0-1.0) k/uL Macrocytosis PT 13.4 H (9.0-12.0) sec INR 1.3 H (<1.2) Chloride (98-107) mmol/L Carbon Dioxide (22-30) mmol/L Creatinine (0.66-1.25) mg/dL Total Bilirubin (0.2-1.3) mg/dL AST (17-59) U/L Alkaline Phosphatase (38-126) U/L Ammonia (<30) umol/L Albumin (3.5-5.0) g/dL Assessment and Plan Plan: 1. Severe Acute alcoholic hepatitis superimposed on alcoholic cirrhosis of the liver. Abdominal ultrasound completed showing no gallstones or dilated ducts. Diffuse fatty infiltration of the liver. GI services have been consulted. Hepatitis panel negative 2. Jaundice, hyperbilirubinemia secondary to alcoholic liver disease. Total bilirubin 20.8. GI service is following and decided not to start prednisone 3. EtOH withdrawal. Patient currently on CIWA protocal. Continue thiamine and add multivitamin. Continue Ativan as needed 4. Hypokalemia. Likely losing potassium through his stooling and hydrochlorothiazide. Plus magnesium level is low Continue potassium replacement per protocol 5. Hyponatremia and hypochloremic secondary to EtOH. 6. Tachycardia secondary to alcohol withdrawal. Patient's home dose beta phong resumed. Continue a call withdrawal protocol. Tachycardia has improved. Discontinue telemetry 7. History of essential hypertension. Patient's home dose of Lopressor resumed. 8. 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 Ammonia level is down to 48 continue to monitor. Currently on lactulose 3 times a day and Xifaxan. 9. Macrocytic anemia secondary to chronic liver disease 10. Generalized weakness and fatigue due to his advanced liver disease. Continue PT OT 11. Metabolic acidosis: the patient having multiple stools. CO2 has gone from 14-15. Patient started on sodium bicarb 650 mg twice 12. Hypomagnesemia: Magnesium 1.5. Patient receiving magnesium supplement per protocol. Continue monitor magnesium level 13. Acute kidney injury: Creatinine is up to 1.4. Discontinue the hydrochlorothiazide and lisinopril. Encourage patient to drink plenty of fluids. Continue normal saline at 50 mL an hour. We'll monitor.
[2019-07-24] MEDS: SODIUM CHLORIDE 0.9% 1,000 ML IV SCH ×3 (07:17→21:26)
[2019-07-24] MEDS: ENOXAPARIN 30 MG/0.3 ML SYRINGE SQ SCH (07:18)
[2019-07-24] MEDS: SODIUM BICARBONATE TAB 650 MG TAB PO SCH ×4 (07:19→21:23)
[2019-07-24] MEDS: METOPROLOL SUCCINATE (ER) 100 MG TAB.ER.24H PO SCH (07:19)
[2019-07-24] MEDS: PANTOPRAZOLE 40 MG TABLET PO SCH (07:19)
[2019-07-24] MEDS: THIAMINE 100 MG TAB PO SCH ×2 (07:19→16:51)
[2019-07-24] MEDS: POTASSIUM CHLORIDE ER 20 MEQ TAB.ER PO SCH (07:19)
[2019-07-24] MEDS: LACTULOSE 20 GM/30 ML CUP PO SCH ×2 (07:19→20:04)
[2019-07-24] MEDS: MULTIVITAMINS, THERA 1 EACH TAB PO SCH (07:19)
[2019-07-24] MEDS: RIFAXIMIN 550 MG TABLET PO SCH ×2 (07:20→20:04)
[2019-07-24 07:56] LABS: Albumin 2.4 g/dL (3.5-5.0); Basophils # (A) 0.1 k/uL (0-0.2); Basophils % (A) 1 %; Calcium 8.5 mg/dL (8.4-10.2); Eosinophils # (A) 0.4 k/uL (0-0.7); Eosinophils % (A) 2 %; HCT 39.9 % (39.0-53.0); HGB 12.7 gm/dL (13.0-17.5); Hypochromasia Slight; Lymphocytes # (A) 1.1 k/uL (1.0-4.8); Lymphocytes % (A) 7 %; MCH 35.9 pg (25.0-35.0); MCV 112.3 fL (80.0-100.0); Macrocytosis Marked; Mean Platelet Volume 9.4; Monocytes % (A) 6 %; Neutrophils # (A) 12.8 k/uL (1.3-7.7); Neutrophils % (A) 82 %; Platelet Count 515 k/uL (150-450); Potassium 3.7 mmol/L (3.5-5.1); RBC 3.55 m/uL (4.30-5.90); RDW 15.5 % (11.5-15.5); Total Protein 6.5 g/dL (6.3-8.2); WBC 15.6 k/uL (3.8-10.6)
[2019-07-24 08:09] LABS: INR 1.4 (<1.2); Prothrombin Time 13.6 sec (9.0-12.0)
[2019-07-24 08:14] LABS: Total Bilirubin 22.4 mg/dL (0.2-1.3)
[2019-07-24 08:25] LABS: Target Cells Present
--- NOTE | 2019-07-24 10:36 | P.PN ---
Subjective Progress Note Date: 07/24/19 This is a 49-year-old male patient who presented to the ER with complaints of yellowing of skin and eyes. Patient is known past medical history of EtOH drinking approximately a pint of vodka plus beer daily. Patient's urged patient to come to ER due to presentation of jaundice 1 day patient was noted to have yellowing of his eyes and she was concerned about his liver. Additional medical history includes hyperlipidemia hypertension and ex-smoker. Abdominal ultrasound completed showing no gallstones or dilated ducts diffuse fatty infiltration of liver. Upon admission AST elevated to 95, ALT 64 alkaline phosphatase 3:30 total bilirubin 10.1 and ammonia level 185. Patient has been started on lactulose. GI services have been consulted. Patient's electrolytes also significantly impaired. Sodium low at 122, potassium 3.2, magnesium 0.7. Replacement per protocol patient currently on normal saline. Patient also currently in EtOH withdrawals. Patient has been admitted to the intensive care unit critical care services are following. Heart rate elevated secondary to withdrawal. CIWA protocol has been ordered. GI services have been consulted for Liver failure. At this time patient is resting comfortably in bed shakiness and withdrawal symptoms noted. Patient is alert and oriented 2. Patient able to follow commands. Patient denies chest pain. Patient denies shortness of breath. Patient denies any urinary burning or frequency. 07/14/2019 patient remains in the ICU. He has a sitter at bedside. He did require Ativan this morning for alcohol withdrawal and is sleeping comfortably. Heart rate is better controlled. Total bilirubin has gone up from 10.1-14.1. Ammonia level has decreased from 185-47. Hepatitis panel is negative. He is followed by GI service and critical care. He is tolerating clear liquid diet. Patient is having a bowel movement almost every hour. Patient currently on lactulose 3 times a day and Xifaxan. Patient did have a temp of 100.6 yesterday afternoon he is currently on Rocephin. Chest x-rays negative. 07/20/2019 patient is currently on a regular medical floor. He was followed by Dr. Carlton from 07/15/2019 until 07/19/2019. Patient's is being followed by GI service for his severe alcoholic hepatitis. Total bilirubin is up to 22. He has been ambulating in the hallway. Apparently he had a fall yesterday and had a computed tomography scan of the head and neck completed. Just revealing moderate atrophy of the brain. Otherwise normal findings. Ammonia levels up to 73 CO2 is down at 14. Patient denies any chest pain or shortness of breath. Denies any nausea or vomiting. Urine is starting to clear and he is having 3-5 bowel movements a day. 07/21/2019 patient sitting up in bed comfortably. He reports having at least 3 bowel movements daily. Ammonia level has decreased from 73-53. Total bilirubin has come down from 22-20.4. He is followed closely by GI service. Awaiting their recommendations regarding the prednisone. Potassium is low at 3.4. 07/22/2019 patient lying in bed comfortably. He has no new complaints. Ammonia is down to 48. He is having multiple bowel movements a day. Magnesium and po tassium are low and being replaced. Creatinine has gone up to 1.48. We'll discontinue the hydrochlorothiazide and lisinopril. Continue fluids at 50 mL an hour. Total bilirubin is 20.8 patient denies any difficulty urinating. He does report that his urine continues to become clear. GI service did hold off on starting the prednisone. On 07/23/2019 patient is alert and oriented 3 in no apparent distress bilirubin still elevated at 22 patient clinically denies any symptoms there is no fever or chills no headache or dizziness no chest pain no shortness of breath no cough no nausea or vomiting no abdominal pain no diarrhea and no urinary symptoms. , On 07/24/2019 patient was seen and examined on the medical floor, he is alert and oriented 3 in no apparent distress, he is still has significant jaundice, total bilirubin up to 22.4, creatinine up to 2.04, clinically he is feeling well, there is no fever or chills no headache no dizziness no chest pain no shortness of breath no cough no nausea or vomiting no abdominal pain no diarrhea and no urinary symptoms Objective - Vital Signs Vital signs: Vital Signs Temp 97.3 F L 07/24/19 05:00 Pulse 74 07/24/19 05:00 Resp 16 07/24/19 05:00 BP 135/88 07/24/19 05:00 Pulse Ox 96 07/24/19 05:00 Intake & Output 07/23/19 07/24/19 07/24/19 18:59 06:59 18:59 Intake Total 2770 575 Output Total 202 Balance 2568 575 Intake: IV 175 Sodium Chloride 0.9% 1, 175 000 ml @ 50 mls/hr IV . Q20H [facility] Rx#:[id number] Intake, IV Titration 650 400 Amount Sodium Chloride 0.9% 1, 650 400 000 ml @ 50 mls/hr IV . Q20H [facility] Rx#:[id number] Oral 2120 Output: Urine 200 Stool 2 Other: Voiding Method Toilet Toilet Diaper Incontinent # Voids 1 # Bowel Movements 1 - Exam Head normocephalic and atraumatic Neck supple no JVD no goiter Lungs clear to auscultation bilaterally no wheezing or crackles Heart regular rate and rhythm S1-S2, no rub or gallop Abdomen is soft nontender nondistended positive bowel sounds no hepatosplenomegaly Extremities +1 edema bilateral lower legs Neuro patient sleeping comfortably Skin jaundice. Scleral icterus - Labs CBC & Chem 7: 07/24/19 07:09 07/24/19 07:09 Labs: Abnormal Lab Results - Last 24 Hours (Table) 07/23/19 07/23/19 07/23/19 Range/Units 07:33 07:33 07:33 WBC 15.4 H (3.8-10.6) k/uL RBC 3.43 L (4.30-5.90) m/uL Hgb 12.3 L (13.0-17.5) gm/dL Hct 38.4 L (39.0-53.0) % MCV 111.9 H (80.0-100.0) fL MCH 35.7 H (25.0-35.0) pg RDW 15.9 H (11.5-15.5) % Plt Count 479 H (150-450) k/uL Neutrophils # 12.4 H (1.3-7.7) k/uL Monocytes # 1.1 H (0-1.0) k/uL Macrocytosis Marked A PT (9.0-12.0) sec INR (<1.2) Chloride 112 H (98-107) mmol/L Carbon Dioxide 15 L (22-30) mmol/L Creatinine 1.91 H (0.66-1.25) mg/dL Total Bilirubin 22.4 H* (0.2-1.3) mg/dL AST 112 H (17-59) U/L Alkaline Phosphatase 257 H (38-126) U/L Ammonia 46 H (<30) umol/L Albumin 2.4 L (3.5-5.0) g/dL 07/23/19 Range/Units 07:33 WBC (3.8-10.6) k/uL RBC (4.30-5.90) m/uL Hgb (13.0-17.5) gm/dL Hct (39.0-53.0) % MCV (80.0-100.0) fL MCH (25.0-35.0) pg RDW (11.5-15.5) % Plt Count (150-450) k/uL Neutrophils # (1.3-7.7) k/uL Monocytes # (0-1.0) k/uL Macrocytosis PT 13.4 H (9.0-12.0) sec INR 1.3 H (<1.2) Chloride (98-107) mmol/L Carbon Dioxide (22-30) mmol/L Creatinine (0.66-1.25) mg/dL Total Bilirubin (0.2-1.3) mg/dL AST (17-59) U/L Alkaline Phosphatase (38-126) U/L Ammonia (<30) umol/L Albumin (3.5-5.0) g/dL Assessment and Plan Plan: 1. Severe Acute alcoholic hepatitis superimposed on alcoholic cirrhosis of the liver. Abdominal ultrasound completed showing no gallstones or dilated ducts. Diffuse fatty infiltration of the liver. GI services have been consulted. Hepatitis panel negative 2. Jaundice, hyperbilirubinemia secondary to alcoholic liver disease. Total bilirubin 20.8. GI service is following and decided not to start prednisone 3. EtOH withdrawal. Patient currently on CIWA protocal. Continue thiamine and add multivitamin. Continue Ativan as needed 4. Hypokalemia. Likely losing potassium through his stooling and hydrochlorothiazide. Plus magnesium level is low Continue potassium replacement per protocol 5. Hyponatremia and hypochloremic secondary to EtOH. 6. Tachycardia secondary to alcohol withdrawal. Patient's home dose beta phong resumed. Continue a call withdrawal protocol. Tachycardia has improved. Discontinue telemetry 7. History of essential hypertension. Patient's home dose of Lopressor resumed. 8. 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 Ammonia level is down to 48 continue to monitor. Currently on lactulose 3 times a day and Xifaxan. 9. Macrocytic anemia secondary to chronic liver disease 10. Generalized weakness and fatigue due to his advanced liver disease. Continue PT OT 11. Metabolic acidosis: the patient having multiple stools. CO2 has gone from 14-15. Patient started on sodium bicarb 650 mg twice 12. Hypomagnesemia: Magnesium 1.5. Patient receiving magnesium supplement per protocol. Continue monitor magnesium level 13. Acute kidney injury: Creatinine is up to 1.4. Discontinue the hydroch lorothiazide and lisinopril. Encourage patient to drink plenty of fluids. Continue normal saline at 50 mL an hour. We'll monitor. At this time will continue to monitor labs continue supportive care will follow in a.m.
--- NOTE | 2019-07-24 11:15 | PN ---
PROGRESS NOTE DATE OF SERVICE: 07/24/2019 The patient is a 49-year-old pleasant white male with history of severe alcoholic cirrhosis of the liver with acute alcoholic hepatitis, admitted to the hospital for almost 9 days. He continues to gradually improve. He denies any new symptoms today. No abdominal pain. Complains of mild lower extremity edema. PHYSICAL EXAMINATION: Appears comfortable. No apparent distress. VITAL SIGNS: Stable. Blood pressure 135/68, pulse is 74, temperature 97.3. HEENT examination unremarkable. Conjunctivae pink. Sclerae anicteric. Oral cavity no lesions. NECK: No JVD or lymph node enlargement. CHEST: Clear to auscultation. HEART: Regular rate and rhythm. ABDOMEN: Soft, slightly distended, but clinically no ascites noted. EXTREMITIES: Trace pedal edema. NEUROLOGIC: Alert and oriented x3. No focal deficits. LABS: WBC 15.6, hemoglobin 12.7, platelets 515. INR is 1.4. BUN 19, creatinine 2.04. Bilirubin is 22.4, AST 119, ALT 45, alkaline phosphatase 253. IMPRESSION: 1. Severe acute alcoholic hepatitis superimposed on alcoholic cirrhosis of the liver with elevated bilirubin at 22.4. No significant difference from yesterday. 2. Hepatic encephalopathy, resolved. Remains on lactulose and Xifaxan. 3. Increasing BUN and creatinine. Rule out hepatorenal syndrome. The patient has good urinary output so far. 4. History of heavy alcohol abuse in the past. 5. Mild coagulopathy secondary to underlying liver disease. RECOMMENDATIONS: 1. Obtain nephrology consultation. 2. Continue with symptomatic and supportive care. 3. Continue lactulose and Xifaxan. 4. Repeat labs in the morning. 5. Encourage nutrition and increase ambulation. Thank you for this consultation. MMODL / IJN: [id number] /
--- NOTE | 2019-07-24 12:59 | P.NPCON ---
History of Present Illness - Reason for Consult Consult date: 07/24/19 acute renal failure - Chief Complaint Severe liver disease with acute kidney injury - History of Present Illness This is a 49-year-old male seen in consultation with acute kidney injury, possible hepatorenal syndrome. He is known with history of alcohol use, was admitted on 07/13/2019 with severe jaundice. Since admission his bilirubin has gone up his ammonia level has been high and has been treated. His admission creatinine was 0.69 went up to 2.04 slowly over the last 12 days of admission. A urinalysis rather benign on 07/15/2019, specific gravity 1014 protein negative and 4+ bilirubin An ultrasound of the abdomen shows right kidney is 10.6 cm, left kidney not commented upon. Liver has increased echogenicity, fatty infiltration of the liver is noted His vital signs have been unremarkable with normal blood pressures in the 110s to 130s, no fever, no nausea vomiting diarrhea no abdominal pain. No use of any nephrotoxic medications or any dye studies. No antibiotic use. Patient denies any history of prostatism. Stool output is 1-2 per day Past Medical History Past Medical History: Hyperlipidemia, Hypertension History of Any Multi-Drug Resistant Organisms: None Reported Past Surgical History: No Surgical Hx Reported Past Anesthesia/Blood Transfusion Reactions: No Reported Reaction Past Psychological History: No Psychological Hx Reported Smoking Status: Former smoker Past Alcohol Use History: Daily, Heavy Past Drug Use History: None Reported Medications and Allergies Home Medications Medication Instructions Recorded Confirmed Type Fenofibrate Nanocrystallized 145 mg PO DAILY 07/12/19 07/12/19 History [Fenofibrate] Hydrochlorothiazide 25 mg PO DAILY 07/12/19 07/12/19 History Lisinopril [Prinivil] 10 mg PO DAILY 07/12/19 07/12/19 History Metoprolol Succinate [Toprol XL] 100 mg PO DAILY 07/12/19 07/12/19 History Allergies Allergy/AdvReac Type Severity Reaction Status Date / Time Penicillins Allergy Unknown Verified 07/12/19 15:59 Childhood Physical Exam Vitals: Vital Signs Temp Pulse Resp BP Pulse Ox 07/24/19 11:50 97.7 F 72 17 115/82 97 07/24/19 05:00 97.3 F L 74 16 135/88 96 07/23/19 21:00 97.5 F L 79 17 138/94 98 07/23/19 15:18 75 17 Intake and Output 07/23/19 07/24/19 07/24/19 22:59 06:59 14:59 Intake Total 415 400 260 Output Total 202 Balance 213 400 260 Intake: IV 175 Sodium Chloride 0.9% 1, 175 000 ml @ 50 mls/hr IV . Q20H [facility] Rx#:[id number] Intake, IV Titration 400 Amount Sodium Chloride 0.9% 1, 400 000 ml @ 50 mls/hr IV . Q20H [facility] Rx#:[id number] Oral 240 260 Output: Urine 200 Stool 2 Other: Voiding Method Toilet Toilet Toilet Diaper Incontinent # Voids 1 1 # Bowel Movements 1 1 On examination he is deeply jaundiced. Awake alert oriented He has a mild tremor, possibly mild asterixis HEENT exam no JVP neck is supple no facial asymmetry conjunctiva deeply jaundiced Lungs are clear to auscultation fair air entry bilaterally Heart sounds are unremarkable for any murmur rub gallop Abdomen soft minimally distended minimal ascites. No hepatosplenomegaly clinically discernible. Extremity exam was trace edema. Neurologically as mentioned about awake alert oriented with minimal tremors and possible gastric Results - Lab Results Most recent lab results Calcium 8.5 mg/dL (8.4-10.2) 07/24/19 07:09 Phosphorus 3.0 mg/dL (2.5-4.5) 07/12/19 18:20 Magnesium 2.1 mg/dL (1.6-2.3) 07/23/19 07:33 07/24/19 07:09 07/24/19 07:09 Assessment and Plan Assessment: Impression 1. Acute kidney injury with creatinine 0.69 on admission on 07/13/2019, going up slowly to 2.04 as of this morning. Likely this is hepatorenal syndrome. There is no evidence for any acute tubular necrosis or prerenal state or any nephrotoxic medications. 2. Severe liver disease with severe jaundice, alcoholism and cirrhosis with bilirubin 22.4, albumin 2.4 and INR 1.4 ammonia has been high but his been controlled now 3. Minimal edema. 4. Blood pressure control. 5. Non-gap acidosis from acute kidney injury and possibly from loose stools bicarb was 14 and gap is 11 Recommendation 1. Check urine sodium and creatinine protein to creatinine ratio 2. Check orthostatic changes 3. Start IV normal saline at 100 and hour 4. Start IV albumin 25 g every 8 5. Start Sandostatin 100 g subcu 3 times a day. 6. Strict I's and O's 7. Daily lites BUN/creatinine Thank you for this consultation and to follow prognosis is rather guarded
[2019-07-24] MEDS: ALBUMIN HUMAN 25% 50 ML in EMPTY BAG 1 BAG IVPB SCH ×2 (15:37→23:31)
[2019-07-24] MEDS: OCTREOTIDE 100 MCG/ML INJ SQ SCH ×2 (15:39→23:31)
[2019-07-24 15:49] LABS: Appearance,Urine Clear (Clear); Bilirubin,Urine 4+ (Negative); Blood,Urine Negative (Negative); Color,Urine Dark Yellow; Glucose,Urine (UA) Negative (Negative); Ketones,Urine Negative (Negative); Leukocyte Esterase,Urine Negative (Negative); Nitrite,Urine Negative (Negative); PH, Urine 5.5 (5.0-8.0); Protein,Urine Trace (Negative); Specific Gravity,Urine 1.015 (1.001-1.035); Urobilinogen,Urine <2.0 mg/dL (<2.0)
[2019-07-24 16:08] LABS: Protein/Creatinine Ratio,Urine 0.211
[2019-07-25 08:09] LABS: Albumin 2.3 g/dL (3.5-5.0); Calcium 8.1 mg/dL (8.4-10.2); Potassium 4.3 mmol/L (3.5-5.1)
[2019-07-25 08:11] LABS: Total Bilirubin 19.6 mg/dL (0.2-1.3)
[2019-07-25] MEDS: SODIUM CHLORIDE 0.9% 1,000 ML IV SCH (08:15)
[2019-07-25] MEDS: ALBUMIN HUMAN 25% 50 ML in EMPTY BAG 1 BAG IVPB SCH ×3 (08:18→23:16)
[2019-07-25] MEDS: THIAMINE 100 MG TAB PO SCH ×2 (08:20→17:53)
[2019-07-25] MEDS: LACTULOSE 20 GM/30 ML CUP PO SCH ×2 (08:20→18:23)
[2019-07-25] MEDS: ENOXAPARIN 30 MG/0.3 ML SYRINGE SQ SCH (08:20)
[2019-07-25] MEDS: SODIUM BICARBONATE TAB 650 MG TAB PO SCH ×4 (08:21→21:21)
[2019-07-25] MEDS: POTASSIUM CHLORIDE ER 20 MEQ TAB.ER PO SCH (08:21)
[2019-07-25] MEDS: RIFAXIMIN 550 MG TABLET PO SCH ×2 (08:21→21:21)
[2019-07-25] MEDS: MULTIVITAMINS, THERA 1 EACH TAB PO SCH (08:21)
[2019-07-25] MEDS: PANTOPRAZOLE 40 MG TABLET PO SCH (08:21)
[2019-07-25] MEDS: OCTREOTIDE 100 MCG/ML INJ SQ SCH ×3 (08:21→23:17)
[2019-07-25] MEDS: METOPROLOL SUCCINATE (ER) 100 MG TAB.ER.24H PO SCH (08:21)
[2019-07-25 08:26] LABS: Basophils # (A) 0.1 k/uL (0-0.2); Basophils % (A) 1 %; Eosinophils # (A) 0.4 k/uL (0-0.7); Eosinophils % (A) 3 %; HCT 34.4 % (39.0-53.0); Hypochromasia Moderate; Lymphocytes % (A) 7 %; MCH 36.4 pg (25.0-35.0); MCHC 32.1 g/dL (31.0-37.0); MCV 113.5 fL (80.0-100.0); Macrocytosis Marked; Mean Platelet Volume 9.9; Monocytes % (A) 7 %; Neutrophils # (A) 10.2 k/uL (1.3-7.7); Neutrophils % (A) 78 %; Platelet Count 408 k/uL (150-450); RBC 3.03 m/uL (4.30-5.90); RDW 15.6 % (11.5-15.5); WBC 13.1 k/uL (3.8-10.6)
[2019-07-25] MEDS: DEXTROSE 5% IN WATER 1,000 ML with SODIUM BICARB (1 MEQ/ML) 150 ML IV SCH (10:30)
[2019-07-25 10:33] LABS: Toxic Granulation Present
--- NOTE | 2019-07-25 12:59 | PN ---
PROGRESS NOTE Patient is seen for followup for acute kidney injury, most likely hepatorenal. However, renal function is stable. Patient is maintained on Sandostatin, IV albumin and midodrine. He states he has been voiding frequently. PHYSICAL EXAMINATION: On examination today, blood pressure was 144/90, heart rate 71 per minute, he is afebrile. Examination of the heart S1, S2. Examination of the lungs, bilateral breath sounds are heard. Abdomen is soft, distended. nontender. Exam of the lower extremities shows edema 2+ bilaterally. The patient is severely jaundiced. 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 LABS: Show sodium 136, potassium 4.3, chloride 115. CO2 is 14, BUN 20, creatinine 2.01, bilirubin is down to 19.6. ASSESSMENT: 1. Acute kidney injury, most likely hepatorenal, currently stable and perhaps slightly improved. I will continue with the current treatment including the albumin and Sandostatin. Continue with oral sodium bicarb and I will add IV bicarb and switch the normal saline to sodium bicarb IV. Overall prognosis still remains guarded. 2. Chronic liver disease with portal hypertension and significant jaundice. Etiology is alcoholic cirrhosis with an element of acute alcoholic hepatitis. 3. Hepatic encephalopathy, now improved. MMODL / IJN: [id number] /
--- NOTE | 2019-07-25 15:26 | P.PN ---
Subjective Progress Note Date: 07/25/19 This is a 49-year-old male patient who presented to the ER with complaints of yellowing of skin and eyes. Patient is known past medical history of EtOH drinking approximately a pint of vodka plus beer daily. Patient's urged patient to come to ER due to presentation of jaundice 1 day patient was noted to have yellowing of his eyes and she was concerned about his liver. Additional medical history includes hyperlipidemia hypertension and ex-smoker. Abdominal ultrasound completed showing no gallstones or dilated ducts diffuse fatty infiltration of liver. Upon admission AST elevated to 95, ALT 64 alkaline phosphatase 3:30 total bilirubin 10.1 and ammonia level 185. Patient has been started on lactulose. GI services have been consulted. Patient's electrolytes also significantly impaired. Sodium low at 122, potassium 3.2, magnesium 0.7. Replacement per protocol patient currently on normal saline. Patient also currently in EtOH withdrawals. Patient has been admitted to the intensive care unit critical care services are following. Heart rate elevated secondary to withdrawal. CIWA protocol has been ordered. GI services have been consulted for Liver failure. At this time patient is resting comfortably in bed shakiness and withdrawal symptoms noted. Patient is alert and oriented 2. Patient able to follow commands. Patient denies chest pain. Patient denies shortness of breath. Patient denies any urinary burning or frequency. 07/14/2019 patient remains in the ICU. He has a sitter at bedside. He did require Ativan this morning for alcohol withdrawal and is sleeping comfortably. Heart rate is better controlled. Total bilirubin has gone up from 10.1-14.1. Ammonia level has decreased from 185-47. Hepatitis panel is negative. He is followed by GI service and critical care. He is tolerating clear liquid diet. Patient is having a bowel movement almost every hour. Patient currently on lactulose 3 times a day and Xifaxan. Patient did have a temp of 100.6 yesterday afternoon he is currently on Rocephin. Chest x-rays negative. 07/20/2019 patient is currently on a regular medical floor. He was followed by Dr. Carlton from 07/15/2019 until 07/19/2019. Patient's is being followed by GI service for his severe alcoholic hepatitis. Total bilirubin is up to 22. He has been ambulating in the hallway. Apparently he had a fall yesterday and had a computed tomography scan of the head and neck completed. Just revealing moderate atrophy of the brain. Otherwise normal findings. Ammonia levels up to 73 CO2 is down at 14. Patient denies any chest pain or shortness of breath. Denies any nausea or vomiting. Urine is starting to clear and he is having 3-5 bowel movements a day. 07/21/2019 patient sitting up in bed comfortably. He reports having at least 3 bowel movements daily. Ammonia level has decreased from 73-53. Total bilirubin has come down from 22-20.4. He is followed closely by GI service. Awaiting their recommendations regarding the prednisone. Potassium is low at 3.4. 07/22/2019 patient lying in bed comfortably. He has no new complaints. Ammonia is down to 48. He is having multiple bowel movements a day. Magnesium and pot assium are low and being replaced. Creatinine has gone up to 1.48. We'll discontinue the hydrochlorothiazide and lisinopril. Continue fluids at 50 mL an hour. Total bilirubin is 20.8 patient denies any difficulty urinating. He does report that his urine continues to become clear. GI service did hold off on starting the prednisone. On 07/23/2019 patient is alert and oriented 3 in no apparent distress bilirubin still elevated at 22 patient clinically denies any symptoms there is no fever or chills no headache or dizziness no chest pain no shortness of breath no cough no nausea or vomiting no abdominal pain no diarrhea and no urinary symptoms. , On 07/24/2019 patient was seen and examined on the medical floor, he is alert and oriented 3 in no apparent distress, he is still has significant jaundice, total bilirubin up to 22.4, creatinine up to 2.04, clinically he is feeling well, there is no fever or chills no headache no dizziness no chest pain no shortness of breath no cough no nausea or vomiting no abdominal pain no diarrhea and no urinary symptoms On 07/25/2019 patient is alert and oriented 3. Patient up ambulating the kinney with . Patient remains with significant jaundice. Total bili is trending down 19.6. Nephrology services are following. Patient currently maintained on Sandostatin and albumin per nephrology services for concerns of hepatorenal acute kidney injury. Creatinine is improving slightly we'll continue to monitor. Patient also switched to IV sodium bicarb. We'll continue to monitor patient closely. At this time patient denies chest pain or shortness breath. Patient denies nausea vomiting or diarrhea. Patient denies any urinary burning or frequency Objective - Vital Signs Vital signs: Vital Signs Temp 98.1 F 07/25/19 12:09 Pulse 71 07/25/19 12:09 Resp 17 07/25/19 12:09 BP 144/90 07/25/19 12:09 Pulse Ox 98 07/25/19 12:09 Intake & Output 07/24/19 07/25/19 07/25/19 18:59 06:59 18:59 Intake Total 2240 1100 980 Output Total 202 Balance 2038 1100 980 Intake: IV 750 200 Sodium Chloride 0.9% 1, 750 200 000 ml @ 50 mls/hr IV . Q20H [facility]BA Rx#:[id number] Intake, IV Titration 50 1100 300 Amount Albumin Human 25% 50 ml 50 50 In Empty Bag 1 bag @ 50 mls/hr IVPB Q8HR [facility]BA Rx#: [id number] Dextrose 5% in Water 1, 300 000 ml @ 75 mls/hr IV . [id number] [facility] with Sodium Bicarb (1 Meq/ml) 150 ml Rx#:[id number] Sodium Chloride 0.9% 1, 1050 000 ml @ 100 mls/hr IV . Q10H [facility]BA Rx#:[id number] Oral 1440 480 Output: Urine 200 Stool 2 Other: Voiding Method Toilet Toilet Toilet # Voids 4 # Bowel Movements 1 - Exam Head normocephalic and atraumatic Neck supple no JVD no goiter Lungs clear to auscultation bilaterally no wheezing or crackles Heart regular rate and rhythm S1-S2, no rub or gallop Abdomen is soft nontender nondistended positive bowel sounds no hepatosplenomegaly Extremities +1 edema bilateral lower legs Neuro patient sleeping comfortably Skin jaundice. Scleral icterus - Labs CBC & Chem 7: 07/25/19 06:35 07/25/19 06:35 Labs: Abnormal Lab Results - Last 24 Hours (Table) 07/24/19 07/25/19 07/25/19 Range/Units 15:38 06:35 06:35 WBC 13.1 H (3.8-10.6) k/uL RBC 3.03 L (4.30-5.90) m/uL Hgb 11.0 L (13.0-17.5) gm/dL Hct 34.4 L (39.0-53.0) % MCV 113.5 H (80.0-100.0) fL MCH 36.4 H (25.0-35.0) pg RDW 15.6 H (11.5-15.5) % Neutrophils # 10.2 H (1.3-7.7) k/uL Macrocytosis Marked A Sodium 136 L (137-145) mmol/L Chloride 115 H (98-107) mmol/L Carbon Dioxide 14 L (22-30) mmol/L Creatinine 2.01 H (0.66-1.25) mg/dL Glucose 109 H (74-99) mg/dL Calcium 8.1 L (8.4-10.2) mg/dL Total Bilirubin 19.6 H* (0.2-1.3) mg/dL AST 95 H (17-59) U/L Alkaline Phosphatase 201 H (38-126) U/L Total Protein 6.0 L (6.3-8.2) g/dL Albumin 2.3 L (3.5-5.0) g/dL Urine Protein Trace H (Negative) Urine Bilirubin 4+ H (Negative) Assessment and Plan Assessment: 1. Severe Acute alcoholic hepatitis superimposed on alcoholic cirrhosis of the liver. Abdominal ultrasound completed showing no gallstones or dilated ducts. Diffuse fatty infiltration of the liver. GI services have been consulted. Hepatitis panel negative 2. Jaundice, hyperbilirubinemia secondary to alcoholic liver disease. GI service is following and decided not to start prednisone. Total bilirubin slightly improving to 19.6 3. EtOH withdrawal. Patient currently on CIWA protocal. Continue thiamine and add multivitamin. Continue Ativan as needed 4. Hypokalemia. Likely losing potassium through his stooling and hydrochlorothiazide. Plus magnesium level is low Continue potassium replacement per protocol 5. Hyponatremia and hypochloremic secondary to EtOH. 6. Tachycardia secondary to alcohol withdrawal. Patient's home dose beta phong resumed. Continue a call withdrawal protocol. Tachycardia has improved. Discontinue telemetry 7. History of essential hypertension. Patient's home dose of Lopressor resumed. 8. 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 Ammonia level is down to 48 continue to monitor. Currently on lactulose 3 times a day and Xifaxan. 9. Macrocytic anemia secondary to chronic liver disease 10. Generalized weakness and fatigue due to his advanced liver disease. Continue PT OT 11. Metabolic acidosis: the patient having multiple stools. CO2 has gone from 14-15. Patient started on sodium bicarb 650 mg twice. Patient has been switched to IV sodium bicarb 12. Hypomagnesemia: Magnesium 1.5. Patient receiving magnesium supplement per protocol. Continue monitor magnesium level 13. Acute kidney injury secondary to hepatorenal. Nephrology services are following. Patient remains on IV bicarb, albumin and Sandostatin creatinine slightly improving DVT prophylaxis Lovenox. GI prophylaxis Protonix. I performed an examination of the patient and discussed their management with the Nurse Practitioner. I have reviewed the Nurse Practitioner's notes and agree with the documented findings and plan of care
[2019-07-26] MEDS: DEXTROSE 5% IN WATER 1,000 ML with SODIUM BICARB (1 MEQ/ML) 150 ML IV SCH ×2 (01:36→18:54)
[2019-07-26] MEDS: MULTIVITAMINS, THERA 1 EACH TAB PO SCH (07:59)
[2019-07-26] MEDS: PANTOPRAZOLE 40 MG TABLET PO SCH (07:59)
[2019-07-26] MEDS: ALBUMIN HUMAN 25% 50 ML in EMPTY BAG 1 BAG IVPB SCH ×3 (07:59→23:46)
[2019-07-26] MEDS: RIFAXIMIN 550 MG TABLET PO SCH ×2 (07:59→21:39)
[2019-07-26] MEDS: LACTULOSE 20 GM/30 ML CUP PO SCH ×2 (07:59→21:39)
[2019-07-26] MEDS: SODIUM BICARBONATE TAB 650 MG TAB PO SCH ×4 (07:59→21:39)
[2019-07-26] MEDS: POTASSIUM CHLORIDE ER 20 MEQ TAB.ER PO SCH (07:59)
[2019-07-26] MEDS: THIAMINE 100 MG TAB PO SCH ×2 (07:59→18:02)
[2019-07-26] MEDS: METOPROLOL SUCCINATE (ER) 100 MG TAB.ER.24H PO SCH (07:59)
[2019-07-26] MEDS: ENOXAPARIN 40 MG/0.4 ML SYRINGE SQ SCH ×2 (08:00→13:21)
--- NOTE | 2019-07-26 08:15 | P.PN ---
Subjective Progress Note Date: 07/25/19 Principal diagnosis: Alcoholic hepatitis, elevated liver enzymes Patient is seen lying in bed. Patient denies any acute complaints today. No abdominal pain. Tolerating his diet. Objective - Vital Signs Vital signs: Vital Signs Temp 98.1 F 07/25/19 12:09 Pulse 71 07/25/19 12:09 Resp 17 07/25/19 12:09 BP 144/90 07/25/19 12:09 Pulse Ox 98 07/25/19 12:09 Intake & Output 07/24/19 07/25/19 07/25/19 18:59 06:59 18:59 Intake Total 2240 1100 980 Output Total 202 Balance 2038 1100 980 Intake: IV 750 200 Sodium Chloride 0.9% 1, 750 200 000 ml @ 50 mls/hr IV . Q20H [facility] Rx#:[id number] Intake, IV Titration 50 1100 300 Amount Albumin Human 25% 50 ml 50 50 In Empty Bag 1 bag @ 50 mls/hr IVPB Q8HR [facility] Rx#: [id number] Dextrose 5% in Water 1, 300 000 ml @ 75 mls/hr IV . [id number] [facility] with Sodium Bicarb (1 Meq/ml) 150 ml Rx#:[id number] Sodium Chloride 0.9% 1, 1050 000 ml @ 100 mls/hr IV . Q10H [facility] Rx#:[id number] Oral 1440 480 Output: Urine 200 Stool 2 Other: Voiding Method Toilet Toilet Toilet # Voids 4 # Bowel Movements 1 - Exam On physical examination, patient appears comfortable in no apparent distress. HEAD: Normocephalic, atraumatic. EYES: Scleral icterus. No conjunctival injection. MOUTH: No lesions, tongue midline. NECK: Trachea midline, no gross abnormalities. ABDOMEN: Soft. Bowel sounds are positive. No organomegaly. No guarding or rigidity. EXTREMITIES: No pedal edema. SKIN: No rashes, jaundice. NEUROLOGIC: Alert and responsive, no asterixis. No focal deficits. - Labs CBC & Chem 7: 07/25/19 06:35 07/25/19 06:35 Labs: Abnormal Lab Results - Last 24 Hours (Table) 07/24/19 07/25/19 07/25/19 Range/Units 15:38 06:35 06:35 WBC 13.1 H (3.8-10.6) k/uL RBC 3.03 L (4.30-5.90) m/uL Hgb 11.0 L (13.0-17.5) gm/dL Hct 34.4 L (39.0-53.0) % MCV 113.5 H (80.0-100.0) fL MCH 36.4 H (25.0-35.0) pg RDW 15.6 H (11.5-15.5) % Neutrophils # 10.2 H (1.3-7.7) k/uL Macrocytosis Marked A Sodium 136 L (137-145) mmol/L Chloride 115 H (98-107) mmol/L Carbon Dioxide 14 L (22-30) mmol/L Creatinine 2.01 H (0.66-1.25) mg/dL Glucose 109 H (74-99) mg/dL Calcium 8.1 L (8.4-10.2) mg/dL Total Bilirubin 19.6 H* (0.2-1.3) mg/dL AST 95 H (17-59) U/L Alkaline Phosphatase 201 H (38-126) U/L Total Protein 6.0 L (6.3-8.2) g/dL Albumin 2.3 L (3.5-5.0) g/dL Urine Protein Trace H (Negative) Urine Bilirubin 4+ H (Negative) Assessment and Plan (1) Alcoholic hepatitis Narrative/Plan: 49-year-old male with a long-standing history of alcohol abuse, worsened over the past 2 months with 1 pint of alcohol daily who presents with jaundice, scleral icterus and weakness. Patient found to have elevation in total bilirubin of 10.1, alkaline phosphatase 330, AST 295 and ALT 69 on admission with ultrasound of the abdomen negative for any ductal dilation or gallstones with diffuse fatty infiltration noted highly suggestive of acute alcoholic hepatitis. Liver enzymes have trended up, overall consistent with alcoholic hepatitis, predominantly in a cholestatic pattern but improving today. Current Visit: Yes Status: Acute Code(s): K70.10 - ALCOHOLIC HEPATITIS WITHOUT ASCITES SNOMED Code(s): 406582284 (2) Hepatic encephalopathy Current Visit: Yes Status: Acute Code(s): K72.90 - HEPATIC FAILURE, UNSPECIFIED WITHOUT COMA SNOMED Code(s): 48915407 (3) Alcohol abuse Current Visit: Yes Status: Acute Code(s): F10.10 - ALCOHOL ABUSE, UNCOMPLICATED SNOMED Code(s): 29340943 Plan: Supportive care Okay for diet as tolerated Continue to monitor CBC, CMP Continue to monitor clinically Viral hepatitis panel negative Alcohol abstinence Monitor for signs or symptoms of alcohol withdrawal Continue lactulose therapy, okay to hold this patient has 3 bowel movements Rifaximin ordered Thank you for allowing us to participate in the care of the patient we will continue to follow
[2019-07-26] MEDS: OCTREOTIDE 100 MCG/ML INJ SQ SCH ×3 (08:24→23:48)
[2019-07-26 08:33] LABS: Basophils # (A) 0.1 k/uL (0-0.2); Basophils % (A) 1 %; Eosinophils # (A) 0.4 k/uL (0-0.7); Eosinophils % (A) 3 %; HCT 31.1 % (39.0-53.0); HGB 10.1 gm/dL (13.0-17.5); Hypochromasia Slight; Lymphocytes # (A) 1.2 k/uL (1.0-4.8); Lymphocytes % (A) 9 %; MCH 36.2 pg (25.0-35.0); MCHC 32.6 g/dL (31.0-37.0); Macrocytosis Marked; Mean Platelet Volume 8.8; Monocytes # (A) 1.4 k/uL (0-1.0); Monocytes % (A) 10 %; Neutrophils # (A) 10.4 k/uL (1.3-7.7); Neutrophils % (A) 75 %; Platelet Count 418 k/uL (150-450); RDW 15.4 % (11.5-15.5); WBC 13.9 k/uL (3.8-10.6)
[2019-07-26 08:36] LABS: Albumin 2.4 g/dL (3.5-5.0); Potassium 3.6 mmol/L (3.5-5.1)
[2019-07-26 08:45] LABS: INR 1.5 (<1.2); Prothrombin Time 14.4 sec (9.0-12.0)
[2019-07-26 10:29] LABS: Poikilocytosis (M) Present; Target Cells Present
[2019-07-26 10:30] LABS: Toxic Granulation Present
--- NOTE | 2019-07-26 12:04 | US ---
EXAMINATION TYPE: US abdomen limited DATE OF EXAM: 07/26/2019 COMPARISON: NONE CLINICAL HISTORY: 49-year-old male Assess for fluid pocket please. TECHNIQUE: Ultrasound examination of the 4 abdominal quadrants for assessment of ascites fluid. FINDINGS: Generalized ascites visualized, largest pocket RLQ measuring 13.1 cm IMPRESSION: Generalized ascites, largest pocket in the right lower quadrant measures up to 13.1 cm.
--- NOTE | 2019-07-26 14:06 | P.PN ---
Subjective Progress Note Date: 07/26/19 This is a 49-year-old male patient who presented to the ER with complaints of yellowing of skin and eyes. Patient is known past medical history of EtOH drinking approximately a pint of vodka plus beer daily. Patient's urged patient to come to ER due to presentation of jaundice 1 day patient was noted to have yellowing of his eyes and she was concerned about his liver. Additional medical history includes hyperlipidemia hypertension and ex-smoker. Abdominal ultrasound completed showing no gallstones or dilated ducts diffuse fatty infiltration of liver. Upon admission AST elevated to 95, ALT 64 alkaline phosphatase 3:30 total bilirubin 10.1 and ammonia level 185. Patient has been started on lactulose. GI services have been consulted. Patient's electrolytes also significantly impaired. Sodium low at 122, potassium 3.2, magnesium 0.7. Replacement per protocol patient currently on normal saline. Patient also currently in EtOH withdrawals. Patient has been admitted to the intensive care unit critical care services are following. Heart rate elevated secondary to withdrawal. CIWA protocol has been ordered. GI services have been consulted for Liver failure. At this time patient is resting comfortably in bed shakiness and withdrawal symptoms noted. Patient is alert and oriented 2. Patient able to follow commands. Patient denies chest pain. Patient denies shortness of breath. Patient denies any urinary burning or frequency. 07/14/2019 patient remains in the ICU. He has a sitter at bedside. He did require Ativan this morning for alcohol withdrawal and is sleeping comfortably. Heart rate is better controlled. Total bilirubin has gone up from 10.1-14.1. Ammonia level has decreased from 185-47. Hepatitis panel is negative. He is followed by GI service and critical care. He is tolerating clear liquid diet. Patient is having a bowel movement almost every hour. Patient currently on lactulose 3 times a day and Xifaxan. Patient did have a temp of 100.6 yesterday afternoon he is currently on Rocephin. Chest x-rays negative. 07/20/2019 patient is currently on a regular medical floor. He was followed by Dr. Carlton from 07/15/2019 until 07/19/2019. Patient's is being followed by GI service for his severe alcoholic hepatitis. Total bilirubin is up to 22. He has been ambulating in the hallway. Apparently he had a fall yesterday and had a computed tomography scan of the head and neck completed. Just revealing moderate atrophy of the brain. Otherwise normal findings. Ammonia levels up to 73 CO2 is down at 14. Patient denies any chest pain or shortness of breath. Denies any nausea or vomiting. Urine is starting to clear and he is having 3-5 bowel movements a day. 07/21/2019 patient sitting up in bed comfortably. He reports having at least 3 bowel movements daily. Ammonia level has decreased from 73-53. Total bilirubin has come down from 22-20.4. He is followed closely by GI service. Awaiting their recommendations regarding the prednisone. Potassium is low at 3.4. 07/22/2019 patient lying in bed comfortably. He has no new complaints. Ammonia is down to 48. He is having multiple bowel movements a day. Magnesium and pot assium are low and being replaced. Creatinine has gone up to 1.48. We'll discontinue the hydrochlorothiazide and lisinopril. Continue fluids at 50 mL an hour. Total bilirubin is 20.8 patient denies any difficulty urinating. He does report that his urine continues to become clear. GI service did hold off on starting the prednisone. On 07/23/2019 patient is alert and oriented 3 in no apparent distress bilirubin still elevated at 22 patient clinically denies any symptoms there is no fever or chills no headache or dizziness no chest pain no shortness of breath no cough no nausea or vomiting no abdominal pain no diarrhea and no urinary symptoms. On 07/24/2019 patient was seen and examined on the medical floor, he is alert and oriented 3 in no apparent distress, he is still has significant jaundice, total bilirubin up to 22.4, creatinine up to 2.04, clinically he is feeling well, there is no fever or chills no headache no dizziness no chest pain no shortness of breath no cough no nausea or vomiting no abdominal pain no diarrhea and no urinary symptoms On 07/25/2019 patient is alert and oriented 3. Patient up ambulating the kinney with . Patient remains with significant jaundice. Total bili is trending down 19.6. Nephrology services are following. Patient currently maintained on Sandostatin and albumin per nephrology services for concerns of hepatorenal acute kidney injury. Creatinine is improving slightly we'll continue to monitor. Patient also switched to IV sodium bicarb. We'll continue to monitor patient closely. At this time patient denies chest pain or shortness breath. Patient denies nausea vomiting or diarrhea. Patient denies any urinary burning or frequency 07/26/2019 patient lying in bed. at bedside. Patient reporting that his abdomen is more distended and firm today. He's having about 3 bowel movements a day. Patient seen by GI service. They will ordered an abdominal ultrasound with paracentesis. Creatinine is down to 1.80, total bili is 19, AST 700 and ALT 31. CO2 has come up from 14-. Patient denies any chest pain or shortness of breath. Denies any nausea or vomiting. Denies any difficulty urinating. Objective - Vital Signs Vital signs: Vital Signs Temp 98.2 F 07/26/19 12:48 Pulse 60 07/26/19 12:48 Resp 18 07/26/19 12:48 BP 135/71 07/26/19 12:43 Pulse Ox 98 07/26/19 12:48 Intake & Output 07/25/19 07/26/19 07/26/19 18:59 06:59 18:59 Intake Total 1100 975 120 Output Total 2 Balance 1100 973 120 Intake: IV 200 Sodium Chloride 0.9% 1, 200 000 ml @ 50 mls/hr IV . Q20H LUBA Rx#:[id number] Intake, IV Titration 300 975 Amount Albumin Human 25% 50 ml 50 In Empty Bag 1 bag @ 50 mls/hr IVPB Q8HR LUBA Rx#: [id number] Dextrose 5% in Water 1, 300 925 000 ml @ 75 mls/hr IV . [id number] LUBA with Sodium Bicarb (1 Meq/ml) 150 ml Rx#:[id number] Oral 600 120 Output: Stool 2 Other: Voiding Method Toilet Toilet Toilet # Voids 1 - Exam Head normocephalic Neck supple Lungs clear to auscultation bilaterally no wheezing or crackles Heart regular rate and rhythm S1-S2, no rub or gallop Abdomen is soft distended fluid present positive bowel sounds no hepatosplenomegaly Extremities +1 edema bilateral lower legs Neuro patient sleeping comfortably Skin jaundice. Scleral icterus - Labs CBC & Chem 7: 07/26/19 07:42 07/26/19 07:42 Labs: Abnormal Lab Results - Last 24 Hours (Table) 02/07/26/19 07/26/19 Range/Units 07:42 07:42 07:42 WBC 13.9 H (3.8-10.6) k/uL RBC 2.80 L (4.30-5.90) m/uL Hgb 10.1 L (13.0-17.5) gm/dL Hct 31.1 L (39.0-53.0) % MCV 111.0 H (80.0-100.0) fL MCH 36.2 H (25.0-35.0) pg Neutrophils # 10.4 H (1.3-7.7) k/uL Monocytes # 1.4 H (0-1.0) k/uL Macrocytosis Marked A PT 14.4 H (9.0-12.0) sec INR 1.5 H (<1.2) Chloride 109 H (98-107) mmol/L Carbon Dioxide 19 L (22-30) mmol/L Creatinine 1.80 H (0.66-1.25) mg/dL Glucose 105 H (74-99) mg/dL Calcium 8.0 L (8.4-10.2) mg/dL Total Bilirubin 19.0 H* (0.2-1.3) mg/dL AST 100 H (17-59) U/L Alkaline Phosphatase 182 H (38-126) U/L Total Protein 6.0 L (6.3-8.2) g/dL Albumin 2.4 L (3.5-5.0) g/dL Assessment and Plan Assessment: 1. Severe Acute alcoholic hepatitis superimposed on alcoholic cirrhosis of the liver. Abdominal ultrasound completed showing no gallstones or dilated ducts. Diffuse fatty infiltration of the liver. GI services have been consulted. Hepatitis panel negative. 2. Jaundice, hyperbilirubinemia secondary to alcoholic liver disease. Total bilirubin 19. GI service is following and decided not to start prednisone 3. EtOH withdrawal. Patient currently on CIWA protocal. Continue thiamine and add multivitamin. Continue Ativan as needed 4. Hypokalemia. Likely losing potassium through his stooling and hydrochlorothiazide. Improved with potassium replacement 5. Hyponatremia and hypochloremic secondary to EtOH. 6. Tachycardia secondary to alcohol withdrawal. Patient's home dose beta phong resumed. Continue a call withdrawal protocol. Tachycardia has improved. Discontinue telemetry 7. History of essential hypertension. Patient's home dose of Lopressor resumed. 8. 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 Continue to monitor ammonia levels. Patient has had some confusion. Lactulose was decre ased to twice a day. And he is on Xifaxan 9. Macrocytic anemia secondary to chronic liver disease 10. Generalized weakness and fatigue due to his advanced liver disease. Continue PT OT 11. Metabolic acidosis: the patient having multiple stools. CO2 19 currently on IV sodium bicarb. Nephrology following 12. Hypomagnesemia: Resolved with replacement 13. Acute kidney injury secondary to hepatorenal. Nephrology services are following. Patient remains on IV bicarb, albumin and Sandostatin creatinine is trending down to 1.80 14. Abdominal ascites. GI service has ordered abdominal ultrasound for possible paracentesis 15. Coagulopathy due to liver disease 16. Essential hypertension: We'll continue to monitor blood pressures. BP has been slightly elevated. Repeat blood pressure 135/71. We'll continue to monitor DVT prophylaxis Lovenox. GI prophylaxis Protonix Consulting physician notes have been reviewed and appreciated. I performed an examination of the patient and discussed their management with the physician Field Insurance Sales Manager. I have reviewed the Physician Field Insurance Sales Manager's notes and agree with the documented findings and plan of care
--- NOTE | 2019-07-26 21:53 | PN ---
PROGRESS NOTE Patient is seen for followup for acute kidney injury, mainly hepatorenal syndrome, currently improving slightly. Renal function is about the same for the last 2 days. However, today the creatinine is down to 1.8 mg/dL. Patient is maintained on Sandostatin and has received IV albumin. He is currently getting it q.8 hours. No midodrine on board, as blood pressure has actually been on the higher side. On examination this morning, blood pressure was 151/89, heart rate 67 per minute. Patient is afebrile. EXAMINATION OF THE HEART: S1 and S2. EXAMINATION OF LUNGS: Bilateral breath sounds are heard. ABDOMEN: Soft, distended with ascites. Examination of lower extremities shows edema 2+ bilaterally. PHP MYSQL DEVELOPER exam is grossly intact. Labs show sodium 138, potassium 3.6, chloride 109. CO2 is 19, BUN 19, creatinine 1.8. Bilirubin is 19.0. ASSESSMENT: 1. Acute kidney injury, most likely hepatorenal, currently improving. Patient is maintained on IV albumin along with Sandostatin. No need for midodrine, as blood pressure is actually on the higher side. I will discontinue the albumin in a.m. 2. Metabolic acidosis, currently improved. Patient is maintained on IV bicarb. 3. Severe hyperbilirubinemia associated with chronic liver disease with acute alcoholic hepatitis and portal hypertension. 4. Metabolic acidosis, improving with sodium bicarb. PLAN: Continue with the IV albumin and the Sandostatin for now. I will discontinue the albumin in a.m. MMODL / IJN: [id number] /
--- NOTE | 2019-07-26 23:03 | P.PN ---
Subjective Progress Note Date: 07/19/19 Principal diagnosis: Alcoholic hepatitis, elevated liver enzymes Patient is seen lying in bed. Patient denies any acute complaints today. No abdominal pain. Tolerating his diet. Objective - Vital Signs Vital signs: Vital Signs Temp 98.2 F 07/26/19 12:48 Pulse 60 07/26/19 12:48 Resp 18 07/26/19 12:48 BP 135/71 07/26/19 12:43 Pulse Ox 98 07/26/19 12:48 Intake & Output 07/25/19 07/26/19 07/26/19 18:59 06:59 18:59 Intake Total 1100 975 120 Output Total 2 Balance 1100 973 120 Intake: IV 200 Sodium Chloride 0.9% 1, 200 000 ml @ 50 mls/hr IV . Q20H LUBA Rx#:[id number] Intake, IV Titration 300 975 Amount Albumin Human 25% 50 ml 50 In Empty Bag 1 bag @ 50 mls/hr IVPB Q8HR LUBA Rx#: [id number] Dextrose 5% in Water 1, 300 925 000 ml @ 75 mls/hr IV . [id number] LUBA with Sodium Bicarb (1 Meq/ml) 150 ml Rx#:[id number] Oral 600 120 Output: Stool 2 Other: Voiding Method Toilet Toilet Toilet # Voids 1 - Exam On physical examination, patient appears comfortable in no apparent distress. HEAD: Normocephalic, atraumatic. EYES: Scleral icterus. No conjunctival injection. MOUTH: No lesions, tongue midline. NECK: Trachea midline, no gross abnormalities. ABDOMEN: Soft. Bowel sounds are positive. No organomegaly. No guarding or rigidity. EXTREMITIES: No pedal edema. SKIN: No rashes, jaundice. NEUROLOGIC: Alert and responsive, no asterixis. No focal deficits. - Labs CBC & Chem 7: 07/26/19 07:42 07/26/19 07:42 Labs: Abnormal Lab Results - Last 24 Hours (Table) 07/26/19 07/26/19 07/26/19 Range/Units 07:42 07:42 07:42 WBC 13.9 H (3.8-10.6) k/uL RBC 2.80 L (4.30-5.90) m/uL Hgb 10.1 L (13.0-17.5) gm/dL Hct 31.1 L (39.0-53.0) % MCV 111.0 H (80.0-100.0) fL MCH 36.2 H (25.0-35.0) pg Neutrophils # 10.4 H (1.3-7.7) k/uL Monocytes # 1.4 H (0-1.0) k/uL Macrocytosis Marked A PT 14.4 H (9.0-12.0) sec INR 1.5 H (<1.2) Chloride 109 H (98-107) mmol/L Carbon Dioxide 19 L (22-30) mmol/L Creatinine 1.80 H (0.66-1.25) mg/dL Glucose 105 H (74-99) mg/dL Calcium 8.0 L (8.4-10.2) mg/dL Total Bilirubin 19.0 H* (0.2-1.3) mg/dL AST 100 H (17-59) U/L Alkaline Phosphatase 182 H (38-126) U/L Total Protein 6.0 L (6.3-8.2) g/dL Albumin 2.4 L (3.5-5.0) g/dL Assessment and Plan (1) Alcoholic hepatitis Narrative/Plan: 49-year-old male with a long-standing history of alcohol abuse, worsened over the past 2 months with 1 pint of alcohol daily who presents with jaundice, scleral icterus and weakness. Patient found to have elevation in total bilirubin of 10.1, alkaline phosphatase 330, AST 295 and ALT 69 on admission with ultrasound of the abdomen negative for any ductal dilation or gallstones with diffuse fatty infiltration noted highly suggestive of acute alcoholic hepatitis. Liver enzymes have trended up, overall consistent with alcoholic hepatitis, predominantly in a cholestatic pattern but improving today. Current Visit: Yes Status: Acute Code(s): K70.10 - ALCOHOLIC HEPATITIS WITHOUT ASCITES SNOMED Code(s): 339311248 (2) Hepatic encephalopathy Current Visit: Yes Status: Acute Code(s): K72.90 - HEPATIC FAILURE, UNSPECIFIED WITHOUT COMA SNOMED Code(s): 13765611 (3) Alcohol abuse Current Visit: Yes Status: Acute Code(s): F10.10 - ALCOHOL ABUSE, UNCOMPLICATED SNOMED Code(s): 09479096 Plan: Supportive care Okay for diet as tolerated Continue to monitor CBC, CMP Continue to monitor clinically Viral hepatitis panel negative Alcohol abstinence Continue lactulose therapy, okay to hold this patient has 3 bowel movements Rifaximin ordered Paracentesis plan for tomorrow Thank you for allowing us to participate in the care of the patient we will continue to follow
[2019-07-27] MEDS: POTASSIUM CHLORIDE ER 20 MEQ TAB.ER PO SCH ×3 (08:39→15:36)
[2019-07-27] MEDS: THIAMINE 100 MG TAB PO SCH ×2 (08:39→14:26)
[2019-07-27] MEDS: PANTOPRAZOLE 40 MG TABLET PO SCH (08:39)
[2019-07-27] MEDS: METOPROLOL SUCCINATE (ER) 100 MG TAB.ER.24H PO SCH (08:39)
[2019-07-27] MEDS: MULTIVITAMINS, THERA 1 EACH TAB PO SCH (08:39)
[2019-07-27] MEDS: ALBUMIN HUMAN 25% 50 ML in EMPTY BAG 1 BAG IVPB SCH ×2 (08:39→15:36)
[2019-07-27] MEDS: SODIUM BICARBONATE TAB 650 MG TAB PO SCH ×4 (08:39→21:12)
[2019-07-27 08:41] LABS: Albumin 2.7 g/dL (3.5-5.0); Calcium 8.1 mg/dL (8.4-10.2); Potassium 3.4 mmol/L (3.5-5.1)
[2019-07-27] MEDS: RIFAXIMIN 550 MG TABLET PO SCH ×2 (08:41→21:12)
[2019-07-27] MEDS: LACTULOSE 20 GM/30 ML CUP PO SCH ×2 (08:41→21:11)
[2019-07-27] MEDS: OCTREOTIDE 100 MCG/ML INJ SQ SCH ×3 (08:48→23:49)
[2019-07-27 08:52] LABS: Basophils # (A) 0.1 k/uL (0-0.2); Basophils % (A) 1 %; Eosinophils # (A) 0.4 k/uL (0-0.7); Eosinophils % (A) 3 %; HCT 35.3 % (39.0-53.0); HGB 11.2 gm/dL (13.0-17.5); Hypochromasia Slight; Lymphocytes # (A) 1.2 k/uL (1.0-4.8); Lymphocytes % (A) 8 %; MCH 35.2 pg (25.0-35.0); MCHC 31.7 g/dL (31.0-37.0); MCV 111.1 fL (80.0-100.0); Macrocytosis Marked; Monocytes # (A) 1.3 k/uL (0-1.0); Monocytes % (A) 9 %; Neutrophils # (A) 11.5 k/uL (1.3-7.7); Neutrophils % (A) 77 %; Platelet Count 488 k/uL (150-450); RBC 3.18 m/uL (4.30-5.90); RDW 15.3 % (11.5-15.5)
[2019-07-27 08:56] LABS: Total Bilirubin 19.6 mg/dL (0.2-1.3)
[2019-07-27 08:57] LABS: Total Protein 6.3 g/dL (6.3-8.2)
[2019-07-27 09:45] LABS: Target Cells Present
[2019-07-27] MEDS: DEXTROSE 5% IN WATER 1,000 ML with SODIUM BICARB (1 MEQ/ML) 150 ML IV SCH ×2 (12:37→14:27)
[2019-07-27] MEDS ORDERED: Potassium Replacement Protocol 1 EACH MISC MISCELLANE PRN (12:49)
--- NOTE | 2019-07-27 14:26 | P.PN ---
Subjective Progress Note Date: 07/27/19 This is a 49-year-old male patient who presented to the ER with complaints of yellowing of skin and eyes. Patient is known past medical history of EtOH drinking approximately a pint of vodka plus beer daily. Patient's urged patient to come to ER due to presentation of jaundice 1 day patient was noted to have yellowing of his eyes and she was concerned about his liver. Additional medical history includes hyperlipidemia hypertension and ex-smoker. Abdominal ultrasound completed showing no gallstones or dilated ducts diffuse fatty infiltration of liver. Upon admission AST elevated to 95, ALT 64 alkaline phosphatase 3:30 total bilirubin 10.1 and ammonia level 185. Patient has been started on lactulose. GI services have been consulted. Patient's electrolytes also significantly impaired. Sodium low at 122, potassium 3.2, magnesium 0.7. Replacement per protocol patient currently on normal saline. Patient also currently in EtOH withdrawals. Patient has been admitted to the intensive care unit critical care services are following. Heart rate elevated secondary to withdrawal. CIWA protocol has been ordered. GI services have been consulted for Liver failure. At this time patient is resting comfortably in bed shakiness and withdrawal symptoms noted. Patient is alert and oriented 2. Patient able to follow commands. Patient denies chest pain. Patient denies shortness of breath. Patient denies any urinary burning or frequency. 07/14/2019 patient remains in the ICU. He has a sitter at bedside. He did require Ativan this morning for alcohol withdrawal and is sleeping comfortably. Heart rate is better controlled. Total bilirubin has gone up from 10.1-14.1. Ammonia level has decreased from 185-47. Hepatitis panel is negative. He is followed by GI service and critical care. He is tolerating clear liquid diet. Patient is having a bowel movement almost every hour. Patient currently on lactulose 3 times a day and Xifaxan. Patient did have a temp of 100.6 yesterday afternoon he is currently on Rocephin. Chest x-rays negative. 07/20/2019 patient is currently on a regular medical floor. He was followed by Dr. Carlton from 07/15/2019 until 07/19/2019. Patient's is being followed by GI service for his severe alcoholic hepatitis. Total bilirubin is up to 22. He has been ambulating in the hallway. Apparently he had a fall yesterday and had a computed tomography scan of the head and neck completed. Just revealing moderate atrophy of the brain. Otherwise normal findings. Ammonia levels up to 73 CO2 is down at 14. Patient denies any chest pain or shortness of breath. Denies any nausea or vomiting. Urine is starting to clear and he is having 3-5 bowel movements a day. 07/21/2019 patient sitting up in bed comfortably. He reports having at least 3 bowel movements daily. Ammonia level has decreased from 73-53. Total bilirubin has come down from 22-20.4. He is followed closely by GI service. Awaiting their recommendations regarding the prednisone. Potassium is low at 3.4. 07/22/2019 patient lying in bed comfortably. He has no new complaints. Ammonia is down to 48. He is having multiple bowel movements a day. Magnesium and pot assium are low and being replaced. Creatinine has gone up to 1.48. We'll discontinue the hydrochlorothiazide and lisinopril. Continue fluids at 50 mL an hour. Total bilirubin is 20.8 patient denies any difficulty urinating. He does report that his urine continues to become clear. GI service did hold off on starting the prednisone. On 07/23/2019 patient is alert and oriented 3 in no apparent distress bilirubin still elevated at 22 patient clinically denies any symptoms there is no fever or chills no headache or dizziness no chest pain no shortness of breath no cough no nausea or vomiting no abdominal pain no diarrhea and no urinary symptoms. On 07/24/2019 patient was seen and examined on the medical floor, he is alert and oriented 3 in no apparent distress, he is still has significant jaundice, total bilirubin up to 22.4, creatinine up to 2.04, clinically he is feeling well, there is no fever or chills no headache no dizziness no chest pain no shortness of breath no cough no nausea or vomiting no abdominal pain no diarrhea and no urinary symptoms On 07/25/2019 patient is alert and oriented 3. Patient up ambulating the kinney with . Patient remains with significant jaundice. Total bili is trending down 19.6. Nephrology services are following. Patient currently maintained on Sandostatin and albumin per nephrology services for concerns of hepatorenal acute kidney injury. Creatinine is improving slightly we'll continue to monitor. Patient also switched to IV sodium bicarb. We'll continue to monitor patient closely. At this time patient denies chest pain or shortness breath. Patient denies nausea vomiting or diarrhea. Patient denies any urinary burning or frequency 07/26/2019 patient lying in bed. at bedside. Patient reporting that his abdomen is more distended and firm today. He's having about 3 bowel movements a day. Patient seen by GI service. They will ordered an abdominal ultrasound with paracentesis. Creatinine is down to 1.80, total bili is 19, AST 700 and ALT 31. CO2 has come up from 14-. Patient denies any chest pain or shortness of breath. Denies any nausea or vomiting. Denies any difficulty urinating. On 07/27/2019 patient is alert and oriented 3. Patient to undergo paracentesis today per GI services. Creatinine trending down. Total bili increasing to 19.6. This time patient denies chest pain or shortness breath. Patient denies nausea vomiting or diarrhea. Patient denies any urinary burning or frequency Objective - Vital Signs Vital signs: Vital Signs Temp 98.6 F 07/27/19 12:52 Pulse 71 07/27/19 13:59 Resp 14 07/27/19 13:59 BP 156/94 07/27/19 13:59 Pulse Ox 97 07/27/19 13:59 Intake & Output 07/26/19 07/27/19 07/27/19 18:59 06:59 18:59 Intake Total 1010 815 Output Total 2 Balance 1010 813 Weight 87.5 kg Intake: Intake, IV Titration 650 225 Amount Albumin Human 25% 50 ml 50 In Empty Bag 1 bag @ 50 mls/hr IVPB Q8HR LUBA Rx#: [id number] Dextrose 5% in Water 1, 600 225 000 ml @ 75 mls/hr IV . [id number] LUBA with Sodium Bicarb (1 Meq/ml) 150 ml Rx#:[id number] Oral 360 590 Output: Stool 2 Other: Voiding Method Toilet Toilet # Voids 4 - Exam Head normocephalic and atraumatic Neck supple no JVD no goiter Lungs clear to auscultation bilaterally no wheezing or crackles Heart regular rate and rhythm S1-S2, no rub or gallop Abdomen is soft nontender nondistended positive bowel sounds no hepatosplenomegaly Extremities +1 edema bilateral lower legs Neuro patient sleeping comfortably Skin jaundice. Scleral icterus - Labs CBC & Chem 7: 07/27/19 08:11 07/27/19 08:11 Labs: Abnormal Lab Results - Last 24 Hours (Table) 07/27/19 07/27/19 07/27/19 Range/Units 08:11 08:11 08:11 WBC 15.0 H (3.8-10.6) k/uL RBC 3.18 L (4.30-5.90) m/uL Hgb 11.2 L (13.0-17.5) gm/dL Hct 35.3 L (39.0-53.0) % MCV 111.1 H (80.0-100.0) fL MCH 35.2 H (25.0-35.0) pg Plt Count 488 H (150-450) k/uL Neutrophils # 11.5 H (1.3-7.7) k/uL Monocytes # 1.3 H (0-1.0) k/uL Macrocytosis Marked A Potassium 3.4 L (3.5-5.1) mmol/L Creatinine 1.68 H (0.66-1.25) mg/dL Glucose 111 H (74-99) mg/dL Calcium 8.1 L (8.4-10.2) mg/dL Total Bilirubin 19.6 H* (0.2-1.3) mg/dL AST 112 H (17-59) U/L Alkaline Phosphatase 169 H (38-126) U/L Ammonia 54 H (<30) umol/L Albumin 2.7 L (3.5-5.0) g/dL Assessment and Plan Assessment: 1. Severe Acute alcoholic hepatitis superimposed on alcoholic cirrhosis of the liver. Abdominal ultrasound completed showing no gallstones or dilated ducts. Diffuse fatty infiltration of the liver. GI services have been consulted. Hepatitis panel negative. 2. Jaundice, hyperbilirubinemia secondary to alcoholic liver disease. Total bilirubin 19. GI service is following and decided not to start prednisone. Total bili 19.6 3. EtOH withdrawal. Patient currently on CIWA protocal. Continue thiamine and add multivitamin. Continue Ativan as needed 4. Hypokalemia. Likely losing potassium through his stooling and hydrochlorothiazide. Improved with potassium replacement 5. Hyponatremia and hypochloremic secondary to EtOH. 6. Tachycardia secondary to alcohol withdrawal. Patient's home dose beta phong resumed. Continue a call withdrawal protocol. Tachycardia has improve d. Discontinue telemetry 7. History of essential hypertension. Patient's home dose of Lopressor resumed. 8. 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 Continue to monitor ammonia levels. Patient has had some confusion. Lactulose was decreased to twice a day. And he is on Xifaxan 9. Macrocytic anemia secondary to chronic liver disease 10. Generalized weakness and fatigue due to his advanced liver disease. Continue PT OT 11. Metabolic acidosis: the patient having multiple stools. CO2 19 currently on IV sodium bicarb. Nephrology following 12. Hypomagnesemia: Resolved with replacement 13. Acute kidney injury secondary to hepatorenal. Nephrology services are following. Patient remains on IV bicarb, albumin and Sandostatin creatinine is trending down to 1.68 14. Abdominal ascites. Per GI services patient to undergo paracentesis today. 15. Coagulopathy due to liver disease 16. Essential hypertension: We'll continue to monitor blood pressures. BP has been slightly elevated. Repeat blood pressure 135/71. We'll continue to monitor DVT prophylaxis Lovenox. GI prophylaxis Protonix I performed an examination of the patient and discussed their management with the Nurse Practitioner. I have reviewed the Nurse Practitioner's notes and ag ree with the documented findings and plan of care
--- NOTE | 2019-07-27 14:32 | US ---
EXAMINATION TYPE: US paracentesis abd w/image DATE OF EXAM: 07/27/2019 COMPARISON: NONE HISTORY: Ascites. PROCEDURE: Maximal barrier technique was utilized. The skin overlying a suitable pocket of fluid was localized with ultrasound and the overlying skin was prepped and draped. Ultrasound was utilized with sterile technique. Lidocaine was used for local anesthesia and a skin sonali made with a scalpel. Catheter was advanced under direct ultrasound guidance into a suitable pocket of fluid and approximately 2.8 liter s of yellow fluid were removed. Catheter was withdrawn and hemostasis achieved. There is no immedia te complication; the patient is discharged in stable condition. IMPRESSION: STATUS POST ULTRASOUND GUIDED PARACENTESIS FOR PALLIATION OF ASCITES. THIS PROCEDURE WA S PERFORMED BY THE UNDERSIGNED. Specimen sent for laboratory analysis.
[2019-07-27 19:22] LABS: Appearance,BF Clear; Color,BF Yellow; Nucleated Cells, Body Fluid 7 /uL; RBC, Body Fluid 21 /uL
[2019-07-28] MEDS: DEXTROSE 5% IN WATER 1,000 ML with SODIUM BICARB (1 MEQ/ML) 150 ML IV SCH ×2 (00:31→15:59)
[2019-07-28] MEDS: amLODIPine 5 MG TAB PO SCH ×2 (06:01→08:10)
[2019-07-28 06:51] LABS: Albumin, Fluid Source Ascites
--- NOTE | 2019-07-28 06:51 | P.PN ---
Subjective Progress Note Date: 07/27/19 Principal diagnosis: Alcoholic hepatitis, elevated liver enzymes Patient is seen lying in bed. Patient denies any acute complaints today, plan is for paracentesis. Otherwise tolerating his diet with no acute complaints. Objective - Vital Signs Vital signs: Vital Signs Temp 98.6 F 07/27/19 12:52 Pulse 71 07/27/19 13:59 Resp 14 07/27/19 13:59 BP 156/94 07/27/19 13:59 Pulse Ox 97 07/27/19 13:59 Intake & Output 07/26/19 07/27/19 07/27/19 18:59 06:59 18:59 Intake Total 1010 815 Output Total 2 Balance 1010 813 Weight 87.5 kg Intake: Intake, IV Titration 650 225 Amount Albumin Human 25% 50 ml 50 In Empty Bag 1 bag @ 50 mls/hr IVPB Q8HR LUBA Rx#: [id number] Dextrose 5% in Water 1, 600 225 000 ml @ 75 mls/hr IV . [id number] LUBA with Sodium Bicarb (1 Meq/ml) 150 ml Rx#:[id number] Oral 360 590 Output: Stool 2 Other: Voiding Method Toilet Toilet # Voids 4 - Exam On physical examination, patient appears comfortable in no apparent distress. HEAD: Normocephalic, atraumatic. EYES: Scleral icterus. No conjunctival injection. MOUTH: No lesions, tongue midline. NECK: Trachea midline, no gross abnormalities. ABDOMEN: Soft. Bowel sounds are positive. No organomegaly. No guarding or rigidity. EXTREMITIES: No pedal edema. SKIN: No rashes, jaundice. NEUROLOGIC: Alert and responsive, no asterixis. No focal deficits. - Labs CBC & Chem 7: 07/27/19 08:11 07/27/19 08:11 Labs: Abnormal Lab Results - Last 24 Hours (Table) 07/27/19 07/27/19 07/27/19 Range/Units 08:11 08:11 08:11 WBC 15.0 H (3.8-10.6) k/uL RBC 3.18 L (4.30-5.90) m/uL Hgb 11.2 L (13.0-17.5) gm/dL Hct 35.3 L (39.0-53.0) % MCV 111.1 H (80.0-100.0) fL MCH 35.2 H (25.0-35.0) pg Plt Count 488 H (150-450) k/uL Neutrophils # 11.5 H (1.3-7.7) k/uL Monocytes # 1.3 H (0-1.0) k/uL Macrocytosis Marked A Potassium 3.4 L (3.5-5.1) mmol/L Creatinine 1.68 H (0.66-1.25) mg/dL Glucose 111 H (74-99) mg/dL Calcium 8.1 L (8.4-10.2) mg/dL Total Bilirubin 19.6 H* (0.2-1.3) mg/dL AST 112 H (17-59) U/L Alkaline Phosphatase 169 H (38-126) U/L Ammonia 54 H (<30) umol/L Albumin 2.7 L (3.5-5.0) g/dL Assessment and Plan (1) Alcoholic hepatitis Narrative/Plan: 49-year-old male with a long-standing history of alcohol abuse, worsened over the past 2 months with 1 pint of alcohol daily who presents with jaundice, scleral icterus and weakness. Patient found to have elevation in total bilirubin of 10.1, alkaline phosphatase 330, AST 295 and ALT 69 on admission with ultrasound of the abdomen negative for any ductal dilation or gallstones with diffuse fatty infiltration noted highly suggestive of acute alcoholic hepatitis. Liver enzymes have trended up, overall consistent with alcoholic hepatitis, predominantly in a cholestatic pattern and have remained stable. Current Visit: Yes Status: Acute Code(s): K70.10 - ALCOHOLIC HEPATITIS WITHOUT ASCITES SNOMED Code(s): 927733635 (2) Hepatic encephalopathy Current Visit: Yes Status: Acute Code(s): K72.90 - HEPATIC FAILURE, UNSPECIFIED WITHOUT COMA SNOMED Code(s): 34011291 (3) Alcohol abuse Current Visit: Yes Status: Acute Code(s): F10.10 - ALCOHOL ABUSE, UNCOMPLICATED SNOMED Code(s): 60172401 Plan: Supportive care Okay for diet as tolerated Continue to monitor CBC, CMP Continue to monitor clinically Viral hepatitis panel negative Alcohol abstinence Continue lactulose therapy, okay to hold this patient has 3 bowel movements Rifaximin ordered Paracentesis with 2.8 L of ascites removed Thank you for allowing us to participate in the care of the patient we will continue to follow
[2019-07-28 07:51] LABS: HCT 32.1 % (39.0-53.0); HGB 10.5 gm/dL (13.0-17.5); Hypochromasia Slight; MCH 36.6 pg (25.0-35.0); MCHC 32.8 g/dL (31.0-37.0); MCV 111.8 fL (80.0-100.0); Macrocytosis Marked; Mean Platelet Volume 8.7; Platelet Count 381 k/uL (150-450); RBC 2.87 m/uL (4.30-5.90); RDW 15.3 % (11.5-15.5); WBC 15.2 k/uL (3.8-10.6)
[2019-07-28 08:03] LABS: Albumin 2.4 g/dL (3.5-5.0); Calcium 7.7 mg/dL (8.4-10.2); Total Protein 5.7 g/dL (6.3-8.2)
[2019-07-28] MEDS: ENOXAPARIN 40 MG/0.4 ML SYRINGE SQ SCH (08:04)
[2019-07-28] MEDS: MULTIVITAMINS, THERA 1 EACH TAB PO SCH (08:04)
[2019-07-28] MEDS: PANTOPRAZOLE 40 MG TABLET PO SCH (08:04)
[2019-07-28] MEDS: METOPROLOL SUCCINATE (ER) 100 MG TAB.ER.24H PO SCH (08:04)
[2019-07-28] MEDS: SODIUM BICARBONATE TAB 650 MG TAB PO SCH ×4 (08:04→22:11)
[2019-07-28] MEDS: POTASSIUM CHLORIDE ER 20 MEQ TAB.ER PO SCH (08:04)
[2019-07-28] MEDS: THIAMINE 100 MG TAB PO SCH ×2 (08:04→18:13)
[2019-07-28] MEDS: LACTULOSE 20 GM/30 ML CUP PO SCH ×3 (08:04→22:11)
[2019-07-28] MEDS: RIFAXIMIN 550 MG TABLET PO SCH ×2 (08:05→20:56)
[2019-07-28 08:13] LABS: Potassium 3.7 mmol/L (3.5-5.1); Total Bilirubin 17.4 mg/dL (0.2-1.3)
[2019-07-28 08:34] LABS: Band Neutrophils % 1 %; Eosinophils # (M) 0.46 k/uL (0-0.7); Lymphocytes # (M) 1.06 k/uL (1.0-4.8); Metamyelocytes # (M) 0.15 k/uL (0); Metamyelocytes % 1 %; Monocytes # (M) 1.52 k/uL (0-1.0); Myelocytes % 2 %; Neutrophils % (M) 78 %; Nucleated Red Blood Cells 0 /100 WBC (0-0); Total Cells Counted 200
[2019-07-28 08:35] LABS: Poikilocytosis (M) Present
[2019-07-28] MEDS: OCTREOTIDE 100 MCG/ML INJ SQ SCH (09:22)
--- NOTE | 2019-07-28 12:44 | XR ---
2 view abdomen HISTORY: Loading, abdominal pain 2 views the abdomen on 3 images Increased attenuation within the abdomen may be indicative of underlying ascites. Subsegmental basila r atelectatic changes present within the lungs. No evident pneumoperitoneum. Possible vascular calcif ications within the pelvis. No evident bowel obstruction. Bone mineralization maintained. IMPRESSION: Basilar atelectatic changes. Suspect underlying ascites. Indeterminate calcifications wit hin the pelvis.
--- NOTE | 2019-07-28 14:44 | P.PN ---
Subjective Progress Note Date: 07/28/19 This is a 49-year-old male patient who presented to the ER with complaints of yellowing of skin and eyes. Patient is known past medical history of EtOH drinking approximately a pint of vodka plus beer daily. Patient's urged patient to come to ER due to presentation of jaundice 1 day patient was noted to have yellowing of his eyes and she was concerned about his liver. Additional medical history includes hyperlipidemia hypertension and ex-smoker. Abdominal ultrasound completed showing no gallstones or dilated ducts diffuse fatty infiltration of liver. Upon admission AST elevated to 95, ALT 64 alkaline phosphatase 3:30 total bilirubin 10.1 and ammonia level 185. Patient has been started on lactulose. GI services have been consulted. Patient's electrolytes also significantly impaired. Sodium low at 122, potassium 3.2, magnesium 0.7. Replacement per protocol patient currently on normal saline. Patient also currently in EtOH withdrawals. Patient has been admitted to the intensive care unit critical care services are following. Heart rate elevated secondary to withdrawal. CIWA protocol has been ordered. GI services have been consulted for Liver failure. At this time patient is resting comfortably in bed shakiness and withdrawal symptoms noted. Patient is alert and oriented 2. Patient able to follow commands. Patient denies chest pain. Patient denies shortness of breath. Patient denies any urinary burning or frequency. 07/14/2019 patient remains in the ICU. He has a sitter at bedside. He did require Ativan this morning for alcohol withdrawal and is sleeping comfortably. Heart rate is better controlled. Total bilirubin has gone up from 10.1-14.1. Ammonia level has decreased from 185-47. Hepatitis panel is negative. He is followed by GI service and critical care. He is tolerating clear liquid diet. Patient is having a bowel movement almost every hour. Patient currently on lactulose 3 times a day and Xifaxan. Patient did have a temp of 100.6 yesterday afternoon he is currently on Rocephin. Chest x-rays negative. 07/20/2019 patient is currently on a regular medical floor. He was followed by Dr. Carlton from 07/15/2019 until 07/19/2019. Patient's is being followed by GI service for his severe alcoholic hepatitis. Total bilirubin is up to 22. He has been ambulating in the hallway. Apparently he had a fall yesterday and had a computed tomography scan of the head and neck completed. Just revealing moderate atrophy of the brain. Otherwise normal findings. Ammonia levels up to 73 CO2 is down at 14. Patient denies any chest pain or shortness of breath. Denies any nausea or vomiting. Urine is starting to clear and he is having 3-5 bowel movements a day. 07/21/2019 patient sitting up in bed comfortably. He reports having at least 3 bowel movements daily. Ammonia level has decreased from 73-53. Total bilirubin has come down from 22-20.4. He is followed closely by GI service. Awaiting their recommendations regarding the prednisone. Potassium is low at 3.4. 07/22/2019 patient lying in bed comfortably. He has no new complaints. Ammonia is down to 48. He is having multiple bowel movements a day. Magnesium and pot assium are low and being replaced. Creatinine has gone up to 1.48. We'll discontinue the hydrochlorothiazide and lisinopril. Continue fluids at 50 mL an hour. Total bilirubin is 20.8 patient denies any difficulty urinating. He does report that his urine continues to become clear. GI service did hold off on starting the prednisone. On 07/23/2019 patient is alert and oriented 3 in no apparent distress bilirubin still elevated at 22 patient clinically denies any symptoms there is no fever or chills no headache or dizziness no chest pain no shortness of breath no cough no nausea or vomiting no abdominal pain no diarrhea and no urinary symptoms. On 07/24/2019 patient was seen and examined on the medical floor, he is alert and oriented 3 in no apparent distress, he is still has significant jaundice, total bilirubin up to 22.4, creatinine up to 2.04, clinically he is feeling well, there is no fever or chills no headache no dizziness no chest pain no shortness of breath no cough no nausea or vomiting no abdominal pain no diarrhea and no urinary symptoms On 07/25/2019 patient is alert and oriented 3. Patient up ambulating the kinney with . Patient remains with significant jaundice. Total bili is trending down 19.6. Nephrology services are following. Patient currently maintained on Sandostatin and albumin per nephrology services for concerns of hepatorenal acute kidney injury. Creatinine is improving slightly we'll continue to monitor. Patient also switched to IV sodium bicarb. We'll continue to monitor patient closely. At this time patient denies chest pain or shortness breath. Patient denies nausea vomiting or diarrhea. Patient denies any urinary burning or frequency 07/26/2019 patient lying in bed. at bedside. Patient reporting that his abdomen is more distended and firm today. He's having about 3 bowel movements a day. Patient seen by GI service. They will ordered an abdominal ultrasound with paracentesis. Creatinine is down to 1.80, total bili is 19, AST 700 and ALT 31. CO2 has come up from 14-19. Patient denies any chest pain or shortness of breath. Denies any nausea or vomiting. Denies any difficulty urinating. On 07/27/2019 patient is alert and oriented 3. Patient to undergo paracentesis today per GI services. Creatinine trending down. Total bili increasing to 19.6. This time patient denies chest pain or shortness breath. Patient denies nausea vomiting or diarrhea. Patient denies any urinary burning or frequency 07/28/2019 patient is awake and answering questions appropriately. He had a paracentesis with 2.8 L removed yesterday. His abdomen is still distended. Lactulose was increased to 3 times a day. His ammonia level had gone from 54- 72. Nephrology has discontinued the IV albumin and Sandostatin. Creatinine continues to trend down 1.48. Total bilirubin has decreased from 19.6-17.4. White count 15.2. Patient has no complaints. Objective - Vital Signs Vital signs: Vital Signs Temp 98.1 F 07/28/19 04:15 Pulse 77 07/28/19 08:09 Resp 16 07/28/19 04:15 BP 132/94 07/28/19 08:09 Pulse Ox 98 07/28/19 04:15 Intake & Output 07/27/19 07/28/19 07/28/19 18:59 06:59 18:59 Intake Total 600 120 Output Total 2 Balance 600 -2 120 Weight 91.172 kg 90.718 kg Intake: Intake, IV Titration 600 Amount Dextrose 5% in Water 1, 600 000 ml @ 75 mls/hr IV . [id number] LUBA with Sodium Bicarb (1 Meq/ml) 150 ml Rx#:[id number] Oral 120 Output: Stool 2 Other: Voiding Method Toilet # Voids 2 # Bowel Movements 2 - Exam Head normocephalic Neck supple Lungs clear to auscultation bilaterally no wheezing or crackles Heart regular rate and rhythm S1-S2, no rub or gallop Abdomen is distended fluid present positive bowel sounds no hepatosplenomegaly Extremities +1 edema bilateral lower legs Neuro patient sleeping comfortably Skin jaundice. Scleral icterus - Labs CBC & Chem 7: 07/28/19 07:23 07/28/19 07:23 Labs: Abnormal Lab Results - Last 24 Hours (Table) 07/28/19 07/28/19 07/28/19 Range/Units 07:23 07:23 07:23 WBC 15.2 H (3.8-10.6) k/uL RBC 2.87 L (4.30-5.90) m/uL Hgb 10.5 L (13.0-17.5) gm/dL Hct 32.1 L (39.0-53.0) % MCV 111.8 H (80.0-100.0) fL MCH 36.6 H (25.0-35.0) pg Neutrophils # (Manual) 12.00 H (1.3-7.7) k/uL Monocytes # (Manual) 1.52 H (0-1.0) k/uL Metamyelocytes # (Man) 0.15 H (0) k/uL Myelocytes # (Manual) 0.30 H (0) k/uL Macrocytosis Marked A Sodium 136 L (137-145) mmol/L Creatinine 1.48 H (0.66-1.25) mg/dL Glucose 118 H (74-99) mg/dL Calcium 7.7 L (8.4-10.2) mg/dL Total Bilirubin 17.4 H* (0.2-1.3) mg/dL AST 107 H (17-59) U/L Alkaline Phosphatase 144 H (38-126) U/L Ammonia 72 H (<30) umol/L Total Protein 5.7 L (6.3-8.2) g/dL Albumin 2.4 L (3.5-5.0) g/dL Microbiology - Last 24 Hours (Table) 07/27/19 13:06 Gram Stain - Preliminary Paracentesis Fluid Body Fluid Culture - Preliminary Assessment and Plan Assessment: 1. Severe Acute alcoholic hepatitis superimposed on alcoholic cirrhosis of the liver. Abdominal ultrasound completed showing no gallstones or dilated ducts. Diffuse fatty infiltration of the liver. GI services have been consulted. Hepatitis panel negative. 2. Jaundice, hyperbilirubinemia secondary to alcoholic liver disease. Total bilirubin 17.6. GI service is following and decided not to start prednisone 3. EtOH withdrawal. Patient currently on CIWA protocal. Continue thiamine and add multivitamin. Continue Ativan as needed 4. Hypokalemia. Likely losing potassium through his stooling and hydrochlorothiazide. Improved with potassium replacement 5. Hyponatremia and hypochloremic secondary to EtOH. 6. Tachycardia secondary to alcohol withdrawal. Patient's home dose beta phong resumed. Continue a call withdrawal protocol. Tachycardia has improved. Discontinue telemetry 7. History of essential hypertension. Patient's home dose of Lopressor resumed. 8. 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 Continue to monitor ammonia levels. Patient has had some confusion. And he is on Xifaxan. Ammonia level is back up at 72. GI service has increased the lactulose back to 3 times a day 9. Macrocytic anemia secondary to chronic liver disease 10. Generalized weakness and fatigue due to his advanced liver disease. Continue PT OT 11. Metabolic acidosis: Improved. Nephrology following. Currently on IV sodium bicarb 12. Hypomagnesemia: Resolved with replacement 13. Acute kidney injury secondary to hepatorenal. Nephrology services are following. Creatinine is down to 1.48. Albumin and Sandostatin discontinued 14. Abdominal ascites. Status post paracentesis with 2.8 L removed 15. Coagulopathy due to liver disease 16. Essential hypertension: Norvasc 5 mg daily added. Continue to monitor blood pressures. DVT prophylaxis Lovenox. GI prophylaxis Protonix Consulting physician notes have been reviewed and appreciated. I performed an examination of the patient and discussed their management with the physician Document Preparation Specialist. I have reviewed the Physician Document Preparation Specialist's notes and agree with the documented findings and plan of care
[2019-07-28] MEDS: FUROSEMIDE 10 MG/ML 2 ML VIAL IV SCH ×2 (18:12→20:56)
[2019-07-28] MEDS ORDERED: PHYTONADIONE 10 MG in SODIUM CHLORIDE 0.9% 50 ML IVPB STA (22:52)
--- NOTE | 2019-07-28 22:53 | PN ---
PROGRESS NOTE Patient is seen for followup for acute kidney injury, mainly hepatorenal. Renal function has been improving. Patient was maintained on IV albumin and Sandostatin, which was discontinued this morning. He continues to have good urine output and renal function has improved, with creatinine down to 1.48 mg/dL today from peak of 2.0. Patient is complaining of increased edema in the lower extremities. He denies any shortness of breath. PHYSICAL EXAMINATION: On examination, blood pressure this afternoon was 148/92, heart rate 83 per minute. Patient is afebrile. EXAMINATION OF THE HEART: S1 and S2. EXAMINATION OF LUNGS: Decreased breath sounds at bases. ABDOMEN: Soft, non-tender. Obese. Examination of lower extremities shows edema 2 to 3+ bilaterally. LABS: Hemoglobin 10.5, sodium 136, potassium 3.7, BUN 16, creatinine 1.48. Bilirubin is 17.4. ASSESSMENT: 1. Acute kidney injury, hepatorenal syndrome, now improved. Okay to maintain patient off of IV albumin and Sandostatin. I will also discontinue the IV bicarb and we can add small dose of IV Lasix to help with the edema. 2. Metabolic acidosis, now resolved. 3. Hypokalemia, status post replacement yesterday. Expect further improvement once the bicarb drip is discontinued. 4. Acute alcoholic hepatitis. 5. Chronic liver disease secondary to ethanol abuse. PLAN: Discontinue IV bicarb. Start IV Lasix. Repeat labs in a.m. MMODL / IJN: [id number] /
--- NOTE | 2019-07-28 22:55 | P.PN ---
Subjective Progress Note Date: 07/28/19 Principal diagnosis: Alcoholic hepatitis, elevated liver enzymes Patient is seen lying in bed. Patient denies any acute complaints today, he is status post paracentesis yesterday. Still reporting some distention. Tolerating diet. Nonbloody bowel movement today. Objective - Vital Signs Vital signs: Vital Signs Temp 99.7 F H 07/28/19 15:50 Pulse 83 07/28/19 15:50 Resp 16 07/28/19 15:50 BP 148/92 07/28/19 15:50 Pulse Ox 95 07/28/19 15:50 Intake & Output 07/28/19 07/28/19 07/29/19 06:59 18:59 06:59 Intake Total 720 240 Output Total 2 Balance -2 720 240 Weight 91.172 kg 90.718 kg Intake: Intake, IV Titration 600 Amount Dextrose 5% in Water 1, 600 000 ml @ 75 mls/hr IV . [id number] LUBA with Sodium Bicarb (1 Meq/ml) 150 ml Rx#:[id number] Oral 120 240 Output: Stool 2 Other: Voiding Method Toilet # Voids 2 2 # Bowel Movements 2 2 - Exam On physical examination, patient appears comfortable in no apparent distress. HEAD: Normocephalic, atraumatic. EYES: Scleral icterus. No conjunctival injection. MOUTH: No lesions, tongue midline. NECK: Trachea midline, no gross abnormalities. ABDOMEN: Soft. Bowel sounds are positive. No organomegaly. No guarding or rigidity. EXTREMITIES: No pedal edema. SKIN: No rashes, jaundice. NEUROLOGIC: Alert and responsive, no asterixis. No focal deficits. - Labs CBC & Chem 7: 07/28/19 07:23 07/28/19 07:23 Labs: Abnormal Lab Results - Last 24 Hours (Table) 07/28/19 07/28/19 07/28/19 Range/Units 07:23 07:23 07:23 WBC 15.2 H (3.8-10.6) k/uL RBC 2.87 L (4.30-5.90) m/uL Hgb 10.5 L (13.0-17.5) gm/dL Hct 32.1 L (39.0-53.0) % MCV 111.8 H (80.0-100.0) fL MCH 36.6 H (25.0-35.0) pg Neutrophils # (Manual) 12.00 H (1.3-7.7) k/uL Monocytes # (Manual) 1.52 H (0-1.0) k/uL Metamyelocytes # (Man) 0.15 H (0) k/uL Myelocytes # (Manual) 0.30 H (0) k/uL Macrocytosis Marked A Sodium 136 L (137-145) mmol/L Creatinine 1.48 H (0.66-1.25) mg/dL Glucose 118 H (74-99) mg/dL Calcium 7.7 L (8.4-10.2) mg/dL Total Bilirubin 17.4 H* (0.2-1.3) mg/dL AST 107 H (17-59) U/L Alkaline Phosphatase 144 H (38-126) U/L Ammonia 72 H (<30) umol/L Total Protein 5.7 L (6.3-8.2) g/dL Albumin 2.4 L (3.5-5.0) g/dL Microbiology - Last 24 Hours (Table) 07/27/19 13:06 Gram Stain - Preliminary Paracentesis Fluid Body Fluid Culture - Preliminary Assessment and Plan (1) Alcoholic hepatitis Narrative/Plan: 49-year-old male with a long-standing history of alcohol abuse, worsened over the past 2 months with 1 pint of alcohol daily who presents with jaundice, scleral icterus and weakness. Patient found to have elevation in total bilirubin of 10.1, alkaline phosphatase 330, AST 295 and ALT 69 on admission with ultrasound of the abdomen negative for any ductal dilation or gallstones with diffuse fatty infiltration noted highly suggestive of acute alcoholic hepatitis. Liver enzymes have trended up, overall consistent with alcoholic hepatitis, predominantly in a cholestatic pattern and have remained stable. Current Visit: Yes Status: Acute Code(s): K70.10 - ALCOHOLIC HEPATITIS WITHOUT ASCITES SNOMED Code(s): 634934984 (2) Hepatic encephalopathy Current Visit: Yes Status: Acute Code(s): K72.90 - HEPATIC FAILURE, UNSPECIFIED WITHOUT COMA SNOMED Code(s): 59327524 (3) Alcohol abuse Current Visit: Yes Status: Acute Code(s): F10.10 - ALCOHOL ABUSE, UNCOMPLICATED SNOMED Code(s): 84409972 Plan: Supportive care Okay for diet as tolerated Continue to monitor CBC, CMP Continue to monitor clinically Viral hepatitis panel negative Alcohol abstinence Continue lactulose therapy, okay to hold this patient has 3 bowel movements Rifaximin ordered Paracentesis with 2.8 L of ascites removed Vitamin K ordered Thank you for allowing us to participate in the care of the patient we will continue to follow
[2019-07-29 06:41] LABS: Basophils # (A) 0.1 k/uL (0-0.2); Basophils % (A) 1 %; Eosinophils # (A) 0.5 k/uL (0-0.7); Eosinophils % (A) 2 %; HCT 36.9 % (39.0-53.0); HGB 11.5 gm/dL (13.0-17.5); Hypochromasia Slight; Lymphocytes # (A) 1.3 k/uL (1.0-4.8); Lymphocytes % (A) 7 %; MCH 34.4 pg (25.0-35.0); MCHC 31.1 g/dL (31.0-37.0); MCV 110.7 fL (80.0-100.0); Macrocytosis Marked; Mean Platelet Volume 8.5; Monocytes # (A) 1.5 k/uL (0-1.0); Monocytes % (A) 8 %; Neutrophils # (A) 15.2 k/uL (1.3-7.7); Neutrophils % (A) 80 %; Platelet Count 391 k/uL (150-450); RBC 3.33 m/uL (4.30-5.90); WBC 19.1 k/uL (3.8-10.6)
[2019-07-29 06:52] LABS: Albumin 2.4 g/dL (3.5-5.0); Calcium 7.8 mg/dL (8.4-10.2); Potassium 3.6 mmol/L (3.5-5.1); Total Protein 6.2 g/dL (6.3-8.2)
[2019-07-29 06:56] LABS: Total Bilirubin 18.8 mg/dL (0.2-1.3)
[2019-07-29 07:06] LABS: INR 1.8 (<1.2)
[2019-07-29] MEDS: MULTIVITAMINS, THERA 1 EACH TAB PO SCH (08:03)
[2019-07-29] MEDS: CALCIUM CARBONATE 500 MG CHEWABLE PO PRN (08:03)
[2019-07-29] MEDS: FUROSEMIDE 10 MG/ML 2 ML VIAL IV SCH ×2 (08:03→21:03)
[2019-07-29] MEDS: RIFAXIMIN 550 MG TABLET PO SCH ×2 (08:03→21:17)
[2019-07-29] MEDS: POTASSIUM CHLORIDE ER 20 MEQ TAB.ER PO SCH (08:03)
[2019-07-29] MEDS: PANTOPRAZOLE 40 MG TABLET PO SCH (08:03)
[2019-07-29] MEDS: METOPROLOL SUCCINATE (ER) 100 MG TAB.ER.24H PO SCH (08:03)
[2019-07-29] MEDS: SODIUM BICARBONATE TAB 650 MG TAB PO SCH ×4 (08:03→21:04)
[2019-07-29] MEDS: THIAMINE 100 MG TAB PO SCH ×2 (08:03→16:17)
[2019-07-29] MEDS: amLODIPine 5 MG TAB PO SCH (08:04)
[2019-07-29] MEDS: LACTULOSE 20 GM/30 ML CUP PO SCH ×3 (08:04→21:03)
--- NOTE | 2019-07-29 11:04 | P.PN ---
Subjective Progress Note Date: 07/29/19 This is a 49-year-old male patient who presented to the ER with complaints of yellowing of skin and eyes. Patient is known past medical history of EtOH drinking approximately a pint of vodka plus beer daily. Patient's urged patient to come to ER due to presentation of jaundice 1 day patient was noted to have yellowing of his eyes and she was concerned about his liver. Additional medical history includes hyperlipidemia hypertension and ex-smoker. Abdominal ultrasound completed showing no gallstones or dilated ducts diffuse fatty infiltration of liver. Upon admission AST elevated to 95, ALT 64 alkaline phosphatase 3:30 total bilirubin 10.1 and ammonia level 185. Patient has been started on lactulose. GI services have been consulted. Patient's electrolytes also significantly impaired. Sodium low at 122, potassium 3.2, magnesium 0.7. Replacement per protocol patient currently on normal saline. Patient also currently in EtOH withdrawals. Patient has been admitted to the intensive care unit critical care services are following. Heart rate elevated secondary to withdrawal. CIWA protocol has been ordered. GI services have been consulted for Liver failure. At this time patient is resting comfortably in bed shakiness and withdrawal symptoms noted. Patient is alert and oriented 2. Patient able to follow commands. Patient denies chest pain. Patient denies shortness of breath. Patient denies any urinary burning or frequency. 07/14/2019 patient remains in the ICU. He has a sitter at bedside. He did require Ativan this morning for alcohol withdrawal and is sleeping comfortably. Heart rate is better controlled. Total bilirubin has gone up from 10.1-14.1. Ammonia level has decreased from 185-47. Hepatitis panel is negative. He is followed by GI service and critical care. He is tolerating clear liquid diet. Patient is having a bowel movement almost every hour. Patient currently on lactulose 3 times a day and Xifaxan. Patient did have a temp of 100.6 yesterday afternoon he is currently on Rocephin. Chest x-rays negative. 07/20/2019 patient is currently on a regular medical floor. He was followed by Dr. Carlton from 07/15/2019 until 07/19/2019. Patient's is being followed by GI service for his severe alcoholic hepatitis. Total bilirubin is up to 22. He has been ambulating in the hallway. Apparently he had a fall yesterday and had a computed tomography scan of the head and neck completed. Just revealing moderate atrophy of the brain. Otherwise normal findings. Ammonia levels up to 73 CO2 is down at 14. Patient denies any chest pain or shortness of breath. Denies any nausea or vomiting. Urine is starting to clear and he is having 3-5 bowel movements a day. 07/21/2019 patient sitting up in bed comfortably. He reports having at least 3 bowel movements daily. Ammonia level has decreased from 73-53. Total bilirubin has come down from 22-20.4. He is followed closely by GI service. Awaiting their recommendations regarding the prednisone. Potassium is low at 3.4. 07/22/2019 patient lying in bed comfortably. He has no new complaints. Ammonia is down to 48. He is having multiple bowel movements a day. Magnesium and pot assium are low and being replaced. Creatinine has gone up to 1.48. We'll discontinue the hydrochlorothiazide and lisinopril. Continue fluids at 50 mL an hour. Total bilirubin is 20.8 patient denies any difficulty urinating. He does report that his urine continues to become clear. GI service did hold off on starting the prednisone. On 07/23/2019 patient is alert and oriented 3 in no apparent distress bilirubin still elevated at 22 patient clinically denies any symptoms there is no fever or chills no headache or dizziness no chest pain no shortness of breath no cough no nausea or vomiting no abdominal pain no diarrhea and no urinary symptoms. On 07/24/2019 patient was seen and examined on the medical floor, he is alert and oriented 3 in no apparent distress, he is still has significant jaundice, total bilirubin up to 22.4, creatinine up to 2.04, clinically he is feeling well, there is no fever or chills no headache no dizziness no chest pain no shortness of breath no cough no nausea or vomiting no abdominal pain no diarrhea and no urinary symptoms On 07/25/2019 patient is alert and oriented 3. Patient up ambulating the kinney with . Patient remains with significant jaundice. Total bili is trending down 19.6. Nephrology services are following. Patient currently maintained on Sandostatin and albumin per nephrology services for concerns of hepatorenal acute kidney injury. Creatinine is improving slightly we'll continue to monitor. Patient also switched to IV sodium bicarb. We'll continue to monitor patient closely. At this time patient denies chest pain or shortness breath. Patient denies nausea vomiting or diarrhea. Patient denies any urinary burning or frequency 07/26/2019 patient lying in bed. at bedside. Patient reporting that his abdomen is more distended and firm today. He's having about 3 bowel movements a day. Patient seen by GI service. They will ordered an abdominal ultrasound with paracentesis. Creatinine is down to 1.80, total bili is 19, AST 700 and ALT 31. CO2 has come up from 14-19. Patient denies any chest pain or shortness of breath. Denies any nausea or vomiting. Denies any difficulty urinating. On 07/27/2019 patient is alert and oriented 3. Patient to undergo paracentesis today per GI services. Creatinine trending down. Total bili increasing to 19.6. This time patient denies chest pain or shortness breath. Patient denies nausea vomiting or diarrhea. Patient denies any urinary burning or frequency 07/28/2019 patient is awake and answering questions appropriately. He had a paracentesis with 2.8 L removed yesterday. His abdomen is still distended. Lactulose was increased to 3 times a day. His ammonia level had gone from 54- 72. Nephrology has discontinued the IV albumin and Sandostatin. Creatinine continues to trend down 1.48. Total bilirubin has decreased from 19.6-17.4. White count 15.2. Patient has no complaints. On 07/29/2019 patient is alert and oriented 3. Patient having elevated temp and white count. Patient is complaining cough will order chest x-ray. Patient also having drainage from paracentesis site. Blood culture and urine culture ordered. Will consult infectious disease. White blood cell elevated at 19.1, total bili 18.8. Patient denies any chest pain. Patient denies nausea vomiting or diarrhea. Patient denies any burning with urination Objective - Vital Signs Vital signs: Vital Signs Temp 98.1 F 07/29/19 04:48 Pulse 71 07/29/19 08:00 Resp 18 07/29/19 04:48 BP 127/84 07/29/19 04:48 Pulse Ox 92 L 07/29/19 04:48 Intake & Output 07/28/19 07/29/19 07/29/19 18:59 06:59 18:59 Intake Total 720 770 Balance 720 770 Weight 90.718 kg 89.23 kg Intake: Intake, IV Titration 600 50 Amount Dextrose 5% in Water 1, 600 000 ml @ 75 mls/hr IV . [id number] LUBA with Sodium Bicarb (1 Meq/ml) 150 ml Rx#:[id number] Phytonadione 10 mg In 50 Sodium Chloride 0.9% 50 ml @ 100 mls/hr IVPB ONCE STA Rx#:[id number] Oral 120 720 Other: Voiding Method Toilet Toilet # Voids 2 1 # Bowel Movements 2 - Exam Head normocephalic and atraumatic Neck supple no JVD no goiter Lungs clear to auscultation bilaterally no wheezing or crackles Heart regular rate and rhythm S1-S2, no rub or gallop Abdomen is soft nontender nondistended positive bowel sounds no hepatosplenomegaly Extremities +1 edema bilateral lower legs Neuro patient sleeping comfortably Skin jaundice. Scleral icterus - Labs CBC & Chem 7: 07/29/19 06:22 07/29/19 06:22 Labs: Abnormal Lab Results - Last 24 Hours (Table) 07/29/19 07/29/19 07/29/19 Range/Units 06:22 06:22 06:22 WBC 19.1 H (3.8-10.6) k/uL RBC 3.33 L (4.30-5.90) m/uL Hgb 11.5 L (13.0-17.5) gm/dL Hct 36.9 L (39.0-53.0) % MCV 110.7 H (80.0-100.0) fL Neutrophils # 15.2 H (1.3-7.7) k/uL Monocytes # 1.5 H (0-1.0) k/uL Macrocytosis Marked A PT (9.0-12.0) sec INR (<1.2) Creatinine 1.64 H (0.66-1.25) mg/dL Glucose 109 H (74-99) mg/dL Calcium 7.8 L (8.4-10.2) mg/dL Total Bilirubin 18.8 H* (0.2-1.3) mg/dL AST 121 H (17-59) U/L Alkaline Phosphatase 174 H (38-126) U/L Ammonia 50 H (<30) umol/L Total Protein 6.2 L (6.3-8.2) g/dL Albumin 2.4 L (3.5-5.0) g/dL 07/29/19 Range/Units 06:22 WBC (3.8-10.6) k/uL RBC (4.30-5.90) m/uL Hgb (13.0-17.5) gm/dL Hct (39.0-53.0) % MCV (80.0-100.0) fL Neutrophils # (1.3-7.7) k/uL Monocytes # (0-1.0) k/uL Macrocytosis PT 18.0 H (9.0-12.0) sec INR 1.8 H (<1.2) Creatinine (0.66-1.25) mg/dL Glucose (74-99) mg/dL Calcium (8.4-10.2) mg/dL Total Bilirubin (0.2-1.3) mg/dL AST (17-59) U/L Alkaline Phosphatase (38-126) U/L Ammonia (<30) umol/L Total Protein (6.3-8.2) g/dL Albumin (3.5-5.0) g/dL Microbiology - Last 24 Hours (Table) 07/27/19 13:06 Gram Stain - Preliminary Paracentesis Fluid Body Fluid Culture - Preliminary Assessment and Plan Assessment: 1. Severe Acute alcoholic hepatitis superimposed on alcoholic cirrhosis of the liver. Abdominal ultrasound completed showing no gallstones or dilated ducts. Diffuse fatty infiltration of the liver. GI services have been consulted. Hepatitis panel negative. 2. Jaundice, hyperbilirubinemia secondary to alcoholic liver disease. Total bilirubin 19. GI service is following and decided not to start prednisone. Total bili 19.6 3. EtOH withdrawal. Patient currently on CIWA protocal. Continue thiamine and add multivitamin. Continue Ativan as needed 4. Hypokalemia. Likely losing potassium through his stooling and hydrochlorothiazide. Improved with potassium replacement 5. Hyponatremia and hypochloremic secondary to EtOH. 6. Tachycardia secondary to alcohol withdrawal. Patient's home dose beta phong resumed. Continue a call withdrawal protocol. Tachycardia has improved. Discontinue telemetry 7. History of essential hypertension. Patient's home dose of Lopressor resumed. 8. 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 Continue to monitor ammonia levels. Patient has had some confusion. Lactulose was decreased to twice a day. And he is on Xifaxan 9. Macrocytic anemia secondary to chronic liver disease 10. Generalized weakness and fatigue due to his advanced liver disease. Continue PT OT 11. Metabolic acidosis: the patient having multiple stools. CO2 19 currently on IV sodium bicarb. Nephrology following 12. Hypomagnesemia: Resolved with replacement 13. Acute kidney injury secondary to hepatorenal. Nephrology services are foll owing. Patient remains on IV bicarb, albumin and Sandostatin creatinine is trending down to 1.68 14. Abdominal ascites. Status post paracentesis with 2.8 L removed 15. Coagulopathy due to liver disease 16. Essential hypertension: We'll continue to monitor blood pressures. BP has been slightly elevated. Repeat blood pressure 135/71. We'll continue to monitor 17. Leukocytosis with low-grade temps. Chest x-ray, blood culture, urine culture and infectious disease consult placed DVT prophylaxis Lovenox. GI prophylaxis Protonix GI, nephrology infectious disease following I performed an examination of the patient and discussed their management with the Nurse Practitioner. I have reviewed the Nurse Practitioner's notes and agree with the documented findings and plan of care
--- NOTE | 2019-07-29 14:31 | P.PN ---
Subjective Progress Note Date: 07/19/19 (Late entry note) Principal diagnosis: Alcoholic hepatitis with jaundice, hyperbilirubinemia, alcoholic liver disease, electrolyte imbalance with hypokalemia and hypomagnesemia and hyponatremia, hypertension hypertensive cardiovascular disease, encephalopathy/altered mental status due to hepatic encephalopathy 07/19/2019, patient seen eval examined during the rounds labs reviewed medications reviewed, patient is awake and alert, labs reviewed, denies any chest pain, culture results and reports have been reviewed, nonspecific abdominal pain 07/18/2019, patient is awake and alert sitting upright in the bed breathing comfortably denies any chest pain repeat levels tomorrow again fever Petrin has improved, culture results and report reviewed no growth has been noted 07/17/2019, patient seen eval examined during the rounds labs reviewed medications reviewed care plan discussed, patient remains afebrile, oxygen saturation 94% with stable blood pressure 2019, patient seen eval examined during the rounds labs reviewed medications reviewed status post IV Tylenol, fever is normalized, patient is more awake and alert labs reviewed culture results and reports are pending 07/15/2019, patient seen eval reexamined during the rounds overall no significant changes present as far as mental status patient did spike a fever and cultures have been obtained, IV Tylenol has been given, labs reviewed medications reviewed, overall hemoglobin remained stable sodium is slowly coming up, total bilirubin is up further today is 16.8 up from 14 yesterday, liver enzymes remains elevated This is a 49-year-old male patient who presented to the ER with complaints of yellowing of skin and eyes. Patient is known past medical history of EtOH drinking approximately a pint of vodka plus beer daily. Patient's urged patient to come to ER due to presentation of jaundice 1 day patient was noted to have yellowing of his eyes and she was concerned about his liver. Additional medical history includes hyperlipidemia hypertension and ex-smoker. Abdominal ultrasound completed showing no gallstones or dilated ducts diffuse fatty infiltration of liver. Upon admission AST elevated to 95, ALT 64 alkaline phosphatase 3:30 total bilirubin 10.1 and ammonia level 185. Patient has been started on lactulose. GI services have been consulted. Patient's electrolytes also significantly impaired. Sodium low at 122, potassium 3.2, magnesium 0.7. Replacement per protocol patient currently on normal saline. Patient also currently in EtOH withdrawals. Patient has been admitted to the intensive care unit critical care services are following. Heart rate elevated secondary to withdrawal. CIWA protocol has been ordered. GI services have been consulted for Liver failure. At this time patient is resting comfortably in bed shakiness and withdrawal symptoms noted. Patient is alert and oriented 2. Patient able to follow commands. Patient denies chest pain. Patient denies shortness of breath. Patient denies any urinary burning or frequency. Objective - Vital Signs Vital signs: Vital Signs Temp 97.9 F 07/19/19 13:27 Pulse 80 07/19/19 12:29 Resp 18 07/19/19 12:29 BP 154/100 07/19/19 12:29 Pulse Ox 96 07/19/19 12:29 Intake & Output 07/18/19 07/19/19 07/19/19 18:59 06:59 18:59 Intake Total 900 Balance 900 Weight 76.4 kg Intake: IV 900 Sodium Chloride 0.9% 1, 900 000 ml @ 100 mls/hr IV . Q10H [facility] Rx#:[id number] Other: Voiding Method Urinal Urinal Incontinent Incontinent # Voids 2 # Bowel Movements 3 1 1 - Exam HEAD: Normocephalic/atraumatic. EYES: Normal reaction of pupils, equal size. Conjunctiva pink, sclera white. NOSE: Clear with pink turbinates. THROAT: No erythema or exudates. NECK: No masses, no JVD, no thyroid enlargement, no adenopathy. CHEST: No chest wall deformity. Symmetrical expansion. LUNGS: Equal air entry with no crackles, wheeze, rhonchi or dullness. CVS: Regular rate and rhythm, normal S1 and S2, no gallops, no murmurs, no rubs. he is tachycardic with a rate of 130s to 140 BPM ABDOMEN: Soft, nontender. No hepatosplenomegaly, normal bowel sounds, no guarding or rigidity. EXTREMITIES: No clubbing, no edema, no cyanosis, 2+ pulses and upper and lower extremities. MUSCULOSKELETAL: Muscle strength and tone normal. SPINE: No scoliosis or deformity - Labs CBC & Chem 7: 07/29/19 06:22 07/29/19 06:22 Labs: Abnormal Lab Results - Last 24 Hours (Table) 07/19/19 07/19/19 07/19/19 Range/Units 02:59 06:59 06:59 RBC 3.04 L (4.30-5.90) m/uL Hgb 11.0 L (13.0-17.5) gm/dL Hct 33.6 L (39.0-53.0) % MCV 110.5 H (80.0-100.0) fL MCH 36.2 H (25.0-35.0) pg RDW 16.2 H (11.5-15.5) % Lymphocytes # (Manual) 0.67 L (1.0-4.8) k/uL Monocytes # (Manual) 2.02 H (0-1.0) k/uL Macrocytosis Marked A PT 14.3 H (9.0-12.0) sec INR 1.4 H (<1.2) Chloride (98-107) mmol/L Carbon Dioxide (22-30) mmol/L POC Glucose (mg/dL) 120 H (75-99) mg/dL Total Bilirubin (0.2-1.3) mg/dL AST (17-59) U/L Alkaline Phosphatase (38-126) U/L Ammonia (<30) umol/L Total Protein (6.3-8.2) g/dL Albumin (3.5-5.0) g/dL 07/19/19 07/19/19 Range/Units 06:59 07:26 RBC (4.30-5.90) m/uL Hgb (13.0-17.5) gm/dL Hct (39.0-53.0) % MCV (80.0-100.0) fL MCH (25.0-35.0) pg RDW (11.5-15.5) % Lymphocytes # (Manual) (1.0-4.8) k/uL Monocytes # (Manual) (0-1.0) k/uL Macrocytosis PT (9.0-12.0) sec INR (<1.2) Chloride 112 H (98-107) mmol/L Carbon Dioxide 17 L (22-30) mmol/L POC Glucose (mg/dL) (75-99) mg/dL Total Bilirubin 20.7 H* (0.2-1.3) mg/dL AST 108 H (17-59) U/L Alkaline Phosphatase 230 H (38-126) U/L Ammonia 68 H (<30) umol/L Total Protein 6.1 L (6.3-8.2) g/dL Albumin 2.3 L (3.5-5.0) g/dL Microbiology - Last 24 Hours (Table) 07/15/19 20:53 Blood Culture - Preliminary Blood No Growth after 72 hours 07/15/19 21:03 Blood Culture - Preliminary Blood No Growth after 72 hours Assessment and Plan Assessment: Alcoholic hepatitis Hepatic encephalopathy Electrolyte imbalance with hyponatremia Spiking temperature and fever EtOH withdrawal Plan: Continue current therapy, follow clinical course closely prognosis is very guarded, cultures no growth repeat labs tomorrow will monitor clinical course closely Time with Patient: Greater than 30
--- NOTE | 2019-07-29 15:05 | XR ---
EXAMINATION TYPE: XR chest 2V DATE OF EXAM: 07/29/2019 COMPARISON: NONE HISTORY: Jaundice and cough TECHNIQUE: Frontal and lateral views of the chest are obtained. FINDINGS: Subsegmental basilar atelectatic changes are suspected, there may be a right pleural effus ion. No evident pneumothorax. Heart is stable accounting for rotation, differences in technique. IMPRESSION: Basilar atelectasis and probable associated effusion. Correlate to exclude pneumonia.
[2019-07-29] MEDS: IOPAMIDOL CONTRAST (ORAL USE) VIAL PO PRN ×2 (15:21→16:18)
[2019-07-29] MEDS: CEFEPIME 2 GM in SODIUM CHLORIDE 0.9% 100 ML IVPB SCH (16:17)
[2019-07-29 16:41] LABS: Amorphous Sediment,Urine Few /hpf; Appearance,Urine Cloudy (Clear); Bacteria,Urine Occasional /hpf; Bilirubin,Urine 3+ (Negative); Blood,Urine Negative (Negative); Color,Urine Dark Yellow; Glucose,Urine (UA) Negative (Negative); Ketones,Urine Negative (Negative); Leukocyte Esterase,Urine Negative (Negative); Mucus,Urine Rare /hpf; Nitrite,Urine Negative (Negative); PH, Urine 5.5 (5.0-8.0); Protein,Urine Negative (Negative); RBC,Urine 1 /hpf (0-5); Specific Gravity,Urine 1.012 (1.001-1.035); Squamous Epithelial Cell,Urine <1 /hpf (0-4); Urobilinogen,Urine <2.0 mg/dL (<2.0); WBC,Urine 4 /hpf (0-5)
--- NOTE | 2019-07-29 16:42 | PN ---
PROGRESS NOTE Patient is seen for followup for acute kidney injury, mainly hepatorenal, currently improved. Patient was maintained on IV albumin and Sandostatin, which was now discontinued, and he was started on a small dose of IV Lasix, as patient has significant edema. He continues to have good urine output. Serum creatinine is slightly elevated at 1.6 from 1.48 yesterday; however, still better than 2.0 from four days ago. PHYSICAL EXAMINATION: On examination today, blood pressure was 128/77, heart rate 71 per minute. Patient is afebrile. EXAMINATION OF THE HEART: S1 and S2. EXAMINATION OF LUNGS: Bilateral breath sounds are heard. ABDOMEN: Soft, non-tender. Abdomen is distended with ascites. Examination of lower extremities shows edema 2 to 3+ bilaterally. [employer] exam is grossly intact. Patient is significantly jaundiced. LABS: Sodium 138, potassium 3.6, chloride 100, BUN 17, creatinine 1.64, bilirubin 18.8. ASSESSMENT: 1. Acute kidney injury, hepatorenal, currently improved. Serum creatinine slightly up, most likely from recent diuresis. I will continue with the current dose of Lasix and repeat labs in a.m. Patient is not on any nephrotoxic medications and blood pressure is not significantly low. He had been on IV albumin and Sandostatin, which is now discontinued. 2. Acute alcoholic hepatitis. 3. Chronic liver disease secondary to alcohol abuse. 4. Metabolic acidosis, now improved. 5. Hypokalemia secondary to decreased intake, now improved as well. PLAN: Continue IV Lasix. Repeat labs in a.m. MMODL / IJN: [id number] /
--- NOTE | 2019-07-29 17:07 | CT ---
EXAMINATION TYPE: CT abdomen pelvis wo con DATE OF EXAM: 07/29/2019 HISTORY: Fever and abdominal pain, jaundice CT DLP: 919.3 mGycm. Automated Exposure Control for Dose Reduction was Utilized. TECHNIQUE: CT scan of the abdomen and pelvis is performed with oral but without IV contrast. COMPARISON: NONE FINDINGS: Within the limitations of a non-contrast study, the following observations are made. LUNG BASES: There is partial visualization of small bilateral pleural effusions. There is patchy biba silar atelectasis and/or scarring. LIVER/GB: Liver measures upper limits of normal and is markedly heterogeneously hypodense consistent with diffuse fatty infiltration. Some ascites surrounds the gallbladder. PANCREAS: No significant abnormality is seen. SPLEEN: No significant abnormality is seen. ADRENALS: No significant abnormality is seen. KIDNEYS: Some cortical thinning in both kidneys. Partially duplicated collecting system on the left i s present. Bladder poorly distended and thus suboptimally evaluated BOWEL: Oral contrast only reaches level of the proximal transverse colon. No suspicious small or larg e bowel dilatation. Areas of wall thickening throughout small and large bowel loops are present. For reference jejunal loops in the left mid to lower abdomen show moderate wall thickening. For reference there is moderate wall thickening in the colon near level of hepatic flexure. GENITAL ORGANS: No gross abnormality seen. LYMPH NODES: No greater than 1cm abdominal or pelvic lymph nodes are appreciated. OSSEOUS STRUCTURES: No significant abnormality is seen. OTHER: Small to moderate amount of abdominal and pelvic ascites most prominent left lower quadrant an d pelvis is present. Moderate diffuse subcutaneous edema and/or soft tissue anasarca is seen. IMPRESSION: 1. Small to moderate amount of abdominal and pelvic ascites along with moderate diffuse subcutaneous edema and/or soft tissue anasarca. 2. Liver upper limits of normal in size with marked fatty infiltration. 3. Probable uncomplicated multifocal enterocolitis, correlate clinically.
--- NOTE | 2019-07-29 23:08 | P.CONS ---
History of Present Illness - Reason for Consult Consult date: 07/29/19 Fever and leukocytosis Requesting physician: Vonda Boles - Chief Complaint cough x few days - History of Present Illness Patient is a 49-year-old male with a past medical history significant for alcohol abuse in this patient who drinks about approximately a point of vodka plus beer daily patient was brought into the ER at [facility] on 02 for evaluation of yellow discoloration of the skin and eyes that apparently has been going on for a few days before the patient presented to the hospital patient has been diagnosed with alcoholic hepatitis and has been managed by GI and nephrology services this patient who on presented to the hospital has been afebrile subsequently spiked a fever 100.6 and one 1.7 on 214 patient did have a normal white count presentation however his white count has been trending up for the last few days and is up to 19.1 today with him having a low-grade fever and this elevated white count infected has been consulted for further recommendation of antibiotic therapy patient currently denies having any headache chest pain or shortness of breath he did have minimal cough with occasional sputum no pleuritic chest pain no hemoptysis and no nausea no vomiting awake alert abdominal pain but no vomiting or diarrhea the patient did have paracentesis done on 07/27/2019 culture so far negative and white fluid was significantly elevated in the patient is currently not on any systemic antibiotic therapy. Review of Systems Positive point has been mentioned in HPI rest of the systems are negative Past Medical History Past Medical History: Hyperlipidemia, Hypertension History of Any Multi-Drug Resistant Organisms: None Reported Past Surgical History: No Surgical Hx Reported Past Anesthesia/Blood Transfusion Reactions: No Reported Reaction Past Psychological History: No Psychological Hx Reported Smoking Status: Former smoker Past Alcohol Use History: Daily, Heavy Past Drug Use History: None Reported Medications and Allergies Home Medications Medication Instructions Recorded Confirmed Type Fenofibrate Nanocrystallized 145 mg PO DAILY 07/12/19 07/12/19 History [Fenofibrate] Hydrochlorothiazide 25 mg PO DAILY 07/12/19 07/12/19 History Lisinopril [Prinivil] 10 mg PO DAILY 07/12/19 07/12/19 History Metoprolol Succinate [Toprol XL] 100 mg PO DAILY 07/12/19 07/12/19 History Allergies Allergy/AdvReac Type Severity Reaction Status Date / Time Penicillins Allergy Unknown Verified 07/12/19 15:59 Childhood Physical Exam Vitals: Vital Signs Temp Pulse Pulse Resp BP BP Pulse Ox 07/29/19 08:00 71 07/29/19 04:48 98.1 F 77 18 127/84 92 L 07/28/19 23:20 18 07/28/19 21:00 99.3 F 84 18 128/82 94 L 07/28/19 15:50 99.7 F H 83 16 148/92 95 Intake and Output 07/28/19 07/29/19 07/29/19 22:59 06:59 14:59 Intake Total 600 170 Balance 600 170 Intake: Intake, IV Titration 50 Amount Phytonadione 10 mg In 50 Sodium Chloride 0.9% 50 ml @ 100 mls/hr IVPB ONCE [facility] Rx#:[id number] Oral 600 120 Other: Voiding Method Toilet Toilet # Voids 1 1 Weight 89.23 kg GENERAL DESCRIPTION: Middle-aged male lying in bed, no distress. No tachypnea or accessory muscle of respiration use. HEENT: scleral icterus. Oral mucous membrane is dry. NECK: Trachea central, no thyromegaly. LUNGS: Unlabored breathing. Decreased breath sound at the base. No wheeze or crackle. HEART: S1, S2, regular rate and rhythm. ABDOMEN: Soft, distention but no significant tenderness , guarding or rigidity EXTREMITIES: No edema of feet. SKIN: No rash, no masses palpable. NEUROLOGICAL: The patient is awake, alert, oriented x3, mood and affect normal. Results CBC & Chem 7: 07/29/19 06:22 07/29/19 06:22 Labs: Abnormal Lab Results - Last 24 Hours (Table) 07/29/19 07/29/19 07/29/19 Range/Units 06:22 06:22 06:22 WBC 19.1 H (3.8-10.6) k/uL RBC 3.33 L (4.30-5.90) m/uL Hgb 11.5 L (13.0-17.5) gm/dL Hct 36.9 L (39.0-53.0) % MCV 110.7 H (80.0-100.0) fL Neutrophils # 15.2 H (1.3-7.7) k/uL Monocytes # 1.5 H (0-1.0) k/uL Macrocytosis Marked A PT (9.0-12.0) sec INR (<1.2) Creatinine 1.64 H (0.66-1.25) mg/dL Glucose 109 H (74-99) mg/dL Calcium 7.8 L (8.4-10.2) mg/dL Total Bilirubin 18.8 H* (0.2-1.3) mg/dL AST 121 H (17-59) U/L Alkaline Phosphatase 174 H (38-126) U/L Ammonia 50 H (<30) umol/L Total Protein 6.2 L (6.3-8.2) g/dL Albumin 2.4 L (3.5-5.0) g/dL 07/29/19 Range/Units 06:22 WBC (3.8-10.6) k/uL RBC (4.30-5.90) m/uL Hgb (13.0-17.5) gm/dL Hct (39.0-53.0) % MCV (80.0-100.0) fL Neutrophils # (1.3-7.7) k/uL Monocytes # (0-1.0) k/uL Macrocytosis PT 18.0 H (9.0-12.0) sec INR 1.8 H (<1.2) Creatinine (0.66-1.25) mg/dL Glucose (74-99) mg/dL Calcium (8.4-10.2) mg/dL Total Bilirubin (0.2-1.3) mg/dL AST (17-59) U/L Alkaline Phosphatase (38-126) U/L Ammonia (<30) umol/L Total Protein (6.3-8.2) g/dL Albumin (3.5-5.0) g/dL Microbiology - Last 24 Hours (Table) 07/27/19 13:06 Gram Stain - Preliminary Paracentesis Fluid Body Fluid Culture - Preliminary Assessment and Plan Assessment: 1-patient is a 49-year-old male admitted to hospital with alcoholic hepatitis in this patient who did have significant history of drinking alcohol patient did have a normal white count on presentation however is up to 19,000 today patient did have 2 episodes of fever during this admission and a low-grade fever of 99 with some respiratory symptoms with concern for possible pneumonia however will need to work him up to make sure no evidence of any intra-abdominal source such as alcohol induced pancreatitis and complications associated with it 2-patient with penicillin allergy that would limit the number of antibiotics safe to use but no history of anaphylaxis (1) Leukocytosis Current Visit: Yes Status: Acute Code(s): D72.829 - ELEVATED WHITE BLOOD CELL COUNT, UNSPECIFIED SNOMED Code(s): 847331520 Plan: 1-we will wait for the chest x-ray to be finalized 2-we will check a CT of abdominal pelvis there should better define lower lobes of the lung admission evidence of any intra-abdominal pathology Such as alcoholic pancreatitis 3-we will empirically add cefepime 2 g every 12 hours We will follow on clinical condition and cultures to further adjust medication if needed Thank you for this consultation we will follow the patient along with you Time with Patient: Greater than 30
[2019-07-30] MEDS: CEFEPIME 2 GM in SODIUM CHLORIDE 0.9% 100 ML IVPB SCH (04:19)
[2019-07-30 06:28] LABS: Basophils # (A) 0.1 k/uL (0-0.2); Basophils % (A) 0 %; Eosinophils # (A) 0.4 k/uL (0-0.7); Eosinophils % (A) 2 %; HGB 10.8 gm/dL (13.0-17.5); Hypochromasia Slight; Lymphocytes % (A) 6 %; MCH 34.5 pg (25.0-35.0); MCHC 31.7 g/dL (31.0-37.0); MCV 108.8 fL (80.0-100.0); Mean Platelet Volume 8.9; Monocytes # (A) 1.4 k/uL (0-1.0); Monocytes % (A) 7 %; Neutrophils # (A) 15.6 k/uL (1.3-7.7); Neutrophils % (A) 83 %; Platelet Count 384 k/uL (150-450); RBC 3.12 m/uL (4.30-5.90); WBC 18.9 k/uL (3.8-10.6)
[2019-07-30 06:33] LABS: INR 1.8 (<1.2); Prothrombin Time 17.9 sec (9.0-12.0)
[2019-07-30 06:37] LABS: Albumin 2.2 g/dL (3.5-5.0); Calcium 7.5 mg/dL (8.4-10.2); Potassium 3.7 mmol/L (3.5-5.1); Total Protein 5.8 g/dL (6.3-8.2)
[2019-07-30 06:38] LABS: Total Bilirubin 18.1 mg/dL (0.2-1.3)
[2019-07-30 06:44] LABS: Macrocytosis Marked
[2019-07-30] MEDS: THIAMINE 100 MG TAB PO SCH ×2 (08:51→17:57)
[2019-07-30] MEDS: amLODIPine 5 MG TAB PO SCH (08:51)
[2019-07-30] MEDS: POTASSIUM CHLORIDE ER 20 MEQ TAB.ER PO SCH (08:54)
[2019-07-30] MEDS: RIFAXIMIN 550 MG TABLET PO SCH ×2 (08:55→20:47)
[2019-07-30] MEDS: FUROSEMIDE 10 MG/ML 2 ML VIAL IV SCH ×2 (08:55→20:48)
[2019-07-30] MEDS: PANTOPRAZOLE 40 MG TABLET PO SCH (08:55)
[2019-07-30] MEDS: MULTIVITAMINS, THERA 1 EACH TAB PO SCH (08:55)
[2019-07-30] MEDS: METOPROLOL SUCCINATE (ER) 100 MG TAB.ER.24H PO SCH (08:55)
[2019-07-30] MEDS: SODIUM BICARBONATE TAB 650 MG TAB PO SCH ×4 (08:55→22:57)
[2019-07-30] MEDS: LACTULOSE 20 GM/30 ML CUP PO SCH ×3 (08:55→22:57)
[2019-07-30] MEDS ORDERED: PHYTONADIONE 10 MG in SODIUM CHLORIDE 0.9% 50 ML IVPB STA (12:14)
--- NOTE | 2019-07-30 14:13 | P.PN ---
Subjective Progress Note Date: 07/30/19 Follow-up for acute kidney injury. Objective - Vital Signs Vital signs: Vital Signs Temp 98.2 F 07/30/19 07:00 Pulse 74 07/30/19 07:00 Resp 17 07/30/19 07:00 BP 106/64 07/30/19 07:00 Pulse Ox 95 07/30/19 07:00 Intake & Output 07/29/19 07/30/19 07/30/19 18:59 06:59 18:59 Intake Total 1180 240 Output Total 202 Balance 978 240 Weight 89.23 kg Intake: IV 240 Sodium Chloride 0.9% 1, 240 000 ml @ 50 mls/hr IV . Q20H [facility] Rx#:[id number] Oral 1180 Output: Urine 200 Stool 2 Other: Voiding Method Toilet Toilet # Voids 2 1 2 # Bowel Movements 2 - Exam No acute distress S1-S2 heard Lungs decreased breath sounds Abdomen distended Edema - Labs CBC & Chem 7: 07/30/19 05:35 07/30/19 05:35 Labs: Abnormal Lab Results - Last 24 Hours (Table) 07/29/19 07/30/19 07/30/19 Range/Units Unknown 05:35 05:35 WBC 18.9 H (3.8-10.6) k/uL RBC 3.12 L (4.30-5.90) m/uL Hgb 10.8 L (13.0-17.5) gm/dL Hct 34.0 L (39.0-53.0) % MCV 108.8 H (80.0-100.0) fL Neutrophils # 15.6 H (1.3-7.7) k/uL Monocytes # 1.4 H (0-1.0) k/uL Macrocytosis Marked A PT (9.0-12.0) sec INR (<1.2) Sodium 136 L (137-145) mmol/L Creatinine 1.84 H (0.66-1.25) mg/dL Calcium 7.5 L (8.4-10.2) mg/dL Total Bilirubin 18.1 H* (0.2-1.3) mg/dL AST 101 H (17-59) U/L Alkaline Phosphatase 165 H (38-126) U/L Total Protein 5.8 L (6.3-8.2) g/dL Albumin 2.2 L (3.5-5.0) g/dL Urine Bilirubin 3+ H (Negative) Amorphous Sediment Few H (None) /hpf Urine Bacteria Occasional H (None) /hpf Urine Mucus Rare H (None) /hpf 07/30/19 Range/Units 05:35 WBC (3.8-10.6) k/uL RBC (4.30-5.90) m/uL Hgb (13.0-17.5) gm/dL Hct (39.0-53.0) % MCV (80.0-100.0) fL Neutrophils # (1.3-7.7) k/uL Monocytes # (0-1.0) k/uL Macrocytosis PT 17.9 H (9.0-12.0) sec INR 1.8 H (<1.2) Sodium (137-145) mmol/L Creatinine (0.66-1.25) mg/dL Calcium (8.4-10.2) mg/dL Total Bilirubin (0.2-1.3) mg/dL AST (17-59) U/L Alkaline Phosphatase (38-126) U/L Total Protein (6.3-8.2) g/dL Albumin (3.5-5.0) g/dL Urine Bilirubin (Negative) Amorphous Sediment (None) /hpf Urine Bacteria (None) /hpf Urine Mucus (None) /hpf Microbiology - Last 24 Hours (Table) 07/29/19 11:32 Blood Culture - Preliminary Blood No Growth after 24 hours 07/29/19 00:50 Sputum Culture - Preliminary Sputum 07/27/19 13:06 Gram Stain - Preliminary Paracentesis Fluid Body Fluid Culture - Preliminary Assessment and Plan Assessment: #1 acute kidney injury secondary to hepatorenal syndrome. Creatinine creeping. #2 acute alcoholic hepatitis decompensated #3 edema on Lasix #4 anabolic acidosis Plan: #1 creeping creatinine, rule out urinary retention. Also suspect secondary to diuretics #2 check PVRs #3 continue Lasix for now and repeat labs in the morning #4 check urine studies and urine sodium. If persistent with HRS restart protocol.
--- NOTE | 2019-07-30 14:52 | P.PN ---
Subjective Progress Note Date: 07/30/19 This is a 49-year-old male patient who presented to the ER with complaints of yellowing of skin and eyes. Patient is known past medical history of EtOH drinking approximately a pint of vodka plus beer daily. Patient's urged patient to come to ER due to presentation of jaundice 1 day patient was noted to have yellowing of his eyes and she was concerned about his liver. Additional medical history includes hyperlipidemia hypertension and ex-smoker. Abdominal ultrasound completed showing no gallstones or dilated ducts diffuse fatty infiltration of liver. Upon admission AST elevated to 95, ALT 64 alkaline phosphatase 3:30 total bilirubin 10.1 and ammonia level 185. Patient has been started on lactulose. GI services have been consulted. Patient's electrolytes also significantly impaired. Sodium low at 122, potassium 3.2, magnesium 0.7. Replacement per protocol patient currently on normal saline. Patient also currently in EtOH withdrawals. Patient has been admitted to the intensive care unit critical care services are following. Heart rate elevated secondary to withdrawal. CIWA protocol has been ordered. GI services have been consulted for Liver failure. At this time patient is resting comfortably in bed shakiness and withdrawal symptoms noted. Patient is alert and oriented 2. Patient able to follow commands. Patient denies chest pain. Patient denies shortness of breath. Patient denies any urinary burning or frequency. 07/14/2019 patient remains in the ICU. He has a sitter at bedside. He did require Ativan this morning for alcohol withdrawal and is sleeping comfortably. Heart rate is better controlled. Total bilirubin has gone up from 10.1-14.1. Ammonia level has decreased from 185-47. Hepatitis panel is negative. He is followed by GI service and critical care. He is tolerating clear liquid diet. Patient is having a bowel movement almost every hour. Patient currently on lactulose 3 times a day and Xifaxan. Patient did have a temp of 100.6 yesterday afternoon he is currently on Rocephin. Chest x-rays negative. 07/20/2019 patient is currently on a regular medical floor. He was followed by Dr. Carlton from 07/15/2019 until 07/19/2019. Patient's is being followed by GI service for his severe alcoholic hepatitis. Total bilirubin is up to 22. He has been ambulating in the hallway. Apparently he had a fall yesterday and had a computed tomography scan of the head and neck completed. Just revealing moderate atrophy of the brain. Otherwise normal findings. Ammonia levels up to 73 CO2 is down at 14. Patient denies any chest pain or shortness of breath. Denies any nausea or vomiting. Urine is starting to clear and he is having 3-5 bowel movements a day. 07/21/2019 patient sitting up in bed comfortably. He reports having at least 3 bowel movements daily. Ammonia level has decreased from 73-53. Total bilirubin has come down from 22-20.4. He is followed closely by GI service. Awaiting their recommendations regarding the prednisone. Potassium is low at 3.4. 07/22/2019 patient lying in bed comfortably. He has no new complaints. Ammonia is down to 48. He is having multiple bowel movements a day. Magnesium and po tassium are low and being replaced. Creatinine has gone up to 1.48. We'll discontinue the hydrochlorothiazide and lisinopril. Continue fluids at 50 mL an hour. Total bilirubin is 20.8 patient denies any difficulty urinating. He does report that his urine continues to become clear. GI service did hold off on starting the prednisone. On 07/23/2019 patient is alert and oriented 3 in no apparent distress bilirubin still elevated at 22 patient clinically denies any symptoms there is no fever or chills no headache or dizziness no chest pain no shortness of breath no cough no nausea or vomiting no abdominal pain no diarrhea and no urinary symptoms. , On 07/24/2019 patient was seen and examined on the medical floor, he is alert and oriented 3 in no apparent distress, he is still has significant jaundice, total bilirubin up to 22.4, creatinine up to 2.04, clinically he is feeling well, there is no fever or chills no headache no dizziness no chest pain no shortness of breath no cough no nausea or vomiting no abdominal pain no diarrhea and no urinary symptoms. On 07/25/2019 patient is alert and oriented 3. Patient up ambulating the kinney with . Patient remains with significant jaundice. Total bili is trending down 19.6. Nephrology services are following. Patient currently maintained on Sandostatin and albumin per nephrology services for concerns of hepatorenal acute kidney injury. Creatinine is improving slightly we'll continue to monitor. Patient also switched to IV sodium bicarb. We'll continue to monitor patient closely. At this time patient denies chest pain or shortness breath. Patient denies nausea vomiting or diarrhea. Patient denies any urinary burning or frequency 07/26/2019 patient lying in bed. at bedside. Patient reporting that his a bdomen is more distended and firm today. He's having about 3 bowel movements a day. Patient seen by GI service. They will ordered an abdominal ultrasound with paracentesis. Creatinine is down to 1.80, total bili is 19, AST 700 and ALT 31. CO2 has come up from 14-19. Patient denies any chest pain or shortness of breath. Denies any nausea or vomiting. Denies any difficulty urinating. On 07/27/2019 patient is alert and oriented 3. Patient to undergo paracentesis today per GI services. Creatinine trending down. Total bili increasing to 19.6. This time patient denies chest pain or shortness breath. Patient denies nausea vomiting or diarrhea. Patient denies any urinary burning or frequency 07/28/2019 patient is awake and answering questions appropriately. He had a paracentesis with 2.8 L removed yesterday. His abdomen is still distended. Lactulose was increased to 3 times a day. His ammonia level had gone from 54- 72. Nephrology has discontinued the IV albumin and Sandostatin. Creatinine continues to trend down 1.48. Total bilirubin has decreased from 19.6-17.4. White count 15.2. Patient has no complaints. On 07/29/2019 patient is alert and oriented 3. Patient having elevated temp and white count. Patient is complaining cough will order chest x-ray. Patient also having drainage from paracentesis site. Blood culture and urine culture ordered. Will consult infectious disease. White blood cell elevated at 19.1, total bili 18.8. Patient denies any chest pain. Patient denies nausea vomiting or diarrhea. Patient denies any burning with urination On 07/30/2019 patient was seen and examined on the medical floor he is alert and oriented 3 in no apparent distress he is complaining of discomfort in the abdomen otherwise he denies any complaints there is no fever or chills no headache or dizziness no chest pain no shortness of breath no cough no nausea or vomiting no diarrhea no burning with urination no frequency or urgency no hematuria. White blood count still elevated at 18.9 bilirubin 18.1 AST 121 Objective - Vital Signs Vital signs: Vital Signs Temp 98.7 F 07/30/19 14:24 Pulse 86 07/30/19 14:24 Resp 16 07/30/19 14:16 BP 124/73 07/30/19 14:24 Pulse Ox 97 07/30/19 14:24 Intake & Output 07/29/19 07/30/19 07/30/19 18:59 06:59 18:59 Intake Total 1180 240 Output Total 202 Balance 978 240 Weight 89.23 kg Intake: IV 240 Sodium Chloride 0.9% 1, 240 000 ml @ 50 mls/hr IV . Q20H [facility] Rx#:[id number] Oral 1180 Output: Urine 200 Stool 2 Other: Voiding Method Toilet Toilet # Voids 2 1 2 # Bowel Movements 2 - Exam Head normocephalic and atraumatic Neck supple no JVD no goiter Lungs clear to auscultation bilaterally no wheezing or crackles Heart regular rate and rhythm S1-S2, no rub or gallop Abdomen is soft nontender nondistended positive bowel sounds no hepatosplenomegaly Extremities +1 edema bilateral lower legs Neuro patient sleeping comfortably Skin jaundice. Scleral icterus - Labs CBC & Chem 7: 07/30/19 05:35 07/30/19 05:35 Labs: Abnormal Lab Results - Last 24 Hours (Table) 07/29/19 07/30/19 07/30/19 Range/Units Unknown 05:35 05:35 WBC 18.9 H (3.8-10.6) k/uL RBC 3.12 L (4.30-5.90) m/uL Hgb 10.8 L (13.0-17.5) gm/dL Hct 34.0 L (39.0-53.0) % MCV 108.8 H (80.0-100.0) fL Neutrophils # 15.6 H (1.3-7.7) k/uL Monocytes # 1.4 H (0-1.0) k/uL Macrocytosis Marked A PT (9.0-12.0) sec INR (<1.2) Sodium 136 L (137-145) mmol/L Creatinine 1.84 H (0.66-1.25) mg/dL Calcium 7.5 L (8.4-10.2) mg/dL Total Bilirubin 18.1 H* (0.2-1.3) mg/dL AST 101 H (17-59) U/L Alkaline Phosphatase 165 H (38-126) U/L Total Protein 5.8 L (6.3-8.2) g/dL Albumin 2.2 L (3.5-5.0) g/dL Urine Bilirubin 3+ H (Negative) Amorphous Sediment Few H (None) /hpf Urine Bacteria Occasional H (None) /hpf Urine Mucus Rare H (None) /hpf 07/30/19 Range/Units 05:35 WBC (3.8-10.6) k/uL RBC (4.30-5.90) m/uL Hgb (13.0-17.5) gm/dL Hct (39.0-53.0) % MCV (80.0-100.0) fL Neutrophils # (1.3-7.7) k/uL Monocytes # (0-1.0) k/uL Macrocytosis PT 17.9 H (9.0-12.0) sec INR 1.8 H (<1.2) Sodium (137-145) mmol/L Creatinine (0.66-1.25) mg/dL Calcium (8.4-10.2) mg/dL Total Bilirubin (0.2-1.3) mg/dL AST (17-59) U/L Alkaline Phosphatase (38-126) U/L Total Protein (6.3-8.2) g/dL Albumin (3.5-5.0) g/dL Urine Bilirubin (Negative) Amorphous Sediment (None) /hpf Urine Bacteria (None) /hpf Urine Mucus (None) /hpf Microbiology - Last 24 Hours (Table) 07/29/19 11:32 Blood Culture - Preliminary Blood No Growth after 24 hours 07/29/19 00:50 Sputum Culture - Preliminary Sputum 07/27/19 13:06 Gram Stain - Preliminary Paracentesis Fluid Body Fluid Culture - Preliminary Assessment and Plan Plan: 1. Severe Acute alcoholic hepatitis superimposed on alcoholic cirrhosis of the liver. Abdominal ultrasound completed showing no gallstones or dilated ducts. Diffuse fatty infiltration of the liver. GI services have been consulted. Hepatitis panel negative. 2. Jaundice, hyperbilirubinemia secondary to alcoholic liver disease. Total bilirubin 19. GI service is following and decided not to start prednisone. Total bili 19.6 3. EtOH withdrawal. Patient currently on CIWA protocal. Continue thiamine and add multivitamin. Continue Ativan as needed 4. Hypokalemia. Likely losing potassium through his stooling and hydrochlorothiazide. Improved with potassium replacement 5. Hyponatremia and hypochloremic secondary to EtOH. 6. Tachycardia secondary to alcohol withdrawal. Patient's home dose beta blo cker resumed. Continue a call withdrawal protocol. Tachycardia has improved. Discontinue telemetry 7. History of essential hypertension. Patient's home dose of Lopressor resumed. 8. 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 Continue to monitor ammonia levels. Patient has had some confusion. Lactulose was decreased to twice a day. And he is on Xifaxan 9. Macrocytic anemia secondary to chronic liver disease 10. Generalized weakness and fatigue due to his advanced liver disease. Continue PT OT 11. Metabolic acidosis: the patient having multiple stools. CO2 19 currently on IV sodium bicarb. Nephrology following 12. Hypomagnesemia: Resolved with replacement 13. Acute kidney injury secondary to hepatorenal. Nephrology services are following. Patient remains on IV bicarb, albumin and Sandostatin creatinine is trending down to 1.68 14. Abdominal ascites. Status post paracentesis with 2.8 L removed 15. Coagulopathy due to liver disease 16. Essential hypertension: We'll continue to monitor blood pressures. BP has been slightly elevated. Repeat blood pressure 135/71. We'll continue to monitor 17. Leukocytosis with low-grade temps. Chest x-ray, blood culture, urine culture and infectious disease consult placed DVT prophylaxis Lovenox. GI prophylaxis Protonix GI, nephrology infectious disease following. Input from consultants reviewed continue current management will follow in a.m.
--- NOTE | 2019-07-30 15:31 | P.PN ---
Subjective Progress Note Date: 07/30/19 Principal diagnosis: Alcoholic hepatitis, elevated liver enzymes Patient is seen lying in bed. Patient denies any acute complaints today, decreasing abdominal distension and lower extremity swelling after Lasix reinitiated. Tolerating diet. Objective - Vital Signs Vital signs: Vital Signs Temp 98.2 F 07/30/19 07:00 Pulse 74 07/30/19 07:00 Resp 17 07/30/19 07:00 BP 106/64 07/30/19 07:00 Pulse Ox 95 07/30/19 07:00 Intake & Output 07/29/19 07/30/19 07/30/19 18:59 06:59 18:59 Intake Total 1180 Output Total 202 Balance 978 Weight 89.23 kg Intake: Oral 1180 Output: Urine 200 Stool 2 Other: Voiding Method Toilet Toilet # Voids 2 1 # Bowel Movements 2 - Exam On physical examination, patient appears comfortable in no apparent distress. HEAD: Normocephalic, atraumatic. EYES: Scleral icterus. No conjunctival injection. MOUTH: No lesions, tongue midline. NECK: Trachea midline, no gross abnormalities. ABDOMEN: Soft. Bowel sounds are positive. No organomegaly. No guarding or rigidity. EXTREMITIES: 2+ pedal edema. SKIN: No rashes, jaundice. NEUROLOGIC: Alert and responsive, no asterixis. No focal deficits. - Labs CBC & Chem 7: 07/30/19 05:35 07/30/19 05:35 Labs: Abnormal Lab Results - Last 24 Hours (Table) 07/29/19 07/30/19 07/30/19 Range/Units Unknown 05:35 05:35 WBC 18.9 H (3.8-10.6) k/uL RBC 3.12 L (4.30-5.90) m/uL Hgb 10.8 L (13.0-17.5) gm/dL Hct 34.0 L (39.0-53.0) % MCV 108.8 H (80.0-100.0) fL Neutrophils # 15.6 H (1.3-7.7) k/uL Monocytes # 1.4 H (0-1.0) k/uL Macrocytosis Marked A PT (9.0-12.0) sec INR (<1.2) Sodium 136 L (137-145) mmol/L Creatinine 1.84 H (0.66-1.25) mg/dL Calcium 7.5 L (8.4-10.2) mg/dL Total Bilirubin 18.1 H* (0.2-1.3) mg/dL AST 101 H (17-59) U/L Alkaline Phosphatase 165 H (38-126) U/L Total Protein 5.8 L (6.3-8.2) g/dL Albumin 2.2 L (3.5-5.0) g/dL Urine Bilirubin 3+ H (Negative) Amorphous Sediment Few H (None) /hpf Urine Bacteria Occasional H (None) /hpf Urine Mucus Rare H (None) /hpf 07/30/19 Range/Units 05:35 WBC (3.8-10.6) k/uL RBC (4.30-5.90) m/uL Hgb (13.0-17.5) gm/dL Hct (39.0-53.0) % MCV (80.0-100.0) fL Neutrophils # (1.3-7.7) k/uL Monocytes # (0-1.0) k/uL Macrocytosis PT 17.9 H (9.0-12.0) sec INR 1.8 H (<1.2) Sodium (137-145) mmol/L Creatinine (0.66-1.25) mg/dL Calcium (8.4-10.2) mg/dL Total Bilirubin (0.2-1.3) mg/dL AST (17-59) U/L Alkaline Phosphatase (38-126) U/L Total Protein (6.3-8.2) g/dL Albumin (3.5-5.0) g/dL Urine Bilirubin (Negative) Amorphous Sediment (None) /hpf Urine Bacteria (None) /hpf Urine Mucus (None) /hpf Microbiology - Last 24 Hours (Table) 07/29/19 00:50 Sputum Culture - Preliminary Sputum 07/27/19 13:06 Gram Stain - Preliminary Paracentesis Fluid Body Fluid Culture - Preliminary Assessment and Plan (1) Alcoholic hepatitis Narrative/Plan: 49-year-old male with a long-standing history of alcohol abuse, worsened over the past 2 months with 1 pint of alcohol daily who presents with jaundice, scleral icterus and weakness. Patient found to have elevation in total bilirubin of 10.1, alkaline phosphatase 330, AST 295 and ALT 69 on admission with ultrasound of the abdomen negative for any ductal dilation or gallstones with diffuse fatty infiltration noted highly suggestive of acute alcoholic hepatitis. Liver enzymes have trended up, overall consistent with alcoholic hepatitis, predominantly in a cholestatic pattern and have remained stable. Current Visit: Yes Status: Acute Code(s): K70.10 - ALCOHOLIC HEPATITIS WITHOUT ASCITES SNOMED Code(s): 046580399 (2) Hepatic encephalopathy Current Visit: Yes Status: Acute Code(s): K72.90 - HEPATIC FAILURE, UNSPECIFIED WITHOUT COMA SNOMED Code(s): 10084548 (3) Alcohol abuse Current Visit: Yes Status: Acute Code(s): F10.10 - ALCOHOL ABUSE, UNCOMPLICATED SNOMED Code(s): 21553305 Plan: Supportive care Okay for diet as tolerated Continue to monitor CBC, CMP Continue to monitor clinically Viral hepatitis panel negative Alcohol abstinence Continue lactulose therapy, okay to hold this patient has 3 bowel movements Rifaximin ordered Paracentesis with 2.8 L of ascites removed Vitamin K ordered Thank you for allowing us to participate in the care of the patient we will continue to follow
--- NOTE | 2019-07-30 17:25 | PN ---
PROGRESS NOTE DATE OF SERVICE: 07/30/2019 REASON FOR FOLLOWUP: Leukocytosis. INTERVAL HISTORY: The patient is currently afebrile, has been breathing comfortably. The patient denies having chest pain. Minimal cough. No . No nausea, no vomiting. No abdominal pain or diarrhea. PHYSICAL EXAMINATION: Blood pressure 124/73 with a pulse of 86, temperature of 98.7. He is 97% on room air. General description is a middle-aged male lying in bed in no distress. RESPIRATORY SYSTEM: Unlabored breathing, decreased breath sounds at the bases. No wheeze. HEART: S1, S2. Regular rate and rhythm. ABDOMEN: Soft, no tenderness. LABS: Hemoglobin is 10.8, white count 18.9. Creatinine is 1.84. CT of abdomen and pelvis did not show any evidence of pancreatitis or intraabdominal abscess. DIAGNOSTIC IMPRESSION AND PLAN: Patient with leukocytosis likely multifactorial with possible pneumonia. The patient is currently on cefepime. Will follow blood and sputum cultures and adjust antibiotic further if needed. Continue with supportive care. MMODL / IJN: [id number] /
[2019-07-30 18:13] LABS: Appearance,Urine Clear (Clear); Bilirubin,Urine 4+ (Negative); Blood,Urine Negative (Negative); Color,Urine Dark Yellow; Glucose,Urine (UA) Negative (Negative); Ketones,Urine Negative (Negative); Leukocyte Esterase,Urine Negative (Negative); Nitrite,Urine Negative (Negative); PH, Urine 5.5 (5.0-8.0); Protein,Urine Trace (Negative); Specific Gravity,Urine 1.016 (1.001-1.035); Urobilinogen,Urine <2.0 mg/dL (<2.0)
[2019-07-31 06:17] LABS: INR 1.7 (<1.2); Prothrombin Time 16.7 sec (9.0-12.0)
[2019-07-31 06:25] LABS: Albumin 2.1 g/dL (3.5-5.0); Basophils # (A) 0.1 k/uL (0-0.2); Basophils % (A) 0 %; Calcium 7.4 mg/dL (8.4-10.2); Eosinophils # (A) 0.4 k/uL (0-0.7); Eosinophils % (A) 2 %; HCT 32.9 % (39.0-53.0); HGB 10.2 gm/dL (13.0-17.5); Hypochromasia Slight; Lymphocytes # (A) 1.2 k/uL (1.0-4.8); Lymphocytes % (A) 6 %; MCH 33.7 pg (25.0-35.0); MCV 108.6 fL (80.0-100.0); Macrocytosis Marked; Mean Platelet Volume 8.6; Monocytes # (A) 1.8 k/uL (0-1.0); Monocytes % (A) 9 %; Neutrophils # (A) 17.1 k/uL (1.3-7.7); Neutrophils % (A) 82 %; Platelet Count 330 k/uL (150-450); Potassium 3.4 mmol/L (3.5-5.1); RBC 3.03 m/uL (4.30-5.90); RDW 14.7 % (11.5-15.5); WBC 20.8 k/uL (3.8-10.6)
[2019-07-31 06:27] LABS: Total Bilirubin 17.4 mg/dL (0.2-1.3); Total Protein 5.8 g/dL (6.3-8.2)
[2019-07-31 06:55] LABS: Poikilocytosis (M) Present; Toxic Granulation Present
[2019-07-31] MEDS: MULTIVITAMINS, THERA 1 EACH TAB PO SCH (07:41)
[2019-07-31] MEDS: FUROSEMIDE 10 MG/ML 2 ML VIAL IV SCH ×2 (07:41→20:30)
[2019-07-31] MEDS: METOPROLOL SUCCINATE (ER) 100 MG TAB.ER.24H PO SCH (07:41)
[2019-07-31] MEDS: PANTOPRAZOLE 40 MG TABLET PO SCH (07:41)
[2019-07-31] MEDS: LACTULOSE 20 GM/30 ML CUP PO SCH ×3 (07:41→21:34)
[2019-07-31] MEDS: THIAMINE 100 MG TAB PO SCH ×2 (07:41→17:31)
[2019-07-31] MEDS: CEFEPIME 2 GM in SODIUM CHLORIDE 0.9% 100 ML IVPB SCH (07:42)
[2019-07-31] MEDS: POTASSIUM CHLORIDE ER 20 MEQ TAB.ER PO SCH ×3 (07:42→15:23)
[2019-07-31] MEDS: RIFAXIMIN 550 MG TABLET PO SCH ×2 (07:42→20:31)
[2019-07-31] MEDS: amLODIPine 5 MG TAB PO SCH (07:42)
[2019-07-31] MEDS: SODIUM BICARBONATE TAB 650 MG TAB PO SCH ×4 (07:43→20:31)
--- NOTE | 2019-07-31 09:53 | P.PN ---
Subjective Progress Note Date: 07/31/19 Follow-up for acute kidney injury. Objective - Vital Signs Vital signs: Vital Signs Temp 98.0 F 07/31/19 07:00 Pulse 79 07/31/19 07:00 Resp 17 07/31/19 07:00 BP 145/62 07/31/19 07:00 Pulse Ox 98 07/31/19 07:00 Intake & Output 07/30/19 07/31/19 07/31/19 18:59 06:59 18:59 Intake Total 240 Output Total 255 Balance 240 -255 Weight 90 kg Intake: IV 240 Sodium Chloride 0.9% 1, 240 000 ml @ 50 mls/hr IV . Q20H [facility] Rx#:[id number] Output: Urine 255 Straight 30 Other: Voiding Method Urinal # Voids 2 1 100 - Exam No acute distress S1-S2 heard Lungs decreased breath sounds Abdomen distended Edema - Labs CBC & Chem 7: 07/31/19 05:41 07/31/19 05:41 Labs: Abnormal Lab Results - Last 24 Hours (Table) 07/30/19 07/31/19 07/31/19 Range/Units 14:12 05:41 05:41 WBC 20.8 H (3.8-10.6) k/uL RBC 3.03 L (4.30-5.90) m/uL Hgb 10.2 L (13.0-17.5) gm/dL Hct 32.9 L (39.0-53.0) % MCV 108.6 H (80.0-100.0) fL Neutrophils # 17.1 H (1.3-7.7) k/uL Monocytes # 1.8 H (0-1.0) k/uL Macrocytosis Marked A PT 16.7 H (9.0-12.0) sec INR 1.7 H (<1.2) Sodium (137-145) mmol/L Potassium (3.5-5.1) mmol/L BUN (9-20) mg/dL Creatinine (0.66-1.25) mg/dL Calcium (8.4-10.2) mg/dL Total Bilirubin (0.2-1.3) mg/dL AST (17-59) U/L Alkaline Phosphatase (38-126) U/L Total Protein (6.3-8.2) g/dL Albumin (3.5-5.0) g/dL Urine Protein Trace H (Negative) Urine Bilirubin 4+ H (Negative) 07/31/19 Range/Units 05:41 WBC (3.8-10.6) k/uL RBC (4.30-5.90) m/uL Hgb (13.0-17.5) gm/dL Hct (39.0-53.0) % MCV (80.0-100.0) fL Neutrophils # (1.3-7.7) k/uL Monocytes # (0-1.0) k/uL Macrocytosis PT (9.0-12.0) sec INR (<1.2) Sodium 134 L (137-145) mmol/L Potassium 3.4 L (3.5-5.1) mmol/L BUN 22 H (9-20) mg/dL Creatinine 2.03 H (0.66-1.25) mg/dL Calcium 7.4 L (8.4-10.2) mg/dL Total Bilirubin 17.4 H* (0.2-1.3) mg/dL AST 102 H (17-59) U/L Alkaline Phosphatase 173 H (38-126) U/L Total Protein 5.8 L (6.3-8.2) g/dL Albumin 2.1 L (3.5-5.0) g/dL Urine Protein (Negative) Urine Bilirubin (Negative) Microbiology - Last 24 Hours (Table) 07/29/19 00:50 Gram Stain - Preliminary Sputum Sputum Culture - Preliminary 07/29/19 11:32 Blood Culture - Preliminary Blood No Growth after 24 hours Assessment and Plan Assessment: #1 acute kidney injury secondary to hepatorenal syndrome. Creatinine stable. #2 acute alcoholic hepatitis decompensated #3 edema on Lasix #4 metabolic acidosis Plan: #1 continue Lasix 20 mg IV twice a day. Urine sodium of 28. #2 BladderScan value more than 300. Place Tolbert catheter. #3 labs in the morning
[2019-07-31] MEDS ORDERED: PHYTONADIONE 10 MG in SODIUM CHLORIDE 0.9% 50 ML IVPB STA (10:05)
[2019-07-31] MEDS ORDERED: Potassium Replacement Protocol 1 EACH MISC MISCELLANE PRN (11:38)
[2019-07-31] MEDS: FLUCONAZOLE 100 MG TAB PO SCH (15:22)
--- NOTE | 2019-07-31 15:36 | P.PN ---
Subjective Progress Note Date: 07/31/19 This is a 49-year-old male patient who presented to the ER with complaints of yellowing of skin and eyes. Patient is known past medical history of EtOH drinking approximately a pint of vodka plus beer daily. Patient's urged patient to come to ER due to presentation of jaundice 1 day patient was noted to have yellowing of his eyes and she was concerned about his liver. Additional medical history includes hyperlipidemia hypertension and ex-smoker. Abdominal ultrasound completed showing no gallstones or dilated ducts diffuse fatty infiltration of liver. Upon admission AST elevated to 95, ALT 64 alkaline phosphatase 3:30 total bilirubin 10.1 and ammonia level 185. Patient has been started on lactulose. GI services have been consulted. Patient's electrolytes also significantly impaired. Sodium low at 122, potassium 3.2, magnesium 0.7. Replacement per protocol patient currently on normal saline. Patient also currently in EtOH withdrawals. Patient has been admitted to the intensive care unit critical care services are following. Heart rate elevated secondary to withdrawal. CIWA protocol has been ordered. GI services have been consulted for Liver failure. At this time patient is resting comfortably in bed shakiness and withdrawal symptoms noted. Patient is alert and oriented 2. Patient able to follow commands. Patient denies chest pain. Patient denies shortness of breath. Patient denies any urinary burning or frequency. 07/14/2019 patient remains in the ICU. He has a sitter at bedside. He did require Ativan this morning for alcohol withdrawal and is sleeping comfortably. Heart rate is better controlled. Total bilirubin has gone up from 10.1-14.1. Ammonia level has decreased from 185-47. Hepatitis panel is negative. He is followed by GI service and critical care. He is tolerating clear liquid diet. Patient is having a bowel movement almost every hour. Patient currently on lactulose 3 times a day and Xifaxan. Patient did have a temp of 100.6 yesterday afternoon he is currently on Rocephin. Chest x-rays negative. 07/20/2019 patient is currently on a regular medical floor. He was followed by Dr. Carlton from 07/15/2019 until 07/19/2019. Patient's is being followed by GI service for his severe alcoholic hepatitis. Total bilirubin is up to 22. He has been ambulating in the hallway. Apparently he had a fall yesterday and had a computed tomography scan of the head and neck completed. Just revealing moderate atrophy of the brain. Otherwise normal findings. Ammonia levels up to 73 CO2 is down at 14. Patient denies any chest pain or shortness of breath. Denies any nausea or vomiting. Urine is starting to clear and he is having 3-5 bowel movements a day. 07/21/2019 patient sitting up in bed comfortably. He reports having at least 3 bowel movements daily. Ammonia level has decreased from 73-53. Total bilirubin has come down from 22-20.4. He is followed closely by GI service. Awaiting their recommendations regarding the prednisone. Potassium is low at 3.4. 07/22/2019 patient lying in bed comfortably. He has no new complaints. Ammonia is down to 48. He is having multiple bowel movements a day. Magnesium and po tassium are low and being replaced. Creatinine has gone up to 1.48. We'll discontinue the hydrochlorothiazide and lisinopril. Continue fluids at 50 mL an hour. Total bilirubin is 20.8 patient denies any difficulty urinating. He does report that his urine continues to become clear. GI service did hold off on starting the prednisone. On 07/23/2019 patient is alert and oriented 3 in no apparent distress bilirubin still elevated at 22 patient clinically denies any symptoms there is no fever or chills no headache or dizziness no chest pain no shortness of breath no cough no nausea or vomiting no abdominal pain no diarrhea and no urinary symptoms. , On 07/24/2019 patient was seen and examined on the medical floor, he is alert and oriented 3 in no apparent distress, he is still has significant jaundice, total bilirubin up to 22.4, creatinine up to 2.04, clinically he is feeling well, there is no fever or chills no headache no dizziness no chest pain no shortness of breath no cough no nausea or vomiting no abdominal pain no diarrhea and no urinary symptoms. On 07/25/2019 patient is alert and oriented 3. Patient up ambulating the kinney with . Patient remains with significant jaundice. Total bili is trending down 19.6. Nephrology services are following. Patient currently maintained on Sandostatin and albumin per nephrology services for concerns of hepatorenal acute kidney injury. Creatinine is improving slightly we'll continue to monitor. Patient also switched to IV sodium bicarb. We'll continue to monitor patient closely. At this time patient denies chest pain or shortness breath. Patient denies nausea vomiting or diarrhea. Patient denies any urinary burning or frequency 07/26/2019 patient lying in bed. at bedside. Patient reporting that his a bdomen is more distended and firm today. He's having about 3 bowel movements a day. Patient seen by GI service. They will ordered an abdominal ultrasound with paracentesis. Creatinine is down to 1.80, total bili is 19, AST 700 and ALT 31. CO2 has come up from 14-19. Patient denies any chest pain or shortness of breath. Denies any nausea or vomiting. Denies any difficulty urinating. On 07/27/2019 patient is alert and oriented 3. Patient to undergo paracentesis today per GI services. Creatinine trending down. Total bili increasing to 19.6. This time patient denies chest pain or shortness breath. Patient denies nausea vomiting or diarrhea. Patient denies any urinary burning or frequency 07/28/2019 patient is awake and answering questions appropriately. He had a paracentesis with 2.8 L removed yesterday. His abdomen is still distended. Lactulose was increased to 3 times a day. His ammonia level had gone from 54- 72. Nephrology has discontinued the IV albumin and Sandostatin. Creatinine continues to trend down 1.48. Total bilirubin has decreased from 19.6-17.4. White count 15.2. Patient has no complaints. On 07/29/2019 patient is alert and oriented 3. Patient having elevated temp and white count. Patient is complaining cough will order chest x-ray. Patient also having drainage from paracentesis site. Blood culture and urine culture ordered. Will consult infectious disease. White blood cell elevated at 19.1, total bili 18.8. Patient denies any chest pain. Patient denies nausea vomiting or diarrhea. Patient denies any burning with urination On 07/30/2019 patient was seen and examined on the medical floor he is alert and oriented 3 in no apparent distress he is complaining of discomfort in the abdomen otherwise he denies any complaints there is no fever or chills no headache or dizziness no chest pain no shortness of breath no cough no nausea or vomiting no diarrhea no burning with urination no frequency or urgency no hematuria. White blood count still elevated at 18.9 bilirubin 18.1 AST 121 On 07/31/2019 patient was seen and examined on the medical floor he is alert and oriented 3 he has severe jaundice he denies any pain or discomfort there is no fever or chills no headache or dizziness no chest pain no shortness of breath no cough no nausea or vomiting no abdominal pain no diarrhea no burning with urination no frequency or urgency no hematuria Objective - Vital Signs Vital signs: Vital Signs Temp 99.4 F 07/31/19 13:20 Pulse 82 07/31/19 13:28 Resp 16 07/31/19 13:28 BP 136/70 07/31/19 13:28 Pulse Ox 97 07/31/19 13:28 Intake & Output 07/30/19 07/31/19 07/31/19 18:59 06:59 18:59 Intake Total 240 150 Output Total 255 150 Balance 240 -255 0 Weight 90 kg Intake: IV 240 Sodium Chloride 0.9% 1, 240 000 ml @ 50 mls/hr IV . Q20H [facility] Rx#:[id number] Intake, IV Titration 150 Amount Cefepime 2 gm In Sodium 100 Chloride 0.9% 100 ml @ 200 mls/hr IVPB DAILY [facility] Rx#:[id number] Phytonadione 10 mg In 50 Sodium Chloride 0.9% 50 ml @ 100 mls/hr IVPB ONCE [facility] Rx#:[id number] Output: Urine 255 150 Straight 30 Other: Voiding Method Urinal # Voids 2 1 1 # Bowel Movements 3 - Exam Head normocephalic and atraumatic Neck supple no JVD no goiter Lungs clear to auscultation bilaterally no wheezing or crackles Heart regular rate and rhythm S1-S2, no rub or gallop Abdomen is soft nontender nondistended positive bowel sounds no hepatosplenomega ly Extremities +1 edema bilateral lower legs Neuro patient sleeping comfortably Skin jaundice. Scleral icterus - Labs CBC & Chem 7: 07/31/19 05:41 07/31/19 05:41 Labs: Abnormal Lab Results - Last 24 Hours (Table) 07/30/19 07/31/19 07/31/19 Range/Units 14:12 05:41 05:41 WBC 20.8 H (3.8-10.6) k/uL RBC 3.03 L (4.30-5.90) m/uL Hgb 10.2 L (13.0-17.5) gm/dL Hct 32.9 L (39.0-53.0) % MCV 108.6 H (80.0-100.0) fL Neutrophils # 17.1 H (1.3-7.7) k/uL Monocytes # 1.8 H (0-1.0) k/uL Macrocytosis Marked A PT 16.7 H (9.0-12.0) sec INR 1.7 H (<1.2) Sodium (137-145) mmol/L Potassium (3.5-5.1) mmol/L BUN (9-20) mg/dL Creatinine (0.66-1.25) mg/dL Calcium (8.4-10.2) mg/dL Total Bilirubin (0.2-1.3) mg/dL AST (17-59) U/L Alkaline Phosphatase (38-126) U/L Total Protein (6.3-8.2) g/dL Albumin (3.5-5.0) g/dL Urine Protein Trace H (Negative) Urine Bilirubin 4+ H (Negative) 07/31/19 Range/Units 05:41 WBC (3.8-10.6) k/uL RBC (4.30-5.90) m/uL Hgb (13.0-17.5) gm/dL Hct (39.0-53.0) % MCV (80.0-100.0) fL Neutrophils # (1.3-7.7) k/uL Monocytes # (0-1.0) k/uL Macrocytosis PT (9.0-12.0) sec INR (<1.2) Sodium 134 L (137-145) mmol/L Potassium 3.4 L (3.5-5.1) mmol/L BUN 22 H (9-20) mg/dL Creatinine 2.03 H (0.66-1.25) mg/dL Calcium 7.4 L (8.4-10.2) mg/dL Total Bilirubin 17.4 H* (0.2-1.3) mg/dL AST 102 H (17-59) U/L Alkaline Phosphatase 173 H (38-126) U/L Total Protein 5.8 L (6.3-8.2) g/dL Albumin 2.1 L (3.5-5.0) g/dL Urine Protein (Negative) Urine Bilirubin (Negative) Microbiology - Last 24 Hours (Table) 07/29/19 00:50 Gram Stain - Preliminary Sputum Sputum Culture - Preliminary 07/29/19 11:32 Blood Culture - Preliminary Blood No Growth after 24 hours Assessment and Plan Plan: 1. Severe Acute alcoholic hepatitis superimposed on alcoholic cirrhosis of the liver. Abdominal ultrasound completed showing no gallstones or dilated ducts. Diffuse fatty infiltration of the liver. GI services have been consulted. Hepatitis panel negative. 2. Jaundice, hyperbilirubinemia secondary to alcoholic liver disease. Total bilirubin 19. GI service is following and decided not to start prednisone. Total bili 19.6 3. EtOH withdrawal. Patient currently on CIWA protocal. Continue thiamine and add multivitamin. Continue Ativan as needed 4. Hypokalemia. Likely losing potassium through his stooling and hydrochlorothiazide. Improved with potassium replacement 5. Hyponatremia and hypochloremic secondary to EtOH. 6. Tachycardia secondary to alcohol withdrawal. Patient's home dose beta phong resumed. Continue a call withdrawal protocol. Tachycardia has improved. Discontinue telemetry 7. History of essential hypertension. Patient's home dose of Lopressor resumed. 8. 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 Continue to monitor ammonia levels. Patient has had some confusion. Lactulose was decreased to twice a day. And he is on Xifaxan 9. Macrocytic anemia secondary to chronic liver disease 10. Generalized weakness and fatigue due to his advanced liver disease. Continue PT OT 11. Metabolic acidosis: the patient having multiple stools. CO2 19 currently on IV sodium bicarb. Nephrology following 12. Hypomagnesemia: Resolved with replacement 13. Acute kidney injury secondary to hepatorenal. Nephrology services are following. Patient remains on IV bicarb, albumin and Sandostatin creatinine is trending down to 1.68 14. Abdominal ascites. Status post paracentesis with 2.8 L removed 15. Coagulopathy due to liver disease 16. Essential hypertension: We'll continue to monitor blood pressures. BP has been slightly elevated. Repeat blood pressure 135/71. We'll continue to monitor 17. Leukocytosis with low-grade temps. Chest x-ray, blood culture, urine culture and infectious disease consult placed DVT prophylaxis Lovenox. GI prophylaxis Protonix GI, nephrology infectious disease following. Input from consultants reviewed continue current management will follow in a.m.
--- NOTE | 2019-07-31 15:52 | P.PN ---
Subjective Progress Note Date: 07/31/19 Principal diagnosis: Alcoholic hepatitis, elevated liver enzymes Patient is seen sitting bedside today. He denies any change in bowel habits or confusion. He reports making good urine. No nausea or vomiting. Objective - Vital Signs Vital signs: Vital Signs Temp 98.0 F 07/31/19 07:00 Pulse 79 07/31/19 07:00 Resp 17 07/31/19 07:00 BP 145/62 07/31/19 07:00 Pulse Ox 98 07/31/19 07:00 Intake & Output 07/30/19 07/31/19 07/31/19 18:59 06:59 18:59 Intake Total 240 Output Total 255 Balance 240 -255 Weight 90 kg Intake: IV 240 Sodium Chloride 0.9% 1, 240 000 ml @ 50 mls/hr IV . Q20H [facility] Rx#:[id number] Output: Urine 255 Straight 30 Other: Voiding Method Urinal # Voids 2 1 100 - Exam On physical examination, patient appears comfortable in no apparent distress. HEAD: Normocephalic, atraumatic. EYES: Scleral icterus. No conjunctival injection. MOUTH: No lesions, tongue midline. NECK: Trachea midline, no gross abnormalities. ABDOMEN: Soft. Bowel sounds are positive. No organomegaly. No guarding or rigidity. EXTREMITIES: 2+ pedal edema. SKIN: No rashes, jaundice. NEUROLOGIC: Alert and responsive, no asterixis. No focal deficits. - Labs CBC & Chem 7: 07/31/19 05:41 07/31/19 05:41 Labs: Abnormal Lab Results - Last 24 Hours (Table) 07/30/19 07/31/19 07/31/19 Range/Units 14:12 05:41 05:41 WBC 20.8 H (3.8-10.6) k/uL RBC 3.03 L (4.30-5.90) m/uL Hgb 10.2 L (13.0-17.5) gm/dL Hct 32.9 L (39.0-53.0) % MCV 108.6 H (80.0-100.0) fL Neutrophils # 17.1 H (1.3-7.7) k/uL Monocytes # 1.8 H (0-1.0) k/uL Macrocytosis Marked A PT 16.7 H (9.0-12.0) sec INR 1.7 H (<1.2) Sodium (137-145) mmol/L Potassium (3.5-5.1) mmol/L BUN (9-20) mg/dL Creatinine (0.66-1.25) mg/dL Calcium (8.4-10.2) mg/dL Total Bilirubin (0.2-1.3) mg/dL AST (17-59) U/L Alkaline Phosphatase (38-126) U/L Total Protein (6.3-8.2) g/dL Albumin (3.5-5.0) g/dL Urine Protein Trace H (Negative) Urine Bilirubin 4+ H (Negative) 07/31/19 Range/Units 05:41 WBC (3.8-10.6) k/uL RBC (4.30-5.90) m/uL Hgb (13.0-17.5) gm/dL Hct (39.0-53.0) % MCV (80.0-100.0) fL Neutrophils # (1.3-7.7) k/uL Monocytes # (0-1.0) k/uL Macrocytosis PT (9.0-12.0) sec INR (<1.2) Sodium 134 L (137-145) mmol/L Potassium 3.4 L (3.5-5.1) mmol/L BUN 22 H (9-20) mg/dL Creatinine 2.03 H (0.66-1.25) mg/dL Calcium 7.4 L (8.4-10.2) mg/dL Total Bilirubin 17.4 H* (0.2-1.3) mg/dL AST 102 H (17-59) U/L Alkaline Phosphatase 173 H (38-126) U/L Total Protein 5.8 L (6.3-8.2) g/dL Albumin 2.1 L (3.5-5.0) g/dL Urine Protein (Negative) Urine Bilirubin (Negative) Microbiology - Last 24 Hours (Table) 07/29/19 00:50 Gram Stain - Preliminary Sputum Sputum Culture - Preliminary 07/29/19 11:32 Blood Culture - Preliminary Blood No Growth after 24 hours Assessment and Plan (1) Alcoholic hepatitis Narrative/Plan: 49-year-old male with a long-standing history of alcohol abuse, worsened over the past 2 months with 1 pint of alcohol daily who presents with jaundice, scleral icterus and weakness. Patient found to have elevation in total bilirubin of 10.1, alkaline phosphatase 330, AST 295 and ALT 69 on admission with ultrasound of the abdomen negative for any ductal dilation or gallstones with diffuse fatty infiltration noted highly suggestive of acute alcoholic hepatitis. Liver enzymes have trended up, overall consistent with alcoholic hepatitis, predominantly in a cholestatic pattern and have remained stable. Current Visit: Yes Status: Acute Code(s): K70.10 - ALCOHOLIC HEPATITIS WITHOUT ASCITES SNOMED Code(s): 727638468 (2) Hepatic encephalopathy Current Visit: Yes Status: Acute Code(s): K72.90 - HEPATIC FAILURE, UNSPECIFIED WITHOUT COMA SNOMED Code(s): 09648357 (3) Alcohol abuse Current Visit: Yes Status: Acute Code(s): F10.10 - ALCOHOL ABUSE, UNCOMPLICATED SNOMED Code(s): 39304617 Plan: Supportive care Okay for diet as tolerated Continue to monitor CBC, CMP Continue to monitor clinically Viral hepatitis panel negative Alcohol abstinence Continue lactulose therapy, okay to hold this patient has 3 bowel movements Rifaximin ordered Vitamin K ordered again today, INR slightly improved at 1.7 from 1.8 Creatinine trending up we'll defer to nephrology service for further management of diuretics Thank you for allowing us to participate in the care of the patient we will continue to follow
--- NOTE | 2019-07-31 18:15 | PN ---
PROGRESS NOTE DATE OF SERVICE: 07/31/2019. REASON FOR FOLLOWUP: Leukocytosis. INTERVAL HISTORY: The patient is currently afebrile, has been breathing comfortably. He did have minimal cough but no sputum. No nausea, no vomiting. No abdominal pain. No diarrhea. PHYSICAL EXAMINATION: Blood pressure 110/73 with a pulse of 83, temperature 98.1. He is 96% on room air. General description is a middle-aged male lying in bed in no distress. Respiratory system: Unlabored breathing. Decreased breath sounds in the bases. No wheeze. Heart S1, S2. Regular rate and rhythm. Abdomen soft, no tenderness. LABS: Hemoglobin is 10.1, hematocrit 28.8, with a BUN creatinine is 2.03. DIAGNOSTIC IMPRESSION AND PLAN: Patient with worsening leukocytosis, could be likely multifactorial, possible complete hemofiltration for possible pneumonia and oropharyngeal candidiasis, fever and Diflucan, monitor his clinical course closely. Continue supportive care. Sputum and blood culture has been negative so far. MMODL / IJN: [id number] /
[2019-08-01 07:16] LABS: Basophils # (A) 0.1 k/uL (0-0.2); Basophils % (A) 0 %; Eosinophils # (A) 0.4 k/uL (0-0.7); Eosinophils % (A) 2 %; HCT 33.7 % (39.0-53.0); HGB 10.8 gm/dL (13.0-17.5); Hypochromasia Slight; Lymphocytes # (A) 0.9 k/uL (1.0-4.8); Lymphocytes % (A) 4 %; MCH 35.4 pg (25.0-35.0); MCHC 32.1 g/dL (31.0-37.0); MCV 110.1 fL (80.0-100.0); Macrocytosis Marked; Mean Platelet Volume 9.2; Monocytes # (A) 1.9 k/uL (0-1.0); Monocytes % (A) 9 %; Neutrophils # (A) 18.1 k/uL (1.3-7.7); Neutrophils % (A) 83 %; Platelet Count 304 k/uL (150-450); RBC 3.06 m/uL (4.30-5.90); RDW 14.7 % (11.5-15.5); WBC 21.8 k/uL (3.8-10.6)
[2019-08-01 07:24] LABS: Albumin 2.2 g/dL (3.5-5.0); Calcium 7.3 mg/dL (8.4-10.2); Potassium 3.8 mmol/L (3.5-5.1); Total Protein 6.3 g/dL (6.3-8.2)
[2019-08-01 07:34] LABS: Total Bilirubin 17.5 mg/dL (0.2-1.3)
[2019-08-01 08:48] LABS: Target Cells Present
[2019-08-01] MEDS: POTASSIUM CHLORIDE ER 20 MEQ TAB.ER PO SCH (09:09)
[2019-08-01] MEDS: METOPROLOL SUCCINATE (ER) 100 MG TAB.ER.24H PO SCH (09:09)
[2019-08-01] MEDS: FUROSEMIDE 10 MG/ML 2 ML VIAL IV SCH (09:09)
[2019-08-01] MEDS: LACTULOSE 20 GM/30 ML CUP PO SCH ×3 (09:09→20:25)
[2019-08-01] MEDS: FLUCONAZOLE 100 MG TAB PO SCH (09:10)
[2019-08-01] MEDS: amLODIPine 5 MG TAB PO SCH (09:10)
[2019-08-01] MEDS: SODIUM BICARBONATE TAB 650 MG TAB PO SCH ×4 (09:10→20:19)
[2019-08-01] MEDS: RIFAXIMIN 550 MG TABLET PO SCH ×2 (09:10→20:19)
[2019-08-01] MEDS: MULTIVITAMINS, THERA 1 EACH TAB PO SCH (09:10)
[2019-08-01] MEDS: THIAMINE 100 MG TAB PO SCH ×2 (09:10→17:55)
[2019-08-01] MEDS: PANTOPRAZOLE 40 MG TABLET PO SCH (09:10)
[2019-08-01] MEDS: CEFEPIME 2 GM in SODIUM CHLORIDE 0.9% 100 ML IVPB SCH (09:11)
--- NOTE | 2019-08-01 11:01 | P.PN ---
Subjective Patient is seen in follow-up for acute kidney injury. Renal function is stable. Still edematous but improved since admission. He has been voiding. No evidence of retention. Vital signs are stable. General: The patient appeared well nourished and normally developed. HEENT: Head exam is unremarkable. Neck is without jugular venous distension. LUNGS: Lungs are clear to auscultation and percussion. Breath sounds decreased. HEART: Rate and Rhythm are regular. First and second heart sounds normal. No murmurs, rubs or gallops. ABDOMEN: Abdominal exam reveals normal bowel sounds. Non-tender. EXTREMITITES: 2+ edema. Objective - Vital Signs Vital signs: Vital Signs Temp 98.6 F 08/01/19 07:42 Pulse 83 08/01/19 07:42 Resp 17 08/01/19 07:42 BP 118/81 08/01/19 07:42 Pulse Ox 97 08/01/19 07:42 Intake & Output 07/31/19 08/01/19 08/01/19 18:59 06:59 18:59 Intake Total 150 Output Total 425 1425 225 Balance -275 -1425 -225 Weight 83 kg Intake: Intake, IV Titration 150 Amount Cefepime 2 gm In Sodium 100 Chloride 0.9% 100 ml @ 200 mls/hr IVPB DAILY [facility] Rx#:[id number] Phytonadione 10 mg In 50 Sodium Chloride 0.9% 50 ml @ 100 mls/hr IVPB ONCE [facility] Rx#:[id number] Output: Urine 425 400 100 Stool 1025 125 Other: Voiding Method Urinal # Voids 1 1 # Bowel Movements 3 1 - Labs CBC & Chem 7: 08/01/19 06:58 08/01/19 06:58 Labs: Abnormal Lab Results - Last 24 Hours (Table) 08/01/19 08/01/19 Range/Units 06:58 06:58 WBC 21.8 H (3.8-10.6) k/uL RBC 3.06 L (4.30-5.90) m/uL Hgb 10.8 L (13.0-17.5) gm/dL Hct 33.7 L (39.0-53.0) % MCV 110.1 H (80.0-100.0) fL MCH 35.4 H (25.0-35.0) pg Neutrophils # 18.1 H (1.3-7.7) k/uL Lymphocytes # 0.9 L (1.0-4.8) k/uL Monocytes # 1.9 H (0-1.0) k/uL Macrocytosis Marked A Sodium 134 L (137-145) mmol/L BUN 26 H (9-20) mg/dL Creatinine 2.12 H (0.66-1.25) mg/dL Calcium 7.3 L (8.4-10.2) mg/dL Total Bilirubin 17.5 H* (0.2-1.3) mg/dL AST 118 H (17-59) U/L Alkaline Phosphatase 196 H (38-126) U/L Albumin 2.2 L (3.5-5.0) g/dL Microbiology - Last 24 Hours (Table) 07/27/19 13:06 Gram Stain - Final Paracentesis Fluid Body Fluid Culture - Final 07/29/19 11:32 Blood Culture - Preliminary Blood No Growth after 48 hours 07/29/19 00:50 Gram Stain - Preliminary Sputum Sputum Culture - Preliminary Assessment and Plan Plan: Assessment: 1. Acute kidney injury secondary to hepatorenal syndrome. Renal function stable. Creatinine 2.12 today. 2. Volume overload. 3. Metabolic acidosis due to acute kidney injury maintained on oral sodium bicarbonate. Stable. 4. Alcohol induced hepatitis. GI following. 5. Hypokalemia secondary to diuresis. Better. Plan: I will change IV Lasix to Demadex 20 mg once daily. I advised them to follow low-salt diet and 40 ounce fluid restriction per day. Repeat electrolytes in the morning.
--- NOTE | 2019-08-01 11:06 | P.PN ---
Subjective Progress Note Date: 08/01/19 This is a 49-year-old male patient who presented to the ER with complaints of yellowing of skin and eyes. Patient is known past medical history of EtOH drinking approximately a pint of vodka plus beer daily. Patient's urged patient to come to ER due to presentation of jaundice 1 day patient was noted to have yellowing of his eyes and she was concerned about his liver. Additional medical history includes hyperlipidemia hypertension and ex-smoker. Abdominal ultrasound completed showing no gallstones or dilated ducts diffuse fatty infiltration of liver. Upon admission AST elevated to 95, ALT 64 alkaline phosphatase 3:30 total bilirubin 10.1 and ammonia level 185. Patient has been started on lactulose. GI services have been consulted. Patient's electrolytes also significantly impaired. Sodium low at 122, potassium 3.2, magnesium 0.7. Replacement per protocol patient currently on normal saline. Patient also currently in EtOH withdrawals. Patient has been admitted to the intensive care unit critical care services are following. Heart rate elevated secondary to withdrawal. CIWA protocol has been ordered. GI services have been consulted for Liver failure. At this time patient is resting comfortably in bed shakiness and withdrawal symptoms noted. Patient is alert and oriented 2. Patient able to follow commands. Patient denies chest pain. Patient denies shortness of breath. Patient denies any urinary burning or frequency. 07/14/2019 patient remains in the ICU. He has a sitter at bedside. He did require Ativan this morning for alcohol withdrawal and is sleeping comfortably. Heart rate is better controlled. Total bilirubin has gone up from 10.1-14.1. Ammonia level has decreased from 185-47. Hepatitis panel is negative. He is followed by GI service and critical care. He is tolerating clear liquid diet. Patient is having a bowel movement almost every hour. Patient currently on lactulose 3 times a day and Xifaxan. Patient did have a temp of 100.6 yesterday afternoon he is currently on Rocephin. Chest x-rays negative. 07/20/2019 patient is currently on a regular medical floor. He was followed by Dr. Carlton from 07/15/2019 until 07/19/2019. Patient's is being followed by GI service for his severe alcoholic hepatitis. Total bilirubin is up to 22. He has been ambulating in the hallway. Apparently he had a fall yesterday and had a computed tomography scan of the head and neck completed. Just revealing moderate atrophy of the brain. Otherwise normal findings. Ammonia levels up to 73 CO2 is down at 14. Patient denies any chest pain or shortness of breath. Denies any nausea or vomiting. Urine is starting to clear and he is having 3-5 bowel movements a day. 07/21/2019 patient sitting up in bed comfortably. He reports having at least 3 bowel movements daily. Ammonia level has decreased from 73-53. Total bilirubin has come down from 22-20.4. He is followed closely by GI service. Awaiting their recommendations regarding the prednisone. Potassium is low at 3.4. 07/22/2019 patient lying in bed comfortably. He has no new complaints. Ammonia is down to 48. He is having multiple bowel movements a day. Magnesium and pot assium are low and being replaced. Creatinine has gone up to 1.48. We'll discontinue the hydrochlorothiazide and lisinopril. Continue fluids at 50 mL an hour. Total bilirubin is 20.8 patient denies any difficulty urinating. He does report that his urine continues to become clear. GI service did hold off on starting the prednisone. On 07/23/2019 patient is alert and oriented 3 in no apparent distress bilirubin still elevated at 22 patient clinically denies any symptoms there is no fever or chills no headache or dizziness no chest pain no shortness of breath no cough no nausea or vomiting no abdominal pain no diarrhea and no urinary symptoms. , On 07/24/2019 patient was seen and examined on the medical floor, he is alert and oriented 3 in no apparent distress, he is still has significant jaundice, total bilirubin up to 22.4, creatinine up to 2.04, clinically he is feeling well, there is no fever or chills no headache no dizziness no chest pain no shortness of breath no cough no nausea or vomiting no abdominal pain no diarrhea and no urinary symptoms. On 07/25/2019 patient is alert and oriented 3. Patient up ambulating the kinney with . Patient remains with significant jaundice. Total bili is trending down 19.6. Nephrology services are following. Patient currently maintained on Sandostatin and albumin per nephrology services for concerns of hepatorenal acute kidney injury. Creatinine is improving slightly we'll continue to monitor. Patient also switched to IV sodium bicarb. We'll continue to monitor patient closely. At this time patient denies chest pain or shortness breath. Patient denies nausea vomiting or diarrhea. Patient denies any urinary burning or frequency 07/26/2019 patient lying in bed. at bedside. Patient reporting that his abdomen is more distended and firm today. He's having about 3 bowel movements a day. Patient seen by GI service. They will ordered an abdominal ultrasound with paracentesis. Creatinine is down to 1.80, total bili is 19, AST 700 and ALT 31. CO2 has come up from 14-19. Patient denies any chest pain or shortness of breath. Denies any nausea or vomiting. Denies any difficulty urinating. On 07/27/2019 patient is alert and oriented 3. Patient to undergo paracentesis today per GI services. Creatinine trending down. Total bili increasing to 19.6. This time patient denies chest pain or shortness breath. Patient denies nausea vomiting or diarrhea. Patient denies any urinary burning or frequency 07/28/2019 patient is awake and answering questions appropriately. He had a paracentesis with 2.8 L removed yesterday. His abdomen is still distended. Lactulose was increased to 3 times a day. His ammonia level had gone from 54- 72. Nephrology has discontinued the IV albumin and Sandostatin. Creatinine continues to trend down 1.48. Total bilirubin has decreased from 19.6-17.4. White count 15.2. Patient has no complaints. On 07/29/2019 patient is alert and oriented 3. Patient having elevated temp and white count. Patient is complaining cough will order chest x-ray. Patient also having drainage from paracentesis site. Blood culture and urine culture ordered. Will consult infectious disease. White blood cell elevated at 19.1, total bili 18.8. Patient denies any chest pain. Patient denies nausea vomiting or diarrhea. Patient denies any burning with urination On 07/30/2019 patient was seen and examined on the medical floor he is alert and oriented 3 in no apparent distress he is complaining of discomfort in the abdomen otherwise he denies any complaints there is no fever or chills no headache or dizziness no chest pain no shortness of breath no cough no nausea or vomiting no diarrhea no burning with urination no frequency or urgency no hematuria. White blood count still elevated at 18.9 bilirubin 18.1 AST 121 On 07/31/2019 patient was seen and examined on the medical floor he is alert and oriented 3 he has severe jaundice he denies any pain or discomfort there is no fever or chills no headache or dizziness no chest pain no shortness of breath no cough no nausea or vomiting no abdominal pain no diarrhea no burning with urination no frequency or urgency no hematuria On 08/01/2019 patient is alert and oriented 3. at bedside. Creatinine remains elevated 0.12 and bun 26. Patient remains on IV Lasix. Total bili 17.5. Patient also getting treated for possible pneumonia with Maxipime and Diflucan. GI, nephrology and infectious disease services are following. Patient denies chest pain or shortness of breath. Patient denies nausea vomiting or diarrhea. Patient denies any urinary burning or frequency Objective - Vital Signs Vital signs: Vital Signs Temp 98.6 F 08/01/19 07:42 Pulse 83 08/01/19 07:42 Resp 17 08/01/19 07:42 BP 118/81 08/01/19 07:42 Pulse Ox 97 08/01/19 07:42 Intake & Output 07/31/19 08/01/19 08/01/19 18:59 06:59 18:59 Intake Total 150 Output Total 425 1425 225 Balance -275 -1425 -225 Weight 83 kg Intake: Intake, IV Titration 150 Amount Cefepime 2 gm In Sodium 100 Chloride 0.9% 100 ml @ 200 mls/hr IVPB DAILY [facility] Rx#:[id number] Phytonadione 10 mg In 50 Sodium Chloride 0.9% 50 ml @ 100 mls/hr IVPB ONCE STA Rx#:[id number] Output: Urine 425 400 100 Stool 1025 125 Other: Voiding Method Urinal # Voids 1 1 # Bowel Movements 3 1 - Exam Head normocephalic and atraumatic Neck supple no JVD no goiter Lungs clear to auscultation bilaterally no wheezing or crackles Heart regular rate and rhythm S1-S2, no rub or gallop Abdomen is soft nontender nondistended positive bowel sounds no hepatosplenomegaly Extremities +1 edema bilateral lower legs Neuro patient sleeping comfortably Skin jaundice. Scleral icterus - Labs CBC & Chem 7: 08/01/19 06:58 08/01/19 06:58 Labs: Abnormal Lab Results - Last 24 Hours (Table) 08/01/19 08/01/19 Range/Units 06:58 06:58 WBC 21.8 H (3.8-10.6) k/uL RBC 3.06 L (4.30-5.90) m/uL Hgb 10.8 L (13.0-17.5) gm/dL Hct 33.7 L (39.0-53.0) % MCV 110.1 H (80.0-100.0) fL MCH 35.4 H (25.0-35.0) pg Neutrophils # 18.1 H (1.3-7.7) k/uL Lymphocytes # 0.9 L (1.0-4.8) k/uL Monocytes # 1.9 H (0-1.0) k/uL Macrocytosis Marked A Sodium 134 L (137-145) mmol/L BUN 26 H (9-20) mg/dL Creatinine 2.12 H (0.66-1.25) mg/dL Calcium 7.3 L (8.4-10.2) mg/dL Total Bilirubin 17.5 H* (0.2-1.3) mg/dL AST 118 H (17-59) U/L Alkaline Phosphatase 196 H (38-126) U/L Albumin 2.2 L (3.5-5.0) g/dL Microbiology - Last 24 Hours (Table) 07/27/19 13:06 Gram Stain - Final Paracentesis Fluid Body Fluid Culture - Final 07/29/19 11:32 Blood Culture - Preliminary Blood No Growth after 48 hours 07/29/19 00:50 Gram Stain - Preliminary Sputum Sputum Culture - Preliminary Assessment and Plan Assessment: 1. Severe Acute alcoholic hepatitis superimposed on alcoholic cirrhosis of the liver. Abdominal ultrasound completed showing no gallstones or dilated ducts. Diffuse fatty infiltration of the liver. GI services have been consulted. Hepatitis panel negative. 2. Jaundice, hyperbilirubinemia secondary to alcoholic liver disease. Total bilirubin 19. GI service is following and decided not to start prednisone. Total bili 17.4 3. EtOH withdrawal. Patient currently on CIWA protocal. Continue thiamine and add multivitamin. Continue Ativan as needed. Resolved 4. Hypokalemia. Likely losing potassium through his stooling and hydrochlorothiazide. Improved with potassium replacement 5. Hyponatremia and hypochloremic secondary to EtOH. Resolved 6. Tachycardia secondary to alcohol withdrawal. Patient's home dose beta phong resumed. Continue a call withdrawal protocol. Tachycardia has improved. Discontinue telemetry 7. History of essential hypertension. Patient's home dose of Lopressor resumed. 8. 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 Continue to monitor ammonia levels. Patient has had some confusion. Lactulose was de creased to twice a day. And he is on Xifaxan 9. Macrocytic anemia secondary to chronic liver disease 10. Generalized weakness and fatigue due to his advanced liver disease. Continue PT OT 11. Metabolic acidosis: the patient having multiple stools. CO2 19 currently on IV sodium bicarb. Nephrology following. Patient has been switched to oral sodium bicarbonate per nephrology 12. Hypomagnesemia: Resolved with replacement 13. Acute kidney injury secondary to hepatorenal. Nephrology services are following. Creatinine 2.12 and bun 26. Patient remains on IV Lasix per nephrology. Per nephrology IV Lasix will be changed over to Demadex 20 mg daily continue a low-salt diet and fluid restriction 14. Abdominal ascites. Status post paracentesis with 2.8 L removed 15. Coagulopathy due to liver disease 16. Essential hypertension: We'll continue to monitor blood pressures. BP has been slightly elevated. Repeat blood pressure 135/71. We'll continue to monitor 17. Leukocytosis with low-grade temps. infectious disease is following. Patient remains on Maxipime and Diflucan sputum and blood cultures have been negative thus far. DVT prophylaxis SCDs due to coagulopathy secondary to liver disease GI prophylaxis Protonix GI, nephrology infectious disease following. I performed an examination of the patient and discussed their management with the Nurse Practitioner. I have reviewed the Nurse Practitioner's notes and agree with the documented findings and plan of care
[2019-08-01] MEDS: TORSEMIDE 20 MG TAB PO SCH (12:23)
--- NOTE | 2019-08-01 21:56 | US ---
EXAMINATION TYPE: US abdomen limited DATE OF EXAM: 08/01/2019 COMPARISON: CT, US CLINICAL HISTORY: ascites. Ascites. Scanned all four quadrants of the abdomen. Fluid is seen throughout. IMPRESSION: There is abdominal ascites demonstrated.
[2019-08-01] MEDS: metroNIDAZOLE 500 MG TAB PO SCH (22:57)
--- NOTE | 2019-08-01 23:21 | PN ---
PROGRESS NOTE DATE OF SERVICE: 08/01/2019. REASON FOR FOLLOWUP: Leukocytosis. INTERVAL HISTORY: The patient is currently afebrile, has been breathing comfortably. He denies having any chest pain. Did have some cough. No nausea, vomiting. No abdominal pain or diarrhea. PHYSICAL EXAMINATION: Blood pressure is 105/73 with a pulse of 84, temperature 98.2. He is 96% on room air. General description is a middle-aged male lying in bed in no distress. Respiratory system: Unlabored breathing. Decreased breath sounds in the bases. No wheeze. Heart S1 S2-1 regular rate and rhythm. ABDOMEN: Soft. No tenderness. LABS: White count up to 21,000. Also have slight jump in his creatinine. DIAGNOSTIC IMPRESSION AND PLAN: Patient with leukocytosis which is likely multifactorial in this patient with initial concern for possible pneumonia, though the sputum has been negative so far. White count did not respond to the cefepime. Ascitic fluid has been negative as well. We will add Flagyl. Repeat CBC tomorrow. Monitor clinical course closely. MMODL / IJN: [id number] /
--- NOTE | 2019-08-02 07:58 | P.PN ---
Subjective Progress Note Date: 08/01/19 Principal diagnosis: Alcoholic hepatitis, elevated liver enzymes Patient is seen lying in bed today. Overall patient had a good day. He was up and moving. No confusion or change in bowel habits. Tolerating his diet.. Objective - Vital Signs Vital signs: Vital Signs Temp 98.6 F 08/01/19 07:42 Pulse 83 08/01/19 07:42 Resp 17 08/01/19 07:42 BP 118/81 08/01/19 07:42 Pulse Ox 97 08/01/19 07:42 Intake & Output 07/31/19 08/01/19 08/01/19 18:59 06:59 18:59 Intake Total 150 200 Output Total 425 1425 850 Balance -275 -2255 650 Weight 83 kg Intake: Intake, IV Titration 150 200 Amount Cefepime 2 gm In Sodium 100 200 Chloride 0.9% 100 ml @ 200 mls/hr IVPB DAILY [facility] Rx#:[id number] Phytonadione 10 mg In 50 Sodium Chloride 0.9% 50 ml @ 100 mls/hr IVPB ONCE [facility] Rx#:[id number] Output: Urine 425 400 400 Stool 1025 450 Other: Voiding Method Urinal # Voids 1 1 # Bowel Movements 3 1 - Exam On physical examination, patient appears comfortable in no apparent distress. HEAD: Normocephalic, atraumatic. EYES: Scleral icterus. No conjunctival injection. MOUTH: No lesions, tongue midline. NECK: Trachea midline, no gross abnormalities. ABDOMEN: Soft. Bowel sounds are positive. No organomegaly. No guarding or rigidity. EXTREMITIES: 2+ pedal edema. SKIN: No rashes, jaundice. NEUROLOGIC: Alert and responsive, no asterixis. No focal deficits. - Labs CBC & Chem 7: 08/01/19 06:58 08/01/19 06:58 Labs: Abnormal Lab Results - Last 24 Hours (Table) 08/01/19 08/01/19 Range/Units 06:58 06:58 WBC 21.8 H (3.8-10.6) k/uL RBC 3.06 L (4.30-5.90) m/uL Hgb 10.8 L (13.0-17.5) gm/dL Hct 33.7 L (39.0-53.0) % MCV 110.1 H (80.0-100.0) fL MCH 35.4 H (25.0-35.0) pg Neutrophils # 18.1 H (1.3-7.7) k/uL Lymphocytes # 0.9 L (1.0-4.8) k/uL Monocytes # 1.9 H (0-1.0) k/uL Macrocytosis Marked A Sodium 134 L (137-145) mmol/L BUN 26 H (9-20) mg/dL Creatinine 2.12 H (0.66-1.25) mg/dL Calcium 7.3 L (8.4-10.2) mg/dL Total Bilirubin 17.5 H* (0.2-1.3) mg/dL AST 118 H (17-59) U/L Alkaline Phosphatase 196 H (38-126) U/L Albumin 2.2 L (3.5-5.0) g/dL Microbiology - Last 24 Hours (Table) 07/29/19 11:32 Blood Culture - Preliminary Blood No Growth after 72 hours 07/29/19 00:50 Gram Stain - Final Sputum Sputum Culture - Final 07/27/19 13:06 Gram Stain - Final Paracentesis Fluid Body Fluid Culture - Final Assessment and Plan (1) Alcoholic hepatitis Narrative/Plan: 49-year-old male with a long-standing history of alcohol abuse, worsened over the past 2 months with 1 pint of alcohol daily who presents with jaundice, scleral icterus and weakness. Patient found to have elevation in total bilirubin of 10.1, alkaline phosphatase 330, AST 295 and ALT 69 on admission with ultrasound of the abdomen negative for any ductal dilation or gallstones with diffuse fatty infiltration noted highly suggestive of acute alcoholic hepatitis. Liver enzymes have trended up, overall consistent with alcoholic hepatitis, predominantly in a cholestatic pattern and have remained stable. Current Visit: Yes Status: Acute Code(s): K70.10 - ALCOHOLIC HEPATITIS WITHOUT ASCITES SNOMED Code(s): 075829262 (2) Hepatic encephalopathy Current Visit: Yes Status: Acute Code(s): K72.90 - HEPATIC FAILURE, UNSPECIFIED WITHOUT COMA SNOMED Code(s): 19850260 (3) Alcohol abuse Current Visit: Yes Status: Acute Code(s): F10.10 - ALCOHOL ABUSE, UNCOMPLICATED SNOMED Code(s): 80100718 Plan: Supportive care Okay for diet as tolerated Continue to monitor CBC, CMP Continue to monitor clinically Viral hepatitis panel negative Alcohol abstinence Continue lactulose therapy, okay to hold this patient has 3 bowel movements Rifaximin ordered Diuretic regimen ordered by the nephrology service, modified today Repeat paracentesis ordered Thank you for allowing us to participate in the care of the patient we will continue to follow
[2019-08-02 08:04] LABS: Albumin 2.2 g/dL (3.5-5.0); Calcium 7.3 mg/dL (8.4-10.2); Magnesium 1.5 mg/dL (1.6-2.3); Potassium 3.6 mmol/L (3.5-5.1); Total Protein 6.2 g/dL (6.3-8.2)
[2019-08-02 08:12] LABS: Total Bilirubin 16.2 mg/dL (0.2-1.3)
[2019-08-02] MEDS: LACTULOSE 20 GM/30 ML CUP PO SCH ×3 (09:09→21:06)
[2019-08-02] MEDS: SODIUM BICARBONATE TAB 650 MG TAB PO SCH ×4 (09:09→21:06)
[2019-08-02] MEDS: POTASSIUM CHLORIDE ER 20 MEQ TAB.ER PO SCH (09:10)
[2019-08-02] MEDS: FLUCONAZOLE 100 MG TAB PO SCH (09:10)
[2019-08-02] MEDS: PANTOPRAZOLE 40 MG TABLET PO SCH (09:11)
[2019-08-02] MEDS: amLODIPine 5 MG TAB PO SCH ×2 (09:11→09:17)
[2019-08-02] MEDS: METOPROLOL SUCCINATE (ER) 100 MG TAB.ER.24H PO SCH ×2 (09:11→09:17)
[2019-08-02] MEDS: MULTIVITAMINS, THERA 1 EACH TAB PO SCH (09:11)
[2019-08-02] MEDS: THIAMINE 100 MG TAB PO SCH ×2 (09:11→17:59)
[2019-08-02] MEDS: RIFAXIMIN 550 MG TABLET PO SCH ×2 (09:11→21:06)
[2019-08-02] MEDS: TORSEMIDE 20 MG TAB PO SCH (09:11)
[2019-08-02] MEDS: metroNIDAZOLE 500 MG TAB PO SCH ×3 (09:12→21:06)
[2019-08-02] MEDS: CEFEPIME 2 GM in SODIUM CHLORIDE 0.9% 100 ML IVPB SCH (09:12)
[2019-08-02 09:42] LABS: INR 1.7 (<1.2); Prothrombin Time 16.4 sec (9.0-12.0)
[2019-08-02 10:09] LABS: HCT 34.4 % (39.0-53.0); MCH 34.6 pg (25.0-35.0); MCHC 31.9 g/dL (31.0-37.0); MCV 108.3 fL (80.0-100.0); Macrocytosis Marked; Mean Platelet Volume 9.7; Platelet Count 259 k/uL (150-450); RBC 3.17 m/uL (4.30-5.90); RDW 14.7 % (11.5-15.5)
[2019-08-02 10:42] LABS: Eosinophils # (M) 0.24 k/uL (0-0.7); Lymphocytes # (M) 1.68 k/uL (1.0-4.8); Monocytes # (M) 2.16 k/uL (0-1.0); Neutrophils # (M) 19.92 k/uL (1.3-7.7); Neutrophils % (M) 83 %; Nucleated Red Blood Cells 0 /100 WBC (0-0); Total Cells Counted 100
[2019-08-02 10:43] LABS: Anisocytosis (M) Present; Poikilocytosis (M) Present; Target Cells Present; Toxic Vacuolation Present
[2019-08-02] MEDS: ALBUMIN HUMAN 25% 50 ML in EMPTY BAG 1 BAG IVPB SCH ×2 (11:27→12:34)
--- NOTE | 2019-08-02 11:58 | P.PN ---
Subjective Patient is seen in follow-up for acute kidney injury. Renal function is worse today. Still edematous but improved since admission. He has been voiding. No evidence of retention. He is noted to have ascites and is scheduled for paracentesis today. Vital signs are stable. General: The patient appeared well nourished and normally developed. HEENT: Head exam is unremarkable. Neck is without jugular venous distension. LUNGS: Lungs are clear to auscultation and percussion. Breath sounds decreased. HEART: Rate and Rhythm are regular. First and second heart sounds normal. No murmurs, rubs or gallops. ABDOMEN: Abdominal exam reveals normal bowel sounds. Non-tender. Distention noted. EXTREMITITES: 2+ edema. Objective - Vital Signs Vital signs: Vital Signs Temp 98.5 F 08/02/19 11:38 Pulse 84 08/02/19 11:38 Resp 17 08/02/19 11:38 BP 116/82 08/02/19 11:38 Pulse Ox 96 08/02/19 11:38 Intake & Output 08/01/19 08/02/19 08/02/19 18:59 06:59 18:59 Intake Total 200 Output Total 850 225 Balance -650 -225 Weight 83.4 kg Intake: Intake, IV Titration 200 Amount Cefepime 2 gm In Sodium 200 Chloride 0.9% 100 ml @ 200 mls/hr IVPB DAILY [facility] Rx#:[id number] Output: Urine 400 225 Stool 450 Other: Voiding Method Urinal # Voids 1 - Labs CBC & Chem 7: 08/02/19 09:14 08/02/19 07:21 Labs: Abnormal Lab Results - Last 24 Hours (Table) 08/02/19 08/02/19 08/02/19 Range/Units 07:21 09:14 09:14 WBC 24.0 H (3.8-10.6) k/uL RBC 3.17 L (4.30-5.90) m/uL Hgb 11.0 L (13.0-17.5) gm/dL Hct 34.4 L (39.0-53.0) % MCV 108.3 H (80.0-100.0) fL Neutrophils # (Manual) 19.92 H (1.3-7.7) k/uL Monocytes # (Manual) 2.16 H (0-1.0) k/uL Macrocytosis Marked A PT 16.4 H (9.0-12.0) sec INR 1.7 H (<1.2) Sodium 134 L (137-145) mmol/L BUN 28 H (9-20) mg/dL Creatinine 2.51 H (0.66-1.25) mg/dL Calcium 7.3 L (8.4-10.2) mg/dL Magnesium 1.5 L (1.6-2.3) mg/dL Total Bilirubin 16.2 H* (0.2-1.3) mg/dL AST 136 H (17-59) U/L Alkaline Phosphatase 183 H (38-126) U/L Total Protein 6.2 L (6.3-8.2) g/dL Albumin 2.2 L (3.5-5.0) g/dL Microbiology - Last 24 Hours (Table) 07/29/19 11:32 Blood Culture - Preliminary Blood No Growth after 72 hours 07/29/19 00:50 Gram Stain - Final Sputum Sputum Culture - Final Assessment and Plan Plan: Assessment: 1. Acute kidney injury secondary to hepatorenal syndrome. Renal function worse today. Creatinine 2.52. 2. Volume overload. Noted to have ascites again. 3. Metabolic acidosis due to acute kidney injury maintained on oral sodium bica rbonate. Stable. 4. Alcohol induced hepatitis. GI following. 5. Hypokalemia secondary to diuresis. Better. 6. Hypomagnesemia secondary to diuresis. Plan: Maintain Demadex 20 mg once daily. I advised him to follow low-salt diet and 40 ounce fluid restriction per day. Schedule for paracentesis today. I will give him 25 g of albumin before and after paracentesis. Repeat electrolytes in the morning. Replace magnesium. 2 g IV today. Hold amlodipine for systolic blood pressure less than 120.
--- NOTE | 2019-08-02 12:13 | P.PN ---
Subjective Progress Note Date: 08/02/19 This is a 49-year-old male patient who presented to the ER with complaints of yellowing of skin and eyes. Patient is known past medical history of EtOH drinking approximately a pint of vodka plus beer daily. Patient's urged patient to come to ER due to presentation of jaundice 1 day patient was noted to have yellowing of his eyes and she was concerned about his liver. Additional medical history includes hyperlipidemia hypertension and ex-smoker. Abdominal ultrasound completed showing no gallstones or dilated ducts diffuse fatty infiltration of liver. Upon admission AST elevated to 95, ALT 64 alkaline phosphatase 3:30 total bilirubin 10.1 and ammonia level 185. Patient has been started on lactulose. GI services have been consulted. Patient's electrolytes also significantly impaired. Sodium low at 122, potassium 3.2, magnesium 0.7. Replacement per protocol patient currently on normal saline. Patient also currently in EtOH withdrawals. Patient has been admitted to the intensive care unit critical care services are following. Heart rate elevated secondary to withdrawal. CIWA protocol has been ordered. GI services have been consulted for Liver failure. At this time patient is resting comfortably in bed shakiness and withdrawal symptoms noted. Patient is alert and oriented 2. Patient able to follow commands. Patient denies chest pain. Patient denies shortness of breath. Patient denies any urinary burning or frequency. 07/14/2019 patient remains in the ICU. He has a sitter at bedside. He did require Ativan this morning for alcohol withdrawal and is sleeping comfortably. Heart rate is better controlled. Total bilirubin has gone up from 10.1-14.1. Ammonia level has decreased from 185-47. Hepatitis panel is negative. He is followed by GI service and critical care. He is tolerating clear liquid diet. Patient is having a bowel movement almost every hour. Patient currently on lactulose 3 times a day and Xifaxan. Patient did have a temp of 100.6 yesterday afternoon he is currently on Rocephin. Chest x-rays negative. 07/20/2019 patient is currently on a regular medical floor. He was followed by Dr. Carlton from 07/15/2019 until 07/19/2019. Patient's is being followed by GI service for his severe alcoholic hepatitis. Total bilirubin is up to 22. He has been ambulating in the hallway. Apparently he had a fall yesterday and had a computed tomography scan of the head and neck completed. Just revealing moderate atrophy of the brain. Otherwise normal findings. Ammonia levels up to 73 CO2 is down at 14. Patient denies any chest pain or shortness of breath. Denies any nausea or vomiting. Urine is starting to clear and he is having 3-5 bowel movements a day. 07/21/2019 patient sitting up in bed comfortably. He reports having at least 3 bowel movements daily. Ammonia level has decreased from 73-53. Total bilirubin has come down from 22-20.4. He is followed closely by GI service. Awaiting their recommendations regarding the prednisone. Potassium is low at 3.4. 07/22/2019 patient lying in bed comfortably. He has no new complaints. Ammonia is down to 48. He is having multiple bowel movements a day. Magnesium and pot assium are low and being replaced. Creatinine has gone up to 1.48. We'll discontinue the hydrochlorothiazide and lisinopril. Continue fluids at 50 mL an hour. Total bilirubin is 20.8 patient denies any difficulty urinating. He does report that his urine continues to become clear. GI service did hold off on starting the prednisone. On 07/23/2019 patient is alert and oriented 3 in no apparent distress bilirubin still elevated at 22 patient clinically denies any symptoms there is no fever or chills no headache or dizziness no chest pain no shortness of breath no cough no nausea or vomiting no abdominal pain no diarrhea and no urinary symptoms. , On 07/24/2019 patient was seen and examined on the medical floor, he is alert and oriented 3 in no apparent distress, he is still has significant jaundice, total bilirubin up to 22.4, creatinine up to 2.04, clinically he is feeling well, there is no fever or chills no headache no dizziness no chest pain no shortness of breath no cough no nausea or vomiting no abdominal pain no diarrhea and no urinary symptoms. On 07/25/2019 patient is alert and oriented 3. Patient up ambulating the kinney with . Patient remains with significant jaundice. Total bili is trending down 19.6. Nephrology services are following. Patient currently maintained on Sandostatin and albumin per nephrology services for concerns of hepatorenal acute kidney injury. Creatinine is improving slightly we'll continue to monitor. Patient also switched to IV sodium bicarb. We'll continue to monitor patient closely. At this time patient denies chest pain or shortness breath. Patient denies nausea vomiting or diarrhea. Patient denies any urinary burning or frequency 07/26/2019 patient lying in bed. at bedside. Patient reporting that his abdomen is more distended and firm today. He's having about 3 bowel movements a day. Patient seen by GI service. They will ordered an abdominal ultrasound with paracentesis. Creatinine is down to 1.80, total bili is 19, AST 700 and ALT 31. CO2 has come up from 14-19. Patient denies any chest pain or shortness of breath. Denies any nausea or vomiting. Denies any difficulty urinating. On 07/27/2019 patient is alert and oriented 3. Patient to undergo paracentesis today per GI services. Creatinine trending down. Total bili increasing to 19.6. This time patient denies chest pain or shortness breath. Patient denies nausea vomiting or diarrhea. Patient denies any urinary burning or frequency 07/28/2019 patient is awake and answering questions appropriately. He had a paracentesis with 2.8 L removed yesterday. His abdomen is still distended. Lactulose was increased to 3 times a day. His ammonia level had gone from 54- 72. Nephrology has discontinued the IV albumin and Sandostatin. Creatinine continues to trend down 1.48. Total bilirubin has decreased from 19.6-17.4. White count 15.2. Patient has no complaints. On 07/29/2019 patient is alert and oriented 3. Patient having elevated temp and white count. Patient is complaining cough will order chest x-ray. Patient also having drainage from paracentesis site. Blood culture and urine culture ordered. Will consult infectious disease. White blood cell elevated at 19.1, total bili 18.8. Patient denies any chest pain. Patient denies nausea vomiting or diarrhea. Patient denies any burning with urination On 07/30/2019 patient was seen and examined on the medical floor he is alert and oriented 3 in no apparent distress he is complaining of discomfort in the abdomen otherwise he denies any complaints there is no fever or chills no headache or dizziness no chest pain no shortness of breath no cough no nausea or vomiting no diarrhea no burning with urination no frequency or urgency no hematuria. White blood count still elevated at 18.9 bilirubin 18.1 AST 121 On 07/31/2019 patient was seen and examined on the medical floor he is alert and oriented 3 he has severe jaundice he denies any pain or discomfort there is no fever or chills no headache or dizziness no chest pain no shortness of breath no cough no nausea or vomiting no abdominal pain no diarrhea no burning with urination no frequency or urgency no hematuria On 08/01/2019 patient is alert and oriented 3. at bedside. Creatinine remains elevated 0.12 and bun 26. Patient remains on IV Lasix. Total bili 17.5. Patient also getting treated for possible pneumonia with Maxipime and Diflucan. GI, nephrology and infectious disease services are following. Patient denies chest pain or shortness of breath. Patient denies nausea vomiting or diarrhea. Patient denies any urinary burning or frequency On 08/02/2019 patient is alert and oriented 3. at bedside. Patient's creatinine increasing to 2.51 and bun 28. Discussed case with nephrology team. Patient was transitioned to Demadex yesterday. Patient remains quite edematous with ascites and edema. Per GI services patient to undergo paracentesis today. Per nephrology service is patient to be received 25 g of albumin prior to paracentesis and a large volume intake and output will require more albumin after. Antibiotics also adjusted per ID Flagyl added. Patient denies chest pain. Patient denies nausea vomiting or diarrhea. Patient denies any urinary burning or frequency Objective - Vital Signs Vital signs: Vital Signs Temp 98.5 F 08/02/19 11:38 Pulse 84 08/02/19 11:38 Resp 17 08/02/19 11:38 BP 116/82 08/02/19 11:38 Pulse Ox 96 08/02/19 11:38 Intake & Output 08/01/19 08/02/19 08/02/19 18:59 06:59 18:59 Intake Total 200 Output Total 850 225 Balance -650 -225 Weight 83.4 kg Intake: Intake, IV Titration 200 Amount Cefepime 2 gm In Sodium 200 Chloride 0.9% 100 ml @ 200 mls/hr IVPB DAILY [facility] Rx#:[id number] Output: Urine 400 225 Stool 450 Other: Voiding Method Urinal # Voids 1 - Exam Head normocephalic and atraumatic Neck supple no JVD no goiter Lungs clear to auscultation bilaterally no wheezing or crackles Heart regular rate and rhythm S1-S2, no rub or gallop Abdomen is soft nontender nondistended positive bowel sounds no hepatosplenomegaly Extremities +1 edema bilateral lower legs Neuro patient sleeping comfortably Skin jaundice. Scleral icterus - Labs CBC & Chem 7: 08/02/19 09:14 08/02/19 07:21 Labs: Abnormal Lab Results - Last 24 Hours (Table) 08/02/19 08/02/19 08/02/19 Range/Units 07:21 09:14 09:14 WBC 24.0 H (3.8-10.6) k/uL RBC 3.17 L (4.30-5.90) m/uL Hgb 11.0 L (13.0-17.5) gm/dL Hct 34.4 L (39.0-53.0) % MCV 108.3 H (80.0-100.0) fL Neutrophils # (Manual) 19.92 H (1.3-7.7) k/uL Monocytes # (Manual) 2.16 H (0-1.0) k/uL Macrocytosis Marked A PT 16.4 H (9.0-12.0) sec INR 1.7 H (<1.2) Sodium 134 L (137-145) mmol/L BUN 28 H (9-20) mg/dL Creatinine 2.51 H (0.66-1.25) mg/dL Calcium 7.3 L (8.4-10.2) mg/dL Magnesium 1.5 L (1.6-2.3) mg/dL Total Bilirubin 16.2 H* (0.2-1.3) mg/dL AST 136 H (17-59) U/L Alkaline Phosphatase 183 H (38-126) U/L Total Protein 6.2 L (6.3-8.2) g/dL Albumin 2.2 L (3.5-5.0) g/dL Microbiology - Last 24 Hours (Table) 07/29/19 11:32 Blood Culture - Preliminary Blood No Growth after 72 hours 07/29/19 00:50 Gram Stain - Final Sputum Sputum Culture - Final Assessment and Plan Assessment: 1. Severe Acute alcoholic hepatitis superimposed on alcoholic cirrhosis of the liver. Abdominal ultrasound completed showing no gallstones or dilated ducts. Diffuse fatty infiltration of the liver. GI services have been consulted. Hepatitis panel negative. 2. Jaundice, hyperbilirubinemia secondary to alcoholic liver disease. Total bilirubin 19. GI service is following and decided not to start prednisone. Total bili 17.4 3. EtOH withdrawal. Patient currently on CIWA protocal. Continue thiamine and add multivitamin. Continue Ativan as needed. Resolved 4. Hypokalemia. Likely losing potassium through his stooling and hydrochlorothiazide. Improved with potassium replacement 5. Hyponatremia and hypochloremic secondary to EtOH. Resolved 6. Tachycardia secondary to alcohol withdrawal. Patient's home dose beta phong resumed. Continue a call withdrawal protocol. Tachycardia has improved. Discontinue telemetry 7. History of essential hypertension. Patient's home dose of Lopressor resumed. 8. 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 Continue to monitor ammonia levels. Patient has had some confusion. Lactulose was dec reased to twice a day. And he is on Xifaxan 9. Macrocytic anemia secondary to chronic liver disease 10. Generalized weakness and fatigue due to his advanced liver disease. Continue PT OT 11. Metabolic acidosis: the patient having multiple stools. CO2 19 currently on IV sodium bicarb. Nephrology following. Patient has been switched to oral sodium bicarbonate per nephrology 12. Hypomagnesemia: Resolved with replacement 13. Acute kidney injury secondary to hepatorenal. Nephrology services are following. Creatinine 2.12 and bun 26. Patient remains on IV Lasix per nephrology. Per nephrology IV Lasix will be changed over to Demadex 20 mg daily continue a low-salt diet and fluid restriction 14. Abdominal ascites. Status post paracentesis with 2.8 L removed. Plans for paracentesis today per GI services. Did discuss with nephrology services recommended patient received 25 g of albumin prior and possibly after the large volume is removed 15. Coagulopathy due to liver disease 16. Essential hypertension: We'll continue to monitor blood pressures. BP has been slightly elevated. Repeat blood pressure 135/71. We'll continue to monitor 17. Leukocytosis with low-grade temps. infectious disease is following. Patient remains on Maxipime and Diflucan sputum and blood cultures have been negative thus far. White blood cell continue to increase infectious disease is following. Flagyl has been added DVT prophylaxis SCDs due to coagulopathy secondary to liver disease GI prophylaxis Protonix GI, nephrology infectious disease following. I performed an examination of the patient and discussed their management with the Nurse Practitioner. I have reviewed the Nurse Practitioner's notes and agree with the documented findings and plan of care
--- NOTE | 2019-08-02 14:10 | US ---
Therapeutic paracentesis. DATE OF EXAM: 08/02/2019 CLINICAL HISTORY: Ascites The procedure was discussed with the patient. The risks, complications, benefits, and alternatives we re discussed and any questions were answered. Informed consent was obtained. The patient was placed s upine on the ultrasound table and prepped and draped in the usual sterile fashion. All elements of maximal barrier technique were utilized. Under ultrasound guidance, access into the left lower quadrant was obtained, via the paracentesis catheter system and direct ultrasound guidance . Approximately 1.3 liters of straw-colored fluid was removed. The patient was stable throughout the pr ocedure and remained stable upon discharge from Department of Radiology. IMPRESSION: Successful therapeutic paracentesis under ultrasound guidance.
[2019-08-02] MEDS: MAGNESIUM SULFATE-D5W PMX 1 GM in DEXTROSE/WATER 1 100ML.BAG IVPB SCH ×2 (14:52→16:18)
[2019-08-02] MEDS ORDERED: HYDROmorphone 0.5 MG/0.5 ML SYRINGE IM PRN (16:02)
[2019-08-02] MEDS: guaiFENesin SYRUP 100MG/5ML 200 MG/10 ML CUP PO PRN (18:11)
--- NOTE | 2019-08-02 20:51 | PN ---
PROGRESS NOTE DATE OF SERVICE: 08/02/2019 REASON FOR FOLLOWUP: Leukocytosis. INTERVAL HISTORY: The patient is currently afebrile. The patient has been breathing comfortably. He denies having any chest pain. Minimal cough. No nausea, no vomiting. Denies any abdominal pain or diarrhea. PHYSICAL EXAMINATION: Blood pressure 125/85 with a pulse of 90, temperature of 98.5. He is 94% on room air. General description is a middle-aged male lying in bed in no distress. RESPIRATORY SYSTEM: Unlabored breathing with decreased breath sounds at the base. No wheeze. HEART: S1, S2. Regular rate and rhythm. ABDOMEN: Soft. Mildly distended. No guarding or rigidity. LABS: Hemoglobin is 11, white count 24,000. BUN of 28, creatinine is 2.51. Blood and sputum cultures have been negative. DIAGNOSTIC IMPRESSION AND PLAN: Patient with leukocytosis, possibly reactive in this patient who did have alcoholic hepatitis. He did have extensive workup, including CT of abdomen and pelvis that did not show any abscess or colitis. Ascitic fluid has been negative. Sputum has been negative as well as blood cultures. He is currently being covered with empiric cefepime, Flagyl and Diflucan, with no response from the white count. Monitor closely. Continue with supportive care. MMODL / IJN: [id number] /
[2019-08-03] MEDS: amLODIPine 5 MG TAB PO SCH (07:30)
[2019-08-03 07:57] LABS: Albumin 2.2 g/dL (3.5-5.0); Calcium 7.3 mg/dL (8.4-10.2); Magnesium 1.9 mg/dL (1.6-2.3); Potassium 3.3 mmol/L (3.5-5.1)
[2019-08-03 08:13] LABS: Total Bilirubin 16.1 mg/dL (0.2-1.3)
[2019-08-03] MEDS: CEFEPIME 2 GM in SODIUM CHLORIDE 0.9% 100 ML IVPB SCH (08:19)
[2019-08-03] MEDS: MULTIVITAMINS, THERA 1 EACH TAB PO SCH (08:20)
[2019-08-03] MEDS: THIAMINE 100 MG TAB PO SCH ×2 (08:20→17:59)
[2019-08-03] MEDS: SODIUM BICARBONATE TAB 650 MG TAB PO SCH ×4 (08:20→23:57)
[2019-08-03] MEDS: FLUCONAZOLE 100 MG TAB PO SCH (08:20)
[2019-08-03] MEDS: RIFAXIMIN 550 MG TABLET PO SCH ×2 (08:21→23:57)
[2019-08-03] MEDS: POTASSIUM CHLORIDE ER 20 MEQ TAB.ER PO SCH (08:21)
[2019-08-03] MEDS: PANTOPRAZOLE 40 MG TABLET PO SCH (08:21)
[2019-08-03] MEDS: TORSEMIDE 20 MG TAB PO SCH (08:21)
[2019-08-03] MEDS: LACTULOSE 20 GM/30 ML CUP PO SCH ×2 (08:23→16:28)
[2019-08-03] MEDS: metroNIDAZOLE 500 MG TAB PO SCH ×3 (08:27→23:57)
--- NOTE | 2019-08-03 11:06 | XR ---
EXAMINATION TYPE: XR chest 2V DATE OF EXAM: 08/03/2019 COMPARISON: 07/29/2019 TECHNIQUE: PA and lateral views submitted. HISTORY: Lung crackles abnormal clinical exam FINDINGS: Bilateral lower lobe infiltrate greater on the right with small effusions. Hyperinflation suggests CO PD. Heart size normal. No pneumothorax. Interstitium stable. IMPRESSION: 1. Bilateral small effusion and basilar infiltrate stable from recent exam. 2. Correlate for COPD.
[2019-08-03] MEDS ORDERED: POTASSIUM CHLORIDE ER 20 MEQ TAB.ER PO STA (11:16)
--- NOTE | 2019-08-03 11:17 | P.PN ---
Subjective Patient is seen in follow-up for acute kidney injury. Renal function worsening the last 2-3 days. Still edematous but improved since admission. He has been voiding. No evidence of retention. He underwent paracentesis yesterday with 1.3 L drained. Vital signs are stable. General: The patient appeared well nourished and normally developed. HEENT: Head exam is unremarkable. Neck is without jugular venous distension. LUNGS: Lungs are clear to auscultation and percussion. Breath sounds decreased. HEART: Rate and Rhythm are regular. First and second heart sounds normal. No murmurs, rubs or gallops. ABDOMEN: Abdominal exam reveals normal bowel sounds. Non-tender. EXTREMITITES: 2+ edema. Objective - Vital Signs Vital signs: Vital Signs Temp 98.2 F 08/03/19 02:37 Pulse 85 08/03/19 02:37 Resp 18 08/03/19 02:37 BP 110/68 08/03/19 02:37 Pulse Ox 92 L 08/03/19 02:37 Intake & Output 08/02/19 08/03/19 08/03/19 18:59 06:59 18:59 Intake Total 300 236 Output Total 600 400 150 Balance -600 -100 86 Intake: Oral 300 236 Output: Urine 600 400 150 Other: Voiding Method Toilet # Voids 1 - Labs CBC & Chem 7: 08/02/19 09:14 08/03/19 06:43 Labs: Abnormal Lab Results - Last 24 Hours (Table) 08/03/19 Range/Units 06:43 Sodium 133 L (137-145) mmol/L Potassium 3.3 L (3.5-5.1) mmol/L BUN 31 H (9-20) mg/dL Creatinine 2.79 H (0.66-1.25) mg/dL Calcium 7.3 L (8.4-10.2) mg/dL Total Bilirubin 16.1 H* (0.2-1.3) mg/dL AST 142 H (17-59) U/L Alkaline Phosphatase 161 H (38-126) U/L Total Protein 6.0 L (6.3-8.2) g/dL Albumin 2.2 L (3.5-5.0) g/dL Microbiology - Last 24 Hours (Table) 07/29/19 11:32 Blood Culture - Preliminary Blood No Growth after 96 hours Assessment and Plan Plan: Assessment: 1. Acute kidney injury secondary to hepatorenal syndrome. Renal function worse today. Creatinine 2.79 2. Volume overload with ascites. Status post paracentesis on August 01 with 1.3 L drained. 3. Metabolic acidosis due to acute kidney injury maintained on oral sodium bicarbonate. Stable. 4. Alcohol induced hepatitis. GI following. 5. Hypokalemia secondary to diuresis. 6. Hypomagnesemia secondary to diuresis. Plan: Hold Demadex. IV albumin 25 g x2 doses today and another 2 doses tomorrow. I advised him to follow low-salt diet and 40 ounce fluid restriction per day. Repeat electrolytes in the morning. Replace magnesium. 2 g IV today. Hold amlodipine for systolic blood pressure less than 120. Replace potassium. 40 mg once today.
[2019-08-03 11:26] LABS: Basophils # (A) 0.1 k/uL (0-0.2); Basophils % (A) 0 %; Eosinophils # (A) 0.2 k/uL (0-0.7); Eosinophils % (A) 1 %; HCT 31.1 % (39.0-53.0); HGB 9.8 gm/dL (13.0-17.5); Hypochromasia Moderate; Lymphocytes # (A) 1.5 k/uL (1.0-4.8); Lymphocytes % (A) 7 %; MCHC 31.7 g/dL (31.0-37.0); MCV 107.4 fL (80.0-100.0); Macrocytosis Moderate; Mean Platelet Volume 11.3; Monocytes % (A) 9 %; Neutrophils # (A) 17.9 k/uL (1.3-7.7); Neutrophils % (A) 82 %; Platelet Count 227 k/uL (150-450); RBC 2.89 m/uL (4.30-5.90); RDW 14.5 % (11.5-15.5)
[2019-08-03] MEDS: METOPROLOL SUCCINATE (ER) 100 MG TAB.ER.24H PO SCH (11:41)
--- NOTE | 2019-08-03 13:00 | P.PN ---
Subjective Progress Note Date: 08/03/19 This is a 49-year-old male patient who presented to the ER with complaints of yellowing of skin and eyes. Patient is known past medical history of EtOH drinking approximately a pint of vodka plus beer daily. Patient's urged patient to come to ER due to presentation of jaundice 1 day patient was noted to have yellowing of his eyes and she was concerned about his liver. Additional medical history includes hyperlipidemia hypertension and ex-smoker. Abdominal ultrasound completed showing no gallstones or dilated ducts diffuse fatty infiltration of liver. Upon admission AST elevated to 95, ALT 64 alkaline phosphatase 3:30 total bilirubin 10.1 and ammonia level 185. Patient has been started on lactulose. GI services have been consulted. Patient's electrolytes also significantly impaired. Sodium low at 122, potassium 3.2, magnesium 0.7. Replacement per protocol patient currently on normal saline. Patient also currently in EtOH withdrawals. Patient has been admitted to the intensive care unit critical care services are following. Heart rate elevated secondary to withdrawal. CIWA protocol has been ordered. GI services have been consulted for Liver failure. At this time patient is resting comfortably in bed shakiness and withdrawal symptoms noted. Patient is alert and oriented 2. Patient able to follow commands. Patient denies chest pain. Patient denies shortness of breath. Patient denies any urinary burning or frequency. 07/14/2019 patient remains in the ICU. He has a sitter at bedside. He did require Ativan this morning for alcohol withdrawal and is sleeping comfortably. Heart rate is better controlled. Total bilirubin has gone up from 10.1-14.1. Ammonia level has decreased from 185-47. Hepatitis panel is negative. He is followed by GI service and critical care. He is tolerating clear liquid diet. Patient is having a bowel movement almost every hour. Patient currently on lactulose 3 times a day and Xifaxan. Patient did have a temp of 100.6 yesterday afternoon he is currently on Rocephin. Chest x-rays negative. 07/20/2019 patient is currently on a regular medical floor. He was followed by Dr. Carlton from 07/15/2019 until 07/19/2019. Patient's is being followed by GI service for his severe alcoholic hepatitis. Total bilirubin is up to 22. He has been ambulating in the hallway. Apparently he had a fall yesterday and had a computed tomography scan of the head and neck completed. Just revealing moderate atrophy of the brain. Otherwise normal findings. Ammonia levels up to 73 CO2 is down at 14. Patient denies any chest pain or shortness of breath. Denies any nausea or vomiting. Urine is starting to clear and he is having 3-5 bowel movements a day. 07/21/2019 patient sitting up in bed comfortably. He reports having at least 3 bowel movements daily. Ammonia level has decreased from 73-53. Total bilirubin has come down from 22-20.4. He is followed closely by GI service. Awaiting their recommendations regarding the prednisone. Potassium is low at 3.4. 07/22/2019 patient lying in bed comfortably. He has no new complaints. Ammonia is down to 48. He is having multiple bowel movements a day. Magnesium and pot assium are low and being replaced. Creatinine has gone up to 1.48. We'll discontinue the hydrochlorothiazide and lisinopril. Continue fluids at 50 mL an hour. Total bilirubin is 20.8 patient denies any difficulty urinating. He does report that his urine continues to become clear. GI service did hold off on starting the prednisone. On 07/23/2019 patient is alert and oriented 3 in no apparent distress bilirubin still elevated at 22 patient clinically denies any symptoms there is no fever or chills no headache or dizziness no chest pain no shortness of breath no cough no nausea or vomiting no abdominal pain no diarrhea and no urinary symptoms. , On 07/24/2019 patient was seen and examined on the medical floor, he is alert and oriented 3 in no apparent distress, he is still has significant jaundice, total bilirubin up to 22.4, creatinine up to 2.04, clinically he is feeling well, there is no fever or chills no headache no dizziness no chest pain no shortness of breath no cough no nausea or vomiting no abdominal pain no diarrhea and no urinary symptoms. On 07/25/2019 patient is alert and oriented 3. Patient up ambulating the kinney with . Patient remains with significant jaundice. Total bili is trending down 19.6. Nephrology services are following. Patient currently maintained on Sandostatin and albumin per nephrology services for concerns of hepatorenal acute kidney injury. Creatinine is improving slightly we'll continue to monitor. Patient also switched to IV sodium bicarb. We'll continue to monitor patient closely. At this time patient denies chest pain or shortness breath. Patient denies nausea vomiting or diarrhea. Patient denies any urinary burning or frequency 07/26/2019 patient lying in bed. at bedside. Patient reporting that his abdomen is more distended and firm today. He's having about 3 bowel movements a day. Patient seen by GI service. They will ordered an abdominal ultrasound with paracentesis. Creatinine is down to 1.80, total bili is 19, AST 700 and ALT 31. CO2 has come up from 14-19. Patient denies any chest pain or shortness of breath. Denies any nausea or vomiting. Denies any difficulty urinating. On 07/27/2019 patient is alert and oriented 3. Patient to undergo paracentesis today per GI services. Creatinine trending down. Total bili increasing to 19.6. This time patient denies chest pain or shortness breath. Patient denies nausea vomiting or diarrhea. Patient denies any urinary burning or frequency 07/28/2019 patient is awake and answering questions appropriately. He had a paracentesis with 2.8 L removed yesterday. His abdomen is still distended. Lactulose was increased to 3 times a day. His ammonia level had gone from 54- 72. Nephrology has discontinued the IV albumin and Sandostatin. Creatinine continues to trend down 1.48. Total bilirubin has decreased from 19.6-17.4. White count 15.2. Patient has no complaints. On 07/29/2019 patient is alert and oriented 3. Patient having elevated temp and white count. Patient is complaining cough will order chest x-ray. Patient also having drainage from paracentesis site. Blood culture and urine culture ordered. Will consult infectious disease. White blood cell elevated at 19.1, total bili 18.8. Patient denies any chest pain. Patient denies nausea vomiting or diarrhea. Patient denies any burning with urination On 07/30/2019 patient was seen and examined on the medical floor he is alert and oriented 3 in no apparent distress he is complaining of discomfort in the abdomen otherwise he denies any complaints there is no fever or chills no headache or dizziness no chest pain no shortness of breath no cough no nausea or vomiting no diarrhea no burning with urination no frequency or urgency no hematuria. White blood count still elevated at 18.9 bilirubin 18.1 AST 121 On 07/31/2019 patient was seen and examined on the medical floor he is alert and oriented 3 he has severe jaundice he denies any pain or discomfort there is no fever or chills no headache or dizziness no chest pain no shortness of breath no cough no nausea or vomiting no abdominal pain no diarrhea no burning with urination no frequency or urgency no hematuria On 08/01/2019 patient is alert and oriented 3. at bedside. Creatinine remains elevated 0.12 and bun 26. Patient remains on IV Lasix. Total bili 17.5. Patient also getting treated for possible pneumonia with Maxipime and Diflucan. GI, nephrology and infectious disease services are following. Patient denies chest pain or shortness of breath. Patient denies nausea vomiting or diarrhea. Patient denies any urinary burning or frequency On 08/02/2019 patient is alert and oriented 3. at bedside. Patient's creatinine increasing to 2.51 and bun 28. Discussed case with nephrology team. Patient was transitioned to Demadex yesterday. Patient remains quite edematous with ascites and edema. Per GI services patient to undergo paracentesis today. Per nephrology service is patient to be received 25 g of albumin prior to paracentesis and a large volume intake and output will require more albumin after. Antibiotics also adjusted per ID Flagyl added. Patient denies chest pain. Patient denies nausea vomiting or diarrhea. Patient denies any urinary burning or frequency On 08/03/2019 patient is alert and oriented 3. Creatinine increasing to 2.79 a nd bun 31. Patient did undergo paracentesis yesterday 1.3 L off. Total bili 16.1. Patient remains on cefepime Flagyl and Diflucan. Patient complaining about increased congestion. Will order repeat chest x-ray. At this time patient denies chest pain. Patient denies shortness breath. Patient denies nausea or vomiting. Objective - Vital Signs Vital signs: Vital Signs Temp 98.2 F 08/03/19 02:37 Pulse 85 08/03/19 02:37 Resp 18 08/03/19 02:37 BP 110/68 08/03/19 02:37 Pulse Ox 92 L 08/03/19 02:37 Intake & Output 08/02/19 08/03/19 08/03/19 18:59 06:59 18:59 Intake Total 300 236 Output Total 600 400 150 Balance -600 -100 86 Intake: Oral 300 236 Output: Urine 600 400 150 Other: Voiding Method Toilet # Voids 1 - Exam Head normocephalic and atraumatic Neck supple no JVD no goiter Lungs clear to auscultation bilaterally no wheezing or crackles Heart regular rate and rhythm S1-S2, no rub or gallop Abdomen is soft nontender nondistended positive bowel sounds no hepatosplenomegaly Extremities +1 edema bilateral lower legs Neuro patient sleeping comfortably Skin jaundice. Scleral icterus - Labs CBC & Chem 7: 08/03/19 06:43 08/03/19 06:43 Labs: Abnormal Lab Results - Last 24 Hours (Table) 08/03/19 08/03/19 Range/Units 06:43 06:43 WBC 22.0 H (3.8-10.6) k/uL RBC 2.89 L (4.30-5.90) m/uL Hgb 9.8 L (13.0-17.5) gm/dL Hct 31.1 L (39.0-53.0) % MCV 107.4 H (80.0-100.0) fL Sodium 133 L (137-145) mmol/L Potassium 3.3 L (3.5-5.1) mmol/L BUN 31 H (9-20) mg/dL Creatinine 2.79 H (0.66-1.25) mg/dL Calcium 7.3 L (8.4-10.2) mg/dL Total Bilirubin 16.1 H* (0.2-1.3) mg/dL AST 142 H (17-59) U/L Alkaline Phosphatase 161 H (38-126) U/L Total Protein 6.0 L (6.3-8.2) g/dL Albumin 2.2 L (3.5-5.0) g/dL Microbiology - Last 24 Hours (Table) 07/29/19 11:32 Blood Culture - Preliminary Blood No Growth after 96 hours Assessment and Plan Assessment: 1. Severe Acute alcoholic hepatitis superimposed on alcoholic cirrhosis of the liver. Abdominal ultrasound completed showing no gallstones or dilated ducts. Diffuse fatty infiltration of the liver. GI services have been consulted. Hepatitis panel negative. 2. Jaundice, hyperbilirubinemia secondary to alcoholic liver disease. Total bilirubin 19. GI service is following and decided not to start prednisone. Total bili 17.4 3. EtOH withdrawal. Patient currently on CIWA protocal. Continue thiamine and add multivitamin. Continue Ativan as needed. Resolved 4. Hypokalemia. Likely losing potassium through his stooling and hydrochlorothiazide. Improved with potassium replacement 5. Hyponatremia and hypochloremic secondary to EtOH. Resolved 6. Tachycardia secondary to alcohol withdrawal. Patient's home dose beta phong resumed. Continue a call withdrawal protocol. Tachycardia has improved. Discontinue telemetry 7. History of essential hypertension. Patient's home dose of Lopressor resumed. 8. 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 Continue to monitor ammonia levels. Patient has had some confusion. Lactulose was decreased to twice a day. And he is on Xifaxan 9. Macrocytic anemia secondary to chronic liver disease 10. Generalized weakness and fatigue due to his advanced liver disease. Continue PT OT 11. Metabolic acidosis: the patient having multiple stools. CO2 19 currently on IV sodium bicarb. Nephrology following. Patient has been switched to oral sodium bicarbonate per nephrology 12. Hypomagnesemia: Resolved with replacement 13. Acute kidney injury secondary to hepatorenal. Nephrology services are following. Creatinine 2.12 and bun 26. Patient remains on IV Lasix per nephrology. Per nephrology IV Lasix will be changed over to Demadex 20 mg daily continue a low-salt diet and fluid restriction 14. Abdominal ascites. Status post paracentesis with 2.8 L removed. Plans for paracentesis today per GI services. Did discuss with nephrology services recommended patient received 25 g of albumin prior and possibly after the large volume is removed. Status post paracentesis 1.3 L removed 15. Coagulopathy due to liver disease 16. Essential hypertension: We'll continue to monitor blood pressures. BP has been slightly elevated. Repeat blood pressure 135/71. We'll continue to monitor 17. Leukocytosis with low-grade temps. infectious disease is following. Patient remains on Maxipime and Diflucan sputum and blood cultures have been negative thus far. White blood cell continue to increase infectious disease is following. Flagyl has been added. chest x-ray ordered DVT prophylaxis SCDs due to coagulopathy secondary to liver disease GI prophylaxis Protonix GI, nephrology infectious disease following. I performed an examination of the patient and discussed their management with the Nurse Practitioner. I have reviewed the Nurse Practitioner's notes and agree with the documented findings and plan of care
[2019-08-03] MEDS: ALBUMIN HUMAN 25% 50 ML in EMPTY BAG 1 BAG IVPB SCH ×2 (13:03→20:34)
[2019-08-03 14:55] LABS: Large Platelets Present; Toxic Granulation Present
[2019-08-03 14:56] LABS: Polychromasia Present
--- NOTE | 2019-08-03 17:17 | PN ---
PROGRESS NOTE DATE OF SERVICE: 08/03/2019 REASON FOR FOLLOWUP: Leukocytosis. INTERVAL HISTORY: The patient is currently afebrile, has been breathing comfortably. Denies having any chest pain or shortness of breath. He continues to have a cough with occasional sputum. No nausea, no vomiting. Denies any worsening diarrhea. PHYSICAL EXAMINATION: Blood pressure is 110/68 with a pulse of 85, temperature 98.2. He is 92% on room air. General description is a middle-aged male lying in bed in no distress. RESPIRATORY SYSTEM: Unlabored breathing with decreased breath sounds at the base. HEART: S1, S2. Regular rate and rhythm. NAUSEA ABDOMEN: Soft. No tenderness. LABS: Hemoglobin is 9.8, white count 22,000. BUN of 31, creatinine is 2.79. DIAGNOSTIC IMPRESSION AND PLAN: Patient with leukocytosis which is likely multifactorial, possibly reactive. Patient to continue with cefepime and Flagyl and Diflucan and monitor his clinical course closely. Continue with supportive care. MMODL / IJN: [id number] /
--- NOTE | 2019-08-03 19:30 | P.PN ---
Subjective Progress Note Date: 08/03/19 Principal diagnosis: Alcoholic hepatitis, elevated liver enzymes Patient is seen sitting in bed. Overall feeling better. 1.3 L removed from paracentesis yesterday. Tolerating diet. Did have some loose bowel movements yesterday but improved today. Objective - Vital Signs Vital signs: Vital Signs Temp 99 F 08/02/19 13:09 Pulse 87 08/02/19 13:09 Resp 18 08/02/19 13:09 BP 120/82 08/02/19 13:09 Pulse Ox 94 L 08/02/19 13:09 Intake & Output 08/01/19 08/02/19 08/02/19 18:59 06:59 18:59 Intake Total 200 Output Total 850 225 Balance -650 -225 Weight 83.4 kg Intake: Intake, IV Titration 200 Amount Cefepime 2 gm In Sodium 200 Chloride 0.9% 100 ml @ 200 mls/hr IVPB DAILY [facility] Rx#:[id number] Output: Urine 400 225 Stool 450 Other: Voiding Method Urinal # Voids 1 - Exam On physical examination, patient appears comfortable in no apparent distress. HEAD: Normocephalic, atraumatic. EYES: Scleral icterus. No conjunctival injection. MOUTH: No lesions, tongue midline. NECK: Trachea midline, no gross abnormalities. ABDOMEN: Soft. Bowel sounds are positive. No organomegaly. No guarding or rigidity. EXTREMITIES: 2+ pedal edema. SKIN: No rashes, jaundice. NEUROLOGIC: Alert and responsive, no asterixis. No focal deficits. - Labs CBC & Chem 7: 08/03/19 06:43 08/03/19 06:43 Labs: Abnormal Lab Results - Last 24 Hours (Table) 08/02/19 08/02/19 08/02/19 Range/Units 07:21 09:14 09:14 WBC 24.0 H (3.8-10.6) k/uL RBC 3.17 L (4.30-5.90) m/uL Hgb 11.0 L (13.0-17.5) gm/dL Hct 34.4 L (39.0-53.0) % MCV 108.3 H (80.0-100.0) fL Neutrophils # (Manual) 19.92 H (1.3-7.7) k/uL Monocytes # (Manual) 2.16 H (0-1.0) k/uL Macrocytosis Marked A PT 16.4 H (9.0-12.0) sec INR 1.7 H (<1.2) Sodium 134 L (137-145) mmol/L BUN 28 H (9-20) mg/dL Creatinine 2.51 H (0.66-1.25) mg/dL Calcium 7.3 L (8.4-10.2) mg/dL Magnesium 1.5 L (1.6-2.3) mg/dL Total Bilirubin 16.2 H* (0.2-1.3) mg/dL AST 136 H (17-59) U/L Alkaline Phosphatase 183 H (38-126) U/L Total Protein 6.2 L (6.3-8.2) g/dL Albumin 2.2 L (3.5-5.0) g/dL Microbiology - Last 24 Hours (Table) 07/29/19 11:32 Blood Culture - Preliminary Blood No Growth after 72 hours 07/29/19 00:50 Gram Stain - Final Sputum Sputum Culture - Final Assessment and Plan (1) Alcoholic hepatitis Narrative/Plan: 49-year-old male with a long-standing history of alcohol abuse, worsened over the past 2 months with 1 pint of alcohol daily who presents with jaundice, scleral icterus and weakness. Patient found to have elevation in total bilirubin of 10.1, alkaline phosphatase 330, AST 295 and ALT 69 on admission with ultrasound of the abdomen negative for any ductal dilation or gallstones with diffuse fatty infiltration noted highly suggestive of acute alcoholic hepatitis. Liver enzymes have trended up, overall consistent with alcoholic hepatitis, predominantly in a cholestatic pattern. Liver enzymes trending down. Current Visit: Yes Status: Acute Code(s): K70.10 - ALCOHOLIC HEPATITIS WITHOUT ASCITES SNOMED Code(s): 343448611 (2) Hepatic encephalopathy Current Visit: Yes Status: Acute Code(s): K72.90 - HEPATIC FAILURE, UNSPECIFIED WITHOUT COMA SNOMED Code(s): 45848376 (3) Alcohol abuse Current Visit: Yes Status: Acute Code(s): F10.10 - ALCOHOL ABUSE, UNCOMPLICATED SNOMED Code(s): 12434551 Plan: Supportive care Okay for diet as tolerated Continue to monitor CBC, CMP Continue to monitor clinically Viral hepatitis panel negative Alcohol abstinence Continue lactulose therapy, okay to hold this patient has 3 bowel movements Rifaximin ordered Diuretic regimen ordered by the nephrology service, currently being held with albumin ordered today due to increasing creatinine Repeat paracentesis yesterday with 1.3 L removed Okay for discharge from gastroenterology standpoint when otherwise medically stable Thank you for allowing us to participate in the care of the patient we will continue to follow
[2019-08-04 08:06] LABS: Albumin 2.4 g/dL (3.5-5.0); Calcium 7.6 mg/dL (8.4-10.2); Potassium 3.8 mmol/L (3.5-5.1); Total Protein 6.3 g/dL (6.3-8.2)
[2019-08-04 08:16] LABS: Total Bilirubin 15.6 mg/dL (0.2-1.3)
[2019-08-04 08:45] LABS: Basophils # (A) 0.1 k/uL (0-0.2); Basophils % (A) 0 %; Eosinophils # (A) 0.3 k/uL (0-0.7); Eosinophils % (A) 2 %; HCT 32.3 % (39.0-53.0); HGB 10.3 gm/dL (13.0-17.5); Hypochromasia Slight; Lymphocytes # (A) 1.3 k/uL (1.0-4.8); Lymphocytes % (A) 6 %; MCH 33.9 pg (25.0-35.0); MCHC 31.7 g/dL (31.0-37.0); MCV 106.7 fL (80.0-100.0); Macrocytosis Moderate; Mean Platelet Volume 9.9; Monocytes # (A) 1.6 k/uL (0-1.0); Monocytes % (A) 8 %; Neutrophils # (A) 16.4 k/uL (1.3-7.7); Neutrophils % (A) 81 %; Platelet Count 238 k/uL (150-450); RBC 3.03 m/uL (4.30-5.90); RDW 14.6 % (11.5-15.5); WBC 20.1 k/uL (3.8-10.6)
[2019-08-04] MEDS: amLODIPine 5 MG TAB PO SCH (08:54)
[2019-08-04] MEDS: LACTULOSE 20 GM/30 ML CUP PO SCH ×4 (09:03→21:20)
[2019-08-04] MEDS: PANTOPRAZOLE 40 MG TABLET PO SCH (09:05)
[2019-08-04] MEDS: THIAMINE 100 MG TAB PO SCH ×2 (09:05→17:51)
[2019-08-04] MEDS: CEFEPIME 2 GM in SODIUM CHLORIDE 0.9% 100 ML IVPB SCH (09:06)
[2019-08-04] MEDS: POTASSIUM CHLORIDE ER 20 MEQ TAB.ER PO SCH (09:06)
[2019-08-04] MEDS: METOPROLOL SUCCINATE (ER) 100 MG TAB.ER.24H PO SCH (09:06)
[2019-08-04] MEDS: FLUCONAZOLE 100 MG TAB PO SCH (09:06)
[2019-08-04] MEDS: metroNIDAZOLE 500 MG TAB PO SCH ×3 (09:06→21:20)
[2019-08-04] MEDS: SODIUM BICARBONATE TAB 650 MG TAB PO SCH ×4 (09:06→21:20)
[2019-08-04] MEDS: MULTIVITAMINS, THERA 1 EACH TAB PO SCH (09:06)
[2019-08-04] MEDS: RIFAXIMIN 550 MG TABLET PO SCH ×2 (09:14→21:20)
[2019-08-04] MEDS: ALBUMIN HUMAN 25% 50 ML in EMPTY BAG 1 BAG IVPB SCH ×2 (10:00→21:19)
[2019-08-04 10:27] LABS: Polychromasia Present; Target Cells Present
[2019-08-04 10:28] LABS: Anisocytosis (M) Present; Poikilocytosis (M) Present
--- NOTE | 2019-08-04 10:35 | P.PN ---
Subjective Progress Note Date: 08/04/19 This is a 49-year-old male patient who presented to the ER with complaints of yellowing of skin and eyes. Patient is known past medical history of EtOH drinking approximately a pint of vodka plus beer daily. Patient's urged patient to come to ER due to presentation of jaundice 1 day patient was noted to have yellowing of his eyes and she was concerned about his liver. Additional medical history includes hyperlipidemia hypertension and ex-smoker. Abdominal ultrasound completed showing no gallstones or dilated ducts diffuse fatty infiltration of liver. Upon admission AST elevated to 95, ALT 64 alkaline phosphatase 3:30 total bilirubin 10.1 and ammonia level 185. Patient has been started on lactulose. GI services have been consulted. Patient's electrolytes also significantly impaired. Sodium low at 122, potassium 3.2, magnesium 0.7. Replacement per protocol patient currently on normal saline. Patient also currently in EtOH withdrawals. Patient has been admitted to the intensive care unit critical care services are following. Heart rate elevated secondary to withdrawal. CIWA protocol has been ordered. GI services have been consulted for Liver failure. At this time patient is resting comfortably in bed shakiness and withdrawal symptoms noted. Patient is alert and oriented 2. Patient able to follow commands. Patient denies chest pain. Patient denies shortness of breath. Patient denies any urinary burning or frequency. 07/14/2019 patient remains in the ICU. He has a sitter at bedside. He did require Ativan this morning for alcohol withdrawal and is sleeping comfortably. Heart rate is better controlled. Total bilirubin has gone up from 10.1-14.1. Ammonia level has decreased from 185-47. Hepatitis panel is negative. He is followed by GI service and critical care. He is tolerating clear liquid diet. Patient is having a bowel movement almost every hour. Patient currently on lactulose 3 times a day and Xifaxan. Patient did have a temp of 100.6 yesterday afternoon he is currently on Rocephin. Chest x-rays negative. 07/20/2019 patient is currently on a regular medical floor. He was followed by Dr. Carlton from 07/15/2019 until 07/19/2019. Patient's is being followed by GI service for his severe alcoholic hepatitis. Total bilirubin is up to 22. He has been ambulating in the hallway. Apparently he had a fall yesterday and had a computed tomography scan of the head and neck completed. Just revealing moderate atrophy of the brain. Otherwise normal findings. Ammonia levels up to 73 CO2 is down at 14. Patient denies any chest pain or shortness of breath. Denies any nausea or vomiting. Urine is starting to clear and he is having 3-5 bowel movements a day. 07/21/2019 patient sitting up in bed comfortably. He reports having at least 3 bowel movements daily. Ammonia level has decreased from 73-53. Total bilirubin has come down from 22-20.4. He is followed closely by GI service. Awaiting their recommendations regarding the prednisone. Potassium is low at 3.4. 07/22/2019 patient lying in bed comfortably. He has no new complaints. Ammonia is down to 48. He is having multiple bowel movements a day. Magnesium and pot assium are low and being replaced. Creatinine has gone up to 1.48. We'll discontinue the hydrochlorothiazide and lisinopril. Continue fluids at 50 mL an hour. Total bilirubin is 20.8 patient denies any difficulty urinating. He does report that his urine continues to become clear. GI service did hold off on starting the prednisone. On 07/23/2019 patient is alert and oriented 3 in no apparent distress bilirubin still elevated at 22 patient clinically denies any symptoms there is no fever or chills no headache or dizziness no chest pain no shortness of breath no cough no nausea or vomiting no abdominal pain no diarrhea and no urinary symptoms. , On 07/24/2019 patient was seen and examined on the medical floor, he is alert and oriented 3 in no apparent distress, he is still has significant jaundice, total bilirubin up to 22.4, creatinine up to 2.04, clinically he is feeling well, there is no fever or chills no headache no dizziness no chest pain no shortness of breath no cough no nausea or vomiting no abdominal pain no diarrhea and no urinary symptoms. On 07/25/2019 patient is alert and oriented 3. Patient up ambulating the kinney with . Patient remains with significant jaundice. Total bili is trending down 19.6. Nephrology services are following. Patient currently maintained on Sandostatin and albumin per nephrology services for concerns of hepatorenal acute kidney injury. Creatinine is improving slightly we'll continue to monitor. Patient also switched to IV sodium bicarb. We'll continue to monitor patient closely. At this time patient denies chest pain or shortness breath. Patient denies nausea vomiting or diarrhea. Patient denies any urinary burning or frequency 07/26/2019 patient lying in bed. at bedside. Patient reporting that his abdomen is more distended and firm today. He's having about 3 bowel movements a day. Patient seen by GI service. They will ordered an abdominal ultrasound with paracentesis. Creatinine is down to 1.80, total bili is 19, AST 700 and ALT 31. CO2 has come up from 14-19. Patient denies any chest pain or shortness of breath. Denies any nausea or vomiting. Denies any difficulty urinating. On 07/27/2019 patient is alert and oriented 3. Patient to undergo paracentesis today per GI services. Creatinine trending down. Total bili increasing to 19.6. This time patient denies chest pain or shortness breath. Patient denies nausea vomiting or diarrhea. Patient denies any urinary burning or frequency 07/28/2019 patient is awake and answering questions appropriately. He had a paracentesis with 2.8 L removed yesterday. His abdomen is still distended. Lactulose was increased to 3 times a day. His ammonia level had gone from 54- 72. Nephrology has discontinued the IV albumin and Sandostatin. Creatinine continues to trend down 1.48. Total bilirubin has decreased from 19.6-17.4. White count 15.2. Patient has no complaints. On 07/29/2019 patient is alert and oriented 3. Patient having elevated temp and white count. Patient is complaining cough will order chest x-ray. Patient also having drainage from paracentesis site. Blood culture and urine culture ordered. Will consult infectious disease. White blood cell elevated at 19.1, total bili 18.8. Patient denies any chest pain. Patient denies nausea vomiting or diarrhea. Patient denies any burning with urination On 07/30/2019 patient was seen and examined on the medical floor he is alert and oriented 3 in no apparent distress he is complaining of discomfort in the abdomen otherwise he denies any complaints there is no fever or chills no headache or dizziness no chest pain no shortness of breath no cough no nausea or vomiting no diarrhea no burning with urination no frequency or urgency no hematuria. White blood count still elevated at 18.9 bilirubin 18.1 AST 121 On 07/31/2019 patient was seen and examined on the medical floor he is alert and oriented 3 he has severe jaundice he denies any pain or discomfort there is no fever or chills no headache or dizziness no chest pain no shortness of breath no cough no nausea or vomiting no abdominal pain no diarrhea no burning with urination no frequency or urgency no hematuria On 08/01/2019 patient is alert and oriented 3. at bedside. Creatinine remains elevated 0.12 and bun 26. Patient remains on IV Lasix. Total bili 17.5. Patient also getting treated for possible pneumonia with Maxipime and Diflucan. GI, nephrology and infectious disease services are following. Patient denies chest pain or shortness of breath. Patient denies nausea vomiting or diarrhea. Patient denies any urinary burning or frequency On 08/02/2019 patient is alert and oriented 3. at bedside. Patient's creatinine increasing to 2.51 and bun 28. Discussed case with nephrology team. Patient was transitioned to Demadex yesterday. Patient remains quite edematous with ascites and edema. Per GI services patient to undergo paracentesis today. Per nephrology service is patient to be received 25 g of albumin prior to paracentesis and a large volume intake and output will require more albumin after. Antibiotics also adjusted per ID Flagyl added. Patient denies chest pain. Patient denies nausea vomiting or diarrhea. Patient denies any urinary burning or frequency On 08/03/2019 patient is alert and oriented 3. Creatinine increasing to 2.79 a nd bun 31. Patient did undergo paracentesis yesterday 1.3 L off. Total bili 16.1. Patient remains on cefepime Flagyl and Diflucan. Patient complaining about increased congestion. Will order repeat chest x-ray. At this time patient denies chest pain. Patient denies shortness breath. Patient denies nausea or vomiting. On 08/04/2019 patient is alert and oriented 3. Patient's at bedside. Nephrology services have bedside. Patient's creatinine increasing to 3.41 and bun 37. Per nephrology services diuretics currently on hold patient maintained on albumin we'll continue to monitor kidney enzymes. Family aware that if kidneys continued to decline patient will require hemodialysis. Total bili 15.6. White blood cell is trending down. Infectious disease is following. Patient maintained on cefepime Flagyl and Diflucan. Objective - Vital Signs Vital signs: Vital Signs Temp 98.2 F 08/04/19 01:56 Pulse 88 08/04/19 04:00 Resp 18 08/04/19 04:00 BP 116/77 08/04/19 01:56 Pulse Ox 92 L 08/04/19 01:56 Intake & Output 08/03/19 08/04/19 08/04/19 18:59 06:59 18:59 Intake Total 386 Output Total 325 550 100 Balance 61 -550 -100 Weight 88.5 kg Intake: Intake, IV Titration 150 Amount Albumin Human 25% 50 ml 50 In Empty Bag 1 bag @ 50 mls/hr IVPB BID [facility] Rx#: [id number] Cefepime 2 gm In Sodium 100 Chloride 0.9% 100 ml @ 200 mls/hr IVPB DAILY [facility] Rx#:[id number] Oral 236 Output: Urine 250 400 100 Stool 75 150 Other: Voiding Method Toilet Toilet # Voids 1 1 - Exam Head normocephalic and atraumatic Neck supple no JVD no goiter Lungs clear to auscultation bilaterally no wheezing or crackles Heart regular rate and rhythm S1-S2, no rub or gallop Abdomen is soft nontender nondistended positive bowel sounds no hepatosplenome aureliano Extremities +1 edema bilateral lower legs Neuro patient sleeping comfortably Skin jaundice. Scleral icterus - Labs CBC & Chem 7: 08/04/19 07:05 08/04/19 07:05 Labs: Abnormal Lab Results - Last 24 Hours (Table) 08/03/19 08/04/19 08/04/19 Range/Units 06:43 07:05 07:05 WBC 22.0 H 20.1 H (3.8-10.6) k/uL RBC 2.89 L 3.03 L (4.30-5.90) m/uL Hgb 9.8 L 10.3 L (13.0-17.5) gm/dL Hct 31.1 L 32.3 L (39.0-53.0) % MCV 107.4 H 106.7 H (80.0-100.0) fL Neutrophils # 17.9 H 16.4 H (1.3-7.7) k/uL Monocytes # 2.0 H 1.6 H (0-1.0) k/uL Sodium 134 L (137-145) mmol/L BUN 37 H (9-20) mg/dL Creatinine 3.41 H (0.66-1.25) mg/dL Calcium 7.6 L (8.4-10.2) mg/dL Total Bilirubin 15.6 H* (0.2-1.3) mg/dL AST 125 H (17-59) U/L Alkaline Phosphatase 183 H (38-126) U/L Albumin 2.4 L (3.5-5.0) g/dL Microbiology - Last 24 Hours (Table) 07/29/19 11:32 Blood Culture - Preliminary Blood No Growth after 120 hours Assessment and Plan Assessment: 1. Severe Acute alcoholic hepatitis superimposed on alcoholic cirrhosis of the liver. Abdominal ultrasound completed showing no gallstones or dilated ducts. Diffuse fatty infiltration of the liver. GI services have been consulted. Hepatitis panel negative. 2. Jaundice, hyperbilirubinemia secondary to alcoholic liver disease. Total bilirubin 19. GI service is following and decided not to start prednisone. Total bili 15.6 3. EtOH withdrawal. Patient currently on CIWA protocal. Continue thiamine and add multivitamin. Continue Ativan as needed. Resolved 4. Hypokalemia. Likely losing potassium through his stooling and hydrochlorothiazide. Improved with potassium replacement 5. Hyponatremia and hypochloremic secondary to EtOH. Resolved 6. Tachycardia secondary to alcohol withdrawal. Patient's home dose beta phong resumed. Continue a call withdrawal protocol. Tachycardia has im proved. Discontinue telemetry 7. History of essential hypertension. Patient's home dose of Lopressor resumed. 8. 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 Continue to monitor ammonia levels. Patient has had some confusion. Lactulose was decreased to twice a day. And he is on Xifaxan 9. Macrocytic anemia secondary to chronic liver disease 10. Generalized weakness and fatigue due to his advanced liver disease. Continue PT OT 11. Metabolic acidosis: the patient having multiple stools. CO2 19 currently on IV sodium bicarb. Nephrology following. Patient has been switched to oral sodium bicarbonate per nephrology 12. Hypomagnesemia: Resolved with replacement 13. Acute kidney injury secondary to hepatorenal. Nephrology services are following. Creatinine increasing to 3.41 and bun 37. Current diuretics on hold. Patient is maintained on albumin. Discussion was held per nephrology with family that patient may require hemodialysis of kidneys continued to decline we'll continue to monitor daily 14. Abdominal ascites. Status post paracentesis with 2.8 L removed. Plans for paracentesis today per GI services. Did discuss with nephrology services recommended patient received 25 g of albumin prior and possibly after the large volume is removed. Status post paracentesis 1.3 L removed 15. Coagulopathy due to liver disease 16. Essential hypertension: We'll continue to monitor blood pressures. BP has been slightly elevated. Repeat blood pressure 135/71. We'll continue to monitor 17. Leukocytosis with low-grade temps. infectious disease is following. Patient remains on Maxipime and Diflucan sputum and blood cultures have been neg ative thus far. White blood cell continue to increase infectious disease is following. Flagyl has been added. Repeat chest x-ray completed showing bilateral small effusion basilar infiltrate stable from recent exam correlate for COPD. DVT prophylaxis SCDs due to coagulopathy secondary to liver disease GI prophylaxis Protonix GI, nephrology infectious disease following. I performed an examination of the patient and discussed their management with the Nurse Practitioner. I have reviewed the Nurse Practitioner's notes and agree with the documented findings and plan of care
[2019-08-04] MEDS: OCTREOTIDE 100 MCG/ML INJ SQ SCH ×2 (18:24→22:59)
--- NOTE | 2019-08-04 18:40 | PN ---
PROGRESS NOTE Patient is seen for followup for acute kidney injury. The patient had acute kidney injury on initial admission, which was mainly hepatorenal. This had improved; however, currently his creatinine has started to increase again while patient was being diuresed. Diuretics are currently on hold. Patient has been started on IV albumin. I will also add Sandostatin, as patient was taking previously. PHYSICAL EXAMINATION: On examination today, blood pressure was 104/71, heart rate 75 per minute. Patient is afebrile. EXAMINATION OF THE HEART: S1 and S2. EXAMINATION OF LUNGS: Decreased breath sounds at bases. ABDOMEN: Soft, non-tender. Examination of lower extremities shows edema 2+ bilaterally. LITHOPONE CHARGER exam is grossly intact. LABS: Sodium 134, potassium 3.8, BUN 37, serum creatinine 3.4, total bilirubin 15.6, albumin 2.4. ASSESSMENT: 1. Acute kidney injury, most likely hepatorenal, maintained on IV albumin. Add Sandostatin as well, since renal function has been worsening. Diuretics are on hold. Overall prognosis is guarded. 2. Ascites and significant lower extremity edema associated with portal hypertension, chronic liver disease. 3. Metabolic acidosis associated with renal failure, maintained on sodium bicarb. 4. Acute alcoholic hepatitis. 5. Hypokalemia associated with diuresis. PLAN: Continue with IV albumin. Add Sandostatin. Repeat labs in a.m. Continue to hold off on diuretics. Overall prognosis is guarded, given the underlying significant liver disease and significant hyperbilirubinemia. MMODL / IJN: [id number] /
[2019-08-04] MEDS: guaiFENesin SYRUP 100MG/5ML 200 MG/10 ML CUP PO PRN (22:59)
--- NOTE | 2019-08-04 23:37 | PN ---
PROGRESS NOTE DATE OF SERVICE: 08/04/2019 REASON FOR FOLLOWUP: Leukocytosis. INTERVAL HISTORY: The patient is currently afebrile, has been breathing comfortably. Denies having any chest pain. Occasional cough. No nausea or vomiting. No abdominal pain or any worsening diarrhea. PHYSICAL EXAMINATION: Blood pressure 136/91 with a pulse of 85, temperature 98.1. He is 96% on room air. General description is a middle-aged male lying in bed in no distress. RESPIRATORY SYSTEM: Unlabored breathing with decreased breath sounds at the base. No wheeze. HEART: S1, S2. Regular rate and rhythm. ABDOMEN: Soft. No tenderness. LABS: Hemoglobin is 10.3, white count 20,000. Creatinine 3.41. DIAGNOSTIC IMPRESSION AND PLAN: Patient with leukocytosis, likely multifactorial, possibly reactive culture so far negative for any source with a question of pneumonia. The patient's white count has shown a downward trend; however, he did have worsening of his kidney function. To continue with current antibiotic and monitor clinical course closely. MMODL / IJN: [id number] /
[2019-08-05] MEDS: METOPROLOL SUCCINATE (ER) 100 MG TAB.ER.24H PO SCH (08:10)
[2019-08-05] MEDS: FLUCONAZOLE 100 MG TAB PO SCH (08:11)
[2019-08-05] MEDS: THIAMINE 100 MG TAB PO SCH ×2 (08:11→16:44)
[2019-08-05] MEDS: metroNIDAZOLE 500 MG TAB PO SCH ×3 (08:11→20:24)
[2019-08-05] MEDS: POTASSIUM CHLORIDE ER 20 MEQ TAB.ER PO SCH (08:11)
[2019-08-05] MEDS: MULTIVITAMINS, THERA 1 EACH TAB PO SCH (08:11)
[2019-08-05] MEDS: SODIUM BICARBONATE TAB 650 MG TAB PO SCH ×4 (08:11→20:24)
[2019-08-05] MEDS: amLODIPine 5 MG TAB PO SCH (08:11)
[2019-08-05] MEDS: PANTOPRAZOLE 40 MG TABLET PO SCH (08:11)
[2019-08-05] MEDS: CEFEPIME 2 GM in SODIUM CHLORIDE 0.9% 100 ML IVPB SCH (08:12)
[2019-08-05] MEDS: LACTULOSE 20 GM/30 ML CUP PO SCH ×3 (08:12→20:24)
[2019-08-05] MEDS: RIFAXIMIN 550 MG TABLET PO SCH ×2 (08:12→20:24)
[2019-08-05] MEDS: OCTREOTIDE 100 MCG/ML INJ SQ SCH ×3 (08:52→23:55)
[2019-08-05 09:30] LABS: Basophils # (A) 0.1 k/uL (0-0.2); Basophils % (A) 0 %; Eosinophils # (A) 0.5 k/uL (0-0.7); Eosinophils % (A) 3 %; HCT 32.9 % (39.0-53.0); HGB 10.3 gm/dL (13.0-17.5); Hypochromasia Slight; Lymphocytes # (A) 1.2 k/uL (1.0-4.8); Lymphocytes % (A) 7 %; MCH 33.7 pg (25.0-35.0); MCHC 31.3 g/dL (31.0-37.0); MCV 107.9 fL (80.0-100.0); Macrocytosis Marked; Mean Platelet Volume 10.1; Monocytes # (A) 1.5 k/uL (0-1.0); Monocytes % (A) 8 %; Neutrophils # (A) 14.2 k/uL (1.3-7.7); Neutrophils % (A) 80 %; Platelet Count 249 k/uL (150-450); RBC 3.05 m/uL (4.30-5.90); RDW 14.8 % (11.5-15.5); WBC 17.7 k/uL (3.8-10.6)
[2019-08-05 09:45] LABS: Albumin 2.6 g/dL (3.5-5.0); Calcium 7.7 mg/dL (8.4-10.2); Total Bilirubin 14.6 mg/dL (0.2-1.3); Total Protein 6.5 g/dL (6.3-8.2)
--- NOTE | 2019-08-05 10:40 | P.PN ---
Subjective Progress Note Date: 08/05/19 This is a 49-year-old male patient who presented to the ER with complaints of yellowing of skin and eyes. Patient is known past medical history of EtOH drinking approximately a pint of vodka plus beer daily. Patient's urged patient to come to ER due to presentation of jaundice 1 day patient was noted to have yellowing of his eyes and she was concerned about his liver. Additional medical history includes hyperlipidemia hypertension and ex-smoker. Abdominal ultrasound completed showing no gallstones or dilated ducts diffuse fatty infiltration of liver. Upon admission AST elevated to 95, ALT 64 alkaline phosphatase 3:30 total bilirubin 10.1 and ammonia level 185. Patient has been started on lactulose. GI services have been consulted. Patient's electrolytes also significantly impaired. Sodium low at 122, potassium 3.2, magnesium 0.7. Replacement per protocol patient currently on normal saline. Patient also currently in EtOH withdrawals. Patient has been admitted to the intensive care unit critical care services are following. Heart rate elevated secondary to withdrawal. CIWA protocol has been ordered. GI services have been consulted for Liver failure. At this time patient is resting comfortably in bed shakiness and withdrawal symptoms noted. Patient is alert and oriented 2. Patient able to follow commands. Patient denies chest pain. Patient denies shortness of breath. Patient denies any urinary burning or frequency. 07/14/2019 patient remains in the ICU. He has a sitter at bedside. He did require Ativan this morning for alcohol withdrawal and is sleeping comfortably. Heart rate is better controlled. Total bilirubin has gone up from 10.1-14.1. Ammonia level has decreased from 185-47. Hepatitis panel is negative. He is followed by GI service and critical care. He is tolerating clear liquid diet. Patient is having a bowel movement almost every hour. Patient currently on lactulose 3 times a day and Xifaxan. Patient did have a temp of 100.6 yesterday afternoon he is currently on Rocephin. Chest x-rays negative. 07/20/2019 patient is currently on a regular medical floor. He was followed by Dr. Carlton from 07/15/2019 until 07/19/2019. Patient's is being followed by GI service for his severe alcoholic hepatitis. Total bilirubin is up to 22. He has been ambulating in the hallway. Apparently he had a fall yesterday and had a computed tomography scan of the head and neck completed. Just revealing moderate atrophy of the brain. Otherwise normal findings. Ammonia levels up to 73 CO2 is down at 14. Patient denies any chest pain or shortness of breath. Denies any nausea or vomiting. Urine is starting to clear and he is having 3-5 bowel movements a day. 07/21/2019 patient sitting up in bed comfortably. He reports having at least 3 bowel movements daily. Ammonia level has decreased from 73-53. Total bilirubin has come down from 22-20.4. He is followed closely by GI service. Awaiting their recommendations regarding the prednisone. Potassium is low at 3.4. 07/22/2019 patient lying in bed comfortably. He has no new complaints. Ammonia is down to 48. He is having multiple bowel movements a day. Magnesium and pot assium are low and being replaced. Creatinine has gone up to 1.48. We'll discontinue the hydrochlorothiazide and lisinopril. Continue fluids at 50 mL an hour. Total bilirubin is 20.8 patient denies any difficulty urinating. He does report that his urine continues to become clear. GI service did hold off on starting the prednisone. On 07/23/2019 patient is alert and oriented 3 in no apparent distress bilirubin still elevated at 22 patient clinically denies any symptoms there is no fever or chills no headache or dizziness no chest pain no shortness of breath no cough no nausea or vomiting no abdominal pain no diarrhea and no urinary symptoms. , On 07/24/2019 patient was seen and examined on the medical floor, he is alert and oriented 3 in no apparent distress, he is still has significant jaundice, total bilirubin up to 22.4, creatinine up to 2.04, clinically he is feeling well, there is no fever or chills no headache no dizziness no chest pain no shortness of breath no cough no nausea or vomiting no abdominal pain no diarrhea and no urinary symptoms. On 07/25/2019 patient is alert and oriented 3. Patient up ambulating the kinney with . Patient remains with significant jaundice. Total bili is trending down 19.6. Nephrology services are following. Patient currently maintained on Sandostatin and albumin per nephrology services for concerns of hepatorenal acute kidney injury. Creatinine is improving slightly we'll continue to monitor. Patient also switched to IV sodium bicarb. We'll continue to monitor patient closely. At this time patient denies chest pain or shortness breath. Patient denies nausea vomiting or diarrhea. Patient denies any urinary burning or frequency 07/26/2019 patient lying in bed. at bedside. Patient reporting that his abdomen is more distended and firm today. He's having about 3 bowel movements a day. Patient seen by GI service. They will ordered an abdominal ultrasound with paracentesis. Creatinine is down to 1.80, total bili is 19, AST 700 and ALT 31. CO2 has come up from 14-19. Patient denies any chest pain or shortness of breath. Denies any nausea or vomiting. Denies any difficulty urinating. On 07/27/2019 patient is alert and oriented 3. Patient to undergo paracentesis today per GI services. Creatinine trending down. Total bili increasing to 19.6. This time patient denies chest pain or shortness breath. Patient denies nausea vomiting or diarrhea. Patient denies any urinary burning or frequency 07/28/2019 patient is awake and answering questions appropriately. He had a paracentesis with 2.8 L removed yesterday. His abdomen is still distended. Lactulose was increased to 3 times a day. His ammonia level had gone from 54- 72. Nephrology has discontinued the IV albumin and Sandostatin. Creatinine continues to trend down 1.48. Total bilirubin has decreased from 19.6-17.4. White count 15.2. Patient has no complaints. On 07/29/2019 patient is alert and oriented 3. Patient having elevated temp and white count. Patient is complaining cough will order chest x-ray. Patient also having drainage from paracentesis site. Blood culture and urine culture ordered. Will consult infectious disease. White blood cell elevated at 19.1, total bili 18.8. Patient denies any chest pain. Patient denies nausea vomiting or diarrhea. Patient denies any burning with urination On 07/30/2019 patient was seen and examined on the medical floor he is alert and oriented 3 in no apparent distress he is complaining of discomfort in the abdomen otherwise he denies any complaints there is no fever or chills no headache or dizziness no chest pain no shortness of breath no cough no nausea or vomiting no diarrhea no burning with urination no frequency or urgency no hematuria. White blood count still elevated at 18.9 bilirubin 18.1 AST 121 On 07/31/2019 patient was seen and examined on the medical floor he is alert and oriented 3 he has severe jaundice he denies any pain or discomfort there is no fever or chills no headache or dizziness no chest pain no shortness of breath no cough no nausea or vomiting no abdominal pain no diarrhea no burning with urination no frequency or urgency no hematuria On 08/01/2019 patient is alert and oriented 3. at bedside. Creatinine remains elevated 0.12 and bun 26. Patient remains on IV Lasix. Total bili 17.5. Patient also getting treated for possible pneumonia with Maxipime and Diflucan. GI, nephrology and infectious disease services are following. Patient denies chest pain or shortness of breath. Patient denies nausea vomiting or diarrhea. Patient denies any urinary burning or frequency On 08/02/2019 patient is alert and oriented 3. at bedside. Patient's creatinine increasing to 2.51 and bun 28. Discussed case with nephrology team. Patient was transitioned to Demadex yesterday. Patient remains quite edematous with ascites and edema. Per GI services patient to undergo paracentesis today. Per nephrology service is patient to be received 25 g of albumin prior to paracentesis and a large volume intake and output will require more albumin after. Antibiotics also adjusted per ID Flagyl added. Patient denies chest pain. Patient denies nausea vomiting or diarrhea. Patient denies any urinary burning or frequency On 08/03/2019 patient is alert and oriented 3. Creatinine increasing to 2.79 a nd bun 31. Patient did undergo paracentesis yesterday 1.3 L off. Total bili 16.1. Patient remains on cefepime Flagyl and Diflucan. Patient complaining about increased congestion. Will order repeat chest x-ray. At this time patient denies chest pain. Patient denies shortness breath. Patient denies nausea or vomiting. On 08/04/2019 patient is alert and oriented 3. Patient's at bedside. Nephrology services have bedside. Patient's creatinine increasing to 3.41 and bun 37. Per nephrology services diuretics currently on hold patient maintained on albumin we'll continue to monitor kidney enzymes. Family aware that if kidneys continued to decline patient will require hemodialysis. Total bili 15.6. White blood cell is trending down. Infectious disease is following. Patient maintained on cefepime Flagyl and Diflucan. On 08/05/2019 patient is alert and oriented 3. Total bili decreasing to 14.6 and WBC trending down. Patient's creatinine increasing to 3.72 and bun 42. Patient was started on Sandostatin maintained on albumin per nephrology services. Discussion was held with family per nephrology that patient may require hemodialysis if kidneys continued to decline. At this time patient denies chest pain. Patient denies nausea vomiting or diarrhea. Patient denies shortness breath. Patient denies any urinary burning or frequency Objective - Vital Signs Vital signs: Vital Signs Temp 98.1 F 08/05/19 07:32 Pulse 72 08/05/19 07:32 Resp 17 08/05/19 08:00 BP 120/78 08/05/19 07:32 Pulse Ox 91 L 08/05/19 07:32 Intake & Output 08/04/19 08/05/19 08/05/19 18:59 06:59 18:59 Intake Total 840 100 Output Total 600 325 120 Balance 240 -225 -120 Weight 88.5 kg 88.8 kg Intake: Intake, IV Titration 50 Amount Albumin Human 25% 50 ml 50 In Empty Bag 1 bag @ 50 mls/hr IVPB BID [facility] Rx#: [id number] Oral 840 50 Output: Urine 600 325 120 Other: Voiding Method Toilet Toilet Toilet - Exam Head normocephalic and atraumatic Neck supple no JVD no goiter Lungs clear to auscultation bilaterally no wheezing or crackles Heart regular rate and rhythm S1-S2, no rub or gallop Abdomen is soft nontender nondistended positive bowel sounds no hepatosplenomegaly Extremities +1 edema bilateral lower legs Neuro patient sleeping comfortably Skin jaundice. Scleral icterus - Labs CBC & Chem 7: 08/05/19 07:21 08/05/19 07:21 Labs: Abnormal Lab Results - Last 24 Hours (Table) 08/05/19 08/05/19 Range/Units 07:21 07:21 WBC 17.7 H (3.8-10.6) k/uL RBC 3.05 L (4.30-5.90) m/uL Hgb 10.3 L (13.0-17.5) gm/dL Hct 32.9 L (39.0-53.0) % MCV 107.9 H (80.0-100.0) fL Macrocytosis Marked A Sodium 135 L (137-145) mmol/L Chloride 97 L (98-107) mmol/L BUN 42 H (9-20) mg/dL Creatinine 3.72 H (0.66-1.25) mg/dL Glucose 63 L (74-99) mg/dL Calcium 7.7 L (8.4-10.2) mg/dL Total Bilirubin 14.6 H (0.2-1.3) mg/dL AST 107 H (17-59) U/L Alkaline Phosphatase 155 H (38-126) U/L Albumin 2.6 L (3.5-5.0) g/dL Microbiology - Last 24 Hours (Table) 07/29/19 11:32 Blood Culture - Final Blood No Growth after 144 hours Assessment and Plan Assessment: 1. Severe Acute alcoholic hepatitis superimposed on alcoholic cirrhosis of the liver. Abdominal ultrasound completed showing no gallstones or dilated ducts. Diffuse fatty infiltration of the liver. GI services have been consulted. Hepatitis panel negative. 2. Jaundice, hyperbilirubinemia secondary to alcoholic liver disease. Total bilirubin 19. GI service is following and decided not to start prednisone. Total bili 15.6 3. EtOH withdrawal. Patient currently on CIWA protocal. Continue thiamine and add multivitamin. Continue Ativan as needed. Resolved 4. Hypokalemia. Likely losing potassium through his stooling and hydrochlorothiazide. Improved with potassium replacement 5. Hyponatremia and hypochloremic secondary to EtOH. Resolved 6. Tachycardia secondary to alcohol withdrawal. Patient's home dose beta phong resumed. Continue a call withdrawal protocol. Tachycardia has improved. Discontinue telemetry 7. History of essential hypertension. Patient's home dose of Lopressor resumed. 8. 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 Continue to monitor ammonia levels. Patient has had some confusion. Lactulose was decreased to twice a day. And he is on Xifaxan 9. Macrocytic anemia secondary to chronic liver disease 10. Generalized weakness and fatigue due to his advanced liver disease. Continue PT OT 11. Metabolic acidosis: the patient having multiple stools. CO2 19 currently on IV sodium bicarb. Nephrology following. Patient has been switched to oral sodium bicarbonate per nephrology 12. Hypomagnesemia: Resolved with replacement 13. Acute kidney injury secondary to hepatorenal. Nephrology services are following. Creatinine increasing to 3.41 and bun 37. Current diuretics on hold. Patient is maintained on albumin. Discussion was held per nephrology with family that patient may require hemodialysis of kidneys continued to decline we'll continue to monitor daily. maintained on albumin and Sandostatin per nephrology services 14. Abdominal ascites. Status post paracentesis with 2.8 L removed. Plans for paracentesis today per GI services. Did discuss with nephrology services recommended patient received 25 g of albumin prior and possibly after the large volume is removed. Status post paracentesis 1.3 L removed 15. Coagulopathy due to liver disease 16. Essential hypertension: We'll continue to monitor blood pressures. BP has been slightly elevated. Repeat blood pressure 135/71. We'll continue to monitor 17. Leukocytosis with low-grade temps. infectious disease is following. Patient remains on Maxipime and Diflucan sputum and blood cultures have been negative thus far. White blood cell continue to increase infectious disease is following. Flagyl has been added. Repeat chest x-ray completed showing bilateral small effusion basilar infiltrate stable from recent exam correlate for COPD. DVT prophylaxis SCDs due to coagulopathy secondary to liver disease GI proph ylaxis Protonix GI, nephrology infectious disease following. I performed an examination of the patient and discussed their management with the Nurse Practitioner. I have reviewed the Nurse Practitioner's notes and agree with the documented findings and plan of care
[2019-08-05 10:59] LABS: Poikilocytosis (M) Present; Target Cells Present; Toxic Granulation Present
--- NOTE | 2019-08-05 12:47 | PN ---
PROGRESS NOTE Patient is seen for followup for acute kidney injury, most likely hepatorenal syndrome. The patient was on diuretics, which are now on hold. He also had multiple loose bowel movements. Therefore, there was a suspicion for possible intravascular volume depletion as well. The patient was restarted on Sandostatin. He is also maintained on IV albumin. He states he has had good urine output. Serum creatinine is again higher at 3.7 today from 3.4 yesterday. PHYSICAL EXAMINATION: On examination, blood pressure was 120/78, heart rate 72 per minute. Patient is afebrile. EXAMINATION OF THE HEART: S1, S2. EXAMINATION OF THE LUNGS: Bilateral breath sounds are heard. Abdomen is soft, nontender. Examination of the lower extremities shows edema 3+ bilaterally. M[employer]PER[employer] TABLETS exam grossly intact. LABS: Labs show sodium of 135, potassium 4.0, chloride 97, BUN 42, creatinine 3.7, serum bilirubin down to 14.6, hemoglobin 10.3. ASSESSMENT: 1. Acute kidney injury, most likely hepatorenal syndrome, which had improved initially, but now renal function is progressively worsening again. The patient was restarted on Sandostatin. He has also been receiving IV albumin. There are no nephrotoxic agents on board. Diuretics are on hold. We will repeat labs in a.m. He currently has fair urine output, although it is not accurately measured. If renal function continues to deteriorate, he may need to start dialysis. However, overall prognosis is guarded. 2. Alcoholic hepatitis. 3. Chronic liver disease with severe hyperbilirubinemia and portal hypertension with ascites. 4. Hypokalemia associated with diuresis, status post replacement. PLAN: Continue with Sandostatin. Continue IV albumin. Repeat labs in a.m. Overall prognosis is guarded. MMODL / IJN: [id number] /
--- NOTE | 2019-08-05 15:22 | P.PN ---
Subjective Progress Note Date: 08/04/19 Principal diagnosis: Alcoholic hepatitis, elevated liver enzymes Patient is seen sitting bedside. Tolerating his diet. No change in bowel habits with urination made. No abdominal pain. Objective - Vital Signs Vital signs: Vital Signs Temp 98.0 F 08/04/19 07:00 Pulse 75 08/04/19 07:00 Resp 16 08/04/19 07:00 BP 104/71 08/04/19 07:00 Pulse Ox 95 08/04/19 07:00 Intake & Output 08/03/19 08/04/19 08/04/19 18:59 06:59 18:59 Intake Total 386 840 Output Total 325 550 350 Balance 61 -550 490 Weight 88.5 kg 88.5 kg Intake: Intake, IV Titration 150 Amount Albumin Human 25% 50 ml 50 In Empty Bag 1 bag @ 50 mls/hr IVPB BID [facility] Rx#: [id number] Cefepime 2 gm In Sodium 100 Chloride 0.9% 100 ml @ 200 mls/hr IVPB DAILY [facility] Rx#:[id number] Oral 236 840 Output: Urine 250 400 350 Stool 75 150 Other: Voiding Method Toilet Toilet Toilet # Voids 1 1 - Exam On physical examination, patient appears comfortable in no apparent distress. HEAD: Normocephalic, atraumatic. EYES: Scleral icterus. No conjunctival injection. MOUTH: No lesions, tongue midline. NECK: Trachea midline, no gross abnormalities. ABDOMEN: Soft. Bowel sounds are positive. No organomegaly. No guarding or rigidity. EXTREMITIES: 2+ pedal edema. SKIN: No rashes, jaundice. NEUROLOGIC: Alert and responsive, no asterixis. No focal deficits. - Labs CBC & Chem 7: 08/05/19 07:21 08/05/19 07:21 Labs: Abnormal Lab Results - Last 24 Hours (Table) 08/04/19 08/04/19 Range/Units 07:05 07:05 WBC 20.1 H (3.8-10.6) k/uL RBC 3.03 L (4.30-5.90) m/uL Hgb 10.3 L (13.0-17.5) gm/dL Hct 32.3 L (39.0-53.0) % MCV 106.7 H (80.0-100.0) fL Neutrophils # 16.4 H (1.3-7.7) k/uL Monocytes # 1.6 H (0-1.0) k/uL Sodium 134 L (137-145) mmol/L BUN 37 H (9-20) mg/dL Creatinine 3.41 H (0.66-1.25) mg/dL Calcium 7.6 L (8.4-10.2) mg/dL Total Bilirubin 15.6 H* (0.2-1.3) mg/dL AST 125 H (17-59) U/L Alkaline Phosphatase 183 H (38-126) U/L Albumin 2.4 L (3.5-5.0) g/dL Microbiology - Last 24 Hours (Table) 07/29/19 11:32 Blood Culture - Final Blood No Growth after 144 hours Assessment and Plan (1) Alcoholic hepatitis Narrative/Plan: 49-year-old male with a long-standing history of alcohol abuse, worsened over the past 2 months with 1 pint of alcohol daily who presents with jaundice, scleral icterus and weakness. Patient found to have elevation in total bilirubin of 10.1, alkaline phosphatase 330, AST 295 and ALT 69 on admission with ultrasound of the abdomen negative for any ductal dilation or gallstones with diffuse fatty infiltration noted highly suggestive of acute alcoholic hepatitis. Liver enzymes have trended up, overall consistent with alcoholic hepatitis, predominantly in a cholestatic pattern. Liver enzymes trending down. Current Visit: Yes Status: Acute Code(s): K70.10 - ALCOHOLIC HEPATITIS WITHOUT ASCITES SNOMED Code(s): 969825352 (2) Hepatic encephalopathy Current Visit: Yes Status: Acute Code(s): K72.90 - HEPATIC FAILURE, UNSPECIFIED WITHOUT COMA SNOMED Code(s): 46286820 (3) Alcohol abuse Current Visit: Yes Status: Acute Code(s): F10.10 - ALCOHOL ABUSE, UNCOMPLICA JAYLAN SNOMED Code(s): 23609118 Plan: Supportive care Okay for diet as tolerated Continue to monitor CBC, CMP Continue to monitor clinically Viral hepatitis panel negative Alcohol abstinence Continue lactulose therapy, okay to hold this patient has 3 bowel movements Rifaximin ordered Diuretic regimen ordered by the nephrology service, currently being held with albumin ordered today due to increasing creatinine Okay for discharge from gastroenterology standpoint when otherwise medically stable Thank you for allowing us to participate in the care of the patient we will continue to follow
--- NOTE | 2019-08-05 22:02 | PN ---
PROGRESS NOTE DATE OF SERVICE: 08/05/2019. REASON FOR FOLLOWUP: Leukocytosis. INTERVAL HISTORY: The patient is currently afebrile. He has been breathing comfortably. Denies having any chest pain or shortness of breath. No cough. No abdominal pain or diarrhea. On examination, the blood pressure 120/85 with a pulse of 82, temperature 97.8. He is 97% on room air. General description is a middle-age male up in the chair in no distress. Respiratory system: Unlabored breathing. Decreased breath sounds at the bases. No wheeze. Heart S1, S2. Regular rate and rhythm. Abdomen soft. No distention. LABS: Hemoglobin is 10.8, white count 17.7, BUN of 42, creatinine 3.7. DIAGNOSTIC IMPRESSION AND PLAN: Patient with leukocytosis which is likely multifactorial in this patient who likely had reactive plus-minus component of pneumonia. The patient is currently covered with cefepime and Flagyl and that will be continued. White count showing a downward trend. Continue supportive care. MMODL / IJN: [id number] /
[2019-08-06 07:45] LABS: Albumin 2.4 g/dL (3.5-5.0); Calcium 7.7 mg/dL (8.4-10.2); Potassium 3.7 mmol/L (3.5-5.1); Total Bilirubin 13.4 mg/dL (0.2-1.3); Total Protein 6.1 g/dL (6.3-8.2)
[2019-08-06] MEDS: OCTREOTIDE 100 MCG/ML INJ SQ SCH ×2 (07:48→16:42)
[2019-08-06] MEDS: PANTOPRAZOLE 40 MG TABLET PO SCH (07:48)
[2019-08-06] MEDS: THIAMINE 100 MG TAB PO SCH ×2 (07:48→17:41)
[2019-08-06 07:57] LABS: HCT 31.4 % (39.0-53.0); HGB 9.9 gm/dL (13.0-17.5); Hypochromasia Slight; MCH 33.6 pg (25.0-35.0); MCHC 31.4 g/dL (31.0-37.0); MCV 106.7 fL (80.0-100.0); Macrocytosis Moderate; Mean Platelet Volume 9.4; Platelet Count 257 k/uL (150-450); RBC 2.94 m/uL (4.30-5.90); RDW 14.8 % (11.5-15.5); WBC 16.5 k/uL (3.8-10.6)
[2019-08-06 09:11] LABS: Eosinophils # (M) 1.16 k/uL (0-0.7); Lymphocytes # (M) 1.82 k/uL (1.0-4.8); Monocytes # (M) 0.99 k/uL (0-1.0); Neutrophils # (M) 12.54 k/uL (1.3-7.7); Neutrophils % (M) 76 %; Nucleated Red Blood Cells 0 /100 WBC (0-0); Target Cells Present; Total Cells Counted 100
[2019-08-06 09:12] LABS: Anisocytosis (M) Present
[2019-08-06] MEDS: CEFEPIME 2 GM in SODIUM CHLORIDE 0.9% 100 ML IVPB SCH (09:12)
[2019-08-06] MEDS: amLODIPine 5 MG TAB PO SCH (09:14)
[2019-08-06] MEDS: RIFAXIMIN 550 MG TABLET PO SCH ×2 (09:14→21:16)
[2019-08-06] MEDS: metroNIDAZOLE 500 MG TAB PO SCH ×3 (09:14→21:16)
[2019-08-06] MEDS: METOPROLOL SUCCINATE (ER) 100 MG TAB.ER.24H PO SCH (09:14)
[2019-08-06] MEDS: MULTIVITAMINS, THERA 1 EACH TAB PO SCH (09:14)
[2019-08-06] MEDS: FLUCONAZOLE 100 MG TAB PO SCH (09:14)
[2019-08-06] MEDS: SODIUM BICARBONATE TAB 650 MG TAB PO SCH ×4 (09:14→21:16)
[2019-08-06] MEDS: POTASSIUM CHLORIDE ER 20 MEQ TAB.ER PO SCH (09:15)
[2019-08-06] MEDS: LACTULOSE 20 GM/30 ML CUP PO SCH ×2 (09:15→16:08)
--- NOTE | 2019-08-06 12:31 | P.PN ---
Subjective Progress Note Date: 08/06/19 Follow-up for acute kidney injury. Objective - Vital Signs Vital signs: Vital Signs Temp 97.8 F 08/06/19 08:30 Pulse 78 08/06/19 08:30 Resp 17 08/06/19 09:20 BP 118/85 08/06/19 08:30 Pulse Ox 95 08/06/19 08:30 Intake & Output 08/05/19 08/06/19 08/06/19 18:59 06:59 18:59 Intake Total 500 50 Output Total 370 200 Balance 130 -150 Weight 88.6 kg Intake: Oral 500 50 Output: Urine 370 200 Other: Voiding Method Toilet Toilet Toilet - Exam No acute distress S1-S2 heard Lungs decreased breath sounds Abdomen distended Edema - Labs CBC & Chem 7: 08/06/19 06:43 08/06/19 06:43 Labs: Abnormal Lab Results - Last 24 Hours (Table) 08/06/19 08/06/19 Range/Units 06:43 06:43 WBC 16.5 H (3.8-10.6) k/uL RBC 2.94 L (4.30-5.90) m/uL Hgb 9.9 L (13.0-17.5) gm/dL Hct 31.4 L (39.0-53.0) % MCV 106.7 H (80.0-100.0) fL Neutrophils # (Manual) 12.54 H (1.3-7.7) k/uL Eosinophils # (Manual) 1.16 H (0-0.7) k/uL Sodium 136 L (137-145) mmol/L BUN 45 H (9-20) mg/dL Creatinine 4.18 H (0.66-1.25) mg/dL Glucose 100 H (74-99) mg/dL Calcium 7.7 L (8.4-10.2) mg/dL Total Bilirubin 13.4 H (0.2-1.3) mg/dL AST 100 H (17-59) U/L Alkaline Phosphatase 157 H (38-126) U/L Total Protein 6.1 L (6.3-8.2) g/dL Albumin 2.4 L (3.5-5.0) g/dL Assessment and Plan Assessment: #1 acute kidney injury secondary to hepatorenal syndrome. Creatinine worsening. #2 acute alcoholic hepatitis decompensated #3 edema, diuretics currently on hold #4 metabolic acidosis on sodium bicarbonate Plan: #1 renal function worsening. #2 continue to monitor off diuretics. #3 if continued to worsen over the weekend, needs to be started on dialysis.
--- NOTE | 2019-08-06 15:13 | P.PN ---
Subjective Progress Note Date: 08/06/19 This is a 49-year-old male patient who presented to the ER with complaints of yellowing of skin and eyes. Patient is known past medical history of EtOH drinking approximately a pint of vodka plus beer daily. Patient's urged patient to come to ER due to presentation of jaundice 1 day patient was noted to have yellowing of his eyes and she was concerned about his liver. Additional medical history includes hyperlipidemia hypertension and ex-smoker. Abdominal ultrasound completed showing no gallstones or dilated ducts diffuse fatty infiltration of liver. Upon admission AST elevated to 95, ALT 64 alkaline phosphatase 3:30 total bilirubin 10.1 and ammonia level 185. Patient has been started on lactulose. GI services have been consulted. Patient's electrolytes also significantly impaired. Sodium low at 122, potassium 3.2, magnesium 0.7. Replacement per protocol patient currently on normal saline. Patient also currently in EtOH withdrawals. Patient has been admitted to the intensive care unit critical care services are following. Heart rate elevated secondary to withdrawal. CIWA protocol has been ordered. GI services have been consulted for Liver failure. At this time patient is resting comfortably in bed shakiness and withdrawal symptoms noted. Patient is alert and oriented 2. Patient able to follow commands. Patient denies chest pain. Patient denies shortness of breath. Patient denies any urinary burning or frequency. 07/14/2019 patient remains in the ICU. He has a sitter at bedside. He did require Ativan this morning for alcohol withdrawal and is sleeping comfortably. Heart rate is better controlled. Total bilirubin has gone up from 10.1-14.1. Ammonia level has decreased from 185-47. Hepatitis panel is negative. He is followed by GI service and critical care. He is tolerating clear liquid diet. Patient is having a bowel movement almost every hour. Patient currently on lactulose 3 times a day and Xifaxan. Patient did have a temp of 100.6 yesterday afternoon he is currently on Rocephin. Chest x-rays negative. 07/20/2019 patient is currently on a regular medical floor. He was followed by Dr. Carlton from 07/15/2019 until 07/19/2019. Patient's is being followed by GI service for his severe alcoholic hepatitis. Total bilirubin is up to 22. He has been ambulating in the hallway. Apparently he had a fall yesterday and had a computed tomography scan of the head and neck completed. Just revealing moderate atrophy of the brain. Otherwise normal findings. Ammonia levels up to 73 CO2 is down at 14. Patient denies any chest pain or shortness of breath. Denies any nausea or vomiting. Urine is starting to clear and he is having 3-5 bowel movements a day. 07/21/2019 patient sitting up in bed comfortably. He reports having at least 3 bowel movements daily. Ammonia level has decreased from 73-53. Total bilirubin has come down from 22-20.4. He is followed closely by GI service. Awaiting their recommendations regarding the prednisone. Potassium is low at 3.4. 07/22/2019 patient lying in bed comfortably. He has no new complaints. Ammonia is down to 48. He is having multiple bowel movements a day. Magnesium and po tassium are low and being replaced. Creatinine has gone up to 1.48. We'll discontinue the hydrochlorothiazide and lisinopril. Continue fluids at 50 mL an hour. Total bilirubin is 20.8 patient denies any difficulty urinating. He does report that his urine continues to become clear. GI service did hold off on starting the prednisone. On 07/23/2019 patient is alert and oriented 3 in no apparent distress bilirubin still elevated at 22 patient clinically denies any symptoms there is no fever or chills no headache or dizziness no chest pain no shortness of breath no cough no nausea or vomiting no abdominal pain no diarrhea and no urinary symptoms. , On 07/24/2019 patient was seen and examined on the medical floor, he is alert and oriented 3 in no apparent distress, he is still has significant jaundice, total bilirubin up to 22.4, creatinine up to 2.04, clinically he is feeling well, there is no fever or chills no headache no dizziness no chest pain no shortness of breath no cough no nausea or vomiting no abdominal pain no diarrhea and no urinary symptoms. On 07/25/2019 patient is alert and oriented 3. Patient up ambulating the kinney with . Patient remains with significant jaundice. Total bili is trending down 19.6. Nephrology services are following. Patient currently maintained on Sandostatin and albumin per nephrology services for concerns of hepatorenal acute kidney injury. Creatinine is improving slightly we'll continue to monitor. Patient also switched to IV sodium bicarb. We'll continue to monitor patient closely. At this time patient denies chest pain or shortness breath. Patient denies nausea vomiting or diarrhea. Patient denies any urinary burning or frequency 07/26/2019 patient lying in bed. at bedside. Patient reporting that his a bdomen is more distended and firm today. He's having about 3 bowel movements a day. Patient seen by GI service. They will ordered an abdominal ultrasound with paracentesis. Creatinine is down to 1.80, total bili is 19, AST 700 and ALT 31. CO2 has come up from 14-19. Patient denies any chest pain or shortness of breath. Denies any nausea or vomiting. Denies any difficulty urinating. On 07/27/2019 patient is alert and oriented 3. Patient to undergo paracentesis today per GI services. Creatinine trending down. Total bili increasing to 19.6. This time patient denies chest pain or shortness breath. Patient denies nausea vomiting or diarrhea. Patient denies any urinary burning or frequency 07/28/2019 patient is awake and answering questions appropriately. He had a paracentesis with 2.8 L removed yesterday. His abdomen is still distended. Lactulose was increased to 3 times a day. His ammonia level had gone from 54- 72. Nephrology has discontinued the IV albumin and Sandostatin. Creatinine continues to trend down 1.48. Total bilirubin has decreased from 19.6-17.4. White count 15.2. Patient has no complaints. On 07/29/2019 patient is alert and oriented 3. Patient having elevated temp and white count. Patient is complaining cough will order chest x-ray. Patient also having drainage from paracentesis site. Blood culture and urine culture ordered. Will consult infectious disease. White blood cell elevated at 19.1, total bili 18.8. Patient denies any chest pain. Patient denies nausea vomiting or diarrhea. Patient denies any burning with urination On 07/30/2019 patient was seen and examined on the medical floor he is alert and oriented 3 in no apparent distress he is complaining of discomfort in the abdomen otherwise he denies any complaints there is no fever or chills no headache or dizziness no chest pain no shortness of breath no cough no nausea or vomiting no diarrhea no burning with urination no frequency or urgency no hematuria. White blood count still elevated at 18.9 bilirubin 18.1 AST 121 On 07/31/2019 patient was seen and examined on the medical floor he is alert and oriented 3 he has severe jaundice he denies any pain or discomfort there is no fever or chills no headache or dizziness no chest pain no shortness of breath no cough no nausea or vomiting no abdominal pain no diarrhea no burning with urination no frequency or urgency no hematuria On 08/01/2019 patient is alert and oriented 3. at bedside. Creatinine remains elevated 0.12 and bun 26. Patient remains on IV Lasix. Total bili 17.5. Patient also getting treated for possible pneumonia with Maxipime and Diflucan. GI, nephrology and infectious disease services are following. Patient denies chest pain or shortness of breath. Patient denies nausea vomiting or diarrhea. Patient denies any urinary burning or frequency On 08/02/2019 patient is alert and oriented 3. at bedside. Patient's creatinine increasing to 2.51 and bun 28. Discussed case with nephrology team. Patient was transitioned to Demadex yesterday. Patient remains quite edematous with ascites and edema. Per GI services patient to undergo paracentesis today. Per nephrology service is patient to be received 25 g of albumin prior to paracentesis and a large volume intake and output will require more albumin after. Antibiotics also adjusted per ID Flagyl added. Patient denies chest pain. Patient denies nausea vomiting or diarrhea. Patient denies any urinary b urning or frequency On 08/03/2019 patient is alert and oriented 3. Creatinine increasing to 2.79 and bun 31. Patient did undergo paracentesis yesterday 1.3 L off. Total bili 16.1. Patient remains on cefepime Flagyl and Diflucan. Patient complaining about increased congestion. Will order repeat chest x-ray. At this time patient denies chest pain. Patient denies shortness breath. Patient denies nausea or vomiting. On 08/04/2019 patient is alert and oriented 3. Patient's at bedside. Nephrology services have bedside. Patient's creatinine increasing to 3.41 and bun 37. Per nephrology services diuretics currently on hold patient maintained on albumin we'll continue to monitor kidney enzymes. Family aware that if kidneys continued to decline patient will require hemodialysis. Total bili 15.6. White blood cell is trending down. Infectious disease is following. Patient maintained on cefepime Flagyl and Diflucan. On 08/05/2019 patient is alert and oriented 3. Total bili decreasing to 14.6 and WBC trending down. Patient's creatinine increasing to 3.72 and bun 42. Patient was started on Sandostatin maintained on albumin per nephrology services. Discussion was held with family per nephrology that patient may require hemodialysis if kidneys continued to decline. At this time patient denies chest pain. Patient denies nausea vomiting or diarrhea. Patient denies shortness breath. Patient denies any urinary burning or frequency On 08/06/2019 patient is alert and oriented 3 in no apparent distress there is no fever or chills no headache or dizziness no chest pain no shortness of breath no cough no nausea or vomiting no abdominal pain no diarrhea no burning with urination no frequency or urgency no hematuria. Jowled this improving liver enzymes are improving however kidney function is worsening, nephrology are following closely to assess need for hemodialysis. Objective - Vital Signs Vital signs: Vital Signs Temp 97.8 F 08/06/19 08:30 Pulse 78 08/06/19 08:30 Resp 17 08/06/19 09:20 BP 118/85 08/06/19 08:30 Pulse Ox 95 08/06/19 08:30 Intake & Output 08/05/19 08/06/19 08/06/19 18:59 06:59 18:59 Intake Total 500 50 150 Output Total 370 200 Balance 130 -150 150 Weight 88.6 kg Intake: Intake, IV Titration 100 Amount Cefepime 2 gm In Sodium 100 Chloride 0.9% 100 ml @ 200 mls/hr [facility] Rx#:[id number] Oral 500 50 50 Output: Urine 370 200 Other: Voiding Method Toilet Toilet Toilet - Exam Head normocephalic and atraumatic, jaundice improving Neck supple no JVD no goiter Lungs clear to auscultation bilaterally no wheezing or crackles Heart regular rate and rhythm S1-S2, no rub or gallop Abdomen is soft nontender nondistended positive bowel sounds no hepatosplenomegaly Extremities +1 edema bilateral lower legs Neuro patient sleeping comfortably Skin jaundice. Scleral icterus - Labs CBC & Chem 7: 08/06/19 06:43 08/06/19 06:43 Labs: Abnormal Lab Results - Last 24 Hours (Table) 03/07/20 03/07/20 Range/Units 06:43 06:43 WBC 16.5 H (3.8-10.6) k/uL RBC 2.94 L (4.30-5.90) m/uL Hgb 9.9 L (13.0-17.5) gm/dL Hct 31.4 L (39.0-53.0) % MCV 106.7 H (80.0-100.0) fL Neutrophils # (Manual) 12.54 H (1.3-7.7) k/uL Eosinophils # (Manual) 1.16 H (0-0.7) k/uL Sodium 136 L (137-145) mmol/L BUN 45 H (9-20) mg/dL Creatinine 4.18 H (0.66-1.25) mg/dL Glucose 100 H (74-99) mg/dL Calcium 7.7 L (8.4-10.2) mg/dL Total Bilirubin 13.4 H (0.2-1.3) mg/dL AST 100 H (17-59) U/L Alkaline Phosphatase 157 H (38-126) U/L Total Protein 6.1 L (6.3-8.2) g/dL Albumin 2.4 L (3.5-5.0) g/dL Assessment and Plan Plan: 1. Severe Acute alcoholic hepatitis superimposed on alcoholic cirrhosis of the liver. Abdominal ultrasound completed showing no gallstones or dilated ducts. Diffuse fatty infiltration of the liver. GI services have been consulted. Hepatitis panel negative. 2. Jaundice, hyperbilirubinemia secondary to alcoholic liver disease. Total bilirubin 19. GI service is following and decided not to start prednisone. Total bili 15.6 3. EtOH withdrawal. Patient currently on CIWA protocal. Continue thiamine and add multivitamin. Continue Ativan as needed. Resolved 4. Hypokalemia. Likely losing potassium through his stooling and hydrochlorothiazide. Improved with potassium replacement 5. Hyponatremia and hypochloremic secondary to EtOH. Resolved 6. Tachycardia secondary to alcohol withdrawal. Patient's home dose beta phong resumed. Continue a call withdrawal protocol. Tachycardia has improved. Discontinue telemetry 7. History of essential hypertension. Patient's home dose of Lopressor resumed. 8. 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 Continue to m onitor ammonia levels. Patient has had some confusion. Lactulose was decreased to twice a day. And he is on Xifaxan 9. Macrocytic anemia secondary to chronic liver disease 10. Generalized weakness and fatigue due to his advanced liver disease. Continue PT OT 11. Metabolic acidosis: the patient having multiple stools. CO2 19 currently on IV sodium bicarb. Nephrology following. Patient has been switched to oral sodium bicarbonate per nephrology 12. Hypomagnesemia: Resolved with replacement 13. Acute kidney injury secondary to hepatorenal. Nephrology services are following. Creatinine increasing to 3.41 and bun 37. Current diuretics on hold. Patient is maintained on albumin. Discussion was held per nephrology with family that patient may require hemodialysis of kidneys continued to decline we'll continue to monitor daily. maintained on albumin and Sandostatin per nephrology services 14. Abdominal ascites. Status post paracentesis with 2.8 L removed. Plans for paracentesis today per GI services. Did discuss with nephrology services recommended patient received 25 g of albumin prior and possibly after the large volume is removed. Status post paracentesis 1.3 L removed 15. Coagulopathy due to liver disease 16. Essential hypertension: We'll continue to monitor blood pressures. BP has been slightly elevated. Repeat blood pressure 135/71. We'll continue to monitor 17. Leukocytosis with low-grade temps. infectious disease is following. Patient remains on Maxipime and Diflucan sputum and blood cultures have been negative thus far. White blood cell continue to increase infectious disease is following. Flagyl has been added. Repeat chest x-ray completed showing bilateral small effusion basilar infiltrate stable from recent exam correlate fo r COPD. DVT prophylaxis SCDs due to coagulopathy secondary to liver disease GI prophylaxis Protonix GI, nephrology infectious disease following.
[2019-08-07] MEDS: LACTULOSE 20 GM/30 ML CUP PO SCH ×4 (00:19→21:29)
[2019-08-07] MEDS: OCTREOTIDE 100 MCG/ML INJ SQ SCH ×3 (00:42→15:49)
[2019-08-07 07:18] LABS: HCT 32.3 % (39.0-53.0); HGB 10.2 gm/dL (13.0-17.5); Hypochromasia Slight; MCH 33.7 pg (25.0-35.0); MCHC 31.6 g/dL (31.0-37.0); MCV 106.6 fL (80.0-100.0); Macrocytosis Moderate; Mean Platelet Volume 9.2; Platelet Count 277 k/uL (150-450); RBC 3.03 m/uL (4.30-5.90); WBC 17.6 k/uL (3.8-10.6)
[2019-08-07 07:25] LABS: Albumin 2.5 g/dL (3.5-5.0); Calcium 7.8 mg/dL (8.4-10.2); Total Bilirubin 12.2 mg/dL (0.2-1.3); Total Protein 6.4 g/dL (6.3-8.2)
[2019-08-07] MEDS: PANTOPRAZOLE 40 MG TABLET PO SCH (08:23)
[2019-08-07] MEDS: RIFAXIMIN 550 MG TABLET PO SCH (08:23)
[2019-08-07] MEDS: metroNIDAZOLE 500 MG TAB PO SCH ×3 (08:23→21:15)
[2019-08-07] MEDS: FLUCONAZOLE 100 MG TAB PO SCH (08:23)
[2019-08-07] MEDS: SODIUM BICARBONATE TAB 650 MG TAB PO SCH ×4 (08:23→21:15)
[2019-08-07] MEDS: METOPROLOL SUCCINATE (ER) 100 MG TAB.ER.24H PO SCH (08:23)
[2019-08-07] MEDS: amLODIPine 5 MG TAB PO SCH (08:23)
[2019-08-07] MEDS: POTASSIUM CHLORIDE ER 20 MEQ TAB.ER PO SCH (08:23)
[2019-08-07] MEDS: THIAMINE 100 MG TAB PO SCH ×2 (08:23→17:37)
[2019-08-07] MEDS: MULTIVITAMINS, THERA 1 EACH TAB PO SCH (08:23)
[2019-08-07] MEDS: CEFEPIME 2 GM in SODIUM CHLORIDE 0.9% 100 ML IVPB SCH (08:24)
[2019-08-07 08:30] LABS: Anisocytosis (M) Present; Eosinophils # (M) 0.53 k/uL (0-0.7); Lymphocytes # (M) 2.46 k/uL (1.0-4.8); Monocytes # (M) 2.11 k/uL (0-1.0); Neutrophils % (M) 71 %; Nucleated Red Blood Cells 0 /100 WBC (0-0); Polychromasia Present; Target Cells Present; Total Cells Counted 100
--- NOTE | 2019-08-07 09:03 | PN ---
PROGRESS NOTE DATE OF SERVICE: 08/06/2019 REASON FOR FOLLOWUP: Leukocytosis. INTERVAL HISTORY: The patient is currently afebrile. He has been breathing comfortably. The patient denies having any chest pain or shortness of breath. Occasional cough. Denies abdominal pain or any worsening diarrhea. PHYSICAL EXAMINATION: Blood pressure is 119/72 with a pulse of 80, temperature 98.3. He is 94% on room air. General description is a middle-aged male lying in bed in no distress. Respiratory system: Unlabored breathing, decreased breath sounds in the bases, no wheeze. Heart S1, S2. Regular rate and rhythm. Abdomen soft, mildly distended. LABS: Hemoglobin 9.9, white count 16.5, BUN of 45, creatinine 4.18. DIAGNOSTIC IMPRESSION AND PLAN: Patient with leukocytosis which is likely multifactorial, possible reactive plus-minus component of possible oropharyngeal candidiasis or pneumonia. The patient is currently covered with cefepime, Flagyl and Diflucan, to continue as the white count is showing a downward trend. To continue with supportive care. MMODL / IJN: [id number] /
--- NOTE | 2019-08-07 09:51 | P.PN ---
Subjective Progress Note Date: 08/07/19 This is a 49-year-old male patient who presented to the ER with complaints of yellowing of skin and eyes. Patient is known past medical history of EtOH drinking approximately a pint of vodka plus beer daily. Patient's urged patient to come to ER due to presentation of jaundice 1 day patient was noted to have yellowing of his eyes and she was concerned about his liver. Additional medical history includes hyperlipidemia hypertension and ex-smoker. Abdominal ultrasound completed showing no gallstones or dilated ducts diffuse fatty infiltration of liver. Upon admission AST elevated to 95, ALT 64 alkaline phosphatase 3:30 total bilirubin 10.1 and ammonia level 185. Patient has been started on lactulose. GI services have been consulted. Patient's electrolytes also significantly impaired. Sodium low at 122, potassium 3.2, magnesium 0.7. Replacement per protocol patient currently on normal saline. Patient also currently in EtOH withdrawals. Patient has been admitted to the intensive care unit critical care services are following. Heart rate elevated secondary to withdrawal. CIWA protocol has been ordered. GI services have been consulted for Liver failure. At this time patient is resting comfortably in bed shakiness and withdrawal symptoms noted. Patient is alert and oriented 2. Patient able to follow commands. Patient denies chest pain. Patient denies shortness of breath. Patient denies any urinary burning or frequency. 07/14/2019 patient remains in the ICU. He has a sitter at bedside. He did require Ativan this morning for alcohol withdrawal and is sleeping comfortably. Heart rate is better controlled. Total bilirubin has gone up from 10.1-14.1. Ammonia level has decreased from 185-47. Hepatitis panel is negative. He is followed by GI service and critical care. He is tolerating clear liquid diet. Patient is having a bowel movement almost every hour. Patient currently on lactulose 3 times a day and Xifaxan. Patient did have a temp of 100.6 yesterday afternoon he is currently on Rocephin. Chest x-rays negative. 07/20/2019 patient is currently on a regular medical floor. He was followed by Dr. Carlton from 07/15/2019 until 07/19/2019. Patient's is being followed by GI service for his severe alcoholic hepatitis. Total bilirubin is up to 22. He has been ambulating in the hallway. Apparently he had a fall yesterday and had a computed tomography scan of the head and neck completed. Just revealing moderate atrophy of the brain. Otherwise normal findings. Ammonia levels up to 73 CO2 is down at 14. Patient denies any chest pain or shortness of breath. Denies any nausea or vomiting. Urine is starting to clear and he is having 3-5 bowel movements a day. 07/21/2019 patient sitting up in bed comfortably. He reports having at least 3 bowel movements daily. Ammonia level has decreased from 73-53. Total bilirubin has come down from 22-20.4. He is followed closely by GI service. Awaiting their recommendations regarding the prednisone. Potassium is low at 3.4. 07/22/2019 patient lying in bed comfortably. He has no new complaints. Ammonia is down to 48. He is having multiple bowel movements a day. Magnesium and po tassium are low and being replaced. Creatinine has gone up to 1.48. We'll discontinue the hydrochlorothiazide and lisinopril. Continue fluids at 50 mL an hour. Total bilirubin is 20.8 patient denies any difficulty urinating. He does report that his urine continues to become clear. GI service did hold off on starting the prednisone. On 07/23/2019 patient is alert and oriented 3 in no apparent distress bilirubin still elevated at 22 patient clinically denies any symptoms there is no fever or chills no headache or dizziness no chest pain no shortness of breath no cough no nausea or vomiting no abdominal pain no diarrhea and no urinary symptoms. , On 07/24/2019 patient was seen and examined on the medical floor, he is alert and oriented 3 in no apparent distress, he is still has significant jaundice, total bilirubin up to 22.4, creatinine up to 2.04, clinically he is feeling well, there is no fever or chills no headache no dizziness no chest pain no shortness of breath no cough no nausea or vomiting no abdominal pain no diarrhea and no urinary symptoms. On 07/25/2019 patient is alert and oriented 3. Patient up ambulating the kinney with . Patient remains with significant jaundice. Total bili is trending down 19.6. Nephrology services are following. Patient currently maintained on Sandostatin and albumin per nephrology services for concerns of hepatorenal acute kidney injury. Creatinine is improving slightly we'll continue to monitor. Patient also switched to IV sodium bicarb. We'll continue to monitor patient closely. At this time patient denies chest pain or shortness breath. Patient denies nausea vomiting or diarrhea. Patient denies any urinary burning or frequency 07/26/2019 patient lying in bed. at bedside. Patient reporting that his a bdomen is more distended and firm today. He's having about 3 bowel movements a day. Patient seen by GI service. They will ordered an abdominal ultrasound with paracentesis. Creatinine is down to 1.80, total bili is 19, AST 700 and ALT 31. CO2 has come up from 14-19. Patient denies any chest pain or shortness of breath. Denies any nausea or vomiting. Denies any difficulty urinating. On 07/27/2019 patient is alert and oriented 3. Patient to undergo paracentesis today per GI services. Creatinine trending down. Total bili increasing to 19.6. This time patient denies chest pain or shortness breath. Patient denies nausea vomiting or diarrhea. Patient denies any urinary burning or frequency 07/28/2019 patient is awake and answering questions appropriately. He had a paracentesis with 2.8 L removed yesterday. His abdomen is still distended. Lactulose was increased to 3 times a day. His ammonia level had gone from 54- 72. Nephrology has discontinued the IV albumin and Sandostatin. Creatinine continues to trend down 1.48. Total bilirubin has decreased from 19.6-17.4. White count 15.2. Patient has no complaints. On 07/29/2019 patient is alert and oriented 3. Patient having elevated temp and white count. Patient is complaining cough will order chest x-ray. Patient also having drainage from paracentesis site. Blood culture and urine culture ordered. Will consult infectious disease. White blood cell elevated at 19.1, total bili 18.8. Patient denies any chest pain. Patient denies nausea vomiting or diarrhea. Patient denies any burning with urination On 07/30/2019 patient was seen and examined on the medical floor he is alert and oriented 3 in no apparent distress he is complaining of discomfort in the abdomen otherwise he denies any complaints there is no fever or chills no headache or dizziness no chest pain no shortness of breath no cough no nausea or vomiting no diarrhea no burning with urination no frequency or urgency no hematuria. White blood count still elevated at 18.9 bilirubin 18.1 AST 121 On 07/31/2019 patient was seen and examined on the medical floor he is alert and oriented 3 he has severe jaundice he denies any pain or discomfort there is no fever or chills no headache or dizziness no chest pain no shortness of breath no cough no nausea or vomiting no abdominal pain no diarrhea no burning with urination no frequency or urgency no hematuria On 08/01/2019 patient is alert and oriented 3. at bedside. Creatinine remains elevated 0.12 and bun 26. Patient remains on IV Lasix. Total bili 17.5. Patient also getting treated for possible pneumonia with Maxipime and Diflucan. GI, nephrology and infectious disease services are following. Patient denies chest pain or shortness of breath. Patient denies nausea vomiting or diarrhea. Patient denies any urinary burning or frequency On 08/02/2019 patient is alert and oriented 3. at bedside. Patient's creatinine increasing to 2.51 and bun 28. Discussed case with nephrology team. Patient was transitioned to Demadex yesterday. Patient remains quite edematous with ascites and edema. Per GI services patient to undergo paracentesis today. Per nephrology service is patient to be received 25 g of albumin prior to paracentesis and a large volume intake and output will require more albumin after. Antibiotics also adjusted per ID Flagyl added. Patient denies chest pain. Patient denies nausea vomiting or diarrhea. Patient denies any urinary b urning or frequency On 08/03/2019 patient is alert and oriented 3. Creatinine increasing to 2.79 and bun 31. Patient did undergo paracentesis yesterday 1.3 L off. Total bili 16.1. Patient remains on cefepime Flagyl and Diflucan. Patient complaining about increased congestion. Will order repeat chest x-ray. At this time patient denies chest pain. Patient denies shortness breath. Patient denies nausea or vomiting. On 08/04/2019 patient is alert and oriented 3. Patient's at bedside. Nephrology services have bedside. Patient's creatinine increasing to 3.41 and bun 37. Per nephrology services diuretics currently on hold patient maintained on albumin we'll continue to monitor kidney enzymes. Family aware that if kidneys continued to decline patient will require hemodialysis. Total bili 15.6. White blood cell is trending down. Infectious disease is following. Patient maintained on cefepime Flagyl and Diflucan. On 08/05/2019 patient is alert and oriented 3. Total bili decreasing to 14.6 and WBC trending down. Patient's creatinine increasing to 3.72 and bun 42. Patient was started on Sandostatin maintained on albumin per nephrology services. Discussion was held with family per nephrology that patient may require hemodialysis if kidneys continued to decline. At this time patient denies chest pain. Patient denies nausea vomiting or diarrhea. Patient denies shortness breath. Patient denies any urinary burning or frequency On 08/06/2019 patient is alert and oriented 3 in no apparent distress there is no fever or chills no headache or dizziness no chest pain no shortness of breath no cough no nausea or vomiting no abdominal pain no diarrhea no burning with urination no frequency or urgency no hematuria. Jowled this improving liver enzymes are improving however kidney function is worsening, nephrology are following closely to assess need for hemodialysis. On 08/07/2019 patient was seen and examined on the medical floor he is alert and oriented 3 in no apparent distress he is complaining of abdominal discomfort otherwise no complaints at this time there is no fever or chills no headache or dizziness no chest pain no shortness of breath no cough no nausea or vomiting no abdominal pain no diarrhea no burning was urination no frequency or urgency and no hematuria, he is still has significant jaundice, BUN and creatinine are still worsening, nephrology are following Objective - Vital Signs Vital signs: Vital Signs Temp 98.4 F 08/07/19 07:31 Pulse 80 08/07/19 07:31 Resp 18 08/07/19 07:31 BP 129/90 08/07/19 07:31 Pulse Ox 94 L 08/07/19 07:31 Intake & Output 08/06/19 08/07/19 08/07/19 17:59 06:59 18:59 Intake Total Output Total 0 Balance 0 Intake: Intake, IV Titration Amount Cefepime 2 gm In Sodium Chloride 0.9% 100 ml @ 200 mls/hr IVPB DAILY [facility] Rx#:[id number] Oral Output: Urine Stool 0 Other: Voiding Method Toilet # Voids - Exam Head normocephalic and atraumatic, jaundice improving Neck supple no JVD no goiter Lungs clear to auscultation bilaterally no wheezing or crackles Heart regular rate and rhythm S1-S2, no rub or gallop Abdomen is soft nontender nondistended positive bowel sounds no hepatosplenomegaly Extremities +1 edema bilateral lower legs Neuro patient sleeping comfortably Skin jaundice. Scleral icterus - Labs CBC & Chem 7: 08/07/19 06:42 08/07/19 06:42 Labs: Abnormal Lab Results - Last 24 Hours (Table) 08/06/19 08/06/19 08/07/19 Range/Units 06:43 06:43 06:42 WBC 16.5 H (3.8-10.6) k/uL RBC 2.94 L (4.30-5.90) m/uL Hgb 9.9 L (13.0-17.5) gm/dL Hct 31.4 L (39.0-53.0) % MCV 106.7 H (80.0-100.0) fL Neutrophils # (Manual) 12.54 H (1.3-7.7) k/uL Monocytes # (Manual) (0-1.0) k/uL Eosinophils # (Manual) 1.16 H (0-0.7) k/uL Sodium 136 L 135 L (137-145) mmol/L BUN 45 H 48 H (9-20) mg/dL Creatinine 4.18 H 4.96 H (0.66-1.25) mg/dL Glucose 100 H 116 H (74-99) mg/dL Calcium 7.7 L 7.8 L (8.4-10.2) mg/dL Total Bilirubin 13.4 H 12.2 H (0.2-1.3) mg/dL AST 100 H 101 H (17-59) U/L Alkaline Phosphatase 157 H 167 H (38-126) U/L Total Protein 6.1 L (6.3-8.2) g/dL Albumin 2.4 L 2.5 L (3.5-5.0) g/dL 08/07/19 Range/Units 06:42 WBC 17.6 H (3.8-10.6) k/uL RBC 3.03 L (4.30-5.90) m/uL Hgb 10.2 L (13.0-17.5) gm/dL Hct 32.3 L (39.0-53.0) % MCV 106.6 H (80.0-100.0) fL Neutrophils # (Manual) 12.50 H (1.3-7.7) k/uL Monocytes # (Manual) 2.11 H (0-1.0) k/uL Eosinophils # (Manual) (0-0.7) k/uL Sodium (137-145) mmol/L BUN (9-20) mg/dL Creatinine (0.66-1.25) mg/dL Glucose (74-99) mg/dL Calcium (8.4-10.2) mg/dL Total Bilirubin (0.2-1.3) mg/dL AST (17-59) U/L Alkaline Phosphatase (38-126) U/L Total Protein (6.3-8.2) g/dL Albumin (3.5-5.0) g/dL Assessment and Plan Plan: 1. Severe Acute alcoholic hepatitis superimposed on alcoholic cirrhosis of the liver. Abdominal ultrasound completed showing no gallstones or dilated ducts. Diffuse fatty infiltration of the liver. GI services have been consulted. Hepatitis panel negative. 2. Jaundice, hyperbilirubinemia secondary to alcoholic liver disease. Total bilirubin 19. GI service is following and decided not to start prednisone. Total bili 15.6 3. EtOH withdrawal. Patient currently on CIWA protocal. Continue thiamine and add multivitamin. Continue Ativan as needed. Resolved 4. Hypokalemia. Likely losing potassium through his stooling and hydrochlorothiazide. Improved with potassium replacement 5. Hyponatremia and hypochloremic secondary to EtOH. Resolved 6. Tachycardia secondary to alcohol withdrawal. Patient's home dose beta phong resumed. Continue a call withdrawal protocol. Tachycardia has improved. Discontinue telemetry 7. History of essential hypertension. Patient's home dose of Lopressor resumed. 8. 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 Continue to monitor ammonia levels. Patient has had some confusion. Lactulose was decreased to twice a day. And he is on Xifaxan 9. Macrocytic anemia secondary to chronic liver disease 10. Generalized weakness and fatigue due to his advanced liver disease. Contin ue PT OT 11. Metabolic acidosis: the patient having multiple stools. CO2 19 currently on IV sodium bicarb. Nephrology following. Patient has been switched to oral sodium bicarbonate per nephrology 12. Hypomagnesemia: Resolved with replacement 13. Acute kidney injury secondary to hepatorenal. Nephrology services are following. Creatinine increasing to 3.41 and bun 37. Current diuretics on hold. Patient is maintained on albumin. Discussion was held per nephrology with family that patient may require hemodialysis of kidneys continued to decline we'll continue to monitor daily. maintained on albumin and Sandostatin per nephrology services 14. Abdominal ascites. Status post paracentesis with 2.8 L removed. Plans for paracentesis today per GI services. Did discuss with nephrology services recommended patient received 25 g of albumin prior and possibly after the large volume is removed. Status post paracentesis 1.3 L removed 15. Coagulopathy due to liver disease 16. Essential hypertension: We'll continue to monitor blood pressures. BP has been slightly elevated. Repeat blood pressure 135/71. We'll continue to monitor 17. Leukocytosis with low-grade temps. infectious disease is following. Patient remains on Maxipime and Diflucan sputum and blood cultures have been negative thus far. White blood cell continue to increase infectious disease is following. Flagyl has been added. Repeat chest x-ray completed showing bilateral small effusion basilar infiltrate stable from recent exam correlate for COPD. DVT prophylaxis SCDs due to coagulopathy secondary to liver disease GI prophylaxis Protonix GI, nephrology infectious disease following.
--- NOTE | 2019-08-07 11:55 | P.PN ---
Subjective Progress Note Date: 08/07/19 Follow-up for acute kidney injury. Objective - Vital Signs Vital signs: Vital Signs Temp 98.4 F 08/07/19 07:31 Pulse 80 08/07/19 07:31 Resp 18 08/07/19 07:31 BP 129/90 08/07/19 07:31 Pulse Ox 94 L 08/07/19 07:31 Intake & Output 08/06/19 08/07/19 08/07/19 17:59 06:59 18:59 Intake Total Output Total 0 Balance 0 Intake: Intake, IV Titration Amount Cefepime 2 gm In Sodium Chloride 0.9% 100 ml @ 200 mls/hr IVPB DAILY [facility] Rx#:[id number] Oral Output: Urine Stool 0 Other: Voiding Method Toilet # Voids - Exam No acute distress S1-S2 heard Lungs decreased breath sounds Abdomen distended Edema - Labs CBC & Chem 7: 08/07/19 06:42 08/07/19 06:42 Labs: Abnormal Lab Results - Last 24 Hours (Table) 08/07/19 08/07/19 Range/Units 06:42 06:42 WBC 17.6 H (3.8-10.6) k/uL RBC 3.03 L (4.30-5.90) m/uL Hgb 10.2 L (13.0-17.5) gm/dL Hct 32.3 L (39.0-53.0) % MCV 106.6 H (80.0-100.0) fL Neutrophils # (Manual) 12.50 H (1.3-7.7) k/uL Monocytes # (Manual) 2.11 H (0-1.0) k/uL Sodium 135 L (137-145) mmol/L BUN 48 H (9-20) mg/dL Creatinine 4.96 H (0.66-1.25) mg/dL Glucose 116 H (74-99) mg/dL Calcium 7.8 L (8.4-10.2) mg/dL Total Bilirubin 12.2 H (0.2-1.3) mg/dL AST 101 H (17-59) U/L Alkaline Phosphatase 167 H (38-126) U/L Albumin 2.5 L (3.5-5.0) g/dL Assessment and Plan Assessment: #1 acute kidney injury secondary to hepatorenal syndrome. Creatinine worsening. #2 acute alcoholic hepatitis decompensated #3 edema, diuretics currently on hold #4 metabolic acidosis on sodium bicarbonate Plan: #1 renal function worsening. On Sandostatin, add albumin. #2 if renal function continues to worsen by tomorrow plan dialysis..
[2019-08-07] MEDS: ALBUMIN HUMAN 25% 50 ML in EMPTY BAG 1 BAG IVPB SCH ×4 (12:17→15:46)
--- NOTE | 2019-08-07 18:28 | P.PN ---
Subjective Progress Note Date: 08/07/19 Principal diagnosis: Alcoholic hepatitis, elevated liver enzymes Patient is seen sitting bedside. No nausea or vomiting and he is tolerating his diet. He continues to make urine. Objective - Vital Signs Vital signs: Vital Signs Temp 98.4 F 08/07/19 07:31 Pulse 80 08/07/19 07:31 Resp 18 08/07/19 07:31 BP 129/90 08/07/19 07:31 Pulse Ox 94 L 08/07/19 07:31 Intake & Output 08/06/19 08/07/19 08/07/19 17:59 06:59 18:59 Intake Total Output Total 0 Balance 0 Intake: Intake, IV Titration Amount Cefepime 2 gm In Sodium Chloride 0.9% 100 ml @ 200 mls/hr IVPB DAILY [facility] Rx#:[id number] Oral Output: Urine Stool 0 Other: Voiding Method Toilet # Voids - Exam On physical examination, patient appears comfortable in no apparent distress. HEAD: Normocephalic, atraumatic. EYES: Scleral icterus. No conjunctival injection. MOUTH: No lesions, tongue midline. NECK: Trachea midline, no gross abnormalities. ABDOMEN: Soft. Bowel sounds are positive. No organomegaly. No guarding or rigidity. EXTREMITIES: 2+ pedal edema. SKIN: No rashes, jaundice. NEUROLOGIC: Alert and responsive, no asterixis. No focal deficits. - Labs CBC & Chem 7: 08/07/19 06:42 08/07/19 06:42 Labs: Abnormal Lab Results - Last 24 Hours (Table) 08/07/19 08/07/19 Range/Units 06:42 06:42 WBC 17.6 H (3.8-10.6) k/uL RBC 3.03 L (4.30-5.90) m/uL Hgb 10.2 L (13.0-17.5) gm/dL Hct 32.3 L (39.0-53.0) % MCV 106.6 H (80.0-100.0) fL Neutrophils # (Manual) 12.50 H (1.3-7.7) k/uL Monocytes # (Manual) 2.11 H (0-1.0) k/uL Sodium 135 L (137-145) mmol/L BUN 48 H (9-20) mg/dL Creatinine 4.96 H (0.66-1.25) mg/dL Glucose 116 H (74-99) mg/dL Calcium 7.8 L (8.4-10.2) mg/dL Total Bilirubin 12.2 H (0.2-1.3) mg/dL AST 101 H (17-59) U/L Alkaline Phosphatase 167 H (38-126) U/L Albumin 2.5 L (3.5-5.0) g/dL Assessment and Plan (1) Alcoholic hepatitis Narrative/Plan: 49-year-old male with a long-standing history of alcohol abuse, worsened over the past 2 months with 1 pint of alcohol daily who presents with jaundice, scleral icterus and weakness. Patient found to have elevation in total bilirubin of 10.1, alkaline phosphatase 330, AST 295 and ALT 69 on admission with ultrasound of the abdomen negative for any ductal dilation or gallstones with diffuse fatty infiltration noted highly suggestive of acute alcoholic hepatitis. Liver enzymes have trended up, overall consistent with alcoholic hepatitis, predominantly in a cholestatic pattern. Liver enzymes trending down. Current Visit: Yes Status: Acute Code(s): K70.10 - ALCOHOLIC HEPATITIS WITHOUT ASCITES SNOMED Code(s): 823772682 (2) Hepatic encephalopathy Current Visit: Yes Status: Acute Code(s): K72.90 - HEPATIC FAILURE, UNSPECIFIED WITHOUT COMA SNOMED Code(s): 80723572 (3) Alcohol abuse Current Visit: Yes Status: Acute Code(s): F10.10 - ALCOHOL ABUSE, UNCOMPLICATED SNOMED Code(s): 92573112 Plan: Supportive care Okay for diet as tolerated Continue to monitor CBC, CMP Continue to monitor clinically Viral hepatitis panel negative Alcohol abstinence Continue lactulose therapy, okay to hold this patient has 3 bowel movements Rifaximin ordered Diuretic regimen ordered by the nephrology service, currently being held with albumin and octreotide ordered secondary to increasing creatinine Okay for discharge from gastroenterology standpoint when otherwise medically stable, however consideration is for dialysis by the nephrology service if kidney function continues to worsen Thank you for allowing us to participate in the care of the patient we will continue to follow
[2019-08-08] MEDS: OCTREOTIDE 100 MCG/ML INJ SQ SCH ×3 (00:47→16:54)
--- NOTE | 2019-08-08 06:52 | PN ---
PROGRESS NOTE DATE OF SERVICE: 08/07/2019. REASON FOR FOLLOWUP: Leukocytosis. INTERVAL HISTORY: The patient is currently afebrile. He has been breathing comfortably. Feeling slightly better. Denies having any chest pain or any cough. No abdominal pain or diarrhea. PHYSICAL EXAMINATION: Blood pressure 117/79 with a pulse of 79, temperature 98.5. He is 94% on room air. General description is a middle-aged male in the bed in no distress. RESPIRATORY SYSTEM: Unlabored breathing. Decreased breath sounds at the bases, no wheeze. HEART: S1, S2. Regular rate and rhythm. ABDOMEN: Soft, no tenderness. LABS: Hemoglobin is 10.2, white count 17.6, creatinine is up to 4.96. DIAGNOSTIC IMPRESSION AND PLAN: Patient with leukocytosis which is likely multifactorial in this patient with acute alcoholic hepatitis now with worsening of his kidney function for no clear infectious etiology. He has been covered with . Continue to monitor his clinical course closely. MMODL / IJN: [id number] /
[2019-08-08] MEDS: METOPROLOL SUCCINATE (ER) 100 MG TAB.ER.24H PO SCH (08:07)
[2019-08-08] MEDS: SODIUM BICARBONATE TAB 650 MG TAB PO SCH ×3 (08:08→16:52)
[2019-08-08] MEDS: PANTOPRAZOLE 40 MG TABLET PO SCH (08:08)
[2019-08-08] MEDS: MULTIVITAMINS, THERA 1 EACH TAB PO SCH (08:08)
[2019-08-08] MEDS: metroNIDAZOLE 500 MG TAB PO SCH ×3 (08:08→20:05)
[2019-08-08] MEDS: THIAMINE 100 MG TAB PO SCH ×2 (08:08→16:52)
[2019-08-08] MEDS: amLODIPine 5 MG TAB PO SCH (08:08)
[2019-08-08] MEDS: FLUCONAZOLE 100 MG TAB PO SCH (08:08)
[2019-08-08] MEDS: LACTULOSE 20 GM/30 ML CUP PO SCH ×3 (08:09→20:06)
[2019-08-08 08:37] LABS: Basophils # (A) 0.1 k/uL (0-0.2); Basophils % (A) 1 %; Eosinophils # (A) 0.4 k/uL (0-0.7); Eosinophils % (A) 2 %; HCT 31.9 % (39.0-53.0); HGB 9.8 gm/dL (13.0-17.5); Hypochromasia Marked; Lymphocytes # (A) 1.4 k/uL (1.0-4.8); Lymphocytes % (A) 8 %; MCH 33.9 pg (25.0-35.0); MCHC 30.8 g/dL (31.0-37.0); MCV 110.2 fL (80.0-100.0); Macrocytosis Marked; Mean Platelet Volume 8.8; Monocytes # (A) 1.5 k/uL (0-1.0); Monocytes % (A) 9 %; Neutrophils # (A) 13.2 k/uL (1.3-7.7); Neutrophils % (A) 77 %; Platelet Count 231 k/uL (150-450); RBC 2.89 m/uL (4.30-5.90); RDW 15.5 % (11.5-15.5); WBC 17.2 k/uL (3.8-10.6)
[2019-08-08 09:00] LABS: Albumin 2.7 g/dL (3.5-5.0); Calcium 7.8 mg/dL (8.4-10.2); Potassium 4.2 mmol/L (3.5-5.1); Total Bilirubin 12.2 mg/dL (0.2-1.3); Total Protein 6.5 g/dL (6.3-8.2)
[2019-08-08 10:54] LABS: Poikilocytosis (M) Present; Target Cells Present
--- NOTE | 2019-08-08 11:02 | P.PN ---
Subjective Progress Note Date: 08/08/19 This is a 49-year-old male patient who presented to the ER with complaints of yellowing of skin and eyes. Patient is known past medical history of EtOH drinking approximately a pint of vodka plus beer daily. Patient's urged patient to come to ER due to presentation of jaundice 1 day patient was noted to have yellowing of his eyes and she was concerned about his liver. Additional medical history includes hyperlipidemia hypertension and ex-smoker. Abdominal ultrasound completed showing no gallstones or dilated ducts diffuse fatty infiltration of liver. Upon admission AST elevated to 95, ALT 64 alkaline phosphatase 3:30 total bilirubin 10.1 and ammonia level 185. Patient has been started on lactulose. GI services have been consulted. Patient's electrolytes also significantly impaired. Sodium low at 122, potassium 3.2, magnesium 0.7. Replacement per protocol patient currently on normal saline. Patient also currently in EtOH withdrawals. Patient has been admitted to the intensive care unit critical care services are following. Heart rate elevated secondary to withdrawal. CIWA protocol has been ordered. GI services have been consulted for Liver failure. At this time patient is resting comfortably in bed shakiness and withdrawal symptoms noted. Patient is alert and oriented 2. Patient able to follow commands. Patient denies chest pain. Patient denies shortness of breath. Patient denies any urinary burning or frequency. 07/14/2019 patient remains in the ICU. He has a sitter at bedside. He did require Ativan this morning for alcohol withdrawal and is sleeping comfortably. Heart rate is better controlled. Total bilirubin has gone up from 10.1-14.1. Ammonia level has decreased from 185-47. Hepatitis panel is negative. He is followed by GI service and critical care. He is tolerating clear liquid diet. Patient is having a bowel movement almost every hour. Patient currently on lactulose 3 times a day and Xifaxan. Patient did have a temp of 100.6 yesterday afternoon he is currently on Rocephin. Chest x-rays negative. 07/20/2019 patient is currently on a regular medical floor. He was followed by Dr. Carlton from 07/15/2019 until 07/19/2019. Patient's is being followed by GI service for his severe alcoholic hepatitis. Total bilirubin is up to 22. He has been ambulating in the hallway. Apparently he had a fall yesterday and had a computed tomography scan of the head and neck completed. Just revealing moderate atrophy of the brain. Otherwise normal findings. Ammonia levels up to 73 CO2 is down at 14. Patient denies any chest pain or shortness of breath. Denies any nausea or vomiting. Urine is starting to clear and he is having 3-5 bowel movements a day. 07/21/2019 patient sitting up in bed comfortably. He reports having at least 3 bowel movements daily. Ammonia level has decreased from 73-53. Total bilirubin has come down from 22-20.4. He is followed closely by GI service. Awaiting their recommendations regarding the prednisone. Potassium is low at 3.4. 07/22/2019 patient lying in bed comfortably. He has no new complaints. Ammonia is down to 48. He is having multiple bowel movements a day. Magnesium and pot assium are low and being replaced. Creatinine has gone up to 1.48. We'll discontinue the hydrochlorothiazide and lisinopril. Continue fluids at 50 mL an hour. Total bilirubin is 20.8 patient denies any difficulty urinating. He does report that his urine continues to become clear. GI service did hold off on starting the prednisone. On 07/23/2019 patient is alert and oriented 3 in no apparent distress bilirubin still elevated at 22 patient clinically denies any symptoms there is no fever or chills no headache or dizziness no chest pain no shortness of breath no cough no nausea or vomiting no abdominal pain no diarrhea and no urinary symptoms. , On 07/24/2019 patient was seen and examined on the medical floor, he is alert and oriented 3 in no apparent distress, he is still has significant jaundice, total bilirubin up to 22.4, creatinine up to 2.04, clinically he is feeling well, there is no fever or chills no headache no dizziness no chest pain no shortness of breath no cough no nausea or vomiting no abdominal pain no diarrhea and no urinary symptoms. On 07/25/2019 patient is alert and oriented 3. Patient up ambulating the kinney with . Patient remains with significant jaundice. Total bili is trending down 19.6. Nephrology services are following. Patient currently maintained on Sandostatin and albumin per nephrology services for concerns of hepatorenal acute kidney injury. Creatinine is improving slightly we'll continue to monitor. Patient also switched to IV sodium bicarb. We'll continue to monitor patient closely. At this time patient denies chest pain or shortness breath. Patient denies nausea vomiting or diarrhea. Patient denies any urinary burning or frequency 07/26/2019 patient lying in bed. at bedside. Patient reporting that his abdomen is more distended and firm today. He's having about 3 bowel movements a day. Patient seen by GI service. They will ordered an abdominal ultrasound with paracentesis. Creatinine is down to 1.80, total bili is 19, AST 700 and ALT 31. CO2 has come up from 14-19. Patient denies any chest pain or shortness of breath. Denies any nausea or vomiting. Denies any difficulty urinating. On 07/27/2019 patient is alert and oriented 3. Patient to undergo paracentesis today per GI services. Creatinine trending down. Total bili increasing to 19.6. This time patient denies chest pain or shortness breath. Patient denies nausea vomiting or diarrhea. Patient denies any urinary burning or frequency 07/28/2019 patient is awake and answering questions appropriately. He had a paracentesis with 2.8 L removed yesterday. His abdomen is still distended. Lactulose was increased to 3 times a day. His ammonia level had gone from 54- 72. Nephrology has discontinued the IV albumin and Sandostatin. Creatinine continues to trend down 1.48. Total bilirubin has decreased from 19.6-17.4. White count 15.2. Patient has no complaints. On 07/29/2019 patient is alert and oriented 3. Patient having elevated temp and white count. Patient is complaining cough will order chest x-ray. Patient also having drainage from paracentesis site. Blood culture and urine culture ordered. Will consult infectious disease. White blood cell elevated at 19.1, total bili 18.8. Patient denies any chest pain. Patient denies nausea vomiting or diarrhea. Patient denies any burning with urination On 07/30/2019 patient was seen and examined on the medical floor he is alert and oriented 3 in no apparent distress he is complaining of discomfort in the abdomen otherwise he denies any complaints there is no fever or chills no headache or dizziness no chest pain no shortness of breath no cough no nausea or vomiting no diarrhea no burning with urination no frequency or urgency no hematuria. White blood count still elevated at 18.9 bilirubin 18.1 AST 121 On 07/31/2019 patient was seen and examined on the medical floor he is alert and oriented 3 he has severe jaundice he denies any pain or discomfort there is no fever or chills no headache or dizziness no chest pain no shortness of breath no cough no nausea or vomiting no abdominal pain no diarrhea no burning with urination no frequency or urgency no hematuria On 08/01/2019 patient is alert and oriented 3. at bedside. Creatinine remains elevated 0.12 and bun 26. Patient remains on IV Lasix. Total bili 17.5. Patient also getting treated for possible pneumonia with Maxipime and Diflucan. GI, nephrology and infectious disease services are following. Patient denies chest pain or shortness of breath. Patient denies nausea vomiting or diarrhea. Patient denies any urinary burning or frequency On 08/02/2019 patient is alert and oriented 3. at bedside. Patient's creatinine increasing to 2.51 and bun 28. Discussed case with nephrology team. Patient was transitioned to Demadex yesterday. Patient remains quite edematous with ascites and edema. Per GI services patient to undergo paracentesis today. Per nephrology service is patient to be received 25 g of albumin prior to paracentesis and a large volume intake and output will require more albumin after. Antibiotics also adjusted per ID Flagyl added. Patient denies chest pain. Patient denies nausea vomiting or diarrhea. Patient denies any urinary burning or frequency On 08/03/2019 patient is alert and oriented 3. Creatinine increasing to 2.79 a nd bun 31. Patient did undergo paracentesis yesterday 1.3 L off. Total bili 16.1. Patient remains on cefepime Flagyl and Diflucan. Patient complaining about increased congestion. Will order repeat chest x-ray. At this time patient denies chest pain. Patient denies shortness breath. Patient denies nausea or vomiting. On 08/04/2019 patient is alert and oriented 3. Patient's at bedside. Nephrology services have bedside. Patient's creatinine increasing to 3.41 and bun 37. Per nephrology services diuretics currently on hold patient maintained on albumin we'll continue to monitor kidney enzymes. Family aware that if kidneys continued to decline patient will require hemodialysis. Total bili 15.6. White blood cell is trending down. Infectious disease is following. Patient maintained on cefepime Flagyl and Diflucan. On 08/05/2019 patient is alert and oriented 3. Total bili decreasing to 14.6 and WBC trending down. Patient's creatinine increasing to 3.72 and bun 42. Patient was started on Sandostatin maintained on albumin per nephrology services. Discussion was held with family per nephrology that patient may require hemodialysis if kidneys continued to decline. At this time patient denies chest pain. Patient denies nausea vomiting or diarrhea. Patient denies shortness breath. Patient denies any urinary burning or frequency On 08/06/2019 patient is alert and oriented 3 in no apparent distress there is no fever or chills no headache or dizziness no chest pain no shortness of breath no cough no nausea or vomiting no abdominal pain no diarrhea no burning with urination no frequency or urgency no hematuria. Jowled this improving liver enzymes are improving however kidney function is worsening, nephrology are following closely to assess need for hemodialysis. On 08/07/2019 patient was seen and examined on the medical floor he is alert and oriented 3 in no apparent distress he is complaining of abdominal discomfort otherwise no complaints at this time there is no fever or chills no headache or dizziness no chest pain no shortness of breath no cough no nausea or vomiting no abdominal pain no diarrhea no burning was urination no frequency or urgency and no hematuria, he is still has significant jaundice, BUN and creatinine are still worsening, nephrology are following On 08/08/2019 patient is alert and oriented 3. Creatinine increasing to 5.64 bun 51 patient will likely need hemodialysis. Patient and family are aware. Awaiting nephrology input. Total bili decreasing to 12.2. At this time patient denies chest pain patient denies nausea vomiting or diarrhea. Patient denies any urinary burning or frequency Objective - Vital Signs Vital signs: Vital Signs Temp 96.7 F L 08/08/19 07:00 Pulse 77 08/08/19 07:00 Resp 16 08/08/19 08:00 BP 109/69 08/08/19 07:00 Pulse Ox 91 L 08/08/19 07:00 Intake & Output 08/07/19 08/08/19 08/08/19 18:59 06:59 18:59 Intake Total 200 Output Total 0 100 Balance 200 -100 Intake: Intake, IV Titration 200 Amount Albumin Human 25% 50 ml 100 In Empty Bag 1 bag @ 50 mls/hr IVPB Q1H [facility] Rx#: [id number] Cefepime 2 gm In Sodium 100 Chloride 0.9% 100 ml @ 200 mls/hr IVPB DAILY [facility] Rx#:[id number] Output: Urine 100 Stool 0 0 Other: Voiding Method Toilet Toilet Toilet - Exam Head normocephalic and atraumatic Neck supple no JVD no goiter Lungs clear to auscultation bilaterally no wheezing or crackles Heart regular rate and rhythm S1-S2, no rub or gallop Abdomen is soft nontender nondistended positive bowel sounds no hepatosplenomegaly Extremities +1 edema bilateral lower legs Neuro patient sleeping comfortably Skin jaundice. Scleral icterus - Labs CBC & Chem 7: 08/08/19 07:55 08/08/19 07:55 Labs: Abnormal Lab Results - Last 24 Hours (Table) 08/08/19 08/08/19 Range/Units 07:55 07:55 WBC 17.2 H (3.8-10.6) k/uL RBC 2.89 L (4.30-5.90) m/uL Hgb 9.8 L (13.0-17.5) gm/dL Hct 31.9 L (39.0-53.0) % MCV 110.2 H (80.0-100.0) fL MCHC 30.8 L (31.0-37.0) g/dL Neutrophils # 13.2 H (1.3-7.7) k/uL Monocytes # 1.5 H (0-1.0) k/uL Macrocytosis Marked A BUN 51 H (9-20) mg/dL Creatinine 5.64 H (0.66-1.25) mg/dL Calcium 7.8 L (8.4-10.2) mg/dL Total Bilirubin 12.2 H (0.2-1.3) mg/dL AST 93 H (17-59) U/L Alkaline Phosphatase 140 H (38-126) U/L Albumin 2.7 L (3.5-5.0) g/dL Assessment and Plan Assessment: 1. Severe Acute alcoholic hepatitis superimposed on alcoholic cirrhosis of the liver. Abdominal ultrasound completed showing no gallstones or dilated ducts. Diffuse fatty infiltration of the liver. GI services have been consulted. Hepa titis panel negative. 2. Jaundice, hyperbilirubinemia secondary to alcoholic liver disease. Total bilirubin 19. GI service is following and decided not to start prednisone. Total bili 15.6 3. EtOH withdrawal. Patient currently on CIWA protocal. Continue thiamine and add multivitamin. Continue Ativan as needed. Resolved 4. Hypokalemia. Likely losing potassium through his stooling and hydrochlorothiazide. Improved with potassium replacement 5. Hyponatremia and hypochloremic secondary to EtOH. Resolved 6. Tachycardia secondary to alcohol withdrawal. Patient's home dose beta b locker resumed. Continue a call withdrawal protocol. Tachycardia has improved. Discontinue telemetry 7. History of essential hypertension. Patient's home dose of Lopressor resumed. 8. 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 Continue to monitor ammonia levels. Patient has had some confusion. Lactulose was decreased to twice a day. And he is on Xifaxan 9. Macrocytic anemia secondary to chronic liver disease 10. Generalized weakness and fatigue due to his advanced liver disease. Continue PT OT 11. Metabolic acidosis: the patient having multiple stools. CO2 19 currently on IV sodium bicarb. Nephrology following. Patient has been switched to oral sodium bicarbonate per nephrology 12. Hypomagnesemia: Resolved with replacement 13. Acute kidney injury secondary to hepatorenal. Nephrology services are following. Creatinine increasing to 3.41 and bun 37. Current diuretics on hold. Patient is maintained on albumin. Discussion was held per nephrology with family that patient may require hemodialysis of kidneys continued to decline we'll continue to monitor daily. maintained on albumin and Sandostatin per nephrology services. 14. Abdominal ascites. Status post paracentesis with 2.8 L removed. Plans for paracentesis today per GI services. Did discuss with nephrology services recommended patient received 25 g of albumin prior and possibly after the large volume is removed. Status post paracentesis 1.3 L removed 15. Coagulopathy due to liver disease 16. Essential hypertension: We'll continue to monitor blood pressures. BP has been slightly elevated. Repeat blood pressure 135/71. We'll continue to monitor 17. Leukocytosis with low-grade temps. infectious disease is following. Patient remains on Maxipime and Diflucan sputum and blood cultures have been negative thus far. White blood cell continue to increase infectious disease is following. Flagyl has been added. Repeat chest x-ray completed showing bilateral small effusion basilar infiltrate stable from recent exam correlate for COPD. DVT prophylaxis SCDs due to coagulopathy secondary to liver disease GI prophylaxis Protonix GI, nephrology infectious disease following. I performed an examination of the patient and discussed their management with the Nurse Practitioner. I have reviewed the Nurse Practitioner's notes and agree with the documented findings and plan of care
[2019-08-08 17:00] LABS: INR 2.1 (<1.2); Prothrombin Time 20.9 sec (9.0-12.0)
[2019-08-08] MEDS ORDERED: PHYTONADIONE ORAL 5 MG/5 ML ORAL.SYRG PO STA (17:10)
--- NOTE | 2019-08-08 20:25 | PN ---
PROGRESS NOTE Patient is seen for followup for acute kidney injury. Renal function continues to worsen. Patient was talked to regarding possibly starting renal replacement therapy yesterday. His creatinine has worsened and he is agreeable to starting dialysis. Urine output remains on the lower side, for 24 hours about 500 mL is documented. PHYSICAL EXAMINATION: On examination today, blood pressure was 109/69, heart rate 77 per minute, patient is afebrile. Examination of the heart S1, S2. Examination of the lungs, bilateral breath sounds are heard. Abdomen is soft, nontender. Examination of lower extremities shows edema 2+ bilaterally. [employer] exam grossly intact. LABS: Show hemoglobin of 9.8, sodium 137, potassium 4.2, BUN 51 serum creatinine 5.6. ASSESSMENT: 1. Acute kidney injury, progressively worsening secondary to hepatorenal syndrome. Proceed with dialysis. We will consult Vascular Surgery for dialysis catheter placement and plan for first treatment tomorrow. 2. Alcoholic hepatitis. 3. Chronic liver disease, portal hypertension, recurrent ascites and significant edema. 4. Hepatic encephalopathy, now improved. PLAN: Consult Vascular Surgery for dialysis catheter placement. Plan for hemodialysis in a.m. Proceed with management for outpatient dialysis as well. MMODL / IJN: [id number] /
[2019-08-08 20:43] LABS: Hepatitis B Surface AB- Quant 3.5 mIU/mL; Hepatitis B Surface Antibody Non-Reactive (Non-Reactive); Hepatitis B Surface Antigen Non-Reactive (Non-Reactive)
--- NOTE | 2019-08-08 22:38 | PN ---
PROGRESS NOTE DATE OF SERVICE: 08/08/2019 REQUESTING PHYSICIAN: Dr. Boles. The patient is a 49-year-old white male with acute alcoholic hepatitis and jaundice, has been in the hospital for almost 3 weeks, is gradually improving. BUN and creatinine are worsening and nephrology following the patient closely who are considering starting him on possible hemodialysis. The patient denies any new symptoms today. PHYSICAL EXAMINATION: Appears comfortable, no apparent distress. Vital signs are stable. Blood pressure is 102/86, pulse rate 75, and afebrile. HEENT examination unremarkable: Conjunctivae pink. Sclerae slightly icteric. Oral cavity, no lesions. NECK: No JVD or lymph node enlargement. CHEST: Clear to auscultation. HEART: Regular rate and rhythm. ABDOMEN: Slightly distended. Some fluid thrill noted. EXTREMITIES: No pedal edema. SKIN: No rashes. NEURO: He is alert and oriented x3. No focal deficits. LABS: WBC 17.2, hemoglobin 9.8, platelets 231, bilirubin is down to 12.2. AST and ALT are 93 and 14 respectively. Alkaline phosphatase 140. INR is 2.1. BUN is 51, creatinine 5.64. IMPRESSION: 1. Acute alcoholic hepatitis superimposed on alcoholic cirrhosis of the liver which is gradually improving. Bilirubin is down to 12.2 g/dL. 2. Ascites, status post large volume paracentesis a week ago. 3. Acute kidney injury. Nephrology following the patient closely, considering hemodialysis. RECOMMENDATIONS: 1. Continue with symptomatic and supportive care. 2. Patient presently on Sandostatin as well as albumin as per Nephrology. 3. Repeat labs in the morning. 4. We will continue to follow the patient closely during his hospital stay. MMODL / IJN: [id number] /
--- NOTE | 2019-08-08 23:25 | CONS ---
DATE OF CONSULTATION: 08/08/2019 This is a 56-year-old gentleman who has a history of chronic acute current failure, history of hypokalemia, history of alcoholic hepatitis. I was consulted for placement of the dialysis catheter. The patient was seen by Dr. Roberson. The patient wants to go for dialysis tomorrow. The patient is scheduled to have a placement of dialysis catheter. PHYSICAL EXAMINATION: Patient was seen in his room. NECK: Supple. Trachea central. Chest has few crackles. Abdomen is protuberant. No peritoneal signs noted. Femorals are present. IMPRESSION: 1. History of alcoholic hepatitis, alcohol cirrhosis of the liver. 2. Hypokalemia. 3. History of essential hypertension. 4. Acute on chronic renal failure. PLAN: Placement of the dialysis catheter. Risks of bleeding, infection, thrombosis, has been discussed. HIREN / YULIA: [id number] / MTDD
[2019-08-09] MEDS: OCTREOTIDE 100 MCG/ML INJ SQ SCH ×3 (00:34→17:48)
[2019-08-09] MEDS ORDERED: PHYTONADIONE 5 MG in SODIUM CHLORIDE 0.9% 50 ML IVPB ONE (05:00)
[2019-08-09 06:05] LABS: Basophils # (A) 0.1 k/uL (0-0.2); Basophils % (A) 1 %; Eosinophils # (A) 0.3 k/uL (0-0.7); Eosinophils % (A) 2 %; HCT 33.4 % (39.0-53.0); HGB 10.3 gm/dL (13.0-17.5); Hypochromasia Slight; Lymphocytes % (A) 6 %; MCHC 30.9 g/dL (31.0-37.0); MCV 106.7 fL (80.0-100.0); Macrocytosis Moderate; Mean Platelet Volume 9.1; Monocytes # (A) 1.3 k/uL (0-1.0); Monocytes % (A) 8 %; Neutrophils # (A) 13.8 k/uL (1.3-7.7); Neutrophils % (A) 81 %; Platelet Count 218 k/uL (150-450); RBC 3.13 m/uL (4.30-5.90); RDW 15.5 % (11.5-15.5)
[2019-08-09 06:23] LABS: Albumin 2.6 g/dL (3.5-5.0); Calcium 8.2 mg/dL (8.4-10.2); Potassium 4.2 mmol/L (3.5-5.1); Total Bilirubin 11.8 mg/dL (0.2-1.3); Total Protein 6.6 g/dL (6.3-8.2)
[2019-08-09 06:29] LABS: INR 2.3 (<1.2); Prothrombin Time 22.5 sec (9.0-12.0)
[2019-08-09] MEDS: amLODIPine 5 MG TAB PO SCH (08:36)
[2019-08-09] MEDS: LACTULOSE 20 GM/30 ML CUP PO SCH ×3 (08:36→21:43)
[2019-08-09] MEDS: METOPROLOL SUCCINATE (ER) 100 MG TAB.ER.24H PO SCH (08:37)
[2019-08-09] MEDS: MULTIVITAMINS, THERA 1 EACH TAB PO SCH (08:37)
[2019-08-09] MEDS: THIAMINE 100 MG TAB PO SCH ×2 (08:38→17:48)
[2019-08-09] MEDS: FLUCONAZOLE 100 MG TAB PO SCH (08:38)
[2019-08-09] MEDS: PANTOPRAZOLE 40 MG TABLET PO SCH (08:39)
[2019-08-09] MEDS ORDERED: MIDAZOLAM 2 MG/2 ML VIAL IVP ONE (10:55)
[2019-08-09] MEDS ORDERED: LIDOCAINE 1% INJ 10MG/ML (20 ML MDV) SQ ONE (10:56)
--- NOTE | 2019-08-09 10:56 | P.PN ---
Subjective Progress Note Date: 08/09/19 This is a 49-year-old male patient who presented to the ER with complaints of yellowing of skin and eyes. Patient is known past medical history of EtOH drinking approximately a pint of vodka plus beer daily. Patient's urged patient to come to ER due to presentation of jaundice 1 day patient was noted to have yellowing of his eyes and she was concerned about his liver. Additional medical history includes hyperlipidemia hypertension and ex-smoker. Abdominal ultrasound completed showing no gallstones or dilated ducts diffuse fatty infiltration of liver. Upon admission AST elevated to 95, ALT 64 alkaline phosphatase 3:30 total bilirubin 10.1 and ammonia level 185. Patient has been started on lactulose. GI services have been consulted. Patient's electrolytes also significantly impaired. Sodium low at 122, potassium 3.2, magnesium 0.7. Replacement per protocol patient currently on normal saline. Patient also currently in EtOH withdrawals. Patient has been admitted to the intensive care unit critical care services are following. Heart rate elevated secondary to withdrawal. CIWA protocol has been ordered. GI services have been consulted for Liver failure. At this time patient is resting comfortably in bed shakiness and withdrawal symptoms noted. Patient is alert and oriented 2. Patient able to follow commands. Patient denies chest pain. Patient denies shortness of breath. Patient denies any urinary burning or frequency. 07/14/2019 patient remains in the ICU. He has a sitter at bedside. He did require Ativan this morning for alcohol withdrawal and is sleeping comfortably. Heart rate is better controlled. Total bilirubin has gone up from 10.1-14.1. Ammonia level has decreased from 185-47. Hepatitis panel is negative. He is followed by GI service and critical care. He is tolerating clear liquid diet. Patient is having a bowel movement almost every hour. Patient currently on lactulose 3 times a day and Xifaxan. Patient did have a temp of 100.6 yesterday afternoon he is currently on Rocephin. Chest x-rays negative. 07/20/2019 patient is currently on a regular medical floor. He was followed by Dr. Carlton from 07/15/2019 until 07/19/2019. Patient's is being followed by GI service for his severe alcoholic hepatitis. Total bilirubin is up to 22. He has been ambulating in the hallway. Apparently he had a fall yesterday and had a computed tomography scan of the head and neck completed. Just revealing moderate atrophy of the brain. Otherwise normal findings. Ammonia levels up to 73 CO2 is down at 14. Patient denies any chest pain or shortness of breath. Denies any nausea or vomiting. Urine is starting to clear and he is having 3-5 bowel movements a day. 07/21/2019 patient sitting up in bed comfortably. He reports having at least 3 bowel movements daily. Ammonia level has decreased from 73-53. Total bilirubin has come down from 22-20.4. He is followed closely by GI service. Awaiting their recommendations regarding the prednisone. Potassium is low at 3.4. 07/22/2019 patient lying in bed comfortably. He has no new complaints. Ammonia is down to 48. He is having multiple bowel movements a day. Magnesium and pot assium are low and being replaced. Creatinine has gone up to 1.48. We'll discontinue the hydrochlorothiazide and lisinopril. Continue fluids at 50 mL an hour. Total bilirubin is 20.8 patient denies any difficulty urinating. He does report that his urine continues to become clear. GI service did hold off on starting the prednisone. On 07/23/2019 patient is alert and oriented 3 in no apparent distress bilirubin still elevated at 22 patient clinically denies any symptoms there is no fever or chills no headache or dizziness no chest pain no shortness of breath no cough no nausea or vomiting no abdominal pain no diarrhea and no urinary symptoms. , On 07/24/2019 patient was seen and examined on the medical floor, he is alert and oriented 3 in no apparent distress, he is still has significant jaundice, total bilirubin up to 22.4, creatinine up to 2.04, clinically he is feeling well, there is no fever or chills no headache no dizziness no chest pain no shortness of breath no cough no nausea or vomiting no abdominal pain no diarrhea and no urinary symptoms. On 07/25/2019 patient is alert and oriented 3. Patient up ambulating the kinney with . Patient remains with significant jaundice. Total bili is trending down 19.6. Nephrology services are following. Patient currently maintained on Sandostatin and albumin per nephrology services for concerns of hepatorenal acute kidney injury. Creatinine is improving slightly we'll continue to monitor. Patient also switched to IV sodium bicarb. We'll continue to monitor patient closely. At this time patient denies chest pain or shortness breath. Patient denies nausea vomiting or diarrhea. Patient denies any urinary burning or frequency 07/26/2019 patient lying in bed. at bedside. Patient reporting that his abdomen is more distended and firm today. He's having about 3 bowel movements a day. Patient seen by GI service. They will ordered an abdominal ultrasound with paracentesis. Creatinine is down to 1.80, total bili is 19, AST 700 and ALT 31. CO2 has come up from 14-19. Patient denies any chest pain or shortness of breath. Denies any nausea or vomiting. Denies any difficulty urinating. On 07/27/2019 patient is alert and oriented 3. Patient to undergo paracentesis today per GI services. Creatinine trending down. Total bili increasing to 19.6. This time patient denies chest pain or shortness breath. Patient denies nausea vomiting or diarrhea. Patient denies any urinary burning or frequency 07/28/2019 patient is awake and answering questions appropriately. He had a paracentesis with 2.8 L removed yesterday. His abdomen is still distended. Lactulose was increased to 3 times a day. His ammonia level had gone from 54- 72. Nephrology has discontinued the IV albumin and Sandostatin. Creatinine continues to trend down 1.48. Total bilirubin has decreased from 19.6-17.4. White count 15.2. Patient has no complaints. On 07/29/2019 patient is alert and oriented 3. Patient having elevated temp and white count. Patient is complaining cough will order chest x-ray. Patient also having drainage from paracentesis site. Blood culture and urine culture ordered. Will consult infectious disease. White blood cell elevated at 19.1, total bili 18.8. Patient denies any chest pain. Patient denies nausea vomiting or diarrhea. Patient denies any burning with urination On 07/30/2019 patient was seen and examined on the medical floor he is alert and oriented 3 in no apparent distress he is complaining of discomfort in the abdomen otherwise he denies any complaints there is no fever or chills no headache or dizziness no chest pain no shortness of breath no cough no nausea or vomiting no diarrhea no burning with urination no frequency or urgency no hematuria. White blood count still elevated at 18.9 bilirubin 18.1 AST 121 On 07/31/2019 patient was seen and examined on the medical floor he is alert and oriented 3 he has severe jaundice he denies any pain or discomfort there is no fever or chills no headache or dizziness no chest pain no shortness of breath no cough no nausea or vomiting no abdominal pain no diarrhea no burning with urination no frequency or urgency no hematuria On 08/01/2019 patient is alert and oriented 3. at bedside. Creatinine remains elevated 0.12 and bun 26. Patient remains on IV Lasix. Total bili 17.5. Patient also getting treated for possible pneumonia with Maxipime and Diflucan. GI, nephrology and infectious disease services are following. Patient denies chest pain or shortness of breath. Patient denies nausea vomiting or diarrhea. Patient denies any urinary burning or frequency On 08/02/2019 patient is alert and oriented 3. at bedside. Patient's creatinine increasing to 2.51 and bun 28. Discussed case with nephrology team. Patient was transitioned to Demadex yesterday. Patient remains quite edematous with ascites and edema. Per GI services patient to undergo paracentesis today. Per nephrology service is patient to be received 25 g of albumin prior to paracentesis and a large volume intake and output will require more albumin after. Antibiotics also adjusted per ID Flagyl added. Patient denies chest pain. Patient denies nausea vomiting or diarrhea. Patient denies any urinary burning or frequency On 08/03/2019 patient is alert and oriented 3. Creatinine increasing to 2.79 a nd bun 31. Patient did undergo paracentesis yesterday 1.3 L off. Total bili 16.1. Patient remains on cefepime Flagyl and Diflucan. Patient complaining about increased congestion. Will order repeat chest x-ray. At this time patient denies chest pain. Patient denies shortness breath. Patient denies nausea or vomiting. On 08/04/2019 patient is alert and oriented 3. Patient's at bedside. Nephrology services have bedside. Patient's creatinine increasing to 3.41 and bun 37. Per nephrology services diuretics currently on hold patient maintained on albumin we'll continue to monitor kidney enzymes. Family aware that if kidneys continued to decline patient will require hemodialysis. Total bili 15.6. White blood cell is trending down. Infectious disease is following. Patient maintained on cefepime Flagyl and Diflucan. On 08/05/2019 patient is alert and oriented 3. Total bili decreasing to 14.6 and WBC trending down. Patient's creatinine increasing to 3.72 and bun 42. Patient was started on Sandostatin maintained on albumin per nephrology services. Discussion was held with family per nephrology that patient may require hemodialysis if kidneys continued to decline. At this time patient denies chest pain. Patient denies nausea vomiting or diarrhea. Patient denies shortness breath. Patient denies any urinary burning or frequency On 08/06/2019 patient is alert and oriented 3 in no apparent distress there is no fever or chills no headache or dizziness no chest pain no shortness of breath no cough no nausea or vomiting no abdominal pain no diarrhea no burning with urination no frequency or urgency no hematuria. Jowled this improving liver enzymes are improving however kidney function is worsening, nephrology are following closely to assess need for hemodialysis. On 08/07/2019 patient was seen and examined on the medical floor he is alert and oriented 3 in no apparent distress he is complaining of abdominal discomfort otherwise no complaints at this time there is no fever or chills no headache or dizziness no chest pain no shortness of breath no cough no nausea or vomiting no abdominal pain no diarrhea no burning was urination no frequency or urgency and no hematuria, he is still has significant jaundice, BUN and creatinine are still worsening, nephrology are following On 08/08/2019 patient is alert and oriented 3. Creatinine increasing to 5.64 bun 51 patient will likely need hemodialysis. Patient and family are aware. Awaiting nephrology input. Total bili decreasing to 12.2. At this time patient denies chest pain patient denies nausea vomiting or diarrhea. Patient denies any urinary burning or frequency On 08/09/2019 patient is alert and oriented 3. Plans to get hemodialysis access stay per Dr. Nicholas. Patient INR 2.3 secondary to liver disease. Patient to receive FFP's prior to procedure. Plans for hemodialysis today per nephrology. Patient denies chest pain or shortness of breath. Patient denies nausea vomiting or diarrhea. Patient denies any urinary burning or frequency Objective - Vital Signs Vital signs: Vital Signs Temp 97.8 F 08/09/19 10:30 Pulse 75 08/09/19 10:30 Resp 18 08/09/19 10:30 BP 96/62 03/10/20 10:30 Pulse Ox 92 L 08/09/19 10:30 Intake & Output 08/08/19 08/09/19 08/09/19 18:59 06:59 18:59 Intake Total 95 0 Output Total 75 200 100 Balance -75 -105 -100 Weight 84.5 kg Intake: IV 20 Sodium Chloride 0.9% 1, 20 000 ml @ 50 mls/hr IV . Q20H [facility] Rx#:[id number] Intake, IV Titration 50 Amount Phytonadione 5 mg In 50 Sodium Chloride 0.9% 50 ml @ 100 mls/hr IVPB ONCE ONE Rx#:[id number] Oral 25 Blood Product 0 Ffp 24 Cpd Unit 0 [id number] Output: Urine 75 200 100 Other: Voiding Method Toilet Toilet - Exam Head normocephalic and atraumatic Neck supple no JVD no goiter Lungs clear to auscultation bilaterally no wheezing or crackles Heart regular rate and rhythm S1-S2, no rub or gallop Abdomen is soft nontender nondistended positive bowel sounds no hepatosplenomegaly Extremities +1 edema bilateral lower legs Neuro patient sleeping comfortably Skin jaundice. Scleral icterus - Labs CBC & Chem 7: 08/09/19 05:44 08/09/19 05:44 Labs: Abnormal Lab Results - Last 24 Hours (Table) 08/08/19 08/08/19 08/09/19 Range/Units 07:55 16:44 05:44 WBC 17.2 H 17.0 H (3.8-10.6) k/uL RBC 2.89 L 3.13 L (4.30-5.90) m/uL Hgb 9.8 L 10.3 L (13.0-17.5) gm/dL Hct 31.9 L 33.4 L (39.0-53.0) % MCV 110.2 H 106.7 H (80.0-100.0) fL MCHC 30.8 L 30.9 L (31.0-37.0) g/dL Neutrophils # 13.2 H 13.8 H (1.3-7.7) k/uL Monocytes # 1.5 H 1.3 H (0-1.0) k/uL Macrocytosis Marked A PT 20.9 H (9.0-12.0) sec INR 2.1 H (<1.2) BUN (9-20) mg/dL Creatinine (0.66-1.25) mg/dL Calcium (8.4-10.2) mg/dL Total Bilirubin (0.2-1.3) mg/dL AST (17-59) U/L Alkaline Phosphatase (38-126) U/L Albumin (3.5-5.0) g/dL 08/09/19 08/09/19 Range/Units 05:44 05:44 WBC (3.8-10.6) k/uL RBC (4.30-5.90) m/uL Hgb (13.0-17.5) gm/dL Hct (39.0-53.0) % MCV (80.0-100.0) fL MCHC (31.0-37.0) g/dL Neutrophils # (1.3-7.7) k/uL Monocytes # (0-1.0) k/uL Macrocytosis PT 22.5 H (9.0-12.0) sec INR 2.3 H (<1.2) BUN 52 H (9-20) mg/dL Creatinine 6.24 H (0.66-1.25) mg/dL Calcium 8.2 L (8.4-10.2) mg/dL Total Bilirubin 11.8 H (0.2-1.3) mg/dL AST 92 H (17-59) U/L Alkaline Phosphatase 149 H (38-126) U/L Albumin 2.6 L (3.5-5.0) g/dL Assessment and Plan Assessment: 1. Severe Acute alcoholic hepatitis superimposed on alcoholic cirrhosis of the liver. Abdominal ultrasound completed showing no gallstones or dilated ducts. Diffuse fatty infiltration of the liver. GI services have been consulted. Hepatitis panel negative. 2. Jaundice, hyperbilirubinemia secondary to alcoholic liver disease. Total bilirubin 19. GI service is following and decided not to start prednisone. Total bili 15.6 3. EtOH withdrawal. Patient currently on CIWA protocal. Continue thiamine and add multivitamin. Continue Ativan as needed. Resolved 4. Hypokalemia. Likely losing potassium through his stooling and hydrochlorothiazide. Improved with potassium replacement 5. Hyponatremia and hypochloremic secondary to EtOH. Resolved 6. Tachycardia secondary to alcohol withdrawal. Patient's home dose beta phong resumed. Continue a call withdrawal protocol. Tachycardia has improved. Discontinue telemetry 7. History of essential hypertension. Patient's home dose of Lopressor resumed. 8. 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 Continue to monitor ammonia levels. Patient has had some confusion. Lactulose was decreased to twice a day. And he is on Xifaxan 9. Macrocytic anemia secondary to chronic liver disease 10. Generalized weakness and fatigue due to his advanced liver disease. Continue PT OT 11. Metabolic acidosis: the patient having multiple stools. CO2 19 currently on IV sodium bicarb. Nephrology following. Patient has been switched to oral sodium bicarbonate per nephrology 12. Hypomagnesemia: Resolved with replacement 13. Acute kidney injury secondary to hepatorenal. Nephrology services are following. Creatinine increasing to 3.41 and bun 37. Current diuretics on hold. Patient is maintained on albumin. Discussion was held per nephrology with family that patient may require hemodialysis of kidneys continued to decline we'll continue to monitor daily. maintained on albumin and Sandostatin per nephrology services. Patient to start hemodialysis today Dr. Nicholas has been consulted 14. Abdominal ascites. Status post paracentesis with 2.8 L removed. Plans for paracentesis today per GI services. Did discuss with nephrology services recomm ended patient received 25 g of albumin prior and possibly after the large volume is removed. Status post paracentesis 1.3 L removed 15. Coagulopathy due to liver disease. INR 2.3. Patient will receive FFP's prior and after procedure for hemodialysis access 16. Essential hypertension: We'll continue to monitor blood pressures. BP has been slightly elevated. Repeat blood pressure 135/71. We'll continue to monitor 17. Leukocytosis with low-grade temps. infectious disease is following. Patient remains on Maxipime and Diflucan sputum and blood cultures have been negative thus far. White blood cell continue to increase infectious disease is following. Flagyl has been added. Repeat chest x-ray completed showing bilateral small effusion basilar infiltrate stable from recent exam correlate for COPD. DVT prophylaxis SCDs due to coagulopathy secondary to liver disease GI prophylaxis Protonix GI, nephrology infectious disease following. Vascular surgery Dr. Nicholas consulted for hemodialysis access, patient to get FFP's prior to procedure due to coagulopathy secondary to liver disease Plans for hemodialysis today per nephrology I performed an examination of the patient and discussed their management with the Nurse Practitioner. I have reviewed the Nurse Practitioner's notes and agree with the documented findings and plan of care
[2019-08-09] MEDS ORDERED: SODIUM CHLORIDE 0.9% 250 ML IV ONE (11:04)
--- NOTE | 2019-08-09 11:05 | P.CONS ---
History of Present Illness - Reason for Consult Consult date: 08/09/19 supratherapeutic INR Requesting physician: Jean Paul Nicholas - Chief Complaint jaundice,acute on chronic liver failure - History of Present Illness Mr. Salmon is a very pleasant 49-year-old male patient who has been hospitalized for 28 days when he was admitted with acute liver failure secondary to EtOH abuse. Patient quit drinking on admission. We have been asked to see the patient for elevated INR and need for vascular access for dialysis. Patient is currently denying any bleeding, he has bruising in areas of trauma from needle sticks but, denies any other petechiae, ecchymosis, purpura, no blood in the urine of the stool, hemoptysis, epistaxis. Review of Systems 10 point review of systems is negative except as stated in HPI Past Medical History Past Medical History: Hyperlipidemia, Hypertension History of Any Multi-Drug Resistant Organisms: None Reported Past Surgical History: No Surgical Hx Reported Past Anesthesia/Blood Transfusion Reactions: No Reported Reaction Past Psychological History: No Psychological Hx Reported Smoking Status: Former smoker Past Alcohol Use History: Daily, Heavy Past Drug Use History: None Reported - Past Family History Mother Family Medical History: CVA/TIA Father Additional Family Medical History / Comment(s): of Lung Cancer Medications and Allergies Home Medications Medication Instructions Recorded Confirmed Type Fenofibrate Nanocrystallized 145 mg PO DAILY 07/12/19 07/12/19 History [Fenofibrate] Hydrochlorothiazide 25 mg PO DAILY 07/12/19 07/12/19 History Lisinopril [Prinivil] 10 mg PO DAILY 07/12/19 07/12/19 History Metoprolol Succinate [Toprol XL] 100 mg PO DAILY 07/12/19 07/12/19 History Allergies Allergy/AdvReac Type Severity Reaction Status Date / Time Penicillins Allergy Unknown Verified 07/12/19 15:59 Childhood Physical Exam Vitals: Vital Signs Temp Pulse Pulse Resp BP BP BP 08/09/19 10:30 97.8 F 75 18 96/62 08/09/19 10:15 76 94/54 08/09/19 07:00 97.8 F 80 16 108/77 08/09/19 05:19 77 18 119/77 08/09/19 05:03 75 16 117/80 08/09/19 04:00 18 08/09/19 00:35 98.1 F 84 109/79 08/08/19 23:57 18 08/08/19 20:00 98.1 F 81 18 122/76 08/08/19 15:00 98.1 F 75 18 112/78 Pulse Ox 08/09/19 10:30 92 L 08/09/19 10:15 93 L 08/09/19 07:00 94 L 08/09/19 05:19 91 L 08/09/19 05:03 92 L 08/09/19 04:00 08/09/19 00:35 94 L 08/08/19 23:57 08/08/19 20:00 08/08/19 15:00 94 L Intake and Output 08/08/19 08/09/19 08/09/19 22:59 06:59 14:59 Intake Total 25 70 0 Output Total 50 150 100 Balance -25 -80 -100 Intake: IV 20 Sodium Chloride 0.9% 1, 20 000 ml @ 50 mls/hr IV . Q20H [facility] Rx#:[id number] Intake, IV Titration 50 Amount Phytonadione 5 mg In 50 Sodium Chloride 0.9% 50 ml @ 100 mls/hr IVPB ONCE ONE Rx#:[id number] Oral 25 0 Blood Product 0 Ffp 24 Cpd Unit 0 [id number] Output: Urine 50 150 100 Other: Voiding Method Toilet Weight 84.5 kg - Constitutional General appearance: average body habitus, cooperative, no acute distress - EENT Eyes: EOMI, scleral icterus ENT: hearing grossly normal, normal oropharynx - Neck Neck: no lymphadenopathy - Respiratory Respiratory: bilateral: CTA - Cardiovascular Rhythm: regular Heart sounds: normal: S1, S2 Abnormal Heart Sounds: no systolic murmur, no diastolic murmur, no rub, no S3 G allop, no S4 Gallop, no click, no other leg Peripheral Edema: bilateral: None - Gastrointestinal General gastrointestinal: no absent bowel sounds, no decreased bowel sounds, distended, no hepatomegaly, no hyperactive bowel sounds, normal bowel sounds, no organomegaly, no rigid, no scaphoid, soft, no splenomegaly, tenderness, no u mbilical hernia, no ventral hernia - Integumentary Integumentary: jaundiced - Neurologic Neurologic: CNII-XII intact - Musculoskeletal Musculoskeletal: strength equal bilaterally - Psychiatric Psychiatric: A&O x's 3, appropriate affect, intact judgment & insight Results CBC & Chem 7: 08/09/19 05:44 08/09/19 05:44 Labs: Abnormal Lab Results - Last 24 Hours (Table) 08/08/19 08/09/19 08/09/19 Range/Units 16:44 05:44 05:44 WBC 17.0 H (3.8-10.6) k/uL RBC 3.13 L (4.30-5.90) m/uL Hgb 10.3 L (13.0-17.5) gm/dL Hct 33.4 L (39.0-53.0) % MCV 106.7 H (80.0-100.0) fL MCHC 30.9 L (31.0-37.0) g/dL Neutrophils # 13.8 H (1.3-7.7) k/uL Monocytes # 1.3 H (0-1.0) k/uL PT 20.9 H (9.0-12.0) sec INR 2.1 H (<1.2) BUN 52 H (9-20) mg/dL Creatinine 6.24 H (0.66-1.25) mg/dL Calcium 8.2 L (8.4-10.2) mg/dL Total Bilirubin 11.8 H (0.2-1.3) mg/dL AST 92 H (17-59) U/L Alkaline Phosphatase 149 H (38-126) U/L Albumin 2.6 L (3.5-5.0) g/dL 08/09/19 Range/Units 05:44 WBC (3.8-10.6) k/uL RBC (4.30-5.90) m/uL Hgb (13.0-17.5) gm/dL Hct (39.0-53.0) % MCV (80.0-100.0) fL MCHC (31.0-37.0) g/dL Neutrophils # (1.3-7.7) k/uL Monocytes # (0-1.0) k/uL PT 22.5 H (9.0-12.0) sec INR 2.3 H (<1.2) BUN (9-20) mg/dL Creatinine (0.66-1.25) mg/dL Calcium (8.4-10.2) mg/dL Total Bilirubin (0.2-1.3) mg/dL AST (17-59) U/L Alkaline Phosphatase (38-126) U/L Albumin (3.5-5.0) g/dL Assessment and Plan Plan: Supratherapeutic INR secondary to acute on chronic liver disease. We'll ensure at this time exactly how reversible patient's liver disease is and to what extent his INR will normalize. Anticipate he will always have a slightly elevated INR but, patient will follow with Primary Care and Gastroenterology for monitoring of liver disease. Route of vitamin K administration is going to be more effective intravenously as absorption via the gastrointestinal tract is going to be reduced due to impaired liver function. Vitamin K is also going to be limited in its ability to reverse elevated INR as the liver is likely not producing adequate amount of clotting proteins therefore, there will be a lack of binding to vitamin K to form clotti ng factors. For acute procedures recommendation is for fresh frozen plasma to be administered so that clotting factors are available acutely. Doctor attests: I performed a history and physical examination of this patient, developed impression and plan of care. Discussed with dictator. I agree with dictators note, documented as a scribe.
--- NOTE | 2019-08-09 11:47 | OP ---
OPERATIVE REPORT PREOPERATIVE DIAGNOSIS: Acute on chronic renal failure with cirrhosis of the liver with high INR. POSTOPERATIVE DIAGNOSIS: Acute on chronic renal failure with cirrhosis of the liver with high INR. PROCEDURE: Placement of a 30 cm dialysis catheter, ultrasound-guided, right femoral approach. This patient has a history of cirrhosis and renal failure. The patient was given fresh frozen plasma prior to that we gave vitamin K and the patient was brought to the operating room. Right groin was prepped and drapes applied in a sterile manner; 1% lidocaine infiltrated. Ultrasound-guided micropuncture into the right femoral vein micropuncture guidewire was passed and [place] dilator advanced on top of the guidewire. After that, we passed a regular guidewire under fluoroscopy control. The dilator was advanced and then we placed a dialysis catheter on the top of the guidewire with the tip of the catheter was inferior vena cava, flushed with heparin saline and hep-locked. Secured with 3-0 nylon, dressing applied. Patient tolerated the procedure well. Transferred to the floor in stable condition. MMODL / IJN: [id number] /
--- NOTE | 2019-08-09 13:23 | IR ---
EXAMINATION TYPE: IR cvc insert non tunneled DATE OF EXAM: 08/09/2019 COMPARISON: NONE HISTORY: Renal failure Fluoroscopy support supplied to the referring clinician. See dictated report from vascular surgery, 0.1 minutes fluoroscopy time, 112 intraoperative images document the procedure
--- NOTE | 2019-08-09 17:29 | PN ---
PROGRESS NOTE DATE OF SERVICE: 08/09/2019 The patient is a 49-year-old, pleasant, white male with severe alcoholic hepatitis and acute kidney injury/hepatorenal syndrome, was just started on hemodialysis today for worsening kidney parameters. He is doing well otherwise. He denies any symptoms. Appetite has been good. No abdominal pain. No nausea or vomiting. PHYSICAL EXAMINATION: On physical examination, appears comfortable, no apparent distress. VITAL SIGNS: Vital signs are stable. Blood pressure is 119/72, pulse rate 76, temperature 97.5. HEENT examination unremarkable. Conjunctivae pink. Sclerae icteric. Oral cavity, no lesions. NECK: No JVD or lymph node enlargement. CHEST: Clear to auscultation. HEART: Regular rate and rhythm. ABDOMEN: Soft. Bowel sounds are positive. No organomegaly. EXTREMITIES: No pedal edema. SKIN: No rashes. NEURO: He is alert and oriented x3. No focal deficits. LABS: WBC 17, hemoglobin 10.3, platelets 218,000. INR is 2.3. BUN 52, creatinine 6.24. T bili is down to 11.8, AST 92, ALT 14, alk phos 149. IMPRESSION: 1. Acute alcoholic hepatitis superimposed on alcoholic cirrhosis of the liver which is gradually improving. 2. Ascites, status post paracentesis a week ago with mild abdominal distention. 3. Coagulopathy secondary to advanced liver disease. 4. Acute kidney injury/hepatorenal syndrome. Patient started on hemodialysis today. RECOMMENDATIONS: 1. Continue with supportive and symptomatic care. 2. Repeat labs in the morning. 3. Continue with all of the current medications. 4. Will follow with you closely. Thank you for this consultation. MMODL / IJN: [id number] /
--- NOTE | 2019-08-09 17:41 | PN ---
PROGRESS NOTE Patient is scheduled to have hemodialysis today. His dialysis catheter will be placed once he receives FFP as INR was elevated. PHYSICAL EXAMINATION: This morning blood pressure was 138/71, heart rate 74 per minute, he is afebrile. Examination of the heart S1, S2. Examination of the lungs, bilateral breath sounds are heard. Abdomen is soft, nontender. Examination of lower extremities shows edema 2+ bilaterally. CAR SHAGGER exam grossly intact. LABS: Sodium of 138, potassium 4.2, chloride 101, BUN 52, serum creatinine 6.24, hemoglobin 10.3 g/dL. ASSESSMENT: 1. Acute kidney injury, hepatorenal syndrome, not improving. Scheduled for hemodialysis today. We will arrange for treatment today and then again in a.m. 2. Chronic liver disease with liver cirrhosis from ETOH abuse. 3. Acute alcoholic hepatitis, slowly improving. 4. Significant hyperbilirubinemia, somewhat improved with bilirubin down from 22 to about 11.8 now. 5. Recurrent ascites status post paracentesis. PLAN: Hemodialysis today and then again in a.m. We will try to remove at least 1-2 L as tolerated. MMODL / IJN: [id number] /
--- NOTE | 2019-08-09 23:52 | PN ---
PROGRESS NOTE DATE OF SERVICE: 08/09/2019 REASON FOR FOLLOWUP: Leukocytosis positive and reactive. INTERVAL HISTORY: The patient is currently afebrile. Patient noticed to have worsening of his kidney function. Patient did get temporary dialysis catheter, has been scheduled for dialysis today. The patient was slightly lethargic and sleepy and not able to provide any history. No vomiting or diarrhea has been reported. PHYSICAL EXAMINATION: Blood pressure 130/62 with a pulse of 75. Temperature 98.5. He is 94% on room air. General description is a middle-aged male lying in bed in no distress. Respiratory system: Unlabored breathing. Decreased breath sounds in the bases. No wheeze. Heart S1, S2. Regular rate and rhythm. ABDOMEN: Soft. LABS: Hemoglobin is 10.1, white count 17,000. BUN of 52, creatinine 6.24. DIAGNOSTIC IMPRESSION AND PLAN: Patient with leukocytosis which is likely multifactorial in this patient who did have acute alcoholic hepatitis, now with developing cirrhosis and hepatorenal syndrome: The patient white count has not responded to the antibiotic. He has completed a course. He will be monitored closely. If he develops any fever, or change in clinical condition, antibiotic will be restarted. Continue supportive care. MMODL / IJN: [id number] /
[2019-08-10] MEDS: OCTREOTIDE 100 MCG/ML INJ SQ SCH ×3 (00:17→18:33)
[2019-08-10 07:29] LABS: Calcium 8.6 mg/dL (8.4-10.2); Potassium 4.3 mmol/L (3.5-5.1); Total Protein 7.6 g/dL (6.3-8.2)
[2019-08-10 07:37] LABS: Basophils # (A) 0.1 k/uL (0-0.2); Basophils % (A) 1 %; Eosinophils # (A) 0.3 k/uL (0-0.7); Eosinophils % (A) 2 %; HGB 10.7 gm/dL (13.0-17.5); Hypochromasia Moderate; Lymphocytes # (A) 1.9 k/uL (1.0-4.8); Lymphocytes % (A) 11 %; MCHC 30.5 g/dL (31.0-37.0); MCV 108.2 fL (80.0-100.0); Macrocytosis Marked; Mean Platelet Volume 9.1; Monocytes # (A) 1.6 k/uL (0-1.0); Monocytes % (A) 9 %; Neutrophils # (A) 12.7 k/uL (1.3-7.7); Neutrophils % (A) 73 %; Platelet Count 268 k/uL (150-450); RBC 3.24 m/uL (4.30-5.90); RDW 15.5 % (11.5-15.5); WBC 17.3 k/uL (3.8-10.6)
[2019-08-10] MEDS: LACTULOSE 20 GM/30 ML CUP PO SCH ×3 (08:44→22:04)
[2019-08-10] MEDS: FLUCONAZOLE 100 MG TAB PO SCH (08:45)
[2019-08-10] MEDS: THIAMINE 100 MG TAB PO SCH ×2 (08:45→17:23)
[2019-08-10] MEDS: PANTOPRAZOLE 40 MG TABLET PO SCH (08:45)
[2019-08-10] MEDS: MULTIVITAMINS, THERA 1 EACH TAB PO SCH (08:45)
[2019-08-10] MEDS: amLODIPine 5 MG TAB PO SCH (08:46)
[2019-08-10] MEDS: METOPROLOL SUCCINATE (ER) 100 MG TAB.ER.24H PO SCH (08:46)
[2019-08-10] MEDS ORDERED: PHYTONADIONE 5 MG in SODIUM CHLORIDE 0.9% 50 ML IVPB ONE (09:00)
--- NOTE | 2019-08-10 10:35 | P.PN ---
Subjective Progress Note Date: 08/10/19 This is a 49-year-old male patient who presented to the ER with complaints of yellowing of skin and eyes. Patient is known past medical history of EtOH drinking approximately a pint of vodka plus beer daily. Patient's urged patient to come to ER due to presentation of jaundice 1 day patient was noted to have yellowing of his eyes and she was concerned about his liver. Additional medical history includes hyperlipidemia hypertension and ex-smoker. Abdominal ultrasound completed showing no gallstones or dilated ducts diffuse fatty infiltration of liver. Upon admission AST elevated to 95, ALT 64 alkaline phosphatase 3:30 total bilirubin 10.1 and ammonia level 185. Patient has been started on lactulose. GI services have been consulted. Patient's electrolytes also significantly impaired. Sodium low at 122, potassium 3.2, magnesium 0.7. Replacement per protocol patient currently on normal saline. Patient also currently in EtOH withdrawals. Patient has been admitted to the intensive care unit critical care services are following. Heart rate elevated secondary to withdrawal. CIWA protocol has been ordered. GI services have been consulted for Liver failure. At this time patient is resting comfortably in bed shakiness and withdrawal symptoms noted. Patient is alert and oriented 2. Patient able to follow commands. Patient denies chest pain. Patient denies shortness of breath. Patient denies any urinary burning or frequency. 07/14/2019 patient remains in the ICU. He has a sitter at bedside. He did require Ativan this morning for alcohol withdrawal and is sleeping comfortably. Heart rate is better controlled. Total bilirubin has gone up from 10.1-14.1. Ammonia level has decreased from 185-47. Hepatitis panel is negative. He is followed by GI service and critical care. He is tolerating clear liquid diet. Patient is having a bowel movement almost every hour. Patient currently on lactulose 3 times a day and Xifaxan. Patient did have a temp of 100.6 yesterday afternoon he is currently on Rocephin. Chest x-rays negative. 07/20/2019 patient is currently on a regular medical floor. He was followed by Dr. Carlton from 07/15/2019 until 07/19/2019. Patient's is being followed by GI service for his severe alcoholic hepatitis. Total bilirubin is up to 22. He has been ambulating in the hallway. Apparently he had a fall yesterday and had a computed tomography scan of the head and neck completed. Just revealing moderate atrophy of the brain. Otherwise normal findings. Ammonia levels up to 73 CO2 is down at 14. Patient denies any chest pain or shortness of breath. Denies any nausea or vomiting. Urine is starting to clear and he is having 3-5 bowel movements a day. 07/21/2019 patient sitting up in bed comfortably. He reports having at least 3 bowel movements daily. Ammonia level has decreased from 73-53. Total bilirubin has come down from 22-20.4. He is followed closely by GI service. Awaiting their recommendations regarding the prednisone. Potassium is low at 3.4. 07/22/2019 patient lying in bed comfortably. He has no new complaints. Ammonia is down to 48. He is having multiple bowel movements a day. Magnesium and pot assium are low and being replaced. Creatinine has gone up to 1.48. We'll discontinue the hydrochlorothiazide and lisinopril. Continue fluids at 50 mL an hour. Total bilirubin is 20.8 patient denies any difficulty urinating. He does report that his urine continues to become clear. GI service did hold off on starting the prednisone. On 07/23/2019 patient is alert and oriented 3 in no apparent distress bilirubin still elevated at 22 patient clinically denies any symptoms there is no fever or chills no headache or dizziness no chest pain no shortness of breath no cough no nausea or vomiting no abdominal pain no diarrhea and no urinary symptoms. , On 07/24/2019 patient was seen and examined on the medical floor, he is alert and oriented 3 in no apparent distress, he is still has significant jaundice, total bilirubin up to 22.4, creatinine up to 2.04, clinically he is feeling well, there is no fever or chills no headache no dizziness no chest pain no shortness of breath no cough no nausea or vomiting no abdominal pain no diarrhea and no urinary symptoms. On 07/25/2019 patient is alert and oriented 3. Patient up ambulating the kinney with . Patient remains with significant jaundice. Total bili is trending down 19.6. Nephrology services are following. Patient currently maintained on Sandostatin and albumin per nephrology services for concerns of hepatorenal acute kidney injury. Creatinine is improving slightly we'll continue to monitor. Patient also switched to IV sodium bicarb. We'll continue to monitor patient closely. At this time patient denies chest pain or shortness breath. Patient denies nausea vomiting or diarrhea. Patient denies any urinary burning or frequency 07/26/2019 patient lying in bed. at bedside. Patient reporting that his abdomen is more distended and firm today. He's having about 3 bowel movements a day. Patient seen by GI service. They will ordered an abdominal ultrasound with paracentesis. Creatinine is down to 1.80, total bili is 19, AST 700 and ALT 31. CO2 has come up from 14-19. Patient denies any chest pain or shortness of breath. Denies any nausea or vomiting. Denies any difficulty urinating. On 07/27/2019 patient is alert and oriented 3. Patient to undergo paracentesis today per GI services. Creatinine trending down. Total bili increasing to 19.6. This time patient denies chest pain or shortness breath. Patient denies nausea vomiting or diarrhea. Patient denies any urinary burning or frequency 07/28/2019 patient is awake and answering questions appropriately. He had a paracentesis with 2.8 L removed yesterday. His abdomen is still distended. Lactulose was increased to 3 times a day. His ammonia level had gone from 54- 72. Nephrology has discontinued the IV albumin and Sandostatin. Creatinine continues to trend down 1.48. Total bilirubin has decreased from 19.6-17.4. White count 15.2. Patient has no complaints. On 07/29/2019 patient is alert and oriented 3. Patient having elevated temp and white count. Patient is complaining cough will order chest x-ray. Patient also having drainage from paracentesis site. Blood culture and urine culture ordered. Will consult infectious disease. White blood cell elevated at 19.1, total bili 18.8. Patient denies any chest pain. Patient denies nausea vomiting or diarrhea. Patient denies any burning with urination On 07/30/2019 patient was seen and examined on the medical floor he is alert and oriented 3 in no apparent distress he is complaining of discomfort in the abdomen otherwise he denies any complaints there is no fever or chills no headache or dizziness no chest pain no shortness of breath no cough no nausea or vomiting no diarrhea no burning with urination no frequency or urgency no hematuria. White blood count still elevated at 18.9 bilirubin 18.1 AST 121 On 07/31/2019 patient was seen and examined on the medical floor he is alert and oriented 3 he has severe jaundice he denies any pain or discomfort there is no fever or chills no headache or dizziness no chest pain no shortness of breath no cough no nausea or vomiting no abdominal pain no diarrhea no burning with urination no frequency or urgency no hematuria On 08/01/2019 patient is alert and oriented 3. at bedside. Creatinine remains elevated 0.12 and bun 26. Patient remains on IV Lasix. Total bili 17.5. Patient also getting treated for possible pneumonia with Maxipime and Diflucan. GI, nephrology and infectious disease services are following. Patient denies chest pain or shortness of breath. Patient denies nausea vomiting or diarrhea. Patient denies any urinary burning or frequency On 08/02/2019 patient is alert and oriented 3. at bedside. Patient's creatinine increasing to 2.51 and bun 28. Discussed case with nephrology team. Patient was transitioned to Demadex yesterday. Patient remains quite edematous with ascites and edema. Per GI services patient to undergo paracentesis today. Per nephrology service is patient to be received 25 g of albumin prior to paracentesis and a large volume intake and output will require more albumin after. Antibiotics also adjusted per ID Flagyl added. Patient denies chest pain. Patient denies nausea vomiting or diarrhea. Patient denies any urinary burning or frequency On 08/03/2019 patient is alert and oriented 3. Creatinine increasing to 2.79 a nd bun 31. Patient did undergo paracentesis yesterday 1.3 L off. Total bili 16.1. Patient remains on cefepime Flagyl and Diflucan. Patient complaining about increased congestion. Will order repeat chest x-ray. At this time patient denies chest pain. Patient denies shortness breath. Patient denies nausea or vomiting. On 08/04/2019 patient is alert and oriented 3. Patient's at bedside. Nephrology services have bedside. Patient's creatinine increasing to 3.41 and bun 37. Per nephrology services diuretics currently on hold patient maintained on albumin we'll continue to monitor kidney enzymes. Family aware that if kidneys continued to decline patient will require hemodialysis. Total bili 15.6. White blood cell is trending down. Infectious disease is following. Patient maintained on cefepime Flagyl and Diflucan. On 08/05/2019 patient is alert and oriented 3. Total bili decreasing to 14.6 and WBC trending down. Patient's creatinine increasing to 3.72 and bun 42. Patient was started on Sandostatin maintained on albumin per nephrology services. Discussion was held with family per nephrology that patient may require hemodialysis if kidneys continued to decline. At this time patient denies chest pain. Patient denies nausea vomiting or diarrhea. Patient denies shortness breath. Patient denies any urinary burning or frequency On 08/06/2019 patient is alert and oriented 3 in no apparent distress there is no fever or chills no headache or dizziness no chest pain no shortness of breath no cough no nausea or vomiting no abdominal pain no diarrhea no burning with urination no frequency or urgency no hematuria. Jowled this improving liver enzymes are improving however kidney function is worsening, nephrology are following closely to assess need for hemodialysis. On 08/07/2019 patient was seen and examined on the medical floor he is alert and oriented 3 in no apparent distress he is complaining of abdominal discomfort otherwise no complaints at this time there is no fever or chills no headache or dizziness no chest pain no shortness of breath no cough no nausea or vomiting no abdominal pain no diarrhea no burning was urination no frequency or urgency and no hematuria, he is still has significant jaundice, BUN and creatinine are still worsening, nephrology are following On 08/08/2019 patient is alert and oriented 3. Creatinine increasing to 5.64 bun 51 patient will likely need hemodialysis. Patient and family are aware. Awaiting nephrology input. Total bili decreasing to 12.2. At this time patient denies chest pain patient denies nausea vomiting or diarrhea. Patient denies any urinary burning or frequency On 08/09/2019 patient is alert and oriented 3. Plans to get hemodialysis access stay per Dr. Nicholas. Patient INR 2.3 secondary to liver disease. Patient to receive FFP's prior to procedure. Plans for hemodialysis today per nephrology. Patient denies chest pain or shortness of breath. Patient denies nausea vomiting or diarrhea. Patient denies any urinary burning or frequency On 08/10/2019 patient's alert and oriented 3. Patient underwent hemodialysis access with dialysis yesterday. Plans for hemodialysis today and possibly tomorrow. Creatinine 5.74 and bun 42. Total bilirubin 11.0. Oncology services are following now for coagulopathy. Patient has temporary hemodialysis access in right groin will need permanent once INR has improved. Patient did get 2 units of FFP's yesterday due to procedure. At this time patient denies chest pain or shortness of breath. Patient denies nausea vomiting or diarrhea. Patient denies any urinary burning or frequency Objective - Vital Signs Vital signs: Vital Signs Temp 98.1 F 08/10/19 07:26 Pulse 84 08/10/19 07:26 Resp 16 08/10/19 07:26 BP 111/74 08/10/19 07:26 Pulse Ox 92 L 08/10/19 07:26 Intake & Output 08/09/19 08/10/19 08/10/19 18:59 06:59 18:59 Intake Total 527 100 Output Total 275 Balance 252 100 Intake: IV 50 Oral 0 100 Blood Product 477 Ffp 24 Cpd Unit 257 [id number] Ffp 24 Pher Acda Cnt1 220 Unit [id number] Output: Urine 275 Other: Voiding Method Toilet - Exam Head normocephalic and atraumatic Neck supple no JVD no goiter Lungs clear to auscultation bilaterally no wheezing or crackles Heart regular rate and rhythm S1-S2, no rub or gallop Abdomen is soft nontender nondistended positive bowel sounds no hepatos plenomegaly Extremities +1 edema bilateral lower legs Neuro patient sleeping comfortably Skin jaundice. Scleral icterus - Labs CBC & Chem 7: 08/10/19 06:56 08/10/19 06:56 Labs: Abnormal Lab Results - Last 24 Hours (Table) 08/10/19 08/10/19 Range/Units 06:56 06:56 WBC 17.3 H (3.8-10.6) k/uL RBC 3.24 L (4.30-5.90) m/uL Hgb 10.7 L (13.0-17.5) gm/dL Hct 35.0 L (39.0-53.0) % MCV 108.2 H (80.0-100.0) fL MCHC 30.5 L (31.0-37.0) g/dL Macrocytosis Marked A BUN 42 H (9-20) mg/dL Creatinine 5.74 H (0.66-1.25) mg/dL Glucose 121 H (74-99) mg/dL Total Bilirubin 11.0 H (0.2-1.3) mg/dL AST 109 H (17-59) U/L Alkaline Phosphatase 168 H (38-126) U/L Albumin 3.0 L (3.5-5.0) g/dL Assessment and Plan Assessment: 1. Severe Acute alcoholic hepatitis superimposed on alcoholic cirrhosis of the liver. Abdominal ultrasound completed showing no gallstones or dilated ducts. Diffuse fatty infiltration of the liver. GI services have been consulted. Hepatitis panel negative. 2. Jaundice, hyperbilirubinemia secondary to alcoholic liver disease. Total bilirubin 19. GI service is following and decided not to start prednisone. Total bili 15.6 3. EtOH withdrawal. Patient currently on CIWA protocal. Continue thiamine and add multivitamin. Continue Ativan as needed. Resolved 4. Hypokalemia. Likely losing potassium through his stooling and hydrochlorothiazide. Improved with potassium replacement 5. Hyponatremia and hypochloremic secondary to EtOH. Resolved 6. Tachycardia secondary to alcohol withdrawal. Patient's home dose beta phong resumed. Continue a call withdrawal protocol. Tachycardia has improved. Discontinue telemetry 7. History of essential hypertension. Patient's home dose of Lopressor resumed. 8. 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 Continue to monitor ammonia levels. Patient has had some confusion. Lactulose was decreased to twice a day. And he is on Xifaxan 9. Macrocytic anemia secondary to chronic liver disease 10. Generalized weakness and fatigue due to his advanced liver disease. Continue PT OT 11. Metabolic acidosis: the patient having multiple stools. CO2 19 currently on IV sodium bicarb. Nephrology following. Patient has been switched to oral sodium bicarbonate per nephrology 12. Hypomagnesemia: Resolved with replacement 13. Acute kidney injury secondary to hepatorenal. Nephrology services are following. Creatinine increasing to 3.41 and bun 37. Current diuretics on hold. Patient is maintained on albumin. Discussion was held per nephrology with family that patient may require hemodialysis of kidneys continued to decline we'll continue to monitor daily. maintained on albumin and Sandostatin per nephrology services. Patient was started on hemodialysis on 08/09/2019 we'll get additional hemodialysis today 08/10/2019 possible 08/11/2019 14. Abdominal ascites. Status post paracentesis with 2.8 L removed. Plans for paracentesis today per GI services. Did discuss with nephrology services recommended patient received 25 g of albumin prior and possibly after the large volume is removed. Status post paracentesis 1.3 L removed 15. Coagulopathy due to liver disease. INR 2.3. Patient will receive FFP's prior and after procedure for hemodialysis access. Oncology services are following. We'll continue to monitor PT/INR. Patient does have temporary hemodialysis access and right groin will need permanent once INR has improved. 16. Essential hypertension: We'll continue to monitor blood pressures. BP has been slightly elevated. Repeat blood pressure 135/71. We'll continue to monitor 17. Leukocytosis with low-grade temps. infectious disease is following. P atient remains on Maxipime and Diflucan sputum and blood cultures have been negative thus far. White blood cell continue to increase infectious disease is following. Flagyl has been added. Repeat chest x-ray completed showing bilateral small effusion basilar infiltrate stable from recent exam correlate for COPD. DVT prophylaxis SCDs due to coagulopathy secondary to liver disease GI prophylaxis Protonix GI, nephrology infectious disease following. I performed an examination of the patient and discussed their management with the Nurse Practitioner. I have reviewed the Nurse Practitioner's notes and agree with the documented findings and plan of care
[2019-08-10 10:55] LABS: Target Cells Present
--- NOTE | 2019-08-10 15:49 | PN ---
PROGRESS NOTE Patient is seen for followup for acute kidney injury. He was dialyzed yesterday. Patient will be dialyzed again today. He tolerated his treatment fairly well yesterday. PHYSICAL EXAMINATION: On examination today, blood pressure was 106/74, heart rate of 90 per minute, patient is afebrile. Examination of the heart S1, S2. Examination of the lungs, bilateral breath sounds are heard. Abdomen is soft, nontender. Examination of lower extremities shows edema 2+ bilaterally. FRONT DESK ADMINISTRATOR exam grossly intact. LABS: Show sodium 139, potassium 4.3, serum creatinine 5.7. ASSESSMENT: 1. Acute kidney injury, hepatorenal syndrome with oliguria status post hemodialysis yesterday. Patient will be dialyzed again today and repeat in a.m. 2. Volume overload associated with liver failure, portal hypertension, expect improvement with ongoing dialysis. 3. Alcoholic hepatitis. 4. Chronic liver disease from EtOH abuse. PLAN: Hemodialysis today and then again in a.m. Proceed with outpatient placement. MMODL / IJN: [id number] /
[2019-08-10 15:54] LABS: INR 2.1 (<1.2); Prothrombin Time 20.1 sec (9.0-12.0)
--- NOTE | 2019-08-10 17:07 | PN ---
PROGRESS NOTE DATE OF SERVICE: 08/10/2019. REASON FOR FOLLOWUP: Leukocytosis. INTERVAL HISTORY: The patient is currently afebrile. He is breathing comfortably did have occasional cough. No nausea, no vomiting, no abdominal pain, no diarrhea. PHYSICAL EXAMINATION: Blood pressure 111/74 with a pulse of 84, temperature 98.1. He is 92% on room air. General description is a middle-aged male up in the bed in no distress respiratory system: Unlabored breathing. Decreased breath sounds in the bases. No wheeze. Heart S1, S2. Regular rate and rhythm. Abdomen soft. Mildly distended. No guarding and no rigidity. LABS: Creatinine 5.74, hemoglobin 10.7. White count 17.3. DIAGNOSTIC IMPRESSION AND PLAN: Patient with leukocytosis which is likely multifactorial, possibly related to his alcoholic hepatitis in this patient who did have extensive workup and no source of any bacterial infection. The patient will be monitored closely off antibiotic therapy unless any changes in his clinical condition or develops any fever. Family at the bedside, questions and concerns were answered. MMODL / MORRISN: [id number] /
--- NOTE | 2019-08-10 21:50 | PN ---
PROGRESS NOTE DATE OF SERVICE: 08/10/2019 The patient is a 49-year-old white male admitted to the hospital with acute alcoholic hepatitis and acute kidney injury for which he was started on hemodialysis yesterday. He is feeling better today. Following the hemodialysis yesterday, he felt extremely weak and tired and could not sleep all night. This morning he had some vague abdominal discomfort and some abdominal distention. Overall he feels better other than fatigue and weakness. PHYSICAL EXAMINATION: He appears comfortable. No apparent distress. VITAL SIGNS: Stable. Blood pressure is 108/86, pulse rate 87, temperature 98.2. HEENT examination unremarkable. Conjunctivae pink. Sclerae deeply icteric. Oral cavity no lesions. Neck no JVD or lymph node enlargement. The chest was clear to auscultation. Heart regular rate and rhythm. ABDOMEN: Soft, slightly distended. There was some noted. Extremities: No pedal edema. Skin no rashes. Neuro: He is alert and oriented x3. No focal deficits. LAB DATA: WBC 17.3, hemoglobin 10.7, platelets normal. Basic metabolic panel show BUN of 42, creatinine 5.74, T-bilirubin is down to 11. AST and ALT are 109 and 17 respectively. IMPRESSION: 1. Acute alcoholic hepatitis, gradually improving. 2. Alcoholic cirrhosis of the liver with gradual decompensation. 3. Ascites status post large volume paracentesis a week ago. 4. Acute kidney injury secondary to hepatic renal syndrome presently on dialysis that was started yesterday and patient doing better. RECOMMENDATIONS: 1. Monitor the LFTs closely. 2. Repeat labs in the morning. 3. Continue with oral lactulose. 4. We will follow with you closely. Thank you for this consultation. MMODL / IJN: [id number] /
[2019-08-11] MEDS: OCTREOTIDE 100 MCG/ML INJ SQ SCH ×3 (00:52→17:02)
[2019-08-11 07:58] LABS: INR 2.2 (<1.2); Prothrombin Time 21.4 sec (9.0-12.0)
[2019-08-11 08:04] LABS: Basophils # (A) 0.1 k/uL (0-0.2); Basophils % (A) 0 %; Eosinophils # (A) 0.4 k/uL (0-0.7); Eosinophils % (A) 3 %; HCT 31.3 % (39.0-53.0); HGB 9.9 gm/dL (13.0-17.5); Hypochromasia Slight; Lymphocytes # (A) 1.7 k/uL (1.0-4.8); Lymphocytes % (A) 10 %; MCH 33.2 pg (25.0-35.0); MCHC 31.5 g/dL (31.0-37.0); MCV 105.3 fL (80.0-100.0); Macrocytosis Moderate; Mean Platelet Volume 9.3; Monocytes # (A) 1.9 k/uL (0-1.0); Monocytes % (A) 11 %; Neutrophils % (A) 73 %; Platelet Count 223 k/uL (150-450); RBC 2.97 m/uL (4.30-5.90); RDW 15.5 % (11.5-15.5); WBC 17.7 k/uL (3.8-10.6)
[2019-08-11 09:04] LABS: Albumin 2.6 g/dL (3.5-5.0); Calcium 7.7 mg/dL (8.4-10.2); Potassium 3.9 mmol/L (3.5-5.1); Total Bilirubin 10.2 mg/dL (0.2-1.3); Total Protein 6.7 g/dL (6.3-8.2)
[2019-08-11] MEDS: FLUCONAZOLE 100 MG TAB PO SCH (09:27)
[2019-08-11] MEDS: LACTULOSE 20 GM/30 ML CUP PO SCH ×3 (09:27→20:59)
[2019-08-11] MEDS: METOPROLOL SUCCINATE (ER) 100 MG TAB.ER.24H PO SCH (09:28)
[2019-08-11] MEDS: amLODIPine 5 MG TAB PO SCH (09:28)
[2019-08-11] MEDS: THIAMINE 100 MG TAB PO SCH ×2 (09:28→17:30)
[2019-08-11] MEDS: PANTOPRAZOLE 40 MG TABLET PO SCH (09:28)
[2019-08-11] MEDS: MULTIVITAMINS, THERA 1 EACH TAB PO SCH (09:28)
--- NOTE | 2019-08-11 10:35 | P.PN ---
Subjective Progress Note Date: 08/11/19 This is a 49-year-old male patient who presented to the ER with complaints of yellowing of skin and eyes. Patient is known past medical history of EtOH drinking approximately a pint of vodka plus beer daily. Patient's urged patient to come to ER due to presentation of jaundice 1 day patient was noted to have yellowing of his eyes and she was concerned about his liver. Additional medical history includes hyperlipidemia hypertension and ex-smoker. Abdominal ultrasound completed showing no gallstones or dilated ducts diffuse fatty infiltration of liver. Upon admission AST elevated to 95, ALT 64 alkaline phosphatase 3:30 total bilirubin 10.1 and ammonia level 185. Patient has been started on lactulose. GI services have been consulted. Patient's electrolytes also significantly impaired. Sodium low at 122, potassium 3.2, magnesium 0.7. Replacement per protocol patient currently on normal saline. Patient also currently in EtOH withdrawals. Patient has been admitted to the intensive care unit critical care services are following. Heart rate elevated secondary to withdrawal. CIWA protocol has been ordered. GI services have been consulted for Liver failure. At this time patient is resting comfortably in bed shakiness and withdrawal symptoms noted. Patient is alert and oriented 2. Patient able to follow commands. Patient denies chest pain. Patient denies shortness of breath. Patient denies any urinary burning or frequency. 07/14/2019 patient remains in the ICU. He has a sitter at bedside. He did require Ativan this morning for alcohol withdrawal and is sleeping comfortably. Heart rate is better controlled. Total bilirubin has gone up from 10.1-14.1. Ammonia level has decreased from 185-47. Hepatitis panel is negative. He is followed by GI service and critical care. He is tolerating clear liquid diet. Patient is having a bowel movement almost every hour. Patient currently on lactulose 3 times a day and Xifaxan. Patient did have a temp of 100.6 yesterday afternoon he is currently on Rocephin. Chest x-rays negative. 07/20/2019 patient is currently on a regular medical floor. He was followed by Dr. Carlton from 07/15/2019 until 07/19/2019. Patient's is being followed by GI service for his severe alcoholic hepatitis. Total bilirubin is up to 22. He has been ambulating in the hallway. Apparently he had a fall yesterday and had a computed tomography scan of the head and neck completed. Just revealing moderate atrophy of the brain. Otherwise normal findings. Ammonia levels up to 73 CO2 is down at 14. Patient denies any chest pain or shortness of breath. Denies any nausea or vomiting. Urine is starting to clear and he is having 3-5 bowel movements a day. 07/21/2019 patient sitting up in bed comfortably. He reports having at least 3 bowel movements daily. Ammonia level has decreased from 73-53. Total bilirubin has come down from 22-20.4. He is followed closely by GI service. Awaiting their recommendations regarding the prednisone. Potassium is low at 3.4. 07/22/2019 patient lying in bed comfortably. He has no new complaints. Ammonia is down to 48. He is having multiple bowel movements a day. Magnesium and pot assium are low and being replaced. Creatinine has gone up to 1.48. We'll discontinue the hydrochlorothiazide and lisinopril. Continue fluids at 50 mL an hour. Total bilirubin is 20.8 patient denies any difficulty urinating. He does report that his urine continues to become clear. GI service did hold off on starting the prednisone. On 07/23/2019 patient is alert and oriented 3 in no apparent distress bilirubin still elevated at 22 patient clinically denies any symptoms there is no fever or chills no headache or dizziness no chest pain no shortness of breath no cough no nausea or vomiting no abdominal pain no diarrhea and no urinary symptoms. , On 07/24/2019 patient was seen and examined on the medical floor, he is alert and oriented 3 in no apparent distress, he is still has significant jaundice, total bilirubin up to 22.4, creatinine up to 2.04, clinically he is feeling well, there is no fever or chills no headache no dizziness no chest pain no shortness of breath no cough no nausea or vomiting no abdominal pain no diarrhea and no urinary symptoms. On 07/25/2019 patient is alert and oriented 3. Patient up ambulating the kinney with . Patient remains with significant jaundice. Total bili is trending down 19.6. Nephrology services are following. Patient currently maintained on Sandostatin and albumin per nephrology services for concerns of hepatorenal acute kidney injury. Creatinine is improving slightly we'll continue to monitor. Patient also switched to IV sodium bicarb. We'll continue to monitor patient closely. At this time patient denies chest pain or shortness breath. Patient denies nausea vomiting or diarrhea. Patient denies any urinary burning or frequency 07/26/2019 patient lying in bed. at bedside. Patient reporting that his abdomen is more distended and firm today. He's having about 3 bowel movements a day. Patient seen by GI service. They will ordered an abdominal ultrasound with paracentesis. Creatinine is down to 1.80, total bili is 19, AST 700 and ALT 31. CO2 has come up from 14-19. Patient denies any chest pain or shortness of breath. Denies any nausea or vomiting. Denies any difficulty urinating. On 07/27/2019 patient is alert and oriented 3. Patient to undergo paracentesis today per GI services. Creatinine trending down. Total bili increasing to 19.6. This time patient denies chest pain or shortness breath. Patient denies nausea vomiting or diarrhea. Patient denies any urinary burning or frequency 07/28/2019 patient is awake and answering questions appropriately. He had a paracentesis with 2.8 L removed yesterday. His abdomen is still distended. Lactulose was increased to 3 times a day. His ammonia level had gone from 54- 72. Nephrology has discontinued the IV albumin and Sandostatin. Creatinine continues to trend down 1.48. Total bilirubin has decreased from 19.6-17.4. White count 15.2. Patient has no complaints. On 07/29/2019 patient is alert and oriented 3. Patient having elevated temp and white count. Patient is complaining cough will order chest x-ray. Patient also having drainage from paracentesis site. Blood culture and urine culture ordered. Will consult infectious disease. White blood cell elevated at 19.1, total bili 18.8. Patient denies any chest pain. Patient denies nausea vomiting or diarrhea. Patient denies any burning with urination On 07/30/2019 patient was seen and examined on the medical floor he is alert and oriented 3 in no apparent distress he is complaining of discomfort in the abdomen otherwise he denies any complaints there is no fever or chills no headache or dizziness no chest pain no shortness of breath no cough no nausea or vomiting no diarrhea no burning with urination no frequency or urgency no hematuria. White blood count still elevated at 18.9 bilirubin 18.1 AST 121 On 07/31/2019 patient was seen and examined on the medical floor he is alert and oriented 3 he has severe jaundice he denies any pain or discomfort there is no fever or chills no headache or dizziness no chest pain no shortness of breath no cough no nausea or vomiting no abdominal pain no diarrhea no burning with urination no frequency or urgency no hematuria On 08/01/2019 patient is alert and oriented 3. at bedside. Creatinine remains elevated 0.12 and bun 26. Patient remains on IV Lasix. Total bili 17.5. Patient also getting treated for possible pneumonia with Maxipime and Diflucan. GI, nephrology and infectious disease services are following. Patient denies chest pain or shortness of breath. Patient denies nausea vomiting or diarrhea. Patient denies any urinary burning or frequency On 08/02/2019 patient is alert and oriented 3. at bedside. Patient's creatinine increasing to 2.51 and bun 28. Discussed case with nephrology team. Patient was transitioned to Demadex yesterday. Patient remains quite edematous with ascites and edema. Per GI services patient to undergo paracentesis today. Per nephrology service is patient to be received 25 g of albumin prior to paracentesis and a large volume intake and output will require more albumin after. Antibiotics also adjusted per ID Flagyl added. Patient denies chest pain. Patient denies nausea vomiting or diarrhea. Patient denies any urinary burning or frequency On 08/03/2019 patient is alert and oriented 3. Creatinine increasing to 2.79 a nd bun 31. Patient did undergo paracentesis yesterday 1.3 L off. Total bili 16.1. Patient remains on cefepime Flagyl and Diflucan. Patient complaining about increased congestion. Will order repeat chest x-ray. At this time patient denies chest pain. Patient denies shortness breath. Patient denies nausea or vomiting. On 08/04/2019 patient is alert and oriented 3. Patient's at bedside. Nephrology services have bedside. Patient's creatinine increasing to 3.41 and bun 37. Per nephrology services diuretics currently on hold patient maintained on albumin we'll continue to monitor kidney enzymes. Family aware that if kidneys continued to decline patient will require hemodialysis. Total bili 15.6. White blood cell is trending down. Infectious disease is following. Patient maintained on cefepime Flagyl and Diflucan. On 08/05/2019 patient is alert and oriented 3. Total bili decreasing to 14.6 and WBC trending down. Patient's creatinine increasing to 3.72 and bun 42. Patient was started on Sandostatin maintained on albumin per nephrology services. Discussion was held with family per nephrology that patient may require hemodialysis if kidneys continued to decline. At this time patient denies chest pain. Patient denies nausea vomiting or diarrhea. Patient denies shortness breath. Patient denies any urinary burning or frequency On 08/06/2019 patient is alert and oriented 3 in no apparent distress there is no fever or chills no headache or dizziness no chest pain no shortness of breath no cough no nausea or vomiting no abdominal pain no diarrhea no burning with urination no frequency or urgency no hematuria. Jowled this improving liver enzymes are improving however kidney function is worsening, nephrology are following closely to assess need for hemodialysis. On 08/07/2019 patient was seen and examined on the medical floor he is alert and oriented 3 in no apparent distress he is complaining of abdominal discomfort otherwise no complaints at this time there is no fever or chills no headache or dizziness no chest pain no shortness of breath no cough no nausea or vomiting no abdominal pain no diarrhea no burning was urination no frequency or urgency and no hematuria, he is still has significant jaundice, BUN and creatinine are still worsening, nephrology are following On 08/08/2019 patient is alert and oriented 3. Creatinine increasing to 5.64 bun 51 patient will likely need hemodialysis. Patient and family are aware. Awaiting nephrology input. Total bili decreasing to 12.2. At this time patient denies chest pain patient denies nausea vomiting or diarrhea. Patient denies any urinary burning or frequency On 08/09/2019 patient is alert and oriented 3. Plans to get hemodialysis access stay per Dr. Nicholas. Patient INR 2.3 secondary to liver disease. Patient to receive FFP's prior to procedure. Plans for hemodialysis today per nephrology. Patient denies chest pain or shortness of breath. Patient denies nausea vomiting or diarrhea. Patient denies any urinary burning or frequency On 08/10/2019 patient's alert and oriented 3. Patient underwent hemodialysis access with dialysis yesterday. Plans for hemodialysis today and possibly tomorrow. Creatinine 5.74 and bun 42. Total bilirubin 11.0. Oncology services are following now for coagulopathy. Patient has temporary hemodialysis access in right groin will need permanent once INR has improved. Patient did get 2 units of FFP's yesterday due to procedure. At this time patient denies chest pain or shortness of breath. Patient denies nausea vomiting or diarrhea. Patient denies any urinary burning or frequency On 08/11/2019 patient alert and joint 3. Patient to undergo third day of dialysis today. Patient's creatinine 4.66 and bun 26. Total bili 10.2. INR 2.2. Awaiting INR improvement for permanent hemodialysis placement per Dr. Nicholas. Oncology service are following. At this time patient denies chest pain or shortness of breath. Patient denies nausea vomiting or diarrhea. Patient denies any urinary burning or frequency Objective - Vital Signs Vital signs: Vital Signs Temp 97.9 F 08/11/19 07:13 Pulse 86 08/11/19 07:13 Resp 14 08/11/19 07:13 BP 116/76 08/11/19 07:13 Pulse Ox 93 L 08/11/19 07:13 Intake & Output 08/10/19 08/11/19 08/11/19 18:59 06:59 18:59 Intake Total 675 0 Output Total 50 1000 Balance -50 -325 0 Weight 86.8 kg Intake: Oral 375 0 Hemodialysis 300 Output: Urine 50 Hemodialysis 1000 Other: Voiding Method Toilet - Exam Head normocephalic and atraumatic Neck supple no JVD no goiter Lungs clear to auscultation bilaterally no wheezing or crackles Heart regular rate and rhythm S1-S2, no rub or gallop Abdomen is soft nontender nondistended positive bowel sounds no hepatosplenomegaly Extremities +1 edema bilateral lower legs Neuro patient sleeping comfortably Skin jaundice. Scleral icterus - Labs CBC & Chem 7: 08/11/19 06:51 08/11/19 06:51 Labs: Abnormal Lab Results - Last 24 Hours (Table) 08/10/19 08/10/19 08/11/19 Range/Units 06:56 15:17 06:51 WBC 17.3 H 17.7 H (3.8-10.6) k/uL RBC 3.24 L 2.97 L (4.30-5.90) m/uL Hgb 10.7 L 9.9 L (13.0-17.5) gm/dL Hct 35.0 L 31.3 L (39.0-53.0) % MCV 108.2 H 105.3 H (80.0-100.0) fL MCHC 30.5 L (31.0-37.0) g/dL Neutrophils # 12.7 H 13.0 H (1.3-7.7) k/uL Monocytes # 1.6 H 1.9 H (0-1.0) k/uL Macrocytosis Marked A PT 20.1 H (9.0-12.0) sec INR 2.1 H (<1.2) Sodium (137-145) mmol/L Chloride (98-107) mmol/L BUN (9-20) mg/dL Creatinine (0.66-1.25) mg/dL Calcium (8.4-10.2) mg/dL Total Bilirubin (0.2-1.3) mg/dL AST (17-59) U/L Alkaline Phosphatase (38-126) U/L Albumin (3.5-5.0) g/dL 08/11/19 08/11/19 Range/Units 06:51 06:51 WBC (3.8-10.6) k/uL RBC (4.30-5.90) m/uL Hgb (13.0-17.5) gm/dL Hct (39.0-53.0) % MCV (80.0-100.0) fL MCHC (31.0-37.0) g/dL Neutrophils # (1.3-7.7) k/uL Monocytes # (0-1.0) k/uL Macrocytosis PT 21.4 H (9.0-12.0) sec INR 2.2 H (<1.2) Sodium 135 L (137-145) mmol/L Chloride 97 L (98-107) mmol/L BUN 26 H (9-20) mg/dL Creatinine 4.66 H (0.66-1.25) mg/dL Calcium 7.7 L (8.4-10.2) mg/dL Total Bilirubin 10.2 H (0.2-1.3) mg/dL AST 104 H (17-59) U/L Alkaline Phosphatase 170 H (38-126) U/L Albumin 2.6 L (3.5-5.0) g/dL Assessment and Plan Assessment: 1. Severe Acute alcoholic hepatitis superimposed on alcoholic cirrhosis of the liver. Abdominal ultrasound completed showing no gallstones or dilated ducts. Diffuse fatty infiltration of the liver. GI services have been consulted. Hepatitis panel negative. 2. Jaundice, hyperbilirubinemia secondary to alcoholic liver disease. Total bilirubin 19. GI service is following and decided not to start prednisone. Total bili 15.6 3. EtOH withdrawal. Patient currently on CIWA protocal. Continue thiamine and add multivitamin. Continue Ativan as needed. Resolved 4. Hypokalemia. Likely losing potassium through his stooling and hydrochlorothiazide. Improved with potassium replacement 5. Hyponatremia and hypochloremic secondary to EtOH. Resolved 6. Tachycardia secondary to alcohol withdrawal. Patient's home dose beta phong resumed. Continue a call withdrawal protocol. Tachycardia has improv ed. Discontinue telemetry 7. History of essential hypertension. Patient's home dose of Lopressor resumed. 8. 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 Continue to monitor ammonia levels. Patient has had some confusion. Lactulose was decreased to twice a day. And he is on Xifaxan 9. Macrocytic anemia secondary to chronic liver disease 10. Generalized weakness and fatigue due to his advanced liver disease. Continue PT OT 11. Metabolic acidosis: the patient having multiple stools. CO2 19 currently on IV sodium bicarb. Nephrology following. Patient has been switched to oral sodium bicarbonate per nephrology 12. Hypomagnesemia: Resolved with replacement 13. Acute kidney injury secondary to hepatorenal. Nephrology services are following. Creatinine increasing to 3.41 and bun 37. Current diuretics on hold. Patient is maintained on albumin. Discussion was held per nephrology with family that patient may require hemodialysis of kidneys continued to decline we'll continue to monitor daily. maintained on albumin and Sandostatin per nephrology services. Patient was started on hemodialysis on 08/09/2019 we'll get additional hemodialysis today 08/10/2019 possible 08/11/2019 14. Abdominal ascites. Status post paracentesis with 2.8 L removed. Plans for paracentesis today per GI services. Did discuss with nephrology services recommended patient received 25 g of albumin prior and possibly after the large volume is removed. Status post paracentesis 1.3 L removed 15. Coagulopathy due to liver disease. INR 2.3. Patient will receive FFP's prior and after procedure for hemodialysis access. Oncology services are following. We'll continue to monitor PT/INR. Patient does have temporary hemodialysis access and right groin will need permanent once INR has improved. 16. Essential hypertension: We'll continue to monitor blood pressures. BP has been slightly elevated. Repeat blood pressure 135/71. We'll continue to monitor 17. Leukocytosis with low-grade temps. infectious disease is following. Patient remains on Maxipime and Diflucan sputum and blood cultures have been negative thus far. White blood cell continue to increase infectious disease is following. Flagyl has been added. Repeat chest x-ray completed showing bilateral small effusion basilar infiltrate stable from recent exam correlate for COPD. DVT prophylaxis SCDs due to coagulopathy secondary to liver disease GI prophylaxis Protonix GI, nephrology, oncology infectious disease following. I performed an examination of the patient and discussed their management with the Nurse Practitioner. I have reviewed the Nurse Practitioner's notes and agree with the documented findings and plan of care
[2019-08-11 14:45] VITALS: BMI 29.0
--- NOTE | 2019-08-11 18:25 | PN ---
PROGRESS NOTE Patient is seen for followup for acute kidney injury secondary to hepatorenal syndrome, currently maintained on dialysis. Patient is resting comfortably. He denies any significant complaints. We were not able to remove a lot of fluid yesterday, close to about a liter. As blood pressure had dropped, we will give midodrine today and try for a higher UF. PHYSICAL EXAMINATION: On examination, blood pressure was 137/75, heart rate 85 per minute, patient is afebrile. Examination of the heart S1, S2. Examination of the lungs, bilateral breath sounds are heard. Abdomen is soft, nontender. Examination of the lower extremities shows edema 2+ bilaterally. ROLL ICER exam grossly intact. LABS: Show sodium of 135, potassium 3.9, chloride 97, BUN 26, creatinine 4.6, bilirubin at 10.2. ASSESSMENT: 1. Acute kidney injury, hepatorenal, started on dialysis. Today will be his third treatment. We will plan for possible treatment again in a.m. depending on the blood pressure and volume status. 2. Volume overload. Expect improvement with ongoing dialysis. 3. Chronic liver disease secondary to alcoholic liver disease. 4. Acute alcoholic hepatitis, currently improving. PLAN: Hemodialysis today and we will re-evaluate for need for dialysis tomorrow. MMODL / IJN: [id number] /
--- NOTE | 2019-08-11 23:35 | PN ---
PROGRESS NOTE DATE OF SERVICE: 08/11/2019 The patient is a 49 -year-old white male with alcoholic cirrhosis and acute alcohol hepatitis with hepatorenal syndrome and acute kidney injury, presently on hemodialysis day number three. He is doing better. He denies any symptoms. PHYSICAL EXAMINATION: Appears comfortable. Blood pressure 136/53, pulse rate 94, temperature 99. HEENT: Examination unremarkable. Conjunctivae pink. Sclerae deeply icteric. Oral cavity no lesions. NECK: No JVD. No lymph node enlargement. CHEST: Clear to auscultation. CARDIAC: Heart regular rate and rhythm. ABDOMEN: Soft. Bowel sounds are positive. No organomegaly. Mild distention. EXTREMITIES: 2+ pedal edema. SKIN: No rashes. NEUROLOGICAL: Alert and oriented times three. No focal deficits. LABORATORY DATA: WBC 14.7, hemoglobin 9.9. Platelets normal. Basic metabolic panel is normal. down to 10.2, AST 104, ALT 14, alkaline phosphatase 117, BUN 26, creatinine 4.66. IMPRESSION: 1. Acute alcoholic hepatitis with alcoholic cirrhosis of the liver, gradually improving. 2. Acute kidney injury/hepatorenal syndrome started on hemodialysis 3 days ago, gradually improving. 3. Mild coagulopathy. RECOMMENDATIONS: 1. Continue with symptomatic and supportive care. 2. Repeat labs in the morning. 3. We will follow with you closely. MMODL / IJN: [id number] /
[2019-08-12] MEDS: OCTREOTIDE 100 MCG/ML INJ SQ SCH ×3 (00:44→16:41)
--- NOTE | 2019-08-12 05:23 | PN ---
PROGRESS NOTE DATE OF SERVICE: 08/11/2019 REASON FOR FOLLOWUP: Leukocytosis, possible reactive. INTERVAL HISTORY: The patient is currently afebrile, has been breathing comfortably. Denies having any chest pain. Occasional cough. No nausea, no vomiting. Has had some epigastric abdominal pain, but no worsening and no worsening diarrhea. PHYSICAL EXAMINATION: Blood pressure is 125/86 with a pulse of 87, temperature of 99. He is 95% on room air. General description is a middle-aged male lying in bed in no distress. RESPIRATORY SYSTEM: Unlabored breathing, clear to auscultation anteriorly. HEART: S1, S2. Regular rate and rhythm. ABDOMEN: Soft, mildly distended. No guarding or rigidity. LABS: Hemoglobin 9.1, white count 17.7. BUN of 26 and creatinine 4.66. DIAGNOSTIC IMPRESSION AND PLAN: Patient with leukocytosis which is likely multifactorial possibly related in this patient who did have alcoholic hepatitis cirrhosis, now with a question of pneumonia that has been adequately treated as he received more than 10-day course of antibiotic therapy. Currently, will be monitored It has been an E stim unattended pulse of antibiotic therapy and clinically monitor closely off antibiotics and monitor his clinical course closely. MMODL / IJN: [id number] /
[2019-08-12 08:41] LABS: INR 1.9 (<1.2)
[2019-08-12 08:51] LABS: Albumin 2.6 g/dL (3.5-5.0); Calcium 7.8 mg/dL (8.4-10.2); Potassium 3.9 mmol/L (3.5-5.1); Total Bilirubin 10.2 mg/dL (0.2-1.3); Total Protein 6.9 g/dL (6.3-8.2)
[2019-08-12 08:54] LABS: Basophils # (A) 0.1 k/uL (0-0.2); Basophils % (A) 0 %; Eosinophils # (A) 0.4 k/uL (0-0.7); Eosinophils % (A) 2 %; HCT 31.1 % (39.0-53.0); HGB 9.7 gm/dL (13.0-17.5); Hypochromasia Moderate; Lymphocytes # (A) 1.6 k/uL (1.0-4.8); Lymphocytes % (A) 9 %; MCH 33.2 pg (25.0-35.0); MCHC 31.3 g/dL (31.0-37.0); MCV 106.3 fL (80.0-100.0); Macrocytosis Moderate; Mean Platelet Volume 9.6; Monocytes # (A) 1.8 k/uL (0-1.0); Monocytes % (A) 10 %; Neutrophils # (A) 13.1 k/uL (1.3-7.7); Neutrophils % (A) 75 %; Platelet Count 190 k/uL (150-450); RBC 2.93 m/uL (4.30-5.90); RDW 15.3 % (11.5-15.5); WBC 17.5 k/uL (3.8-10.6)
[2019-08-12] MEDS: PANTOPRAZOLE 40 MG TABLET PO SCH (08:57)
[2019-08-12] MEDS: THIAMINE 100 MG TAB PO SCH ×2 (08:57→16:41)
[2019-08-12] MEDS: FLUCONAZOLE 100 MG TAB PO SCH (08:58)
[2019-08-12] MEDS: LACTULOSE 20 GM/30 ML CUP PO SCH ×2 (08:58→16:40)
[2019-08-12] MEDS: MULTIVITAMINS, THERA 1 EACH TAB PO SCH (08:58)
[2019-08-12] MEDS: amLODIPine 5 MG TAB PO SCH (08:58)
[2019-08-12] MEDS: METOPROLOL SUCCINATE (ER) 100 MG TAB.ER.24H PO SCH (09:29)
--- NOTE | 2019-08-12 12:21 | P.DS ---
Providers Date of admission: 07/12/19 21:06 Expected date of discharge: 08/12/19 Attending physician: Vonda Boles Consults: 07/12/19 20:21 Consult Physician Routine Consulting Provider: En Jhaveri Consult Reason/Comments: hepatic failure Do you want consulting provider notified?: Yes 07/12/19 21:06 Consult Physician Stat Consulting Provider: Cornell Gamino Consult Reason/Comments: icu patient Do you want consulting provider notified?: Already Contacted 07/24/19 09:46 Consult Physician Routine Consulting Provider: Arsalan Spears Consult Reason/Comments: elavated kidney labs Do you want consulting provider notified?: Yes 07/29/19 10:49 Consult Physician Routine Consulting Provider: Matteo Dueñas Consult Reason/Comments: elevated white count low-grade temp Do you want consulting provider notified?: Yes 08/08/19 14:35 Consult Physician Routine Consulting Provider: Jean Paul Nicholas Consult Reason/Comments: Dialysis cath placement- dialysis planned tomorrow Do you want consulting provider notified?: Yes 08/09/19 06:37 Consult Physician Routine Consulting Provider: Spencer Sun Consult Reason/Comments: elevated INR Do you want consulting provider notified?: Yes Primary care physician: Vonda Boles [facility] Course: Discharge diagnosis 1. Severe Acute alcoholic hepatitis superimposed on alcoholic cirrhosis of the liver. Abdominal ultrasound completed showing no gallstones or dilated ducts. Diffuse fatty infiltration of the liver. GI services have been consulted. Hepatitis panel negative. Patient has been cleared for discharge from GI standpoint. Patient will need close follow-up outpatient for his chronic liver disease. Per GI recommending discharge on lactulose 2. Jaundice, hyperbilirubinemia secondary to alcoholic liver disease. Total bilirubin 19. GI service is following and decided not to start prednisone. Total bili 10.2 3. EtOH withdrawal. Patient currently on CIWA protocal. Continue thiamine and add multivitamin. Continue Ativan as needed. Resolved 4. Hypokalemia. Likely losing potassium through his stooling and hydrochlorothiazide. Improved with potassium replacement 5. Hyponatremia and hypochloremic secondary to EtOH. Resolved 6. Tachycardia secondary to alcohol withdrawal. Patient's home dose beta phong resumed. Continue a call withdrawal protocol. Tachycardia has improved. Discontinue telemetry 7. History of essential hypertension. Patient's home dose of Lopressor resumed. 8. 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 Continue to m onitor ammonia levels. Patient has had some confusion. Lactulose was decreased to twice a day. And he is on Xifaxan 9. Macrocytic anemia secondary to chronic liver disease 10. Generalized weakness and fatigue due to his advanced liver disease. Continue PT OT 11. Metabolic acidosis: the patient having multiple stools. CO2 19 currently on IV sodium bicarb. Nephrology following. Patient has been switched to oral sodium bicarbonate per nephrology 12. Hypomagnesemia: Resolved with replacement 13. Acute kidney injury secondary to hepatorenal. Nephrology services are following. Creatinine increasing to 3.41 and bun 37. Current diuretics on hold. Patient is maintained on albumin. Discussion was held per nephrology with family that patient may require hemodialysis of kidneys continued to decline we'll continue to monitor daily. maintained on albumin and Sandostatin per nephrology services. Patient was started on hemodialysis on 08/09/2019 we'll get additional hemodialysis today 08/10/2019 possible 08/11/2019. INR has improved 1.9. Patient will receive permanent permacath per Dr. Nicholas receive 1 more dose of hemodialysis today prior to discharge. Patient has been arranged for outpatient hemodialysis Thursday per case management. Patient has been cleared for discharge from neurology standpoint. Per nephrology recommending Demadex 40 mg daily 14. Abdominal ascites. Status post paracentesis with 2.8 L removed. Plans for paracentesis today per GI services. Did discuss with nephrology services recommended patient received 25 g of albumin prior and possibly after the large volume is removed. Status post paracentesis 1.3 L removed 15. Coagulopathy due to liver disease. INR 2.3. Patient will receive FFP's prior and after procedure for hemodialysis access. Oncology services are following. We'll continue to monitor PT/INR. Patient does have temporary hemodialysis access and right groin will need permanent once INR has improved. 16. Essential hypertension: We'll continue to monitor blood pressures. BP has been slightly elevated. Repeat blood pressure 135/71. We'll continue to monitor 17. Leukocytosis with low-grade temps. infectious disease is following. Patient remains on Maxipime and Diflucan sputum and blood cultures have been negative thus far. White blood cell continue to increase infectious disease is following. Flagyl has been added. Repeat chest x-ray completed showing bilateral small effusion basilar infiltrate stable from recent exam correlate for COPD. discussed case with Dr. Dueñas per infectious disease. White blood cell 17.5. No need for antibiotics per ID recommendations seen on nystatin Hospital course This is a 49-year-old male patient who presented to the ER with complaints of yellowing of skin and eyes. Patient is known past medical history of EtOH drinking approximately a pint of vodka plus beer daily. Patient's urged patient to come to ER due to presentation of jaundice 1 day patient was noted to have yellowing of his eyes and she was concerned about his liver. Additional medical history includes hyperlipidemia hypertension and ex-smoker. Abdominal ultrasound completed showing no gallstones or dilated ducts diffuse fatty infiltration of liver. Upon admission AST elevated to 95, ALT 64 alkaline phosphatase 3:30 total bilirubin 10.1 and ammonia level 185. Patient has been started on lactulose. GI services have been consulted. Patient's electrolytes also significantly impaired. Sodium low at 122, potassium 3.2, magnesium 0.7. Replacement per protocol patient currently on normal saline. Patient also currently in EtOH withdrawals. Patient has been admitted to the intensive care unit critical care services are following. Heart rate elevated secondary to withdrawal. CIWA protocol has been ordered. GI services have been consulted for Liver failure. At this time patient is resting comfortably in bed shakiness and withdrawal symptoms noted. Patient is alert and oriented 2. Patient able to follow commands. Patient denies chest pain. Patient denies shortness of breath. Patient denies any urinary burning or frequency. 07/14/2019 patient remains in the ICU. He has a sitter at bedside. He did require Ativan this morning for alcohol withdrawal and is sleeping comfortably. Heart rate is better controlled. Total bilirubin has gone up from 10.1-14.1. Ammonia level has decreased from 185-47. Hepatitis panel is negative. He is followed by GI service and critical care. He is tolerating clear liquid diet. Patient is having a bowel movement almost every hour. Patient currently on lactulose 3 times a day and Xifaxan. Patient did have a temp of 100.6 yesterday afternoon he is currently on Rocephin. Chest x-rays negative. 07/20/2019 patient is currently on a regular medical floor. He was followed by Dr. Carlton from 07/15/2019 until 07/19/2019. Patient's is being followed by GI service for his severe alcoholic hepatitis. Total bilirubin is up to 22. He has been ambulating in the hallway. Apparently he had a fall yesterday and had a computed tomography scan of the head and neck completed. Just revealing moderate atrophy of the brain. Otherwise normal findings. Ammonia levels up to 73 CO2 is down at 14. Patient denies any chest pain or shortness of breath. Denies any nausea or vomiting. Urine is starting to clear and he is having 3-5 bowel movements a day. 07/21/2019 patient sitting up in bed comfortably. He reports having at least 3 bowel movements daily. Ammonia level has decreased from 73-53. Total bilirubin has come down from 22-20.4. He is followed closely by GI service. Awaiting their recommendations regarding the prednisone. Potassium is low at 3.4. 07/22/2019 patient lying in bed comfortably. He has no new complaints. Ammonia is down to 48. He is having multiple bowel movements a day. Magnesium and potassium are low and being replaced. Creatinine has gone up to 1.48. We'll discontinue the hydrochlorothiazide and lisinopril. Continue fluids at 50 mL an hour. Total bilirubin is 20.8 patient denies any difficulty urinating. He does report that his urine continues to become clear. GI service did hold off on starting the prednisone. On 07/23/2019 patient is alert and oriented 3 in no apparent distress bilirubin still elevated at 22 patient clinically denies any symptoms there is no fever or chills no headache or dizziness no chest pain no shortness of breath no cough no nausea or vomiting no abdominal pain no diarrhea and no urinary symptoms. , On 07/24/2019 patient was seen and examined on the medical floor, he is alert and oriented 3 in no apparent distress, he is still has significant jaundice, total bilirubin up to 22.4, creatinine up to 2.04, clinically he is feeling well, there is no fever or chills no headache no dizziness no chest pain no shortness of breath no cough no nausea or vomiting no abdominal pain no diarrhea and no urinary symptoms. On 07/25/2019 patient is alert and oriented 3. Patient up ambulating the kinney with . Patient remains with significant jaundice. Total bili is trending down 19.6. Nephrology services are following. Patient currently maintained on Sandostatin and albumin per nephrology services for concerns of hepatorenal acute kidney injury. Creatinine is improving slightly we'll continue to monitor. Patient also switched to IV sodium bicarb. We'll continue to monitor patient closely. At this time patient denies chest pain or shortness breath. Patient denies nausea vomiting or diarrhea. Patient denies any urinary burning or frequency 07/26/2019 patient lying in bed. at bedside. Patient reporting that his abdomen is more distended and firm today. He's having about 3 bowel movements a day. Patient seen by GI service. They will ordered an abdominal ultrasound with paracentesis. Creatinine is down to 1.80, total bili is 19, AST 700 and ALT 31. CO2 has come up from 14-19. Patient denies any chest pain or shortness of breath. Denies any nausea or vomiting. Denies any difficulty urinating. On 07/27/2019 patient is alert and oriented 3. Patient to undergo paracentesis today per GI services. Creatinine trending down. Total bili increasing to 19.6. This time patient denies chest pain or shortness breath. Patient denies nausea vomiting or diarrhea. Patient denies any urinary burning or frequency 07/28/2019 patient is awake and answering questions appropriately. He had a paracentesis with 2.8 L removed yesterday. His abdomen is still distended. Lactulose was increased to 3 times a day. His ammonia level had gone from 54- 72. Nephrology has discontinued the IV albumin and Sandostatin. Creatinine continues to trend down 1.48. Total bilirubin has decreased from 19.6-17.4. White count 15.2. Patient has no complaints. On 07/29/2019 patient is alert and oriented 3. Patient having elevated temp and white count. Patient is complaining cough will order chest x-ray. Patient also having drainage from paracentesis site. Blood culture and urine culture ordered. Will consult infectious disease. White blood cell elevated at 19.1, total bili 18.8. Patient denies any chest pain. Patient denies nausea vomiting or diarrhea. Patient denies any burning with urination On 07/30/2019 patient was seen and examined on the medical floor he is alert and oriented 3 in no apparent distress he is complaining of discomfort in the abdomen otherwise he denies any complaints there is no fever or chills no headache or dizziness no chest pain no shortness of breath no cough no nausea or vomiting no diarrhea no burning with urination no frequency or urgency no hematuria. White blood count still elevated at 18.9 bilirubin 18.1 AST 121 On 07/31/2019 patient was seen and examined on the medical floor he is alert and oriented 3 he has severe jaundice he denies any pain or discomfort there is no fever or chills no headache or dizziness no chest pain no shortness of breath no cough no nausea or vomiting no abdominal pain no diarrhea no burning with urination no frequency or urgency no hematuria On 08/01/2019 patient is alert and oriented 3. at bedside. Creatinine remains elevated 0.12 and bun 26. Patient remains on IV Lasix. Total bili 17.5. Patient also getting treated for possible pneumonia with Maxipime and Diflucan. GI, nephrology and infectious disease services are following. Patient denies chest pain or shortness of breath. Patient denies nausea vomiting or diarrhea. Patient denies any urinary burning or frequency On 08/02/2019 patient is alert and oriented 3. at bedside. Patient's creatinine increasing to 2.51 and bun 28. Discussed case with nephrology team. Patient was transitioned to Demadex yesterday. Patient remains quite edematous with ascites and edema. Per GI services patient to undergo paracentesis today. Per nephrology service is patient to be received 25 g of albumin prior to paracentesis and a large volume intake and output will require more albumin after. Antibiotics also adjusted per ID Flagyl added. Patient denies chest pain. Patient denies nausea vomiting or diarrhea. Patient denies any urinary burning or frequency On 08/03/2019 patient is alert and oriented 3. Creatinine increasing to 2.79 and bun 31. Patient did undergo paracentesis yesterday 1.3 L off. Total bili 16.1. Patient remains on cefepime Flagyl and Diflucan. Patient complaining about increased congestion. Will order repeat chest x-ray. At this time patient denies chest pain. Patient denies shortness breath. Patient denies nausea or vomiting. On 08/04/2019 patient is alert and oriented 3. Patient's at bedside. Nephrology services have bedside. Patient's creatinine increasing to 3.41 and bun 37. Per nephrology services diuretics currently on hold patient maintained on albumin we'll continue to monitor kidney enzymes. Family aware that if kidneys continued to decline patient will require hemodialysis. Total bili 15.6. White blood cell is trending down. Infectious disease is following. Patient maintained on cefepime Flagyl and Diflucan. On 08/05/2019 patient is alert and oriented 3. Total bili decreasing to 14.6 and WBC trending down. Patient's creatinine increasing to 3.72 and bun 42. Patient was started on Sandostatin maintained on albumin per nephrology services. Discussion was held with family per nephrology that patient may require hemodialysis if kidneys continued to decline. At this time patient denies chest pain. Patient denies nausea vomiting or diarrhea. Patient denies shortness breath. Patient denies any urinary burning or frequency On 08/06/2019 patient is alert and oriented 3 in no apparent distress there is no fever or chills no headache or dizziness no chest pain no shortness of breath no cough no nausea or vomiting no abdominal pain no diarrhea no burning with urination no frequency or urgency no hematuria. Jowled this improving liver enzymes are improving however kidney function is worsening, nephrology are following closely to assess need for hemodialysis. On 08/07/2019 patient was seen and examined on the medical floor he is alert and oriented 3 in no apparent distress he is complaining of abdominal discomfort otherwise no complaints at this time there is no fever or chills no headache or dizziness no chest pain no shortness of breath no cough no nausea or vomiting no abdominal pain no diarrhea no burning was urination no frequency or urgency and no hematuria, he is still has significant jaundice, BUN and creatinine are still worsening, nephrology are following On 08/08/2019 patient is alert and oriented 3. Creatinine increasing to 5.64 bun 51 patient will likely need hemodialysis. Patient and family are aware. Awaiting nephrology input. Total bili decreasing to 12.2. At this time patient denies chest pain patient denies nausea vomiting or diarrhea. Patient denies any urinary burning or frequency On 08/09/2019 patient is alert and oriented 3. Plans to get hemodialysis access stay per Dr. Nicholas. Patient INR 2.3 secondary to liver disease. Patient to receive FFP's prior to procedure. Plans for hemodialysis today per nephrology. Patient denies chest pain or shortness of breath. Patient denies nausea vomiting or diarrhea. Patient denies any urinary burning or frequency On 08/10/2019 patient's alert and oriented 3. Patient underwent hemodialysis access with dialysis yesterday. Plans for hemodialysis today and possibly tomorrow. Creatinine 5.74 and bun 42. Total bilirubin 11.0. Oncology services are following now for coagulopathy. Patient has temporary hemodialysis access in right groin will need permanent once INR has improved. Patient did get 2 units of FFP's yesterday due to procedure. At this time patient denies chest pain or shortness of breath. Patient denies nausea vomiting or diarrhea. Patient denies any urinary burning or frequency On 08/11/2019 patient alert and joint 3. Patient to undergo third day of dialysis today. Patient's creatinine 4.66 and bun 26. Total bili 10.2. INR 2.2. Awaiting INR improvement for permanent hemodialysis placement per Dr. Nicholas. Oncology service are following. At this time patient denies chest pain or shortness of breath. Patient denies nausea vomiting or diarrhea. Patient denies any urinary burning or frequency On 08/12/2019 patient is alert and oriented 3 INR improving to 1.9. Patient will receive permanent hemodialysis access stay per Dr. Nicholas patient will also receive hemodialysis today and then cleared for discharge. Outpatient hemodialysis range Thursday. Patient has been cleared for discharge from nephrology, GI and infectious disease. Per nephrology recommending Demadex 40 mg daily. Per GI services continue lactulose and close follow-up outpatient regards to liver disease. Per ID no need for antibiotics continue swish and swallow nystatin. At this time patient denies chest pain or shortness of breath. Denies nausea vomiting or diarrhea. Denies any urinary burning or frequency. I performed an examination of the patient and discussed their management with the Nurse Practitioner. I have reviewed the Nurse Practitioner's notes and agree with the documented findings and plan of care Patient Condition at Discharge: Stable Plan - Discharge Summary Discharge Rx Participant: Yes New Discharge Prescriptions: New Lactulose [Cephulac] 20 gm PO TID 30 Days #180 ml Torsemide [Demadex] 40 mg PO DAILY 30 Days #30 tablet Nystatin 100,000 Unit/ml Susp [Mycostatin Oral Susp] 5 ml PO QID 7 Days #140 ml amLODIPine [Norvasc] 5 mg PO DAILY 30 Days #30 tab Thiamine [Vitamin B-1] 100 mg PO BID-W/MEALS 30 Days #60 tab Continue Metoprolol Succinate [Toprol XL] 100 mg PO DAILY Discontinued Fenofibrate Nanocrystallized [Fenofibrate] 145 mg PO DAILY Hydrochlorothiazide 25 mg PO DAILY Lisinopril [Prinivil] 10 mg PO DAILY Discharge Medication List Metoprolol Succinate [Toprol XL] 100 mg PO DAILY 07/12/19 [History] Lactulose [Cephulac] 20 gm PO TID 30 Days #180 ml 08/12/19 [Rx] Nystatin 100,000 Unit/ml Susp [Mycostatin Oral Susp] 5 ml PO QID 7 Days #140 ml 08/12/19 [Rx] Thiamine [Vitamin B-1] 100 mg PO BID-W/MEALS 30 Days #60 tab 08/12/19 [Rx] Torsemide [Demadex] 40 mg PO DAILY 30 Days #30 tablet 08/12/19 [Rx] amLODIPine [Norvasc] 5 mg PO DAILY 30 Days #30 tab 08/12/19 [Rx] Follow up Appointment(s)/Referral(s): [facility],Equipment [NON-STAFF] - 1 Week Faith Le MD [STAFF PHYSICIAN] - 08/23/19 8:30 am (1-2 weeks hosptial follow up alcoholic cirrhosis of liver) Vonda Boles MD [Primary Care Provider] - 08/19/19 11:30 am [facility], [NON-STAFF] - 1 Week Jihan Roberson MD [STAFF PHYSICIAN] - 1 Week Ambulatory/Diagnostic Orders: Complete Blood Count w/diff [LAB.AMB] Time Frame: 2 Days, Location: None Selected Comprehensive Metabolic Panel [LAB.AMB] Time Frame: 2 Days, Location: None Selected Activity/Diet/Wound Care/Special Instructions: Activity as tolerated Diet renal 1200 mL fluid restriction Hemodialysis arranged per case management Thursday Discharge Disposition: HOME WITH HOME HEALTH SERVICES
[2019-08-12] MEDS ORDERED: fentaNYL (PF) 50 MCG/ML 2 ML AMP ONE (12:58)
[2019-08-12] MEDS ORDERED: LIDOCAINE 1% INJ 10MG/ML (20 ML MDV) ONE (12:58)
[2019-08-12] MEDS ORDERED: SODIUM CHLORIDE 0.9% 500 ML 500 ML IV ONE (13:09)
[2019-08-12] MEDS: fentaNYL (PF) 50 MCG/ML 2 ML AMP IV ONE ×2 (13:09→13:14)
[2019-08-12] MEDS ORDERED: MIDAZOLAM 2 MG/2 ML VIAL IVP ONE (13:09)
[2019-08-12] MEDS ORDERED: LIDOCAINE 1% INJ 10MG/ML (20 ML MDV) SQ ONE ×2 (13:10→13:45)
--- NOTE | 2019-08-12 14:06 | PCN ---
PROCEDURE NOTE PREOPERATIVE DIAGNOSIS: Acute chronic renal failure with hepatic failure. PROCEDURE: 1. Ultrasound-guided 23 cm dialysis catheter placed right jugular approach. 2. Removal of the dialysis catheter right femoral. PROCEDURE DESCRIPTION: The patient was brought to the track repair laborer. Right side of the neck and chest was prepped and draped per sterile manner; 1% lidocaine infiltrated in the neck area and chest area. After that, ultrasound guided micropuncture introduced right jugular vein. Then micropuncture guidewire was passed and 4-Peruvian dilator advanced on top of the guidewire. After that, incision was made in the chest wall. A tunnel was created. Through the tunnel we brought 23 cm dialysis catheter and then we passed a guidewire through the sheath which was parked in the inferior vena cava. Then, dilator was advanced, then sheath was advanced on top of the guidewire, through the sheath we introduced the dialysis catheter, tip of catheter in superior vena cava and atrium junction. Flushed with heparin saline and hep-locked, secured with 3-0 nylon. Then, attention was paid right groin was prepped were stitches was removed. The dialysis catheter removed, pressure held. Patient tolerated the procedure well. PROCEDURE: 1. A 23 cm dialysis catheter placed in the right jugular approach. 2. Removed dialysis catheter right femoral approach. SEDATION: Sedation time is 19 minutes. MMODL / IJN: [id number] /
--- NOTE | 2019-08-12 14:51 | PN ---
PROGRESS NOTE Patient is seen for followup for acute kidney injury, started on hemodialysis this admission mainly for hepatorenal syndrome. Patient is getting his IJ PermCath today and there are plans for discharge today post dialysis. He will follow up on a Thursday, Thursday, Thursday schedule as outpatient. PHYSICAL EXAMINATION: On examination today, blood pressure is 103/74, heart rate 74 per minute, he is afebrile. Examination of the heart S1, S2. Examination of the lungs, bilateral breath sounds are heard. Abdomen is soft, non-tender. Examination of the lower extremities shows edema 2+ bilaterally. [employer] W[employer]ER AND INSPECTOR exam grossly intact. LABS: Show sodium of 134, potassium 3.9, BUN 18, creatinine down to 4.28. ASSESSMENT: 1. Acute kidney injury secondary to hepatorenal syndrome with decreased urine output, currently maintained on dialysis. We will dialyze him today and patient can be discharged with plans to follow up as outpatient for dialysis on a Thursday, Thursday, Thursday schedule at the [facility]. 2. Alcoholic liver disease. 3. Portal hypertension, recurrent ascites. 4. Significant lower extremity edema. PLAN: Hemodialysis today after PermCath is placed. Patient can be discharged from nephrology standpoint, post dialysis and follow up as outpatient on Thursday, Thursday, Thursday schedule. MMODL / IJN: [id number] /
--- NOTE | 2019-08-12 17:00 | XR ---
EXAMINATION TYPE: XR chest 1V confirm line [facility] DATE OF EXAM: 08/12/2019 COMPARISON: 08/03/2019 HISTORY: Line placement TECHNIQUE: Single frontal view of the chest is obtained. FINDINGS: Right-sided dialysis catheter seen with the tip overlying the right atrium. Bilateral cons olidation small effusion. Heart size stable. Persistent coarsened interstitium. No sizable pneumothor ax. IMPRESSION: 1. Dialysis catheter with the tip overlying the right atrium and no sizable pneumothorax. 2. Bilateral infiltrate and small effusion correlate for mild CHF. Otherwise consider pneumonia.
--- NOTE | 2019-08-12 17:42 | PN ---
PROGRESS NOTE DATE OF DICTATION: 08/12/2019 Patient is a 49-year-old pleasant white male with alcoholic cirrhosis of the liver alcoholic hepatitis and acute kidney injury, presently on hemodialysis. He is doing much better, gradually improving. He is going home today. He denies any symptoms. Overall he is feeling much better. Reports no abdominal pain. No nausea, vomiting. PHYSICAL EXAMINATION: Blood pressure is 103/69, pulse rate 78, temperature 98. HEENT examination unremarkable. Conjunctivae pink. Sclerae icteric. Oral cavity no lesions. NECK: No JVD or lymph node enlargement. CHEST: Clear to auscultation. HEART: Regular rate and rhythm. ABDOMEN: Soft. Non-tender. Non-distended. Bowel sounds are positive. No organomegaly. EXTREMITIES: No pedal edema. NEUROLOGIC: He is awake. Oriented to name and place. LABS: WBC 17.5, hemoglobin 9.7, platelets normal. Bilirubin is down to 10.2. AST 105, ALT 13, alkaline phosphatase 176. BUN and creatinine are 18 and 4.28, respectively. IMPRESSION: 1. Acute alcoholic hepatitis with alcoholic cirrhosis of the liver, gradually improving. 2. Acute kidney injury, on hemodialysis that started 3 days ago. He is doing much better. BUN and creatinine are improving. 3. Heavy alcohol abuse; quit about a month ago. 4. Mild coagulopathy, improving. RECOMMENDATIONS: 1. Continue with lactulose 30 mL 3 times daily. 2. Balanced diet. 3. Abstinence from alcohol. 4. He can be discharged home today with an outpatient followup in 2 weeks. Thank you for this consultation. MMODL / IJN: [id number] /
[2019-08-12] MEDS ORDERED: HYDROmorphone 0.5 MG/0.5 ML SYRINGE IVP PRN (17:49)
[2019-08-12] MEDS ORDERED: HYDROcodone/APAP 10-325MG 1 EACH TAB PO PRN (18:16)
[2019-08-12 20:55] VITALS: RESP 16
[2019-08-12 20:59] VITALS: BP 138/91; PULSE 84; TEMP 97.8
== END 2019-08-12 21:15 | disposition home health service (06) | DRG 432 ==
LOC: EC 15:51 → 2SICU 21:06 → 5NMEDONC 07-15 14:42 → 4SSUR 07-29 14:35
PROVIDERS: ADMIT Internal Medicine; ATTEND Internal Medicine
PROC: 30233K1 Transfusion of Nonautologous Frozen Plasma into Peripheral Vein, Percutaneous Approach (ICD-10-PCS; 2019-08-09)
PROC: 06H033Z Insertion of Infusion Device into Inferior Vena Cava, Percutaneous Approach (ICD-10-PCS; principal; 2019-08-09 10:45)
PROC: 5A1D70Z Performance of Urinary Filtration, Intermittent, Less than 6 Hours Per Day (ICD-10-PCS; 2019-08-12 10:45)
PROC: 06PYX3Z Removal of Infusion Device from Lower Vein, External Approach (ICD-10-PCS; 2019-08-12 10:45)
PROC: 05HM33Z Insertion of Infusion Device into Right Internal Jugular Vein, Percutaneous Approach (ICD-10-PCS; 2019-08-12 10:45)
PROC: 0JH63XZ Insertion of Tunneled Vascular Access Device into Chest Subcutaneous Tissue and Fascia, Percutaneous Approach (ICD-10-PCS; 2019-08-12 10:45)
DX: K70.11 Alcoholic hepatitis with ascites (principal); E43 Unspecified severe protein-calorie malnutrition; J18.9 Pneumonia, unspecified organism; K76.7 Hepatorenal syndrome; F10.239 Alcohol dependence with withdrawal, unspecified; D68.4 Acquired coagulation factor deficiency; E87.1 Hypo-osmolality and hyponatremia; E87.2 Acidosis; J44.0 Chronic obstructive pulmonary disease with (acute) lower respiratory infection; K76.6 Portal hypertension; N17.9 Acute kidney failure, unspecified; D53.9 Nutritional anemia, unspecified; D63.8 Anemia in other chronic diseases classified elsewhere; D69.59 Other secondary thrombocytopenia; E78.5 Hyperlipidemia, unspecified; E83.42 Hypomagnesemia; E86.1 Hypovolemia; E87.6 Hypokalemia; E87.70 Fluid overload, unspecified; E87.8 Other disorders of electrolyte and fluid balance, not elsewhere classified; G31.2 Degeneration of nervous system due to alcohol; I13.10 Hypertensive heart and chronic kidney disease without heart failure, with stage 1 through stage 4 chronic kidney disease, or unspecified chronic kidney disease; K70.31 Alcoholic cirrhosis of liver with ascites; K70.40 Alcoholic hepatic failure without coma; N18.9 Chronic kidney disease, unspecified; T50.2X5A Adverse effect of carbonic-anhydrase inhibitors, benzothiadiazides and other diuretics, initial encounter; W19.XXXA Unspecified fall, initial encounter; Z79.899 Other long term (current) drug therapy; Z80.1 Family history of malignant neoplasm of trachea, bronchus and lung; Z87.891 Personal history of nicotine dependence; Z88.0 Allergy status to penicillin; Z82.3 Family history of stroke
CPT/HCPCS: 36415; 36556; 36558; 49083; 70450; 71045; 71046; 72125; 74019; 74176; 76705; 76937; 77001; 80048; 80053; 80074; 80320; 81001; 81003; 82042; 82140; 82248; 82570; 83690; 83735; 84100; 84132; 84156; 84157; 84300; 85025; 85027; 85610; 85730; 86704; 86706; 86850; 86900; 86901; 87040; 87070; 87086; 87205; 87340; 89050; 90935; 93005; 96361; 96365; 96372; 96375; 99285

== ENCOUNTER 2019-12-29 08:20 | Day surgery (SDC) | payer OTHER ==
[2019-12-27 12:46] VITALS: BMI 25.0
[~2019-12-29 08:20] MED LIST: LACTATED RINGERS 1,000 ML IV SCH; LIDOCAINE 1% (10MG/ML) FOR IV START INTRADERMA PRN
[2019-12-29 08:39] VITALS: TEMP 97.8
[2019-12-29] MEDS ORDERED: LACTATED RINGERS 1,000 ML IV ONE (08:39)
[2019-12-29] MEDS ORDERED: PROPOFOL 10 MG/ML 20 ML VIAL IV ONE (10:11)
[2019-12-29] MEDS ORDERED: ESMOLOL 100 MG/10 ML VIAL ONE (10:11)
[2019-12-29] MEDS ORDERED: LIDOCAINE 1% INJ 10MG/ML (20 ML MDV) ONE (10:11)
--- NOTE | 2019-12-29 11:04 | P.PCN ---
Date of Procedure: 12/29/19 Description of Procedure: Brief history: Patient is a pleasant 49-year-old male presenting for outpatient elective upper endoscopy and colonoscopy for evaluation of cirrhosis of the liver and screening for malignant neoplasm colon. No prior endoscopic evaluation reported. Procedure performed: Esophagogastroduodenoscopy with biopsy Colonoscopy Estimated blood loss: Minimal. Preoperative diagnosis: Alcoholic cirrhosis of the liver, screening for malignant neoplasm of the colon Anesthesia: MAC Procedure: After informed consent was obtained from the patient was brought into the endoscopy unit and IV sedation was administered by anesthesia under continuous monitoring. Initially upper endoscopy was done. The Olympus GF 190 video endoscope was inserted into the mouth and esophagus intubated without any difficulty and was gradually advanced into the stomach and duodenum and carefully examined. The bulb and second part of the duodenum appeared normal, with biopsies taken. The scope was then withdrawn into the stomach adequately insufflated with air and upon careful examination the antrum and body, cardia and fundus appeared normal, except for moderate punctate erythema in the body, cardia and fundus suggestive of moderate portal hypertensive gastropathy. The scope was then withdrawn into the esophagus. The GE junction was located at 38 cm to the incisors, with 4 cm hiatal hernia noted. LA grade a distal esophagitis noted with no varices seen. The patient tolerated the procedure well. At this time the patient continued to remain sedation. Initial digital rectal examination was normal. Olympus CF 190 video colonoscope was then inserted into the rectum and gradually advanced to the cecum without any difficulty. Careful examination was performed as the scope was gradually being withdrawn. The prep was excellent. The cecum, ascending colon, transverse colon, descending colon, sigmoid colon and rectum appeared normal. Diminutive ascending colon polyp removed with cold forcep polypectomy measuring 2 mm in size. Flat 5 mm hepatic flexure polyp removed with cold snare polypectomy. A few scattered diverticula noted in the sigmoid colon. Retroflexion was performed in the rectum and no lesions were noted, low-grade internal hemorrhoids. Patient tolerated the procedure well. Impression: 1. Moderate portal hypertensive gastropathy, antrum and body biopsied. Duodenal biopsies. Moderate size hiatal hernia. LA grade a distal esophagitis with no varices noted. 2. Diminutive polyps removed with cold forceps from the ascending colon. Flat hepatic flexure polyp removed with cold snare polypectomy. Mild sigmoid diverticulosis. Low-grade internal hemorrhoids. Recommendations: Findings of this examination were discussed with the patient. Okay to resume diet, sodium restricted. Okay to resume medications. Await pathology from biopsies and polypectomy. Would recommend repeat EGD in 2 years for variceal screening and repeat colonoscopy in 5 years given polyps.
[2019-12-29 11:06] VITALS: BP 155/85; PULSE 73; RESP 16
== END 2019-12-29 11:36 | disposition home or self-care (01) ==
LOC: ORWHC2ENDO 08:20
PROVIDERS: ATTEND Internal Medicine
DX: Z12.11 Encounter for screening for malignant neoplasm of colon (principal); D12.2 Benign neoplasm of ascending colon; D12.3 Benign neoplasm of transverse colon; K57.30 Diverticulosis of large intestine without perforation or abscess without bleeding; K64.8 Other hemorrhoids; K29.50 Unspecified chronic gastritis without bleeding; K76.6 Portal hypertension; K31.89 Other diseases of stomach and duodenum; K44.9 Diaphragmatic hernia without obstruction or gangrene; K20.9 Esophagitis, unspecified; K70.30 Alcoholic cirrhosis of liver without ascites; F32.9 Major depressive disorder, single episode, unspecified; Z87.891 Personal history of nicotine dependence; Z88.0 Allergy status to penicillin; Z79.899 Other long term (current) drug therapy; Z98.890 Other specified postprocedural states
CPT/HCPCS: 88305; 45380; 45385; 43239; J2001; J2704

== ENCOUNTER 2020-09-07 20:12 | Emergency (ER) | payer OTHER ==
[2020-09-07 20:49] VITALS: BP 171/96; PULSE 67; RESP 20; TEMP 98
[2020-09-07 21:59] LABS: Glucose,Whole Blood 69 mg/dL (75-99)
--- NOTE | 2020-09-07 22:21 | ED ---
General Adult HPI - General Chief complaint: Back Pain/Injury Stated complaint: bruising on back Time Seen by Provider: 09/07/20 21:42 Source: patient Mode of arrival: ambulatory Limitations: no limitations - History of Present Illness Initial comments: 50-year-old male patient presents to the emergency department today for evaluation of bruising over his lower back. States his been having increased low back pain and tightness over the last several days. States that yesterday they noticed bruising to the lower back. States today the area of bruising became larger. Denies any known injury to the back. Does not take any blood thinning medications. Does have a history of alcohol abuse last use was 2 years ago. He does have some cognitive deficits and neuropathy for which he will be having an evaluation at [facility] on the of this month. There do report foot drop which he'll also be evaluating. Patient denies any saddle an esthesia or loss of bowel or bladder control. Denies radiating back pain. Denies any fever or chills. Denies abdominal pain or swelling. Patient denies any recent rash, cough, shortness of breath, chest pain, nausea, vomiting, diarrhea, constipation, dizziness, weakness, hematuria, dysuria, urinary urgency, urinary frequency, headache, visual changes, or any other complaints. - Related Data Home Medications Medication Instructions Recorded Confirmed Allopurinol [Zyloprim] 100 mg PO DAILY 12/27/19 12/27/19 Escitalopram [Lexapro] 10 mg PO HS 12/27/19 12/27/19 Fexofenadine/Pseudoephedrine 1 each PO DAILY 12/27/19 12/27/19 [Josefina-D 24 Hour Tablet] Magnesium Oxide [Mag-Ox] 400 mg PO DAILY 12/27/19 12/27/19 Potassium Chloride 10 meq PO HS 12/27/19 12/27/19 Previous Rx's Medication Instructions Recorded Thiamine [Vitamin B-1] 100 mg PO BID-W/MEALS 30 Days #60 08/12/19 tab Allergies Allergy/AdvReac Type Severity Reaction Status Date / Time Penicillins Allergy Unknown Verified 09/07/20 20:49 Childhood Review of Systems ROS Statement: Those systems with pertinent positive or pertinent negative responses have been documented in the HPI. ROS Other: All systems not noted in ROS Statement are negative. Past Medical History Past Medical History: Hyperlipidemia, Hypertension Additional Past Medical History / Comment(s): HX CIRRHOSIS-WAS ON HEMODIALYSIS- NONE NOW. neuropathy- hands,feet,shoulders,short term memory loss History of Any Multi-Drug Resistant Organisms: None Reported Past Surgical History: No Surgical Hx Reported Additional Past Surgical History / Comment(s): HEMODIALYSIS PORT-SINCE REMOVED Past Anesthesia/Blood Transfusion Reactions: No Reported Reaction Past Psychological History: No Psychological Hx Reported Smoking Status: Former smoker Past Alcohol Use History: Abuse Past Drug Use History: Marijuana - Past Family History Mother Family Medical History: CVA/TIA Father Additional Family Medical History / Comment(s): of Lung Cancer General Exam Limitations: no limitations General appearance: alert, in no apparent distress, other (This is a well- developed, well-nourished adult male patient in no acute distress. Vital signs upon presentation temperature 98.0F, pulse 67, respirations 20, blood pressure 171/96, pulse ox 99% on room air.) Eye exam: Present: normal appearance, PERRL, EOMI. Absent: scleral icterus, conjunctival injection, periorbital swelling ENT exam: Present: normal exam, normal oropharynx Respiratory exam: Present: normal lung sounds bilaterally. Absent: respiratory distress, wheezes, rales, rhonchi, stridor Cardiovascular Exam: Present: regular rate, normal rhythm, normal heart sounds. Absent: systolic murmur, diastolic murmur, rubs, gallop, clicks GI/Abdominal exam: Present: soft, normal bowel sounds. Absent: distended, tenderness, guarding, rebound, rigid Extremities exam: Present: normal inspection, full ROM, normal capillary refill. Absent: tenderness, pedal edema, joint swelling, calf tenderness Back exam: Present: paraspinal tenderness (Lumbar), other (There is a reticular pattern noted over the lower back with brownish discoloration, consistent with erythema ab igne.). Absent: normal inspection, vertebral tenderness Neurological exam: Present: alert, oriented X3, CN II-XII intact Psychiatric exam: Present: normal affect, normal mood Skin exam: Present: warm, dry, intact, normal color. Absent: rash Course Vital Signs 09/07/20 20:45 Temperature 98.0 F Pulse Rate 67 Respiratory 20 Rate Blood Pressure 171/96 O2 Sat by Pulse 99 Oximetry Medical Decision Making - Medical Decision Making 50-year-old male patient presents to the emergency department today for evaluation of low back pain and bruising. Bruising started yesterday worsened today. Denied any injury. Back pains been going on for a little over a week. Patient describes as a mild tightening over the low back. No concerning symptoms for cauda equina. Physical examination did show skin changes consistent with use of heating pad, erythema ab igne. Lumbosacral x-ray was negative. Did discuss findings and results with him. He was we did discuss appropriate use of heating pad. He is instructed to follow-up with the primary care physician for recheck in 1-2 days. Return parameters were discussed in detail. He verbalizes understanding and agrees with this plan. - Lab Data Lab Results 09/07/20 Range/Units 21:57 POC Glucose (mg/dL) 69 L (75-99) mg/dL POC Glu Aircraft Engine Installer ID Garth Veliz - Radiology Data Radiology results: report reviewed, image reviewed 5 views of the lumbosacral spine are obtained. Report was reviewed in its entirety. Impression by Dr. Nash shows negative lumbar spine exam. Disposition Clinical Impression: Low back pain, Erythema ab igne Disposition: HOME SELF-CARE Condition: Good Instructions (If sedation given, give patient instructions): Acute Low Back Pain (ED), Heat Pack Application (ED) Additional Instructions: Use a heating pad only for recommended times, 20 minutes max. Follow-up with her primary care physician for reevaluation as soon as possible. Return to the emergency department for any new, worsening, or concerning symptoms Is patient prescribed a controlled substance at d/c from ED?: No Referrals: Vonda Boles MD [Primary Care Provider] - 1-2 days Time of Disposition: 23:07
--- NOTE | 2020-09-07 23:03 | XR ---
EXAMINATION TYPE: XR lumbosacral spine min 4V DATE OF EXAM: 09/07/2020 COMPARISON: NONE HISTORY: Back pain TECHNIQUE: 5 views FINDINGS: Lumbar vertebra have normal alignment. Posterior elements are intact. Disc spaces are well- maintained. Sacroiliac joints appear normal. There is no evidence of a fracture. IMPRESSION: Negative lumbar spine exam.
== END 2020-09-07 23:30 | disposition home or self-care (01) ==
LOC: EC 20:12
DX: M54.5 Low back pain (principal); L59.0 Erythema ab igne [dermatitis ab igne]; M21.379 Foot drop, unspecified foot; E78.5 Hyperlipidemia, unspecified; I10 Essential (primary) hypertension; Z87.891 Personal history of nicotine dependence; F12.90 Cannabis use, unspecified, uncomplicated; Z88.0 Allergy status to penicillin; G62.9 Polyneuropathy, unspecified
CPT/HCPCS: 36415; 72110; 99283

== ENCOUNTER → 2023-07-30 | Outpatient (CLI) | payer OTHER ==
[2023-07-30 18:19] LABS: Basophils # (A) 0.02 X 10*3/uL (0.00-0.10); Basophils % (A) 0.3 %; Eosinophils # (A) 0.23 X 10*3/uL (0.04-0.35); Eosinophils % (A) 3.7 %; HCT 46.7 % (39.6-50.0); HGB 15.8 g/dL (13.0-17.0); Lymphocytes # (A) 2.04 X 10*3/uL (0.90-5.00); Lymphocytes % (A) 32.5 %; MCH 31.2 pg (27.0-32.0); MCHC 33.8 g/dL (32.0-37.0); MCV 92.3 FL (80.0-97.0); Mean Platelet Volume 11.1 FL (9.5-12.2); Monocytes # (A) 0.77 X 10*3/uL (0.20-1.00); Monocytes % (A) 12.3 %; NRBC Per 100 WBC 0 X 10*3/uL (0.00-0.01); Platelet Count 150 X 10*3/uL (140-440); RBC 5.06 X 10*6/uL (4.40-5.60); RDW 13.6 % (11.5-14.5); WBC 6.27 X 10*3/uL (4.50-10.00)
[2023-07-30 18:58] LABS: ALT 26 U/L (10-49); AST 29 U/L (14-35); Albumin 4.8 g/dL (3.8-4.9); Albumin/Globulin Ratio 1.78 Ratio (1.60-3.17); Alkaline Phosphatase 78 U/L (41-126); BUN/Creat Ratio 16.07 Ratio (12.00-20.00); Blood Urea Nitrogen 22.5 mg/dL (9.0-27.0); Carbon Dioxide 22.8 mmol/L (21.6-31.8); Chloride 102 mmol/L (96-109); Chol/HDL Ratio 3.78 Ratio; Globulin 2.7 g/dL (1.6-3.3); Glucose 75 mg/dL (70-110); LDL Cholesterol,Calculated 130.5 mg/dL (0.0-131.0); Magnesium 1.7 mg/dL (1.5-2.4); Potassium 4.5 mmol/L (3.5-5.5); Sodium 139 mmol/L (135-145); Total Bilirubin 0.8 mg/dL (0.3-1.2); Total Protein 7.5 g/dL (6.2-8.2); VLDL Calculation 17.96 mg/dL (5.00-40.00)
== END | disposition home or self-care (01) ==
LOC: LABWHC1 15:37
PROVIDERS: ATTEND Internal Medicine
DX: E55.9 Vitamin D deficiency, unspecified (principal); E78.2 Mixed hyperlipidemia; E80.6 Other disorders of bilirubin metabolism; M10.09 Idiopathic gout, multiple sites; R53.83 Other fatigue; Z79.899 Other long term (current) drug therapy
CPT/HCPCS: 36415; 80053; 80061; 82306; 83735; 84443; 84550; 85025

== ENCOUNTER → 2023-10-29 | Outpatient (CLI) | payer OTHER ==
[2023-10-29 18:12] LABS: Basophils # (A) 0.02 X 10*3/uL (0.00-0.10); Basophils % (A) 0.4 %; Eosinophils # (A) 0.28 X 10*3/uL (0.04-0.35); Eosinophils % (A) 5.3 %; HGB 15.4 g/dL (13.0-17.0); Lymphocytes # (A) 2.05 X 10*3/uL (0.90-5.00); Lymphocytes % (A) 38.8 %; MCH 31.6 pg (27.0-32.0); MCHC 34.2 g/dL (32.0-37.0); MCV 92.2 FL (80.0-97.0); Mean Platelet Volume 10.4 FL (9.5-12.2); Monocytes # (A) 0.47 X 10*3/uL (0.20-1.00); Monocytes % (A) 8.9 %; NRBC Per 100 WBC 0 X 10*3/uL (0.00-0.01); Neutrophils # (A) 2.46 X 10*3/uL (1.80-7.70); Neutrophils % (A) 46.4 %; Platelet Count 164 X 10*3/uL (140-440); RBC 4.88 X 10*6/uL (4.40-5.60); WBC 5.29 X 10*3/uL (4.50-10.00)
[2023-10-29 21:01] LABS: BUN/Creat Ratio 20.83 Ratio (12.00-20.00); Chol/HDL Ratio 3.42 Ratio; Glucose 87 mg/dL (70-110); LDL Cholesterol,Calculated 115.2 mg/dL (0.0-131.0); Magnesium 1.7 mg/dL (1.5-2.4); Uric Acid 6.9 mg/dL (3.7-8.7); VLDL Calculation 17.76 mg/dL (5.00-40.00)
[2023-10-29 21:02] LABS: ALT 17 U/L (10-49); AST 21 U/L (14-35); Albumin 4.6 g/dL (3.8-4.9); Albumin/Globulin Ratio 1.84 Ratio (1.60-3.17); Alkaline Phosphatase 65 U/L (41-126); Calcium 9.9 mg/dL (8.7-10.3); Carbon Dioxide 25.3 mmol/L (21.6-31.8); Chloride 103 mmol/L (96-109); Globulin 2.5 g/dL (1.6-3.3); Potassium 4.6 mmol/L (3.5-5.5); Sodium 138 mmol/L (135-145); Total Bilirubin 0.7 mg/dL (0.3-1.2); Total Protein 7.1 g/dL (6.2-8.2)
== END | disposition home or self-care (01) ==
LOC: LABWHC1 15:20
PROVIDERS: ATTEND Internal Medicine
DX: E78.2 Mixed hyperlipidemia (principal); M10.09 Idiopathic gout, multiple sites; E55.9 Vitamin D deficiency, unspecified; E80.6 Other disorders of bilirubin metabolism; R53.83 Other fatigue; Z79.899 Other long term (current) drug therapy
CPT/HCPCS: 36415; 80053; 80061; 82306; 83735; 84443; 84550; 85025